=== PATIENT | male | born 1955 | race Caucasian/White ===

== ENCOUNTER 2020-10-31 13:26 | Inpatient (IN) | payer MEDICARE, MEDICAID ==
[~2020-10-31] VITALS: Ht 162.6 cm; Wt 49.8 kg
[2020-10-31 14:37] LABS: BASO % 0 % (0-3); EOS # 0.4 x10^3/uL (0.0-0.7); EOS % 4 % (0-3); HEMOGLOBIN 12.7 g/dL (13.0-17.5); LYMPH # 0.8 x10^3/uL (1.0-4.8); LYMPH % 8 % (24-48); MEAN CORPUSCULAR HEMOGLOBIN 32 pg (25-35); MEAN CORPUSCULAR HGB CONC 33 g/dL (31-37); MEAN CORPUSCULAR VOLUME 94 fL (79-100); MONO # 0.7 x10^3/uL (0.0-1.1); MONO % 8 % (0-9); NEUT # 7.5 x10^3uL (1.8-7.7); NEUT % 80 % (31-73); PLATELET COUNT 242 x10^3/uL (140-400); RED BLOOD COUNT 4.03 x10^6/uL (4.30-5.70); RED CELL DISTRIBUTION WIDTH 14.1 % (11.5-14.5); WHITE BLOOD COUNT 9.4 x10^3/uL (4.0-11.0)
[2020-10-31 14:38] LABS: CALCIUM 8.6 mg/dL (8.5-10.1); CREATININE 0.6 mg/dL (0.7-1.3); GFR 135.6; POTASSIUM 3.9 mmol/L (3.5-5.1)
[2020-10-31 14:44] LABS: ALBUMIN 2.9 g/dL (3.4-5.0); ALBUMIN/GLOBULIN RATIO 0.8 (1.0-1.7); MAGNESIUM 1.8 mg/dL (1.8-2.4); TOTAL BILIRUBIN 0.2 mg/dL (0.2-1.0); TOTAL PROTEIN 6.7 g/dL (6.4-8.2)
[2020-10-31 14:58] LABS: BILIRUBIN,URINE SMALL (NEG); CLARITY,URINE CLEAR; COLOR,URINE YELLOW; GLUCOSE,URINE NEG (NEG)
[2020-10-31 14:59] LABS: NITRITE,URINE NEG (NEG)
[2020-10-31 15:00] LABS: BACTERIA,URINE 0 /HPF (0-FEW); RBC,URINE OCC /HPF (0-2); SQUAMOUS EPITHELIAL CELL,UR OCC /LPF; WBC,URINE OCC /HPF (0-4)
--- NOTE | 2020-10-31 16:01 | PHYS DOC ---
Past History Past Surgical History: Other (ROYA SKY APRN) General Adult EDM: Chief Complaint: MEDICAL CLEARANCE HPI: HPI: Patient is a 65-year-old male who presents for medical clearance for adult [facility]. Patient denies any pain or any complaints at this time. (ROYA SKY APRN) Review of Systems: Review of Systems: Constitutional: Denies fever or chills Eyes: Denies change in visual acuity HENT: Denies nasal congestion or sore throat Respiratory: Denies cough or shortness of breath Cardiovascular: Denies chest pain or edema GI: Denies abdominal pain, nausea, vomiting, bloody stools or diarrhea : Denies dysuria Musculoskeletal: Denies back pain or joint pain Integument: Denies rash Neurologic: Denies headache, focal weakness or sensory changes Endocrine: Denies polyuria or polydipsia Lymphatic: Denies swollen glands Psychiatric: Denies depression or anxiety (ROYA SKY APRN) Allergies: Allergies: Allergies Coded Allergies Type Severity Reaction Last Updated Verified diazepam Allergy Unknown 10/31/20 Yes quetiapine Allergy Unknown 10/31/20 Yes (ROYA SKY APRN) Physical Exam: PE: Constitutional: Well developed, well nourished, no acute distress, non-toxic appearance. [] HENT: Normocephalic, atraumatic, bilateral external ears normal, oropharynx moist, no oral exudates, nose normal. [] Eyes: PERRLA, EOMI, conjunctiva normal, no discharge. [] Neck: Normal range of motion, no tenderness, supple, no stridor. [] Cardiovascular:Heart rate regular rhythm, no murmur [] Lungs & Thorax: Bilateral breath sounds clear to auscultation [] Abdomen: Bowel sounds normal, soft, no tenderness, no masses, no pulsatile masses. [] Skin: Warm, dry, no erythema, no rash. [] Back: No tenderness, no CVA tenderness. [] Extremities: No tenderness, no cyanosis, no clubbing, ROM intact, no edema. [] Neurologic: Alert and oriented X 3, normal motor function, normal sensory function, no focal deficits noted. [] Psychologic: Affect normal, judgement normal, mood normal. [] (ROYA SKY APRN) Current Patient Data: Labs: Laboratory Tests Test 10/31/20 14:09 10/31/20 14:10 White Blood Count 9.4 x10^3/uL (4.0-11.0) Red Blood Count 4.03 x10^6/uL (4.30-5.70) L Hemoglobin 12.7 g/dL (13.0-17.5) L Hematocrit 38.0 % (39.0-53.0) L Mean Corpuscular Volume 94 fL (79-100) Mean Corpuscular Hemoglobin 32 pg (25-35) Mean Corpuscular Hemoglobin Concent 33 g/dL (31-37) Red Cell Distribution Width 14.1 % (11.5-14.5) Platelet Count 242 x10^3/uL (140-400) Neutrophils (%) (Auto) 80 % (31-73) H Lymphocytes (%) (Auto) 8 % (24-48) L Monocytes (%) (Auto) 8 % (0-9) Eosinophils (%) (Auto) 4 % (0-3) H Basophils (%) (Auto) 0 % (0-3) Neutrophils # (Auto) 7.5 x10^3uL (1.8-7.7) Lymphocytes # (Auto) 0.8 x10^3/uL (1.0-4.8) L Monocytes # (Auto) 0.7 x10^3/uL (0.0-1.1) Eosinophils # (Auto) 0.4 x10^3/uL (0.0-0.7) Basophils # (Auto) 0.0 x10^3/uL (0.0-0.2) Sodium Level 140 mmol/L (136-145) Potassium Level 3.9 mmol/L (3.5-5.1) Chloride Level 102 mmol/L (98-107) Carbon Dioxide Level 30 mmol/L (21-32) Anion Gap 8 (6-14) Blood Urea Nitrogen 12 mg/dL (8-26) Creatinine 0.6 mg/dL (0.7-1.3) L Estimated GFR (Cockcroft-Gault) 135.6 BUN/Creatinine Ratio 20 (6-20) Glucose Level 98 mg/dL (70-99) Calcium Level 8.6 mg/dL (8.5-10.1) Magnesium Level 1.8 mg/dL (1.8-2.4) Total Bilirubin 0.2 mg/dL (0.2-1.0) Aspartate Amino Transferase (AST) 53 U/L (15-37) H Alanine Aminotransferase (ALT) 36 U/L (16-63) Alkaline Phosphatase 117 U/L (46-116) H Total Protein 6.7 g/dL (6.4-8.2) Albumin 2.9 g/dL (3.4-5.0) L Albumin/Globulin Ratio 0.8 (1.0-1.7) L Urine Collection Type Void Urine Color Yellow Urine Clarity Clear Urine pH 6.5 Urine Specific [place] 1.015 Urine Protein Neg (NEG-TRACE) Urine Glucose (UA) Neg mg/dL (NEG) Urine Ketones (Stick) 15 mg/dL (NEG) Urine Blood Neg (NEG) Urine Nitrite Neg (NEG) Urine Bilirubin Small (NEG) Urine Urobilinogen Dipstick 2.0 mg/dL (0.2 mg/dL) Urine Leukocyte Esterase Neg (NEG) Urine RBC Occ /HPF (0-2) Urine WBC Occ /HPF (0-4) Urine Squamous Epithelial Cells Occ /LPF Urine Bacteria 0 /HPF (0-FEW) Urine Mucus Slight /LPF Vital Signs: Vital Signs Date Time Temp Pulse Resp B/P (MAP) Pulse Ox O2 Delivery O2 Flow Rate FiO2 10/31/20 15:50 70 18 99/68 (78) 96 10/31/20 13:47 97.6 Room Air (ROYA SKY APRN) EKG: EKG: [] (ROYA SKY APRN) Radiology/Procedures: Radiology/Procedures: [] (ROYA SKY APRN) Heart Score: C/O Chest Pain: No Risk Factors: Risk Factors: DM, Current or recent (<one month) smoker, HTN, HLP, family history of CAD, obesity. Risk Scores: Score 0 - 3: 2.5% MACE over next 6 weeks - Discharge Home Score 4 - 6: 20.3% MACE over next 6 weeks - Admit for Clinical Observation Score 7 - 10: 72.7% MACE over next 6 weeks - Early Invasive Strategies (ROYA SKY APRN) Course & Med Decision Making: Course & Med Decision Making Pertinent Labs and Imaging studies reviewed. (See chart for details) [] 65-year-old male presents with medical clearance for adult [facility] unit. Patient's denying any complaints or any pain at this time. All labs are unremarkable. Patient's EKG shows sinus rhythm. Patient is medically cleared and able to be admitted to [facility]. (ROYA SKY APRN) Dragon Disclaimer: Dragon Disclaimer: This electronic medical record was generated, in whole or in part, using a voice recognition dictation system. (ROYA SKY APRN) Attending Co-Sign The patient was seen and interviewed as well as examined at the bedside. The chart was reviewed. The case was discussed. Agree with the plan of care. (JOSI IVEY DO) Departure Departure: Impression: Primary Impression: Medical clearance for psychiatric admission Disposition: HOME / SELF CARE / HOMELESS Condition: STABLE Referrals: SHERIF ALEJO DO (PCP) ROYA SKY APRN Oct 31, 2020 16:01 JOSI IVEY DO Nov 04, 2020 11:19
[2020-10-31] MEDS ORDERED: DIVA250T4 PO (16:10)
[2020-10-31] MEDS ORDERED: VENL37.5 PO (16:10)
[2020-10-31] MEDS ORDERED: GABA100C81 PO (16:10)
[2020-10-31] MEDS ORDERED: SERT25TA PO (16:10)
[2020-10-31] MEDS ORDERED: PHEN100C4 PO (16:10)
[2020-10-31] MEDS ORDERED: DEXA4TAB63 PO (16:10)
[2020-10-31] MEDS ORDERED: MIRT7.5T8 PO (16:10)
[2020-10-31] MEDS ORDERED: MORP-15 PO (16:10)
[2020-10-31] MEDS ORDERED: DONE5TAB7 PO (16:10)
[2020-10-31] MEDS ORDERED: ASPI-630 PO (16:10)
[2020-10-31] MEDS ORDERED: MAGNESIUM HYDROXIDE 2,400 MG/30 ML ORAL.SUSP. PO PRN (16:15)
[2020-10-31] MEDS ORDERED: MAG HYDROX/AL HYDROX/SIMETH 30 ML ORAL.SUSP PO PRN (16:15)
[2020-10-31] MEDS ORDERED: METHYL SALICYLATE/MENTHOL TOPICAL OINTMENT 57GM TUBE. TP PRN (16:15)
[2020-10-31 16:25] VITALS: BP 107/70
--- NOTE | 2020-10-31 16:54 | EKG ---
[address] [address] Test Date: 2020-10-31 Test Time: 14:00:59 Pat Name: KEN BECERRIL Department: Room: Gender: M [employer]: RACHAEL : 1955 Requested By: ROYA SKY Order Number: [id number] Reading MD: Measurements Intervals [place] Rate: 75 P: 47 NJ: 138 QRS: 59 QRSD: 88 T: 54 QT: 388 QTc: 436 Interpretive Statements SINUS RHYTHM VENTRICULAR PREMATURE COMPLEX(ES) LOW LIMB LEAD VOLTAGE ABNORMAL ECG RI6.02 No previous ECG available for comparison
[2020-10-31] MEDS: NICOTINE 14MG PATCH. TD SCH (17:30)
[2020-10-31] MEDS: DIVALPROEX SODIUM 250 MG TABLET.DR. PO SCH ×2 (17:53→20:11)
[2020-10-31] MEDS: GABAPENTIN 100 MG CAPSULE. PO SCH (20:09)
[2020-10-31] MEDS: MORPHINE ER 30 MG TABLET.ER PO SCH (20:10)
[2020-10-31] MEDS: MORPHINE ER 15 MG TABLET.ER PO SCH (20:10)
[2020-10-31] MEDS: MIRTAZAPINE 7.5 MG TABLET. PO SCH (20:11)
[2020-10-31] MEDS: PHENYTOIN SODIUM EXTENDED 100 MG CAPSULE PO SCH (20:11)
[2020-10-31] MEDS: DONEPEZIL HCL 5 MG TABLET. PO SCH (20:12)
[2020-10-31] MEDS: DEXAMETHASONE 4 MG TABLET PO SCH (21:00)
[2020-11-01 00:24] LABS: THYROXINE 4.1 ug/dL (4.5-12.0)
[2020-11-01 05:41] VITALS: BP 104/69
[2020-11-01] MEDS ORDERED: SERTRALINE 25 MG TABLET. PO SCH (09:00)
[2020-11-01] MEDS: DEXAMETHASONE 4 MG TABLET PO SCH ×2 (09:00→20:55)
[2020-11-01] MEDS: ASPIRIN CHEWABLE 81 MG TABLET. PO SCH (09:53)
[2020-11-01] MEDS: GABAPENTIN 100 MG CAPSULE. PO SCH ×3 (09:53→20:54)
[2020-11-01] MEDS: NICOTINE 14MG PATCH. TD SCH (09:54)
[2020-11-01] MEDS: PHENYTOIN SODIUM EXTENDED 100 MG CAPSULE PO SCH ×2 (09:55→20:54)
[2020-11-01] MEDS: DIVALPROEX SODIUM 250 MG TABLET.DR. PO SCH ×4 (09:55→20:56)
[2020-11-01] MEDS: VENLAFAXINE XR 37.5 MG CAP.ER.24H. PO SCH (09:55)
[2020-11-01] MEDS: MORPHINE ER 30 MG TABLET.ER PO SCH ×2 (09:56→20:55)
[2020-11-01] MEDS: MORPHINE ER 15 MG TABLET.ER PO SCH ×2 (09:57→20:55)
[2020-11-01 15:31] VITALS: BP 90/64
[2020-11-01 19:14] LABS: THYROID STIM HORMONE (TSH) 2.516 uIU/mL (0.358-3.740)
[2020-11-01] MEDS: DONEPEZIL HCL 5 MG TABLET. PO SCH (20:55)
[2020-11-01] MEDS: MIRTAZAPINE 7.5 MG TABLET. PO SCH (20:56)
[2020-11-01] MEDS: hydrOXYzine PAMOATE 25 MG CAPSULE PO SCH (20:56)
--- NOTE | 2020-11-01 22:19 | PDOC ---
Exam Note: Adams Note: Please also refer to the separate dictated note~for this date of service dictated separately.~Patient seen individually. Discussed the patient with Nursing staff reviewed the chart.~Reviewed interim history and current functioning. Reviewed vital signs,~Labs/ Radiology~and current medications noted below. Continue current treatment with the changes noted in the dictated addendum note Assessment: Vital Signs/I&O: Vital Signs Date Time Temp Pulse Resp B/P (MAP) Pulse Ox O2 Delivery O2 Flow Rate FiO2 11/01/20 20:55 95 11/01/20 15:31 97.5 67 16 90/64 (73) 11/01/20 14:19 Room Air I & O 10/31/20 10/31/20 11/01/20 15:00 23:00 07:00 Intake Total 720 ml Balance 720 ml Current Medications: Meds: Current Medications Medications (Trade) Dose Ordered Sig/Guillermo Route PRN Reason Start Time Stop Time Status Last Admin Dose Admin Aspirin (Aspirin Chewable) 81 mg DAILY PO 11/01/20 09:00 11/01/20 09:53 Sertraline HCl (Zoloft) 25 mg DAILY PO 11/01/20 09:00 11/01/20 17:15 DC 11/01/20 09:55 Venlafaxine HCl (Effexor Xr) 75 mg DAILY PO 11/01/20 09:00 11/01/20 09:55 Hydroxyzine Pamoate (Vistaril) 25 mg TID PO 11/01/20 21:00 11/01/20 20:56 I have reviewed the current psychotropics carefully including drug interactions. Risk benefit ratio favors no change other than as noted in my dictated progress note. Diagnosis: Problems: (1) Chronic schizoaffective disorder (2) Schizoaffective disorder VIANNEY HAWLEY MD Nov 01, 2020 22:19
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
[2020-11-02 00:07] LABS: HEMOGLOBIN A1C 5.4 % (4.8-5.6)
[2020-11-02 05:17] VITALS: BP 90/57
[2020-11-02 06:51] LABS: VAL ACID 23 mcg/mL (50-100)
--- NOTE | 2020-11-02 08:16 | PDOC ---
Exam Note: Adams Note: Late entry for 10/31/2020. Please also refer to the separate dictated note~for this date of service dictated separately.~Patient seen individually. Discussed the patient with Nursing staff reviewed the chart.~Reviewed interim history and current functioning. Reviewed vital signs,~Labs/ Radiology~and current medic ations noted below. Continue current treatment with the changes noted in the dictated addendum note Assessment: Vital Signs/I&O: Vital Signs Date Time Temp Pulse Resp B/P (MAP) Pulse Ox O2 Delivery O2 Flow Rate FiO2 11/02/20 05:17 97.7 85 16 90/57 (68) 96 Room Air I & O 11/01/20 11/01/20 11/02/20 15:00 23:00 07:00 Intake Total 660 ml 720 ml Balance 660 ml 720 ml Labs: Laboratory Tests Test 11/02/20 05:57 Phenytoin (Dilantin) Level 12.0 mcg/mL (10.0-20.0) Phenytoin Last Dose Date 11/01/20 Phenytoin Last Dose Time 2100 Valproic Acid Level 23 mcg/mL (50-100) L Valproic Acid Last Dose Date 11/01/20 Valproic Acid Last Dose Time 2100 Current Medications: Meds: Current Medications Medications (Trade) Dose Ordered Sig/Guillermo Route PRN Reason Start Time Stop Time Status Last Admin Dose Admin Aspirin (Aspirin Chewable) 81 mg DAILY PO 11/01/20 09:00 11/01/20 09:53 Sertraline HCl (Zoloft) 25 mg DAILY PO 11/01/20 09:00 11/01/20 17:15 DC 11/01/20 09:55 Venlafaxine HCl (Effexor Xr) 75 mg DAILY PO 11/01/20 09:00 11/01/20 09:55 Hydroxyzine Pamoate (Vistaril) 25 mg TID PO 11/01/20 21:00 11/01/20 20:56 I have reviewed the current psychotropics carefully including drug interactions. Risk benefit ratio favors no change other than as noted in my dictated progress note. Diagnosis: Problems: (1) Schizoaffective disorder (2) Schizoaffective disorder, bipolar type (3) Bipolar disorder, current episode mixed, severe, with psychotic features (4) Anxiety disorder, unspecified (5) Impulse control disorder, unspecified VIANNEY HAWLEY MD 21, 2021 08:16
[2020-11-02] MEDS: ASPIRIN CHEWABLE 81 MG TABLET. PO SCH (08:26)
[2020-11-02] MEDS: DIVALPROEX SODIUM 250 MG TABLET.DR. PO SCH ×2 (08:26→14:10)
[2020-11-02] MEDS: hydrOXYzine PAMOATE 25 MG CAPSULE PO SCH ×3 (08:26→21:05)
[2020-11-02] MEDS: PHENYTOIN SODIUM EXTENDED 100 MG CAPSULE PO SCH ×2 (08:27→21:04)
[2020-11-02] MEDS: GABAPENTIN 100 MG CAPSULE. PO SCH ×3 (08:27→21:04)
[2020-11-02] MEDS: VENLAFAXINE XR 37.5 MG CAP.ER.24H. PO SCH (08:27)
[2020-11-02] MEDS: MORPHINE ER 15 MG TABLET.ER PO SCH ×2 (08:28→21:05)
[2020-11-02] MEDS: DEXAMETHASONE 4 MG TABLET PO SCH ×2 (08:28→21:05)
[2020-11-02] MEDS: MORPHINE ER 30 MG TABLET.ER PO SCH ×2 (08:28→21:06)
[2020-11-02] MEDS: NICOTINE 14MG PATCH. TD SCH (08:29)
--- NOTE | 2020-11-02 08:47 | PDOC ---
Exam Note: Adams Note: This note is a late entry for 11/01/2020 covers elements not covered in my initial note. Subjective: The patient was seen individually in the evening of 11/01/2020 with Justina GANT, discussed and reviewed the chart. He slept 6-1/4 hours previous night. Patient is alert and oriented to himself, place and date of . He does have short-term memory deficits. He is fixated on wanting a cigarette. I had a lengthy discussion with him and very reluctantly he is willing to try some Nicorette gum which we will offer him. He does have history of alcohol abuse in the past probably cognitive deficits secondary to this. He refused breakfast. We will check valproic acid level and Dilantin level given his history of seizures. Review of Systems: Ambulation impaired in wheelchair. No CV, , pulmonary, eye, ENT system symptoms on review. Mental Status Exam: The patient is oriented to himself and situation. Speech has some latency, low in rate and rhythm, low in volume. Abstraction fair. Computation impaired. Language function intact. Mood and affect somewhat depr essed, paranoid. Laboratory Data: Reviewed. Impression: Schizoaffective disorder bipolar type mixed with psychotic features. Anxiety disorder unspecified. Impulse control disorder unspecified. Mild cognitive impairment. Plan: Check valproic acid level. Check Dilantin level. Increase Zoloft from 25 mg a day to 50 mg a day. We will consider stopping the Effexor to avoid u sing SSRIs and SNRIs in combination. Make further adjustments as clinically indicated. Assessment: Vital Signs/I&O: Vital Signs Date Time Temp Pulse Resp B/P (MAP) Pulse Ox O2 Delivery O2 Flow Rate FiO2 11/02/20 08:28 18 Room Air 11/02/20 05:17 97.7 85 90/57 (68) 96 I & O 11/01/20 11/01/20 11/02/20 15:00 23:00 07:00 Intake Total 660 ml 720 ml Balance 660 ml 720 ml Labs: Laboratory Tests Test 11/02/20 05:57 Phenytoin (Dilantin) Level 12.0 mcg/mL (10.0-20.0) Phenytoin Last Dose Date 11/01/20 Phenytoin Last Dose Time 2100 Valproic Acid Level 23 mcg/mL (50-100) L Valproic Acid Last Dose Date 11/01/20 Valproic Acid Last Dose Time 2100 Current Medications: Meds: Laboratory Tests Test 11/02/20 05:57 Phenytoin (Dilantin) Level 12.0 mcg/mL Phenytoin Last Dose Date 11/01/20 Phenytoin Last Dose Time 2100 Valproic Acid (Depakene) Level 23 mcg/mL Valproic Acid Last Dose Date 11/01/20 Valproic Acid Last Dose Time 2100 Current Medications Medications (Trade) Dose Ordered Sig/Guillermo Route PRN Reason Start Time Stop Time Status Last Admin Dose Admin Acetaminophen (Tylenol) 650 mg PRN Q6HRS PRN PO MILD PAIN / TEMP > 100.3'F 10/31/20 16:15 Multi-Ingredient Ointment (Analgesic [place]) 1 ambrocio PRN QID PRN TP MUSCLE PAIN 10/31/20 16:15 Al Hydroxide/Mg Hydroxide (Mylanta Plus Xs) 15 ml PRN AFTMEALHC PRN PO DYSPEPSIA 10/31/20 16:15 Magnesium Hydroxide (Milk Of Magnesia) 2,400 mg PRN QHS PRN PO CONSTIPATION 10/31/20 16:15 Aspirin (Aspirin Chewable) 81 mg DAILY PO 11/01/20 09:00 11/02/20 08:26 Dexamethasone (Decadron) 4 mg BID PO 10/31/20 21:00 11/02/20 08:28 Divalproex Sodium (Depakote) 250 mg QID PO 10/31/20 17:00 11/02/20 08:26 Donepezil HCl (Aricept) 5 mg QHS PO 10/31/20 21:00 11/01/20 20:55 Gabapentin (Neurontin) 200 mg TID PO 10/31/20 21:00 11/02/20 08:27 Mirtazapine (Remeron) 7.5 mg QHS PO 10/31/20 21:00 11/01/20 20:56 Morphine Sulfate (Ms Contin) 15 mg BID PO 10/31/20 21:00 11/02/20 08:28 Phenytoin Sodium (Dilantin) 200 mg BID PO 10/31/20 21:00 11/02/20 08:27 Sertraline HCl (Zoloft) 25 mg DAILY PO 11/01/20 09:00 11/01/20 17:15 DC 11/01/20 09:55 Venlafaxine HCl (Effexor Xr) 75 mg DAILY PO 11/01/20 09:00 11/02/20 08:27 Morphine Sulfate (Ms Contin) 30 mg BID PO 10/31/20 21:00 11/02/20 08:28 Nicotine (Nicoderm Cq 14mg Patch) 1 patch DAILY TD 10/31/20 17:30 11/02/20 08:29 Olanzapine (ZyPREXA ZYDIS) 2.5 mg PRN Q2HR PRN PO PSYCHOSIS 10/31/20 18:30 Sertraline HCl (Zoloft) 50 mg DAILY PO 11/02/20 09:00 11/02/20 08:27 Hydroxyzine Pamoate (Vistaril) 25 mg TID PO 11/01/20 21:00 11/02/20 08:26 Current Medications Medications (Trade) Dose Ordered Sig/Guillermo Route PRN Reason Start Time Stop Time Status Last Admin Dose Admin Aspirin (Aspirin Chewable) 81 mg DAILY PO 11/01/20 09:00 11/02/20 08:26 Sertraline HCl (Zoloft) 25 mg DAILY PO 11/01/20 09:00 11/01/20 17:15 DC 11/01/20 09:55 Venlafaxine HCl (Effexor Xr) 75 mg DAILY PO 11/01/20 09:00 11/02/20 08:27 Sertraline HCl (Zoloft) 50 mg DAILY PO 11/02/20 09:00 11/02/20 08:27 Hydroxyzine Pamoate (Vistaril) 25 mg TID PO 11/01/20 21:00 11/02/20 08:26 I have reviewed the current psychotropics carefully including drug interactions. Risk benefit ratio favors no change other than as noted in my dictated progress note. Diagnosis: Problems: (1) Mild cognitive impairment (2) Schizoaffective disorder, bipolar type (3) Bipolar disorder, current episode mixed, severe, with psychotic features (4) Anxiety disorder, unspecified (5) Impulse control disorder, unspecified VIANNEY HAWLEY MD Nov 02, 2020 08:47
[2020-11-02] MEDS ORDERED: SERTRALINE 25 MG TABLET. PO SCH (09:00)
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
[2020-11-02 15:40] VITALS: BP 97/66
[2020-11-02] MEDS: DIVALPROEX SODIUM 125 MG TABLET.DR. PO SCH ×2 (17:23→21:07)
[2020-11-02] MEDS: ACETAMINOPHEN 325 MG TABLET PO PRN (17:38)
[2020-11-02] MEDS: MIRTAZAPINE 7.5 MG TABLET. PO SCH (21:04)
[2020-11-02] MEDS: DONEPEZIL HCL 5 MG TABLET. PO SCH (21:04)
--- NOTE | 2020-11-02 22:20 | PDOC ---
Exam Note: Adams Note: Please also refer to the separate dictated note~for this date of service dictated separately.~Patient seen individually. Discussed the patient with Nursing staff reviewed the chart.~Reviewed interim history and current functioning. Reviewed vital signs,~Labs/ Radiology~and current medications noted below. Continue current treatment with the changes noted in the dictated addendum note Assessment: Vital Signs/I&O: Vital Signs Date Time Temp Pulse Resp B/P (MAP) Pulse Ox O2 Delivery O2 Flow Rate FiO2 11/02/20 15:40 98.0 65 18 97/66 (76) 98 11/02/20 12:20 Room Air I & O 11/01/20 11/01/20 11/02/20 15:00 23:00 07:00 Intake Total 660 ml 720 ml Balance 660 ml 720 ml Labs: Laboratory Tests Test 11/02/20 05:57 Phenytoin (Dilantin) Level 12.0 mcg/mL (10.0-20.0) Phenytoin Last Dose Date 11/01/20 Phenytoin Last Dose Time 2100 Valproic Acid Level 23 mcg/mL (50-100) L Valproic Acid Last Dose Date 11/01/20 Valproic Acid Last Dose Time 2100 Current Medications: Meds: Laboratory Tests Test 11/02/20 05:57 Phenytoin (Dilantin) Level 12.0 mcg/mL Phenytoin Last Dose Date 11/01/20 Phenytoin Last Dose Time 2100 Valproic Acid (Depakene) Level 23 mcg/mL Valproic Acid Last Dose Date 11/01/20 Valproic Acid Last Dose Time 2100 Current Medications Medications (Trade) Dose Ordered Sig/Guillermo Route PRN Reason Start Time Stop Time Status Last Admin Dose Admin Acetaminophen (Tylenol) 650 mg PRN Q6HRS PRN PO MILD PAIN / TEMP > 100.3'F 10/31/20 16:15 11/02/20 17:38 Multi-Ingredient Ointment (Analgesic [place]) 1 ambrocio PRN QID PRN TP MUSCLE PAIN 10/31/20 16:15 Al Hydroxide/Mg Hydroxide (Mylanta Plus Xs) 15 ml PRN AFTMEALHC PRN PO DYSPEPSIA 10/31/20 16:15 Magnesium Hydroxide (Milk Of Magnesia) 2,400 mg PRN QHS PRN PO CONSTIPATION 10/31/20 16:15 Aspirin (Aspirin Chewable) 81 mg DAILY PO 11/01/20 09:00 11/02/20 08:26 Dexamethasone (Decadron) 4 mg BID PO 10/31/20 21:00 11/02/20 21:05 Divalproex Sodium (Depakote) 250 mg QID PO 10/31/20 17:00 11/02/20 15:56 DC 11/02/20 14:10 Donepezil HCl (Aricept) 5 mg QHS PO 10/31/20 21:00 11/02/20 21:04 Gabapentin (Neurontin) 200 mg TID PO 10/31/20 21:00 11/02/20 21:04 Mirtazapine (Remeron) 7.5 mg QHS PO 10/31/20 21:00 11/02/20 21:04 Morphine Sulfate (Ms Contin) 15 mg BID PO 10/31/20 21:00 11/02/20 21:05 Phenytoin Sodium (Dilantin) 200 mg BID PO 10/31/20 21:00 11/02/20 21:04 Sertraline HCl (Zoloft) 25 mg DAILY PO 11/01/20 09:00 11/01/20 17:15 DC 11/01/20 09:55 Venlafaxine HCl (Effexor Xr) 75 mg DAILY PO 11/01/20 09:00 11/02/20 08:27 Morphine Sulfate (Ms Contin) 30 mg BID PO 10/31/20 21:00 11/02/20 21:06 Nicotine (Nicoderm Cq 14mg Patch) 1 patch DAILY TD 10/31/20 17:30 11/02/20 08:29 Olanzapine (ZyPREXA ZYDIS) 2.5 mg PRN Q2HR PRN PO PSYCHOSIS 10/31/20 18:30 Sertraline HCl (Zoloft) 50 mg DAILY PO 11/02/20 09:00 11/02/20 15:56 DC 11/02/20 08:27 Hydroxyzine Pamoate (Vistaril) 25 mg TID PO 11/01/20 21:00 11/02/20 21:05 Divalproex Sodium (Depakote) 375 mg QID PO 11/02/20 17:00 11/02/20 21:07 Current Medications Medications (Trade) Dose Ordered Sig/Guillermo Route PRN Reason Start Time Stop Time Status Last Admin Dose Admin Sertraline HCl (Zoloft) 50 mg DAILY PO 11/02/20 09:00 11/02/20 15:56 DC 11/02/20 08:27 Divalproex Sodium (Depakote) 375 mg QID PO 11/02/20 17:00 11/02/20 21:07 I have reviewed the current psychotropics carefully including drug interactions. Risk benefit ratio favors no change other than as noted in my dictated progress note. Diagnosis: Problems: (1) Schizoaffective disorder, bipolar type (2) Impulse control disorder, unspecified (3) Anxiety disorder, unspecified (4) Bipolar disorder, current episode mixed, severe, with psychotic features (5) Mild cognitive impairment VIANNEY HAWLEY MD Nov 02, 2020 22:20
[2020-11-03 05:47] VITALS: BP 105/59
[2020-11-03] MEDS: ASPIRIN CHEWABLE 81 MG TABLET. PO SCH (08:17)
[2020-11-03] MEDS: NICOTINE 14MG PATCH. TD SCH (08:17)
[2020-11-03] MEDS: DIVALPROEX SODIUM 125 MG TABLET.DR. PO SCH ×4 (08:18→20:42)
[2020-11-03] MEDS: DEXAMETHASONE 4 MG TABLET PO SCH ×2 (08:18→20:42)
[2020-11-03] MEDS: GABAPENTIN 100 MG CAPSULE. PO SCH ×3 (08:18→20:42)
[2020-11-03] MEDS: PHENYTOIN SODIUM EXTENDED 100 MG CAPSULE PO SCH ×2 (08:19→20:42)
[2020-11-03] MEDS: hydrOXYzine PAMOATE 25 MG CAPSULE PO SCH ×3 (08:20→20:42)
[2020-11-03] MEDS: VENLAFAXINE XR 37.5 MG CAP.ER.24H. PO SCH (08:20)
[2020-11-03] MEDS: MORPHINE ER 15 MG TABLET.ER PO SCH ×3 (08:20→20:43)
[2020-11-03] MEDS: MORPHINE ER 30 MG TABLET.ER PO SCH ×2 (09:23→20:43)
[2020-11-03] MEDS: ACETAMINOPHEN 325 MG TABLET PO PRN ×2 (09:59→17:18)
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
[2020-11-03 15:47] VITALS: BP 112/70
[2020-11-03] MEDS: MIRTAZAPINE 7.5 MG TABLET. PO SCH (20:42)
[2020-11-03] MEDS: DONEPEZIL HCL 5 MG TABLET. PO SCH (20:42)
--- NOTE | 2020-11-03 21:59 | PDOC ---
Exam Note: Adams Note: Please also refer to the separate dictated note~for this date of service dictated separately.~Patient seen individually. Discussed the patient with Nursing staff reviewed the chart.~Reviewed interim history and current functioning. Reviewed vital signs,~Labs/ Radiology~and current medications noted below. Continue current treatment with the changes noted in the dictated addendum note Assessment: Vital Signs/I&O: Vital Signs Date Time Temp Pulse Resp B/P (MAP) Pulse Ox O2 Delivery O2 Flow Rate FiO2 11/03/20 15:47 96.7 74 18 112/70 (84) 94 11/03/20 08:20 Room Air I & O 11/02/20 11/02/20 11/03/20 15:00 23:00 07:00 Intake Total 680 ml 710 ml Balance 680 ml 710 ml Current Medications: Meds: Current Medications Medications (Trade) Dose Ordered Sig/Guillermo Route PRN Reason Start Time Stop Time Status Last Admin Dose Admin Acetaminophen (Tylenol) 650 mg PRN Q6HRS PRN PO MILD PAIN / TEMP > 100.3'F 10/31/20 16:15 11/03/20 17:18 Multi-Ingredient Ointment (Analgesic [place]) 1 ambrocio PRN QID PRN TP MUSCLE PAIN 10/31/20 16:15 Al Hydroxide/Mg Hydroxide (Mylanta Plus Xs) 15 ml PRN AFTMEALHC PRN PO DYSPEPSIA 10/31/20 16:15 Magnesium Hydroxide (Milk Of Magnesia) 2,400 mg PRN QHS PRN PO CONSTIPATION 10/31/20 16:15 Aspirin (Aspirin Chewable) 81 mg DAILY PO 11/01/20 09:00 11/03/20 08:17 Dexamethasone (Decadron) 4 mg BID PO 10/31/20 21:00 11/03/20 20:42 Divalproex Sodium (Depakote) 250 mg QID PO 10/31/20 17:00 11/02/20 15:56 DC 11/02/20 14:10 Donepezil HCl (Aricept) 5 mg QHS PO 10/31/20 21:00 11/03/20 20:42 Gabapentin (Neurontin) 200 mg TID PO 10/31/20 21:00 11/03/20 20:42 Mirtazapine (Remeron) 7.5 mg QHS PO 10/31/20 21:00 11/03/20 20:42 Morphine Sulfate (Ms Contin) 15 mg BID PO 10/31/20 21:00 11/03/20 20:43 Phenytoin Sodium (Dilantin) 200 mg BID PO 10/31/20 21:00 11/03/20 20:42 Sertraline HCl (Zoloft) 25 mg DAILY PO 11/01/20 09:00 11/01/20 17:15 DC 11/01/20 09:55 Venlafaxine HCl (Effexor Xr) 75 mg DAILY PO 11/01/20 09:00 11/03/20 08:20 Morphine Sulfate (Ms Contin) 30 mg BID PO 10/31/20 21:00 11/03/20 20:43 Nicotine (Nicoderm Cq 14mg Patch) 1 patch DAILY TD 10/31/20 17:30 11/03/20 08:17 Olanzapine (ZyPREXA ZYDIS) 2.5 mg PRN Q2HR PRN PO PSYCHOSIS 10/31/20 18:30 Sertraline HCl (Zoloft) 50 mg DAILY PO 11/02/20 09:00 11/02/20 15:56 DC 11/02/20 08:27 Hydroxyzine Pamoate (Vistaril) 25 mg TID PO 11/01/20 21:00 11/03/20 20:42 Divalproex Sodium (Depakote) 375 mg QID PO 11/02/20 17:00 11/03/20 20:42 I have reviewed the current psychotropics carefully including drug interactions. Risk benefit ratio favors no change other than as noted in my dictated progress note. Diagnosis: Problems: (1) Schizoaffective disorder, bipolar type (2) Impulse control disorder, unspecified (3) Anxiety disorder, unspecified (4) Bipolar disorder, current episode mixed, severe, with psychotic features (5) Mild cognitive impairment VIANNEY HAWLEY MD Nov 03, 2020 21:59
[2020-11-04 06:42] VITALS: BP 94/62
--- NOTE | 2020-11-04 08:37 | PDOC ---
Exam Note: Adams Note: This note is a late entry for 11/02/2020 covers elements not covered in my initial note. Subjective: The patient was seen individually in the evening of 11/02/2020 with Justina GANT, discussed and reviewed the chart. He slept 3 hours previous night. Overall the patient remains obsessed with wanting cigarettes. I had a lengthy discussion with him in his room and offered nicotine gum and the Nicorette patch and he is insisting that if he has one packet of cigarettes then he will accept the Nicorette gum after that. Valproic acid level subtherapeutic at 23. Dilant in is 12 therapeutic. We reviewed his history from the past. Medically he has been on hospice care due to his malignancy but currently not on hospice care. Review of Systems: Ambulation impaired in wheelchair. No CV, , pulmonary, eye, ENT system symptoms on review. Mental Status Exam: The patient is oriented to himself and situation. Speech coherent, low in volume. Abstraction fair. Computation impaired. Language function intact. Attention span short. He is quite obsessive and anxious about the smoking as noted. Mood remains somewhat labile. No active suicidal or homicidal ideation. Laboratory Data: Reviewed. Impression: Schizoaffective disorder bipolar type mixed with psychotic features. Anxiety disorder unspecified. Impulse control disorder unspecified. Mild cognitive impairment. Plan: Increase Depakote from 250 mg 4 times a day to 375 mg 4 times a day. C heck CBC, CMP, valproic acid level in 3 days. He is on a combination of Effexor and Zoloft and we will stop the Zoloft to avoid any serotonergic syndrome symptoms. Maintain Aricept, Remeron, gabapentin, Dilantin at current dosage. Adjust further as clinically indicated. Assessment: Vital Signs/I&O: Vital Signs Date Time Temp Pulse Resp B/P (MAP) Pulse Ox O2 Delivery O2 Flow Rate FiO2 11/04/20 06:42 97.4 50 18 94/62 (73) 99 Room Air I & O 11/03/20 11/03/20 11/04/20 15:00 23:00 07:00 Intake Total 840 ml 560 ml Balance 840 ml 560 ml Current Medications: Meds: Current Medications Medications (Trade) Dose Ordered Sig/Guillermo Route PRN Reason Start Time Stop Time Status Last Admin Dose Admin Acetaminophen (Tylenol) 650 mg PRN Q6HRS PRN PO MILD PAIN / TEMP > 100.3'F 10/31/20 16:15 11/03/20 17:18 Multi-Ingredient Ointment (Analgesic [place]) 1 ambrocio PRN QID PRN TP MUSCLE PAIN 10/31/20 16:15 Al Hydroxide/Mg Hydroxide (Mylanta Plus Xs) 15 ml PRN AFTMEALHC PRN PO DYSPEPSIA 10/31/20 16:15 Magnesium Hydroxide (Milk Of Magnesia) 2,400 mg PRN QHS PRN PO CONSTIPATION 10/31/20 16:15 Aspirin (Aspirin Chewable) 81 mg DAILY PO 11/01/20 09:00 11/03/20 08:17 Dexamethasone (Decadron) 4 mg BID PO 10/31/20 21:00 11/03/20 20:42 Divalproex Sodium (Depakote) 250 mg QID PO 10/31/20 17:00 11/02/20 15:56 DC 11/02/20 14:10 Donepezil HCl (Aricept) 5 mg QHS PO 10/31/20 21:00 11/03/20 20:42 Gabapentin (Neurontin) 200 mg TID PO 10/31/20 21:00 11/03/20 20:42 Mirtazapine (Remeron) 7.5 mg QHS PO 10/31/20 21:00 11/03/20 20:42 Morphine Sulfate (Ms Contin) 15 mg BID PO 10/31/20 21:00 11/03/20 20:43 Phenytoin Sodium (Dilantin) 200 mg BID PO 10/31/20 21:00 11/03/20 20:42 Sertraline HCl (Zoloft) 25 mg DAILY PO 11/01/20 09:00 11/01/20 17:15 DC 11/01/20 09:55 Venlafaxine HCl (Effexor Xr) 75 mg DAILY PO 11/01/20 09:00 11/03/20 08:20 Morphine Sulfate (Ms Contin) 30 mg BID PO 10/31/20 21:00 11/03/20 20:43 Nicotine (Nicoderm Cq 14mg Patch) 1 patch DAILY TD 10/31/20 17:30 11/03/20 22:25 DC 11/03/20 08:17 Olanzapine (ZyPREXA ZYDIS) 2.5 mg PRN Q2HR PRN PO PSYCHOSIS 10/31/20 18:30 Sertraline HCl (Zoloft) 50 mg DAILY PO 11/02/20 09:00 11/02/20 15:56 DC 11/02/20 08:27 Hydroxyzine Pamoate (Vistaril) 25 mg TID PO 11/01/20 21:00 11/03/20 20:42 Divalproex Sodium (Depakote) 375 mg QID PO 11/02/20 17:00 11/03/20 20:42 Nicotine (Nicoderm Cq 21mg Patch) 1 patch DAILY TD 11/04/20 09:00 I have reviewed the current psychotropics carefully including drug interactions. Risk benefit ratio favors no change other than as noted in my dictated progress note. Diagnosis: Problems: (1) Schizoaffective disorder, bipolar type (2) Impulse control disorder, unspecified (3) Anxiety disorder, unspecified (4) Bipolar disorder, current episode mixed, severe, with psychotic features (5) Mild cognitive impairment VIANNEY HAWLEY MD Nov 04, 2020 08:37
[2020-11-04] MEDS: GABAPENTIN 100 MG CAPSULE. PO SCH ×3 (08:42→21:51)
[2020-11-04] MEDS: PHENYTOIN SODIUM EXTENDED 100 MG CAPSULE PO SCH ×2 (08:42→21:54)
[2020-11-04] MEDS: hydrOXYzine PAMOATE 25 MG CAPSULE PO SCH ×3 (08:42→21:53)
[2020-11-04] MEDS: DEXAMETHASONE 4 MG TABLET PO SCH ×2 (08:42→21:51)
[2020-11-04] MEDS: DIVALPROEX SODIUM 125 MG TABLET.DR. PO SCH ×4 (08:42→21:00)
[2020-11-04] MEDS: ASPIRIN CHEWABLE 81 MG TABLET. PO SCH (08:42)
[2020-11-04] MEDS: VENLAFAXINE XR 37.5 MG CAP.ER.24H. PO SCH (08:42)
[2020-11-04] MEDS: MORPHINE ER 30 MG TABLET.ER PO SCH ×2 (08:43→21:54)
[2020-11-04] MEDS: NICOTINE 21MG PATCH. TD SCH (08:44)
--- NOTE | 2020-11-04 09:07 | PDOC ---
Exam Note: Adams Note: This note is a late entry for 11/03/2020 covers elements not covered in my initial note. Subjective: The patient was seen individually in the morning of 11/03/2020 for a treatment team meeting with Diana Camacho, Krista Glover (forensic social worker), Mariela, activity therapy and Danita GANT, discussed and reviewed the chart. He slept 4-3/4 hours previous night. The patient has been withdrawn, obsessing about wanting cigarettes. No aggressive behaviors noted. He likes to go outside but very poor social interaction. Review of Systems: Ambulation impaired in wheelchair. No CV, , pulmonary, eye, ENT system symptoms on review. Mental Status Exam: The patient is oriented to himself and situation. Speech coherent, rapid at times, low in volume. Abstraction fair. Computation impaired. Language function intact. Mood and affect somewhat anxious, labile. Laboratory Data: Reviewed. Impression: Schizoaffective disorder bipolar type mixed with psychotic features. Anxiety disorder unspecified. Impulse control disorder unspecified. Mild cognitive impairment. Plan: No change from initial note. We will check valproic acid level on 11/06. Depakote is being increased to 375 mg 4 times a day. Maintain Dilantin at current dosage. Assessment: Vital Signs/I&O: Vital Signs Date Time Temp Pulse Resp B/P (MAP) Pulse Ox O2 Delivery O2 Flow Rate FiO2 11/04/20 08:43 16 99 Room Air 11/04/20 06:42 97.4 50 94/62 (73) I & O 11/03/20 11/03/20 11/04/20 15:00 23:00 07:00 Intake Total 840 ml 560 ml Balance 840 ml 560 ml Current Medications: Meds: Current Medications Medications (Trade) Dose Ordered Sig/Guillermo Route PRN Reason Start Time Stop Time Status Last Admin Dose Admin Acetaminophen (Tylenol) 650 mg PRN Q6HRS PRN PO MILD PAIN / TEMP > 100.3'F 10/31/20 16:15 11/03/20 17:18 Multi-Ingredient Ointment (Analgesic [place]) 1 ambrocio PRN QID PRN TP MUSCLE PAIN 10/31/20 16:15 Al Hydroxide/Mg Hydroxide (Mylanta Plus Xs) 15 ml PRN AFTMEALHC PRN PO DYSPEPSIA 10/31/20 16:15 Magnesium Hydroxide (Milk Of Magnesia) 2,400 mg PRN QHS PRN PO CONSTIPATION 10/31/20 16:15 Aspirin (Aspirin Chewable) 81 mg DAILY PO 11/01/20 09:00 11/04/20 08:42 Dexamethasone (Decadron) 4 mg BID PO 10/31/20 21:00 11/04/20 08:42 Divalproex Sodium (Depakote) 250 mg QID PO 10/31/20 17:00 11/02/20 15:56 DC 11/02/20 14:10 Donepezil HCl (Aricept) 5 mg QHS PO 10/31/20 21:00 11/03/20 20:42 Gabapentin (Neurontin) 200 mg TID PO 10/31/20 21:00 11/04/20 08:42 Mirtazapine (Remeron) 7.5 mg QHS PO 10/31/20 21:00 11/03/20 20:42 Morphine Sulfate (Ms Contin) 15 mg BID PO 10/31/20 21:00 11/03/20 20:43 Phenytoin Sodium (Dilantin) 200 mg BID PO 10/31/20 21:00 11/04/20 08:42 Sertraline HCl (Zoloft) 25 mg DAILY PO 11/01/20 09:00 11/01/20 17:15 DC 11/01/20 09:55 Venlafaxine HCl (Effexor Xr) 75 mg DAILY PO 11/01/20 09:00 11/04/20 08:42 Morphine Sulfate (Ms Contin) 30 mg BID PO 10/31/20 21:00 11/04/20 08:43 Nicotine (Nicoderm Cq 14mg Patch) 1 patch DAILY TD 10/31/20 17:30 11/03/20 22:25 DC 11/03/20 08:17 Olanzapine (ZyPREXA ZYDIS) 2.5 mg PRN Q2HR PRN PO PSYCHOSIS 10/31/20 18:30 Sertraline HCl (Zoloft) 50 mg DAILY PO 11/02/20 09:00 11/02/20 15:56 DC 11/02/20 08:27 Hydroxyzine Pamoate (Vistaril) 25 mg TID PO 11/01/20 21:00 11/04/20 08:42 Divalproex Sodium (Depakote) 375 mg QID PO 11/02/20 17:00 11/04/20 08:42 Nicotine (Nicoderm Cq 21mg Patch) 1 patch DAILY TD 11/04/20 09:00 11/04/20 08:44 Current Medications Medications (Trade) Dose Ordered Sig/Guillermo Route PRN Reason Start Time Stop Time Status Last Admin Dose Admin Nicotine (Nicoderm Cq 21mg Patch) 1 patch DAILY TD 11/04/20 09:00 11/04/20 08:44 I have reviewed the current psychotropics carefully including drug interactions. Risk benefit ratio favors no change other than as noted in my dictated progress note. Diagnosis: Problems: (1) Schizoaffective disorder (2) Chronic schizoaffective disorder (3) Schizoaffective disorder, bipolar type (4) Impulse control disorder, unspecified (5) Anxiety disorder, unspecified (6) Bipolar disorder, current episode mixed, severe, with psychotic features (7) Mild cognitive impairment VIANNEY HAWLEY MD Nov 04, 2020 09:07
[2020-11-04 15:56] VITALS: BP 102/67
[2020-11-04] MEDS: MIRTAZAPINE 15 MG TABLET PO SCH (21:00)
[2020-11-04] MEDS: DONEPEZIL HCL 5 MG TABLET. PO SCH (21:51)
[2020-11-04] MEDS: MORPHINE ER 15 MG TABLET.ER PO SCH (21:52)
[2020-11-04] MEDS: traZODone 50 MG TABLET. PO PRN (21:53)
--- NOTE | 2020-11-04 22:05 | PDOC ---
Exam Note: Adams Note: Please also refer to the separate dictated note~for this date of service dictated separately.~Patient seen individually. Discussed the patient with Nursing staff reviewed the chart.~Reviewed interim history and current functioning. Reviewed vital signs,~Labs/ Radiology~and current medications noted below. Continue current treatment with the changes noted in the dictated addendum note Assessment: Vital Signs/I&O: Vital Signs Date Time Temp Pulse Resp B/P (MAP) Pulse Ox O2 Delivery O2 Flow Rate FiO2 11/04/20 21:54 16 100 Room Air 11/04/20 15:56 97.2 70 102/67 (79) I & O 11/03/20 11/03/20 11/04/20 14:59 22:59 06:59 Intake Total 840 ml 560 ml Balance 840 ml 560 ml Current Medications: Meds: Current Medications Medications (Trade) Dose Ordered Sig/Guillermo Route PRN Reason Start Time Stop Time Status Last Admin Dose Admin Acetaminophen (Tylenol) 650 mg PRN Q6HRS PRN PO MILD PAIN / TEMP > 100.3'F 10/31/20 16:15 11/03/20 17:18 Multi-Ingredient Ointment (Analgesic [place]) 1 ambrocio PRN QID PRN TP MUSCLE PAIN 10/31/20 16:15 Al Hydroxide/Mg Hydroxide (Mylanta Plus Xs) 15 ml PRN AFTMEALHC PRN PO DYSPEPSIA 10/31/20 16:15 Magnesium Hydroxide (Milk Of Magnesia) 2,400 mg PRN QHS PRN PO CONSTIPATION 10/31/20 16:15 Aspirin (Aspirin Chewable) 81 mg DAILY PO 11/01/20 09:00 11/04/20 08:42 Dexamethasone (Decadron) 4 mg BID PO 10/31/20 21:00 11/04/20 21:51 Divalproex Sodium (Depakote) 250 mg QID PO 10/31/20 17:00 11/02/20 15:56 DC 11/02/20 14:10 Donepezil HCl (Aricept) 5 mg QHS PO 10/31/20 21:00 11/04/20 21:51 Gabapentin (Neurontin) 200 mg TID PO 10/31/20 21:00 11/04/20 21:51 Mirtazapine (Remeron) 7.5 mg QHS PO 10/31/20 21:00 11/04/20 18:40 DC 11/03/20 20:42 Morphine Sulfate (Ms Contin) 15 mg BID PO 10/31/20 21:00 11/04/20 21:52 Phenytoin Sodium (Dilantin) 200 mg BID PO 10/31/20 21:00 11/04/20 21:54 Sertraline HCl (Zoloft) 25 mg DAILY PO 11/01/20 09:00 11/01/20 17:15 DC 11/01/20 09:55 Venlafaxine HCl (Effexor Xr) 75 mg DAILY PO 11/01/20 09:00 11/04/20 08:42 Morphine Sulfate (Ms Contin) 30 mg BID PO 10/31/20 21:00 11/04/20 21:54 Nicotine (Nicoderm Cq 14mg Patch) 1 patch DAILY TD 10/31/20 17:30 11/03/20 22:25 DC 11/03/20 08:17 Olanzapine (ZyPREXA ZYDIS) 2.5 mg PRN Q2HR PRN PO PSYCHOSIS 10/31/20 18:30 Sertraline HCl (Zoloft) 50 mg DAILY PO 11/02/20 09:00 11/02/20 15:56 DC 11/02/20 08:27 Hydroxyzine Pamoate (Vistaril) 25 mg TID PO 11/01/20 21:00 11/04/20 21:53 Divalproex Sodium (Depakote) 375 mg QID PO 11/02/20 17:00 11/04/20 21:00 Nicotine (Nicoderm Cq 21mg Patch) 1 patch DAILY TD 11/04/20 09:00 11/04/20 08:44 Mirtazapine (Remeron) 15 mg QHS PO 11/04/20 21:00 11/04/20 21:00 Trazodone HCl (Desyrel) 50 mg PRN QHS PRN PO INSOMNIA, MAY REPEAT X1 11/04/20 18:45 11/04/20 21:53 Current Medications Medications (Trade) Dose Ordered Sig/Guillermo Route PRN Reason Start Time Stop Time Status Last Admin Dose Admin Nicotine (Nicoderm Cq 21mg Patch) 1 patch DAILY TD 11/04/20 09:00 7/23/21 08:44 Mirtazapine (Remeron) 15 mg QHS PO 11/04/20 21:00 11/04/20 21:00 Trazodone HCl (Desyrel) 50 mg PRN QHS PRN PO INSOMNIA, MAY REPEAT X1 11/04/20 18:45 11/04/20 21:53 I have reviewed the current psychotropics carefully including drug interactions. Risk benefit ratio favors no change other than as noted in my dictated progress note. Diagnosis: Problems: (1) Schizoaffective disorder, bipolar type (2) Impulse control disorder, unspecified (3) Anxiety disorder, unspecified (4) Bipolar disorder, current episode mixed, severe, with psychotic features (5) Mild cognitive impairment VIANNEY HAWLEY MD Nov 04, 2020 22:05
[2020-11-05 05:01] VITALS: BP 103/63
[2020-11-05] MEDS: DIVALPROEX SODIUM 125 MG TABLET.DR. PO SCH ×4 (08:15→20:01)
[2020-11-05] MEDS: hydrOXYzine PAMOATE 25 MG CAPSULE PO SCH ×3 (08:15→20:03)
[2020-11-05] MEDS: ASPIRIN CHEWABLE 81 MG TABLET. PO SCH (08:16)
[2020-11-05] MEDS: GABAPENTIN 100 MG CAPSULE. PO SCH ×3 (08:16→20:04)
[2020-11-05] MEDS: VENLAFAXINE XR 37.5 MG CAP.ER.24H. PO SCH (08:16)
[2020-11-05] MEDS: MORPHINE ER 15 MG TABLET.ER PO SCH ×2 (08:17→20:02)
[2020-11-05] MEDS: MORPHINE ER 30 MG TABLET.ER PO SCH ×2 (08:17→20:03)
[2020-11-05] MEDS: PHENYTOIN SODIUM EXTENDED 100 MG CAPSULE PO SCH ×2 (08:18→20:03)
[2020-11-05] MEDS: DEXAMETHASONE 4 MG TABLET PO SCH ×2 (08:18→20:03)
[2020-11-05] MEDS: NICOTINE 21MG PATCH. TD SCH (08:19)
[2020-11-05 15:46] VITALS: BP 93/60
[2020-11-05] MEDS: DONEPEZIL HCL 5 MG TABLET. PO SCH (20:01)
[2020-11-05] MEDS: traZODone 50 MG TABLET. PO PRN (20:03)
[2020-11-05] MEDS: MIRTAZAPINE 15 MG TABLET PO SCH (20:04)
--- NOTE | 2020-11-05 21:57 | PDOC ---
Exam Note: Adams Note: Please also refer to the separate dictated note~for this date of service dictated separately.~Patient seen individually. Discussed the patient with Nursing staff reviewed the chart.~Reviewed interim history and current functioning. Reviewed vital signs,~Labs/ Radiology~and current medications noted below. Continue current treatment with the changes noted in the dictated addendum note Assessment: Vital Signs/I&O: Vital Signs Date Time Temp Pulse Resp B/P (MAP) Pulse Ox O2 Delivery O2 Flow Rate FiO2 11/05/20 15:46 98.0 72 20 93/60 (71) 99 11/05/20 12:30 Room Air I & O 11/04/20 11/04/20 11/05/20 15:00 23:00 07:00 Intake Total 720 ml 600 ml Balance 720 ml 600 ml Current Medications: Meds: Current Medications Medications (Trade) Dose Ordered Sig/Guillermo Route PRN Reason Start Time Stop Time Status Last Admin Dose Admin Acetaminophen (Tylenol) 650 mg PRN Q6HRS PRN PO MILD PAIN / TEMP > 100.3'F 10/31/20 16:15 11/03/20 17:18 Multi-Ingredient Ointment (Analgesic [place]) 1 ambrocio PRN QID PRN TP MUSCLE PAIN 10/31/20 16:15 Al Hydroxide/Mg Hydroxide (Mylanta Plus Xs) 15 ml PRN AFTMEALHC PRN PO DYSPEPSIA 10/31/20 16:15 Magnesium Hydroxide (Milk Of Magnesia) 2,400 mg PRN QHS PRN PO CONSTIPATION 10/31/20 16:15 Aspirin (Aspirin Chewable) 81 mg DAILY PO 11/01/20 09:00 11/05/20 08:16 Dexamethasone (Decadron) 4 mg BID PO 10/31/20 21:00 11/05/20 20:03 Divalproex Sodium (Depakote) 250 mg QID PO 10/31/20 17:00 11/02/20 15:56 DC 11/02/20 14:10 Donepezil HCl (Aricept) 5 mg QHS PO 10/31/20 21:00 11/05/20 20:01 Gabapentin (Neurontin) 200 mg TID PO 10/31/20 21:00 11/05/20 20:04 Mirtazapine (Remeron) 7.5 mg QHS PO 10/31/20 21:00 11/04/20 18:40 DC 11/03/20 20:42 Morphine Sulfate (Ms Contin) 15 mg BID PO 10/31/20 21:00 11/05/20 20:02 Phenytoin Sodium (Dilantin) 200 mg BID PO 10/31/20 21:00 11/05/20 20:03 Sertraline HCl (Zoloft) 25 mg DAILY PO 11/01/20 09:00 11/01/20 17:15 DC 11/01/20 09:55 Venlafaxine HCl (Effexor Xr) 75 mg DAILY PO 11/01/20 09:00 11/05/20 08:16 Morphine Sulfate (Ms Contin) 30 mg BID PO 10/31/20 21:00 11/05/20 20:03 Nicotine (Nicoderm Cq 14mg Patch) 1 patch DAILY TD 10/31/20 17:30 11/03/20 22:25 DC 11/03/20 08:17 Olanzapine (ZyPREXA ZYDIS) 2.5 mg PRN Q2HR PRN PO PSYCHOSIS 10/31/20 18:30 Sertraline HCl (Zoloft) 50 mg DAILY PO 11/02/20 09:00 11/02/20 15:56 DC 11/02/20 08:27 Hydroxyzine Pamoate (Vistaril) 25 mg TID PO 11/01/20 21:00 11/05/20 20:03 Divalproex Sodium (Depakote) 375 mg QID PO 11/02/20 17:00 11/05/20 20:01 Nicotine (Nicoderm Cq 21mg Patch) 1 patch DAILY TD 11/04/20 09:00 11/05/20 08:19 Mirtazapine (Remeron) 15 mg QHS PO 11/04/20 21:00 11/05/20 20:04 Trazodone HCl (Desyrel) 50 mg PRN QHS PRN PO INSOMNIA, MAY REPEAT X1 11/04/20 18:45 11/05/20 20:03 I have reviewed the current psychotropics carefully including drug interactions. Risk benefit ratio favors no change other than as noted in my dictated progress note. Diagnosis: Problems: (1) Schizoaffective disorder, bipolar type (2) Impulse control disorder, unspecified (3) Anxiety disorder, unspecified (4) Bipolar disorder, current episode mixed, severe, with psychotic features (5) Mild cognitive impairment VIANNEY HAWLEY MD Nov 05, 2020 21:57
[2020-11-06 06:16] VITALS: BP 92/55
--- NOTE | 2020-11-06 07:38 | PDOC ---
Exam Note: Adams Note: This note is a late entry for 11/04/2020 covers elements not covered in my initial note. Subjective: The patient was reviewed on telehealth rounds on 11/04/2020 due to the COVID-19 pandemic. There have been 3 patients on the unit that have turned up positive today, 11/04 and they are being transitioned to the [facility] floor per Dr. Rocha. There have also been 2 staff members that have turned up positive for COVID-19 and all the patients are going to be tested weekly for the COVID-19 along with every staff member going forward. I had not had the opportunity to be tested myself and will await completing this before considering [id number] rounds on the unit. Discussed with Miles GANT and reviewed the chart. He slept 2-1/4 hours previous night. The patient has been irritable, repeatedly wanting coffee or tea middle of the night. We reviewed his medical history. 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 Review of Systems: Ambulation impaired in wheelchair. No CV, , pulmonary, eye, ENT system symptoms on review. Mental Status Exam: The patient is oriented to himself and situation. Speech coherent, rapid at times, low in volume. Abstraction fair. Computation impaired. Language function intact. Mood and affect somewhat anxious, labile. Laboratory Data: Reviewed. Impression: Schizoaffective disorder bipolar type mixed with psychotic features. Anxiety disorder unspecified. Impulse control disorder unspecified. Mild cognitive impairment. Plan: No change from initial note. Increase Remeron to 15 mg h.s. for his insomnia. Start trazodone 50 mg h.s. p.r.n. insomnia, may repeat x1. Continue Depakote, Aricept, Effexor along with Vistaril scheduled and Zyprexa p.r.n. He remains on gabapentin and phenytoin. Dilantin level is 12 therapeutic. Assessment: Vital Signs/I&O: Vital Signs Date Time Temp Pulse Resp B/P (MAP) Pulse Ox O2 Delivery O2 Flow Rate FiO2 11/06/20 06:16 97.4 64 18 92/55 (67) 96 11/05/20 12:30 Room Air I & O 11/05/20 11/05/20 11/06/20 15:00 23:00 07:00 Intake Total 1200 ml 720 ml Balance 1200 ml 720 ml Current Medications: Meds: Current Medications Medications (Trade) Dose Ordered Sig/Guillermo Route PRN Reason Start Time Stop Time Status Last Admin Dose Admin Acetaminophen (Tylenol) 650 mg PRN Q6HRS PRN PO MILD PAIN / TEMP > 100.3'F 10/31/20 16:15 11/03/20 17:18 Multi-Ingredient Ointment (Analgesic [place]) 1 ambrocio PRN QID PRN TP MUSCLE PAIN 10/31/20 16:15 Al Hydroxide/Mg Hydroxide (Mylanta Plus Xs) 15 ml PRN AFTMEALHC PRN PO DYSPEPSIA 10/31/20 16:15 Magnesium Hydroxide (Milk Of Magnesia) 2,400 mg PRN QHS PRN PO CONSTIPATION 10/31/20 16:15 Aspirin (Aspirin Chewable) 81 mg DAILY PO 11/01/20 09:00 11/05/20 08:16 Dexamethasone (Decadron) 4 mg BID PO 10/31/20 21:00 11/05/20 20:03 Divalproex Sodium (Depakote) 250 mg QID PO 10/31/20 17:00 11/02/20 15:56 DC 11/02/20 14:10 Donepezil HCl (Aricept) 5 mg QHS PO 10/31/20 21:00 11/05/20 20:01 Gabapentin (Neurontin) 200 mg TID PO 10/31/20 21:00 11/05/20 20:04 Mirtazapine (Remeron) 7.5 mg QHS PO 10/31/20 21:00 11/04/20 18:40 DC 11/03/20 20:42 Morphine Sulfate (Ms Contin) 15 mg BID PO 10/31/20 21:00 11/05/20 20:02 Phenytoin Sodium (Dilantin) 200 mg BID PO 10/31/20 21:00 11/05/20 20:03 Sertraline HCl (Zoloft) 25 mg DAILY PO 11/01/20 09:00 11/01/20 17:15 DC 11/01/20 09:55 Venlafaxine HCl (Effexor Xr) 75 mg DAILY PO 11/01/20 09:00 11/05/20 08:16 Morphine Sulfate (Ms Contin) 30 mg BID PO 10/31/20 21:00 11/05/20 20:03 Nicotine (Nicoderm Cq 14mg Patch) 1 patch DAILY TD 10/31/20 17:30 11/03/20 22:25 DC 11/03/20 08:17 Olanzapine (ZyPREXA ZYDIS) 2.5 mg PRN Q2HR PRN PO PSYCHOSIS 10/31/20 18:30 Sertraline HCl (Zoloft) 50 mg DAILY PO 11/02/20 09:00 11/02/20 15:56 DC 11/02/20 08:27 Hydroxyzine Pamoate (Vistaril) 25 mg TID PO 11/01/20 21:00 11/05/20 20:03 Divalproex Sodium (Depakote) 375 mg QID PO 11/02/20 17:00 11/05/20 20:01 Nicotine (Nicoderm Cq 21mg Patch) 1 patch DAILY TD 11/04/20 09:00 11/05/20 08:19 Mirtazapine (Remeron) 15 mg QHS PO 11/04/20 21:00 11/05/20 20:04 Trazodone HCl (Desyrel) 50 mg PRN QHS PRN PO INSOMNIA, MAY REPEAT X1 11/04/20 18:45 11/05/20 20:03 I have reviewed the current psychotropics carefully including drug interactions. Risk benefit ratio favors no change other than as noted in my dictated progress note. Diagnosis: Problems: (1) Schizoaffective disorder, bipolar type (2) Impulse control disorder, unspecified (3) Anxiety disorder, unspecified (4) Bipolar disorder, current episode mixed, severe, with psychotic features (5) Mild cognitive impairment VIANNEY HAWLEY MD Nov 06, 2020 07:38
[2020-11-06 08:02] LABS: BASO % 1 % (0-3); EOS # 0.4 x10^3/uL (0.0-0.7); EOS % 7 % (0-3); HEMATOCRIT 35.8 % (39.0-53.0); HEMOGLOBIN 11.9 g/dL (13.0-17.5); LYMPH % 18 % (24-48); MEAN CORPUSCULAR HEMOGLOBIN 31 pg (25-35); MEAN CORPUSCULAR HGB CONC 33 g/dL (31-37); MEAN CORPUSCULAR VOLUME 94 fL (79-100); MONO # 0.6 x10^3/uL (0.0-1.1); MONO % 9 % (0-9); NEUT # 3.9 x10^3uL (1.8-7.7); NEUT % 66 % (31-73); PLATELET COUNT 256 x10^3/uL (140-400); RED BLOOD COUNT 3.81 x10^6/uL (4.30-5.70); RED CELL DISTRIBUTION WIDTH 14.3 % (11.5-14.5)
[2020-11-06 08:19] LABS: ALBUMIN 2.4 g/dL (3.4-5.0); ALBUMIN/GLOBULIN RATIO 0.8 (1.0-1.7); ALK PHOS 92 U/L (46-116); ALT (SGPT) 21 U/L (16-63); ANION GAP 3 (6-14); AST (SGOT) 17 U/L (15-37); BLOOD UREA NITROGEN 20 mg/dL (8-26); BUN/CREATININE RATIO 29 (6-20); CALCIUM 8.6 mg/dL (8.5-10.1); CARBON DIOXIDE 34 mmol/L (21-32); CHLORIDE 107 mmol/L (98-107); CREATININE 0.7 mg/dL (0.7-1.3); GFR 113.5; GLUCOSE 80 mg/dL (70-99); POTASSIUM 3.9 mmol/L (3.5-5.1); SODIUM 144 mmol/L (136-145); TOTAL BILIRUBIN 0.1 mg/dL (0.2-1.0); TOTAL PROTEIN 5.6 g/dL (6.4-8.2)
[2020-11-06 08:21] LABS: VAL ACID 28 mcg/mL (50-100)
[2020-11-06] MEDS: DIVALPROEX SODIUM 125 MG TABLET.DR. PO SCH ×4 (08:25→19:49)
[2020-11-06] MEDS: NICOTINE 21MG PATCH. TD SCH (08:25)
[2020-11-06] MEDS: PHENYTOIN SODIUM EXTENDED 100 MG CAPSULE PO SCH ×2 (08:25→19:48)
[2020-11-06] MEDS: ASPIRIN CHEWABLE 81 MG TABLET. PO SCH (08:25)
[2020-11-06] MEDS: GABAPENTIN 100 MG CAPSULE. PO SCH ×3 (08:26→19:49)
[2020-11-06] MEDS: VENLAFAXINE XR 37.5 MG CAP.ER.24H. PO SCH (08:26)
[2020-11-06] MEDS: hydrOXYzine PAMOATE 25 MG CAPSULE PO SCH ×3 (08:26→19:49)
--- NOTE | 2020-11-06 08:28 | PDOC ---
Exam Note: Adams Note: This note is a late entry for 11/05/2020 covers elements not covered in my initial note. Subjective: The patient was reviewed on telehealth rounds on 11/05/2020 due to the COVID-19 pandemic. Discussed with Miles GANT and reviewed the chart. He slept 5-3/4 hours previous night. The patient has had short-term memory deficits. All day he has been wanting to call his step father on the phone which he did and apparently they had somewhat strained conversation. The patient is unable to explain this to me as I questioned him and I will defer to social service staff to address this with him. Valproic acid level is to be checked on 11/06. He has been repeatedly asking for television to be taken out of his closet and seems to have short-term memory deficits. Review of Systems: Ambulation impaired in wheelchair. No CV, , pulmonary, eye, ENT system symptoms on review. Mental Status Exam: The patient is oriented to himself and situation. Speech coherent, rapid at times, low in volume. Abstraction fair. Computation impaired. Language function intact. Mood and affect anxious. Laboratory Data: Reviewed. Impression: Schizoaffective disorder bipolar type mixed with psychotic features. Anxiety disorder unspecified. Impulse control disorder unspecified. Mild cognitive impairment. Plan: No change from initial note. Assessment: Vital Signs/I&O: Vital Signs Date Time Temp Pulse Resp B/P (MAP) Pulse Ox O2 Delivery O2 Flow Rate FiO2 11/06/20 06:16 97.4 64 18 92/55 (67) 96 11/05/20 12:30 Room Air I & O 11/05/20 11/05/20 11/06/20 14:59 22:59 06:59 Intake Total 1200 ml 720 ml Balance 1200 ml 720 ml Labs: Laboratory Tests Test 11/06/20 07:30 Sodium Level 144 mmol/L (136-145) Potassium Level 3.9 mmol/L (3.5-5.1) Chloride Level 107 mmol/L (98-107) Carbon Dioxide Level 34 mmol/L (21-32) H Anion Gap 3 (6-14) L Blood Urea Nitrogen 20 mg/dL (8-26) Creatinine 0.7 mg/dL (0.7-1.3) Estimated GFR (Cockcroft-Gault) 113.5 BUN/Creatinine Ratio 29 (6-20) H Glucose Level 80 mg/dL (70-99) Calcium Level 8.6 mg/dL (8.5-10.1) Total Bilirubin 0.1 mg/dL (0.2-1.0) L Aspartate Amino Transferase (AST) 17 U/L (15-37) Alanine Aminotransferase (ALT) 21 U/L (16-63) Alkaline Phosphatase 92 U/L (46-116) Total Protein 5.6 g/dL (6.4-8.2) L Albumin 2.4 g/dL (3.4-5.0) L Albumin/Globulin Ratio 0.8 (1.0-1.7) L Valproic Acid Level 28 mcg/mL (50-100) L Valproic Acid Last Dose Date 11/05/20 Valproic Acid Last Dose Time 2100 Current Medications: Meds: Laboratory Tests Test 11/06/20 07:30 Sodium Level 144 mmol/L Potassium Level 3.9 mmol/L Chloride Level 107 mmol/L Carbon Dioxide Level 34 mmol/L Anion Gap 3 Blood Urea Nitrogen 20 mg/dL Creatinine 0.7 mg/dL Estimated GFR (Cockcroft-Gault) 113.5 BUN/Creatinine Ratio 29 Glucose Level 80 mg/dL Calcium Level 8.6 mg/dL Total Bilirubin 0.1 mg/dL Aspartate Amino Transf (AST/SGOT) 17 U/L Alanine Aminotransferase (ALT/SGPT) 21 U/L Alkaline Phosphatase 92 U/L Total Protein 5.6 g/dL Albumin 2.4 g/dL Albumin/Globulin Ratio 0.8 Valproic Acid (Depakene) Level 28 mcg/mL Valproic Acid Last Dose Date 11/05/20 Valproic Acid Last Dose Time 2100 Current Medications Medications (Trade) Dose Ordered Sig/Guillermo Route PRN Reason Start Time Stop Time Status Last Admin Dose Admin Acetaminophen (Tylenol) 650 mg PRN Q6HRS PRN PO MILD PAIN / TEMP > 100.3'F 10/31/20 16:15 11/03/20 17:18 Multi-Ingredient Ointment (Analgesic [place]) 1 ambrocio PRN QID PRN TP MUSCLE PAIN 10/31/20 16:15 Al Hydroxide/Mg Hydroxide (Mylanta Plus Xs) 15 ml PRN AFTMEALHC PRN PO DYSPEPSIA 10/31/20 16:15 Magnesium Hydroxide (Milk Of Magnesia) 2,400 mg PRN QHS PRN PO CONSTIPATION 10/31/20 16:15 Aspirin (Aspirin Chewable) 81 mg DAILY PO 11/01/20 09:00 11/05/20 08:16 Dexamethasone (Decadron) 4 mg BID PO 10/31/20 21:00 11/05/20 20:03 Divalproex Sodium (Depakote) 250 mg QID PO 10/31/20 17:00 11/02/20 15:56 DC 11/02/20 14:10 Donepezil HCl (Aricept) 5 mg QHS PO 10/31/20 21:00 11/05/20 20:01 Gabapentin (Neurontin) 200 mg TID PO 10/31/20 21:00 11/05/20 20:04 Mirtazapine (Remeron) 7.5 mg QHS PO 10/31/20 21:00 11/04/20 18:40 DC 11/03/20 20:42 Morphine Sulfate (Ms Contin) 15 mg BID PO 10/31/20 21:00 11/05/20 20:02 Phenytoin Sodium (Dilantin) 200 mg BID PO 10/31/20 21:00 11/05/20 20:03 Sertraline HCl (Zoloft) 25 mg DAILY PO 11/01/20 09:00 11/01/20 17:15 DC 11/01/20 09:55 Venlafaxine HCl (Effexor Xr) 75 mg DAILY PO 11/01/20 09:00 11/05/20 08:16 Morphine Sulfate (Ms Contin) 30 mg BID PO 10/31/20 21:00 11/05/20 20:03 Nicotine (Nicoderm Cq 14mg Patch) 1 patch DAILY TD 10/31/20 17:30 11/03/20 22:25 DC 11/03/20 08:17 Olanzapine (ZyPREXA ZYDIS) 2.5 mg PRN Q2HR PRN PO PSYCHOSIS 10/31/20 18:30 Sertraline HCl (Zoloft) 50 mg DAILY PO 11/02/20 09:00 11/02/20 15:56 DC 11/02/20 08:27 Hydroxyzine Pamoate (Vistaril) 25 mg TID PO 11/01/20 21:00 11/05/20 20:03 Divalproex Sodium (Depakote) 375 mg QID PO 11/02/20 17:00 11/05/20 20:01 Nicotine (Nicoderm Cq 21mg Patch) 1 patch DAILY TD 11/04/20 09:00 11/05/20 08:19 Mirtazapine (Remeron) 15 mg QHS PO 11/04/20 21:00 11/05/20 20:04 Trazodone HCl (Desyrel) 50 mg PRN QHS PRN PO INSOMNIA, MAY REPEAT X1 11/04/20 18:45 11/05/20 20:03 I have reviewed the current psychotropics carefully including drug interactions. Risk benefit ratio favors no change other than as noted in my dictated progress note. Diagnosis: Problems: (1) Schizoaffective disorder, bipolar type (2) Impulse control disorder, unspecified (3) Anxiety disorder, unspecified (4) Bipolar disorder, current episode mixed, severe, with psychotic features (5) Mild cognitive impairment VIANNEY HAWLEY MD Nov 06, 2020 08:27
[2020-11-06] MEDS: MORPHINE ER 30 MG TABLET.ER PO SCH ×2 (08:31→19:48)
[2020-11-06] MEDS: DEXAMETHASONE 4 MG TABLET PO SCH ×2 (08:31→19:49)
[2020-11-06] MEDS: MORPHINE ER 15 MG TABLET.ER PO SCH ×2 (08:31→19:47)
[2020-11-06 16:13] VITALS: BP 100/65
[2020-11-06] MEDS: ACETAMINOPHEN 325 MG TABLET PO PRN (17:33)
[2020-11-06] MEDS: DONEPEZIL HCL 5 MG TABLET. PO SCH (19:49)
[2020-11-06] MEDS: MIRTAZAPINE 15 MG TABLET PO SCH (19:49)
--- NOTE | 2020-11-06 21:54 | PDOC ---
Exam Note: Adams Note: Please also refer to the separate dictated note~for this date of service dictated separately.~Patient seen individually. Discussed the patient with Nursing staff reviewed the chart.~Reviewed interim history and current functioning. Reviewed vital signs,~Labs/ Radiology~and current medications noted below. Continue current treatment with the changes noted in the dictated addendum note Assessment: Vital Signs/I&O: Vital Signs Date Time Temp Pulse Resp B/P (MAP) Pulse Ox O2 Delivery O2 Flow Rate FiO2 11/06/20 19:48 97 11/06/20 16:13 97.4 85 18 100/65 (77) 11/06/20 12:15 Room Air I & O 11/05/20 11/05/20 11/06/20 15:00 23:00 07:00 Intake Total 1200 ml 720 ml Balance 1200 ml 720 ml Labs: Laboratory Tests Test 11/06/20 07:30 White Blood Count 6.0 x10^3/uL (4.0-11.0) Red Blood Count 3.81 x10^6/uL (4.30-5.70) L Hemoglobin 11.9 g/dL (13.0-17.5) L Hematocrit 35.8 % (39.0-53.0) L Mean Corpuscular Volume 94 fL (79-100) Mean Corpuscular Hemoglobin 31 pg (25-35) Mean Corpuscular Hemoglobin Concent 33 g/dL (31-37) Red Cell Distribution Width 14.3 % (11.5-14.5) Platelet Count 256 x10^3/uL (140-400) Neutrophils (%) (Auto) 66 % (31-73) Lymphocytes (%) (Auto) 18 % (24-48) L Monocytes (%) (Auto) 9 % (0-9) Eosinophils (%) (Auto) 7 % (0-3) H Basophils (%) (Auto) 1 % (0-3) Neutrophils # (Auto) 3.9 x10^3uL (1.8-7.7) Lymphocytes # (Auto) 1.0 x10^3/uL (1.0-4.8) Monocytes # (Auto) 0.6 x10^3/uL (0.0-1.1) Eosinophils # (Auto) 0.4 x10^3/uL (0.0-0.7) Basophils # (Auto) 0.0 x10^3/uL (0.0-0.2) Sodium Level 144 mmol/L (136-145) Potassium Level 3.9 mmol/L (3.5-5.1) Chloride Level 107 mmol/L (98-107) Carbon Dioxide Level 34 mmol/L (21-32) H Anion Gap 3 (6-14) L Blood Urea Nitrogen 20 mg/dL (8-26) Creatinine 0.7 mg/dL (0.7-1.3) Estimated GFR (Cockcroft-Gault) 113.5 BUN/Creatinine Ratio 29 (6-20) H Glucose Level 80 mg/dL (70-99) Calcium Level 8.6 mg/dL (8.5-10.1) Total Bilirubin 0.1 mg/dL (0.2-1.0) L Aspartate Amino Transferase (AST) 17 U/L (15-37) Alanine Aminotransferase (ALT) 21 U/L (16-63) Alkaline Phosphatase 92 U/L (46-116) Total Protein 5.6 g/dL (6.4-8.2) L Albumin 2.4 g/dL (3.4-5.0) L Albumin/Globulin Ratio 0.8 (1.0-1.7) L Valproic Acid Level 28 mcg/mL (50-100) L Valproic Acid Last Dose Date 11/05/20 Valproic Acid Last Dose Time 2100 Current Medications: Meds: Laboratory Tests Test 11/06/20 07:30 White Blood Count 6.0 x10^3/uL Red Blood Count 3.81 x10^6/uL Hemoglobin 11.9 g/dL Hematocrit 35.8 % Mean Corpuscular Volume 94 fL Mean Corpuscular Hemoglobin 31 pg Mean Corpuscular Hemoglobin Concent 33 g/dL Red Cell Distribution Width 14.3 % Platelet Count 256 x10^3/uL Neutrophils (%) (Auto) 66 % Lymphocytes (%) (Auto) 18 % Monocytes (%) (Auto) 9 % Eosinophils (%) (Auto) 7 % Basophils (%) (Auto) 1 % Neutrophils # (Auto) 3.9 x10^3uL Lymphocytes # (Auto) 1.0 x10^3/uL Monocytes # (Auto) 0.6 x10^3/uL Eosinophils # (Auto) 0.4 x10^3/uL Basophils # (Auto) 0.0 x10^3/uL Sodium Level 144 mmol/L Potassium Level 3.9 mmol/L Chloride Level 107 mmol/L Carbon Dioxide Level 34 mmol/L Anion Gap 3 Blood Urea Nitrogen 20 mg/dL Creatinine 0.7 mg/dL Estimated GFR (Cockcroft-Gault) 113.5 BUN/Creatinine Ratio 29 Glucose Level 80 mg/dL Calcium Level 8.6 mg/dL Total Bilirubin 0.1 mg/dL Aspartate Amino Transf (AST/SGOT) 17 U/L Alanine Aminotransferase (ALT/SGPT) 21 U/L Alkaline Phosphatase 92 U/L Total Protein 5.6 g/dL Albumin 2.4 g/dL Albumin/Globulin Ratio 0.8 Valproic Acid (Depakene) Level 28 mcg/mL Valproic Acid Last Dose Date 11/05/20 Valproic Acid Last Dose Time 2100 Current Medications Medications (Trade) Dose Ordered Sig/Guillermo Route PRN Reason Start Time Stop Time Status Last Admin Dose Admin Acetaminophen (Tylenol) 650 mg PRN Q6HRS PRN PO MILD PAIN / TEMP > 100.3'F 10/31/20 16:15 11/06/20 17:33 Multi-Ingredient Ointment (Analgesic [place]) 1 ambrocio PRN QID PRN TP MUSCLE PAIN 10/31/20 16:15 Al Hydroxide/Mg Hydroxide (Mylanta Plus Xs) 15 ml PRN AFTMEALHC PRN PO DYSPEPSIA 10/31/20 16:15 Magnesium Hydroxide (Milk Of Magnesia) 2,400 mg PRN QHS PRN PO CONSTIPATION 10/31/20 16:15 Aspirin (Aspirin Chewable) 81 mg DAILY PO 11/01/20 09:00 11/06/20 08:25 Dexamethasone (Decadron) 4 mg BID PO 10/31/20 21:00 11/06/20 19:49 Divalproex Sodium (Depakote) 250 mg QID PO 10/31/20 17:00 11/02/20 15:56 DC 11/02/20 14:10 Donepezil HCl (Aricept) 5 mg QHS PO 10/31/20 21:00 11/06/20 19:49 Gabapentin (Neurontin) 200 mg TID PO 10/31/20 21:00 11/06/20 19:49 Mirtazapine (Remeron) 7.5 mg QHS PO 10/31/20 21:00 11/04/20 18:40 DC 11/03/20 20:42 Morphine Sulfate (Ms Contin) 15 mg BID PO 10/31/20 21:00 11/06/20 19:47 Phenytoin Sodium (Dilantin) 200 mg BID PO 10/31/20 21:00 11/06/20 19:48 Sertraline HCl (Zoloft) 25 mg DAILY PO 11/01/20 09:00 11/01/20 17:15 DC 11/01/20 09:55 Venlafaxine HCl (Effexor Xr) 75 mg DAILY PO 11/01/20 09:00 11/06/20 08:26 Morphine Sulfate (Ms Contin) 30 mg BID PO 10/31/20 21:00 11/06/20 19:48 Nicotine (Nicoderm Cq 14mg Patch) 1 patch DAILY TD 10/31/20 17:30 11/03/20 22:25 DC 11/03/20 08:17 Olanzapine (ZyPREXA ZYDIS) 2.5 mg PRN Q2HR PRN PO PSYCHOSIS 10/31/20 18:30 Sertraline HCl (Zoloft) 50 mg DAILY PO 11/02/20 09:00 11/02/20 15:56 DC 11/02/20 08:27 Hydroxyzine Pamoate (Vistaril) 25 mg TID PO 11/01/20 21:00 11/06/20 19:49 Divalproex Sodium (Depakote) 375 mg QID PO 11/02/20 17:00 11/06/20 17:27 DC 11/06/20 17:09 Nicotine (Nicoderm Cq 21mg Patch) 1 patch DAILY TD 11/04/20 09:00 11/06/20 08:25 Mirtazapine (Remeron) 15 mg QHS PO 11/04/20 21:00 11/06/20 19:49 Trazodone HCl (Desyrel) 50 mg PRN QHS PRN PO INSOMNIA, MAY REPEAT X1 11/04/20 18:45 11/05/20 20:03 Divalproex Sodium (Depakote) 500 mg QID PO 11/06/20 21:00 11/06/20 19:49 Current Medications Medications (Trade) Dose Ordered Sig/Guillermo Route PRN Reason Start Time Stop Time Status Last Admin Dose Admin Divalproex Sodium (Depakote) 500 mg QID PO 11/06/20 21:00 11/06/20 19:49 I have reviewed the current psychotropics carefully including drug interactions. Risk benefit ratio favors no change other than as noted in my dictated progress note. Diagnosis: Problems: (1) Schizoaffective disorder, bipolar type (2) Impulse control disorder, unspecified (3) Anxiety disorder, unspecified (4) Bipolar disorder, current episode mixed, severe, with psychotic features (5) Mild cognitive impairment VIANNEY HAWLEY MD Nov 06, 2020 21:54
[2020-11-07 05:44] VITALS: BP 98/66
--- NOTE | 2020-11-07 06:28 | PDOC ---
Exam Note: Adams Note: This note is a late entry for 11/06/2020 covers elements not covered in my initial note. Subjective: The patient was seen individually in the evening of 11/06/2020 with Kylah GANT, discussed and reviewed the chart. He slept 6-1/4 hours previous night. The patient is pleasant, came out for meals according to nursing staff. He asked to smoke but only once today rather than repetitively, obsessively like he was doing in the past. I met with him in his room. He states he is upset that his step father told him on the phone that he does not want anything to do with him. He is quite distressed about this even though this conversation happened about 2 days back. We will defer to his social service staff to address this with him. Valproic acid level today is 28 subtherapeutic. We will increase Depakote to 500 mg 4 times a day. Check CBC, CMP, valproic acid level, ammonia level in 4 days. Review of Systems: Ambulation impaired in wheelchair. No CV, , pulmonary, eye, ENT system symptoms on review. Mental Status Exam: The patient is awake, alert and oriented to himself and situation. Speech moderate latency, coherent. Eye contact is poor. He was quite sad appearing, talking about his step father not wanting to have any communication with him. Intellect average. Insight somewhat limited. Attention span short. No suicidal or homicidal ideation. Laboratory Data: Reviewed. Impression: Schizoaffective disorder bipolar type mixed with psychotic features. Anxiety disorder unspecified. Impulse control disorder unspecified. Mild cognitive impairment. Plan: Continue current psychotropics. Increase the Depakote as above. Follow labs level. Adjust as clinically indicated. Assessment: Vital Signs/I&O: Vital Signs Date Time Temp Pulse Resp B/P (MAP) Pulse Ox O2 Delivery O2 Flow Rate FiO2 11/07/20 05:44 97.5 68 16 98/66 (77) 96 11/06/20 12:15 Room Air I & O 11/06/20 11/06/20 11/07/20 14:59 22:59 06:59 Intake Total 960 ml 600 ml Balance 960 ml 600 ml Labs: Laboratory Tests Test 11/06/20 07:30 White Blood Count 6.0 x10^3/uL (4.0-11.0) Red Blood Count 3.81 x10^6/uL (4.30-5.70) L Hemoglobin 11.9 g/dL (13.0-17.5) L Hematocrit 35.8 % (39.0-53.0) L Mean Corpuscular Volume 94 fL (79-100) Mean Corpuscular Hemoglobin 31 pg (25-35) Mean Corpuscular Hemoglobin Concent 33 g/dL (31-37) Red Cell Distribution Width 14.3 % (11.5-14.5) Platelet Count 256 x10^3/uL (140-400) Neutrophils (%) (Auto) 66 % (31-73) Lymphocytes (%) (Auto) 18 % (24-48) L Monocytes (%) (Auto) 9 % (0-9) Eosinophils (%) (Auto) 7 % (0-3) H Basophils (%) (Auto) 1 % (0-3) Neutrophils # (Auto) 3.9 x10^3uL (1.8-7.7) Lymphocytes # (Auto) 1.0 x10^3/uL (1.0-4.8) Monocytes # (Auto) 0.6 x10^3/uL (0.0-1.1) Eosinophils # (Auto) 0.4 x10^3/uL (0.0-0.7) Basophils # (Auto) 0.0 x10^3/uL (0.0-0.2) Sodium Level 144 mmol/L (136-145) Potassium Level 3.9 mmol/L (3.5-5.1) Chloride Level 107 mmol/L (98-107) Carbon Dioxide Level 34 mmol/L (21-32) H Anion Gap 3 (6-14) L Blood Urea Nitrogen 20 mg/dL (8-26) Creatinine 0.7 mg/dL (0.7-1.3) Estimated GFR (Cockcroft-Gault) 113.5 BUN/Creatinine Ratio 29 (6-20) H Glucose Level 80 mg/dL (70-99) Calcium Level 8.6 mg/dL (8.5-10.1) Total Bilirubin 0.1 mg/dL (0.2-1.0) L Aspartate Amino Transferase (AST) 17 U/L (15-37) Alanine Aminotransferase (ALT) 21 U/L (16-63) Alkaline Phosphatase 92 U/L (46-116) Total Protein 5.6 g/dL (6.4-8.2) L Albumin 2.4 g/dL (3.4-5.0) L Albumin/Globulin Ratio 0.8 (1.0-1.7) L Valproic Acid Level 28 mcg/mL (50-100) L Valproic Acid Last Dose Date 11/05/20 Valproic Acid Last Dose Time 2100 Current Medications: Meds: Laboratory Tests Test 11/06/20 07:30 White Blood Count 6.0 x10^3/uL Red Blood Count 3.81 x10^6/uL Hemoglobin 11.9 g/dL Hematocrit 35.8 % Mean Corpuscular Volume 94 fL Mean Corpuscular Hemoglobin 31 pg Mean Corpuscular Hemoglobin Concent 33 g/dL Red Cell Distribution Width 14.3 % Platelet Count 256 x10^3/uL Neutrophils (%) (Auto) 66 % Lymphocytes (%) (Auto) 18 % Monocytes (%) (Auto) 9 % Eosinophils (%) (Auto) 7 % Basophils (%) (Auto) 1 % Neutrophils # (Auto) 3.9 x10^3uL Lymphocytes # (Auto) 1.0 x10^3/uL Monocytes # (Auto) 0.6 x10^3/uL Eosinophils # (Auto) 0.4 x10^3/uL Basophils # (Auto) 0.0 x10^3/uL Sodium Level 144 mmol/L Potassium Level 3.9 mmol/L Chloride Level 107 mmol/L Carbon Dioxide Level 34 mmol/L Anion Gap 3 Blood Urea Nitrogen 20 mg/dL Creatinine 0.7 mg/dL Estimated GFR (Cockcroft-Gault) 113.5 BUN/Creatinine Ratio 29 Glucose Level 80 mg/dL Calcium Level 8.6 mg/dL Total Bilirubin 0.1 mg/dL Aspartate Amino Transf (AST/SGOT) 17 U/L Alanine Aminotransferase (ALT/SGPT) 21 U/L Alkaline Phosphatase 92 U/L Total Protein 5.6 g/dL Albumin 2.4 g/dL Albumin/Globulin Ratio 0.8 Valproic Acid (Depakene) Level 28 mcg/mL Valproic Acid Last Dose Date 11/05/20 Valproic Acid Last Dose Time 2100 Current Medications Medications (Trade) Dose Ordered Sig/Guillermo Route PRN Reason Start Time Stop Time Status Last Admin Dose Admin Acetaminophen (Tylenol) 650 mg PRN Q6HRS PRN PO MILD PAIN / TEMP > 100.3'F 10/31/20 16:15 11/06/20 17:33 Multi-Ingredient Ointment (Analgesic [place]) 1 ambrocio PRN QID PRN TP MUSCLE PAIN 10/31/20 16:15 Al Hydroxide/Mg Hydroxide (Mylanta Plus Xs) 15 ml PRN AFTMEALHC PRN PO DYSPEPSIA 10/31/20 16:15 Magnesium Hydroxide (Milk Of Magnesia) 2,400 mg PRN QHS PRN PO CONSTIPATION 10/31/20 16:15 Aspirin (Aspirin Chewable) 81 mg DAILY PO 11/01/20 09:00 11/06/20 08:25 Dexamethasone (Decadron) 4 mg BID PO 10/31/20 21:00 11/06/20 19:49 Divalproex Sodium (Depakote) 250 mg QID PO 10/31/20 17:00 11/02/20 15:56 DC 11/02/20 14:10 Donepezil HCl (Aricept) 5 mg QHS PO 10/31/20 21:00 11/06/20 19:49 Gabapentin (Neurontin) 200 mg TID PO 10/31/20 21:00 11/06/20 19:49 Mirtazapine (Remeron) 7.5 mg QHS PO 10/31/20 21:00 11/04/20 18:40 DC 11/03/20 20:42 Morphine Sulfate (Ms Contin) 15 mg BID PO 10/31/20 21:00 11/06/20 19:47 Phenytoin Sodium (Dilantin) 200 mg BID PO 10/31/20 21:00 11/06/20 19:48 Sertraline HCl (Zoloft) 25 mg DAILY PO 11/01/20 09:00 11/01/20 17:15 DC 11/01/20 09:55 Venlafaxine HCl (Effexor Xr) 75 mg DAILY PO 11/01/20 09:00 11/06/20 08:26 Morphine Sulfate (Ms Contin) 30 mg BID PO 10/31/20 21:00 11/06/20 19:48 Nicotine (Nicoderm Cq 14mg Patch) 1 patch DAILY TD 10/31/20 17:30 11/03/20 22:25 DC 11/03/20 08:17 Olanzapine (ZyPREXA ZYDIS) 2.5 mg PRN Q2HR PRN PO PSYCHOSIS 10/31/20 18:30 Sertraline HCl (Zoloft) 50 mg DAILY PO 11/02/20 09:00 11/02/20 15:56 DC 11/02/20 08:27 Hydroxyzine Pamoate (Vistaril) 25 mg TID PO 11/01/20 21:00 11/06/20 19:49 Divalproex Sodium (Depakote) 375 mg QID PO 11/02/20 17:00 11/06/20 17:27 DC 11/06/20 17:09 Nicotine (Nicoderm Cq 21mg Patch) 1 patch DAILY TD 11/04/20 09:00 11/06/20 08:25 Mirtazapine (Remeron) 15 mg QHS PO 11/04/20 21:00 11/06/20 19:49 Trazodone HCl (Desyrel) 50 mg PRN QHS PRN PO INSOMNIA, MAY REPEAT X1 11/04/20 18:45 11/05/20 20:03 Divalproex Sodium (Depakote) 500 mg QID PO 11/06/20 21:00 11/06/20 19:49 Current Medications Medications (Trade) Dose Ordered Sig/Guillermo Route PRN Reason Start Time Stop Time Status Last Admin Dose Admin Divalproex Sodium (Depakote) 500 mg QID PO 11/06/20 21:00 11/06/20 19:49 I have reviewed the current psychotropics carefully including drug interactions. Risk benefit ratio favors no change other than as noted in my dictated progress note. Diagnosis: Problems: (1) Schizoaffective disorder, bipolar type (2) Impulse control disorder, unspecified (3) Anxiety disorder, unspecified (4) Bipolar disorder, current episode mixed, severe, with psychotic features (5) Mild cognitive impairment VIANNEY HAWLEY MD Nov 07, 2020 06:28
[2020-11-07] MEDS: PHENYTOIN SODIUM EXTENDED 100 MG CAPSULE PO SCH ×2 (08:48→20:23)
[2020-11-07] MEDS: GABAPENTIN 100 MG CAPSULE. PO SCH ×3 (08:49→20:23)
[2020-11-07] MEDS: DIVALPROEX SODIUM 125 MG TABLET.DR. PO SCH ×4 (08:49→20:23)
[2020-11-07] MEDS: ASPIRIN CHEWABLE 81 MG TABLET. PO SCH (08:49)
[2020-11-07] MEDS: VENLAFAXINE XR 37.5 MG CAP.ER.24H. PO SCH (08:49)
[2020-11-07] MEDS: hydrOXYzine PAMOATE 25 MG CAPSULE PO SCH ×3 (08:49→20:24)
[2020-11-07] MEDS: NICOTINE 21MG PATCH. TD SCH (08:50)
[2020-11-07] MEDS: DEXAMETHASONE 4 MG TABLET PO SCH ×2 (08:55→20:24)
[2020-11-07] MEDS: MORPHINE ER 30 MG TABLET.ER PO SCH ×2 (08:55→20:24)
[2020-11-07] MEDS: MORPHINE ER 15 MG TABLET.ER PO SCH ×2 (08:55→20:24)
[2020-11-07 15:42] VITALS: BP 101/65
[2020-11-07] MEDS: DONEPEZIL HCL 5 MG TABLET. PO SCH (20:23)
[2020-11-07] MEDS: MIRTAZAPINE 15 MG TABLET PO SCH (20:24)
--- NOTE | 2020-11-07 22:13 | PDOC ---
Exam Note: Adams Note: Please also refer to the separate dictated note~for this date of service dictated separately.~Patient seen individually. Discussed the patient with Nursing staff reviewed the chart.~Reviewed interim history and current functioning. Reviewed vital signs,~Labs/ Radiology~and current medications noted below. Continue current treatment with the changes noted in the dictated addendum note Assessment: Vital Signs/I&O: Vital Signs Date Time Temp Pulse Resp B/P (MAP) Pulse Ox O2 Delivery O2 Flow Rate FiO2 11/07/20 20:24 98 11/07/20 15:42 97.6 70 20 101/65 (77) 11/07/20 13:18 Room Air I & O 11/06/20 11/06/20 11/07/20 15:00 23:00 07:00 Intake Total 960 ml 600 ml Balance 960 ml 600 ml Current Medications: Meds: Current Medications Medications (Trade) Dose Ordered Sig/Guillermo Route PRN Reason Start Time Stop Time Status Last Admin Dose Admin Acetaminophen (Tylenol) 650 mg PRN Q6HRS PRN PO MILD PAIN / TEMP > 100.3'F 10/31/20 16:15 11/06/20 17:33 Multi-Ingredient Ointment (Analgesic [place]) 1 ambrocio PRN QID PRN TP MUSCLE PAIN 10/31/20 16:15 Al Hydroxide/Mg Hydroxide (Mylanta Plus Xs) 15 ml PRN AFTMEALHC PRN PO DYSPEPSIA 10/31/20 16:15 Magnesium Hydroxide (Milk Of Magnesia) 2,400 mg PRN QHS PRN PO CONSTIPATION 10/31/20 16:15 Aspirin (Aspirin Chewable) 81 mg DAILY PO 11/01/20 09:00 11/07/20 08:49 Dexamethasone (Decadron) 4 mg BID PO 10/31/20 21:00 11/07/20 20:24 Divalproex Sodium (Depakote) 250 mg QID PO 10/31/20 17:00 11/02/20 15:56 DC 11/02/20 14:10 Donepezil HCl (Aricept) 5 mg QHS PO 10/31/20 21:00 11/07/20 20:23 Gabapentin (Neurontin) 200 mg TID PO 10/31/20 21:00 11/07/20 20:23 Mirtazapine (Remeron) 7.5 mg QHS PO 10/31/20 21:00 11/04/20 18:40 DC 11/03/20 20:42 Morphine Sulfate (Ms Contin) 15 mg BID PO 10/31/20 21:00 11/07/20 20:24 Phenytoin Sodium (Dilantin) 200 mg BID PO 10/31/20 21:00 11/07/20 20:23 Sertraline HCl (Zoloft) 25 mg DAILY PO 11/01/20 09:00 11/01/20 17:15 DC 11/01/20 09:55 Venlafaxine HCl (Effexor Xr) 75 mg DAILY PO 11/01/20 09:00 11/07/20 08:49 Morphine Sulfate (Ms Contin) 30 mg BID PO 10/31/20 21:00 11/07/20 20:24 Nicotine (Nicoderm Cq 14mg Patch) 1 patch DAILY TD 10/31/20 17:30 11/03/20 22:25 DC 11/03/20 08:17 Olanzapine (ZyPREXA ZYDIS) 2.5 mg PRN Q2HR PRN PO PSYCHOSIS 10/31/20 18:30 Sertraline HCl (Zoloft) 50 mg DAILY PO 11/02/20 09:00 11/02/20 15:56 DC 11/02/20 08:27 Hydroxyzine Pamoate (Vistaril) 25 mg TID PO 11/01/20 21:00 11/07/20 20:24 Divalproex Sodium (Depakote) 375 mg QID PO 11/02/20 17:00 11/06/20 17:27 DC 11/06/20 17:09 Nicotine (Nicoderm Cq 21mg Patch) 1 patch DAILY TD 11/04/20 09:00 11/07/20 08:50 Mirtazapine (Remeron) 15 mg QHS PO 11/04/20 21:00 11/07/20 20:24 Trazodone HCl (Desyrel) 50 mg PRN QHS PRN PO INSOMNIA, MAY REPEAT X1 11/04/20 18:45 11/05/20 20:03 Divalproex Sodium (Depakote) 500 mg QID PO 11/06/20 21:00 11/07/20 20:23 Nicotine Polacrilex (Nicorette Gum) 2 mg PRN Q1HR PRN BC SMOKING CESSATION 11/07/20 17:00 I have reviewed the current psychotropics carefully including drug interactions. Risk benefit ratio favors no change other than as noted in my dictated progress note. Diagnosis: Problems: (1) Schizoaffective disorder, bipolar type (2) Impulse control disorder, unspecified (3) Anxiety disorder, unspecified (4) Bipolar disorder, current episode mixed, severe, with psychotic features (5) Mild cognitive impairment VIANNEY HAWLEY MD Nov 07, 2020 22:13
[2020-11-08 05:50] VITALS: BP 107/72
[2020-11-08] MEDS: MORPHINE ER 30 MG TABLET.ER PO SCH ×2 (08:24→20:22)
[2020-11-08] MEDS: PHENYTOIN SODIUM EXTENDED 100 MG CAPSULE PO SCH ×2 (08:24→20:21)
[2020-11-08] MEDS: GABAPENTIN 100 MG CAPSULE. PO SCH ×3 (08:26→20:21)
[2020-11-08] MEDS: hydrOXYzine PAMOATE 25 MG CAPSULE PO SCH ×3 (08:26→20:21)
[2020-11-08] MEDS: DEXAMETHASONE 4 MG TABLET PO SCH ×2 (08:26→20:20)
[2020-11-08] MEDS: MORPHINE ER 15 MG TABLET.ER PO SCH ×2 (08:26→20:22)
[2020-11-08] MEDS: DIVALPROEX SODIUM 125 MG TABLET.DR. PO SCH ×4 (08:26→20:22)
[2020-11-08] MEDS: NICOTINE 21MG PATCH. TD SCH (08:27)
[2020-11-08] MEDS: ASPIRIN CHEWABLE 81 MG TABLET. PO SCH (08:27)
[2020-11-08] MEDS: VENLAFAXINE XR 37.5 MG CAP.ER.24H. PO SCH (08:27)
[2020-11-08] MEDS: NICOTINE POLACRILEX GUM 2 MG GUM. BC PRN ×2 (15:28→17:47)
[2020-11-08 15:29] VITALS: BP 100/65
[2020-11-08] MEDS: MIRTAZAPINE 15 MG TABLET PO SCH (20:21)
[2020-11-08] MEDS: DONEPEZIL HCL 5 MG TABLET. PO SCH (20:21)
[2020-11-08] MEDS: traZODone 50 MG TABLET. PO PRN (20:22)
--- NOTE | 2020-11-08 22:10 | PDOC ---
Exam Note: Adams Note: Please also refer to the separate dictated note~for this date of service dictated separately.~Patient seen individually. Discussed the patient with Nursing staff reviewed the chart.~Reviewed interim history and current functioning. Reviewed vital signs,~Labs/ Radiology~and current medications noted below. Continue current treatment with the changes noted in the dictated addendum note Assessment: Vital Signs/I&O: Vital Signs Date Time Temp Pulse Resp B/P (MAP) Pulse Ox O2 Delivery O2 Flow Rate FiO2 11/08/20 15:29 97.4 71 18 100/65 (77) 97 11/08/20 13:32 Room Air I & O 11/07/20 11/07/20 11/08/20 15:00 23:00 07:00 Intake Total 600 ml 480 ml Balance 600 ml 480 ml Current Medications: Meds: Current Medications Medications (Trade) Dose Ordered Sig/Guillermo Route PRN Reason Start Time Stop Time Status Last Admin Dose Admin Acetaminophen (Tylenol) 650 mg PRN Q6HRS PRN PO MILD PAIN / TEMP > 100.3'F 10/31/20 16:15 11/06/20 17:33 Multi-Ingredient Ointment (Analgesic [place]) 1 ambrocio PRN QID PRN TP MUSCLE PAIN 10/31/20 16:15 Al Hydroxide/Mg Hydroxide (Mylanta Plus Xs) 15 ml PRN AFTMEALHC PRN PO DYSPEPSIA 10/31/20 16:15 Magnesium Hydroxide (Milk Of Magnesia) 2,400 mg PRN QHS PRN PO CONSTIPATION 10/31/20 16:15 Aspirin (Aspirin Chewable) 81 mg DAILY PO 11/01/20 09:00 11/08/20 08:27 Dexamethasone (Decadron) 4 mg BID PO 10/31/20 21:00 11/08/20 20:20 Divalproex Sodium (Depakote) 250 mg QID PO 10/31/20 17:00 11/02/20 15:56 DC 11/02/20 14:10 Donepezil HCl (Aricept) 5 mg QHS PO 10/31/20 21:00 11/08/20 20:21 Gabapentin (Neurontin) 200 mg TID PO 10/31/20 21:00 11/08/20 20:21 Mirtazapine (Remeron) 7.5 mg QHS PO 10/31/20 21:00 11/04/20 18:40 DC 11/03/20 20:42 Morphine Sulfate (Ms Contin) 15 mg BID PO 10/31/20 21:00 11/08/20 20:22 Phenytoin Sodium (Dilantin) 200 mg BID PO 10/31/20 21:00 11/08/20 20:21 Sertraline HCl (Zoloft) 25 mg DAILY PO 11/01/20 09:00 11/01/20 17:15 DC 11/01/20 09:55 Venlafaxine HCl (Effexor Xr) 75 mg DAILY PO 11/01/20 09:00 11/08/20 08:27 Morphine Sulfate (Ms Contin) 30 mg BID PO 10/31/20 21:00 11/08/20 20:22 Nicotine (Nicoderm Cq 14mg Patch) 1 patch DAILY TD 10/31/20 17:30 11/03/20 22:25 DC 11/03/20 08:17 Olanzapine (ZyPREXA ZYDIS) 2.5 mg PRN Q2HR PRN PO PSYCHOSIS 10/31/20 18:30 Sertraline HCl (Zoloft) 50 mg DAILY PO 11/02/20 09:00 11/02/20 15:56 DC 11/02/20 08:27 Hydroxyzine Pamoate (Vistaril) 25 mg TID PO 11/01/20 21:00 11/08/20 20:21 Divalproex Sodium (Depakote) 375 mg QID PO 11/02/20 17:00 11/06/20 17:27 DC 11/06/20 17:09 Nicotine (Nicoderm Cq 21mg Patch) 1 patch DAILY TD 11/04/20 09:00 11/08/20 08:27 Mirtazapine (Remeron) 15 mg QHS PO 11/04/20 21:00 11/08/20 20:21 Trazodone HCl (Desyrel) 50 mg PRN QHS PRN PO INSOMNIA, MAY REPEAT X1 11/04/20 18:45 11/08/20 20:22 Divalproex Sodium (Depakote) 500 mg QID PO 11/06/20 21:00 11/08/20 20:22 Nicotine Polacrilex (Nicorette Gum) 2 mg PRN Q1HR PRN BC SMOKING CESSATION 11/07/20 17:00 11/08/20 17:47 I have reviewed the current psychotropics carefully including drug interactions. Risk benefit ratio favors no change other than as noted in my dictated progress note. Diagnosis: Problems: (1) Schizoaffective disorder, bipolar type (2) Impulse control disorder, unspecified (3) Anxiety disorder, unspecified (4) Bipolar disorder, current episode mixed, severe, with psychotic features (5) Mild cognitive impairment VIANNEY HAWLEY MD Nov 08, 2020 22:10
[2020-11-09 05:43] VITALS: BP 90/55
[2020-11-09 06:22] LABS: BASO % 1 % (0-3); EOS # 0.3 x10^3/uL (0.0-0.7); EOS % 5 % (0-3); HEMATOCRIT 38.7 % (39.0-53.0); HEMOGLOBIN 12.7 g/dL (13.0-17.5); LYMPH # 1.4 x10^3/uL (1.0-4.8); LYMPH % 22 % (24-48); MEAN CORPUSCULAR HEMOGLOBIN 31 pg (25-35); MEAN CORPUSCULAR HGB CONC 33 g/dL (31-37); MEAN CORPUSCULAR VOLUME 94 fL (79-100); MONO # 0.4 x10^3/uL (0.0-1.1); MONO % 7 % (0-9); NEUT # 4.1 x10^3uL (1.8-7.7); NEUT % 65 % (31-73); PLATELET COUNT 315 x10^3/uL (140-400); RED BLOOD COUNT 4.11 x10^6/uL (4.30-5.70); RED CELL DISTRIBUTION WIDTH 14.3 % (11.5-14.5); WHITE BLOOD COUNT 6.3 x10^3/uL (4.0-11.0)
[2020-11-09 06:40] LABS: ALBUMIN 2.8 g/dL (3.4-5.0); ALBUMIN/GLOBULIN RATIO 0.8 (1.0-1.7); ALK PHOS 98 U/L (46-116); ALT (SGPT) 26 U/L (16-63); ANION GAP 3 (6-14); AST (SGOT) 22 U/L (15-37); BLOOD UREA NITROGEN 19 mg/dL (8-26); BUN/CREATININE RATIO 24 (6-20); CALCIUM 8.6 mg/dL (8.5-10.1); CARBON DIOXIDE 35 mmol/L (21-32); CHLORIDE 106 mmol/L (98-107); CREATININE 0.8 mg/dL (0.7-1.3); GFR 97.3; GLUCOSE 68 mg/dL (70-99); POTASSIUM 4.2 mmol/L (3.5-5.1); SODIUM 144 mmol/L (136-145); TOTAL BILIRUBIN 0.1 mg/dL (0.2-1.0); TOTAL PROTEIN 6.2 g/dL (6.4-8.2)
[2020-11-09 06:45] LABS: VAL ACID 46 mcg/mL (50-100)
[2020-11-09] MEDS: DIVALPROEX SODIUM 125 MG TABLET.DR. PO SCH ×3 (08:10→17:07)
[2020-11-09] MEDS: GABAPENTIN 100 MG CAPSULE. PO SCH ×3 (08:11→20:15)
[2020-11-09] MEDS: MORPHINE ER 30 MG TABLET.ER PO SCH ×2 (08:11→20:14)
[2020-11-09] MEDS: VENLAFAXINE XR 37.5 MG CAP.ER.24H. PO SCH (08:12)
[2020-11-09] MEDS: hydrOXYzine PAMOATE 25 MG CAPSULE PO SCH ×3 (08:12→20:14)
[2020-11-09] MEDS: DEXAMETHASONE 4 MG TABLET PO SCH ×2 (08:12→20:13)
[2020-11-09] MEDS: MORPHINE ER 15 MG TABLET.ER PO SCH ×2 (08:12→20:13)
[2020-11-09] MEDS: ASPIRIN CHEWABLE 81 MG TABLET. PO SCH (08:13)
[2020-11-09] MEDS: PHENYTOIN SODIUM EXTENDED 100 MG CAPSULE PO SCH ×2 (08:13→20:13)
[2020-11-09] MEDS: NICOTINE 21MG PATCH. TD SCH (08:13)
--- NOTE | 2020-11-09 08:56 | PDOC ---
Exam Note: Adams Note: This note is a late entry for 11/07/2020 covers elements not covered in my initial note. Subjective: The patient was seen individually in the evening of 11/07/2020 with Miles GANT, discussed and reviewed the chart. He slept 3-1/4 hours previous night. Overall the patient remains somewhat withdrawn to his room, which is where I met with him. He has not been agitated or aggressive, has some obsessiveness about wanting cigarettes and I talked to him at some length in his room about it. He does complain about skin itching and nursing staff will make available some extra lotion for him. Review of Systems: Ambulation impaired in wheelchair. No CV, , pulmonary, eye, ENT system symptoms on review. Mental Status Exam: The patient is awake, alert and oriented to himself and situation. Speech moderate latency, coherent. Intellect average. Insight somewhat limited. Attention span short. No suicidal or homicidal ideation. Laboratory Data: Reviewed. Impression: Schizoaffective disorder bipolar type mixed with psychotic features. Anxiety disorder unspecified. Impulse control disorder unspecified. Mild cognitive impairment. Plan: Continue current psychotropics. Dilantin level is therapeutic. Depakote is being adjusted and we will repeat labs level, ammonia level on 11/09. Assessment: Vital Signs/I&O: Vital Signs Date Time Temp Pulse Resp B/P (MAP) Pulse Ox O2 Delivery O2 Flow Rate FiO2 11/09/20 08:12 16 97 Room Air 11/09/20 05:43 97.9 59 90/55 (67) I & O 11/08/20 11/08/20 11/09/20 15:00 23:00 07:00 Intake Total 1280 ml 720 ml Balance 1280 ml 720 ml Labs: Laboratory Tests Test 11/09/20 05:52 White Blood Count 6.3 x10^3/uL (4.0-11.0) Red Blood Count 4.11 x10^6/uL (4.30-5.70) L Hemoglobin 12.7 g/dL (13.0-17.5) L Hematocrit 38.7 % (39.0-53.0) L Mean Corpuscular Volume 94 fL (79-100) Mean Corpuscular Hemoglobin 31 pg (25-35) Mean Corpuscular Hemoglobin Concent 33 g/dL (31-37) Red Cell Distribution Width 14.3 % (11.5-14.5) Platelet Count 315 x10^3/uL (140-400) Neutrophils (%) (Auto) 65 % (31-73) Lymphocytes (%) (Auto) 22 % (24-48) L Monocytes (%) (Auto) 7 % (0-9) Eosinophils (%) (Auto) 5 % (0-3) H Basophils (%) (Auto) 1 % (0-3) Neutrophils # (Auto) 4.1 x10^3uL (1.8-7.7) Lymphocytes # (Auto) 1.4 x10^3/uL (1.0-4.8) Monocytes # (Auto) 0.4 x10^3/uL (0.0-1.1) Eosinophils # (Auto) 0.3 x10^3/uL (0.0-0.7) Basophils # (Auto) 0.0 x10^3/uL (0.0-0.2) Sodium Level 144 mmol/L (136-145) Potassium Level 4.2 mmol/L (3.5-5.1) Chloride Level 106 mmol/L (98-107) Carbon Dioxide Level 35 mmol/L (21-32) H Anion Gap 3 (6-14) L Blood Urea Nitrogen 19 mg/dL (8-26) Creatinine 0.8 mg/dL (0.7-1.3) Estimated GFR (Cockcroft-Gault) 97.3 BUN/Creatinine Ratio 24 (6-20) H Glucose Level 68 mg/dL (70-99) L Calcium Level 8.6 mg/dL (8.5-10.1) Total Bilirubin 0.1 mg/dL (0.2-1.0) L Aspartate Amino Transferase (AST) 22 U/L (15-37) Alanine Aminotransferase (ALT) 26 U/L (16-63) Alkaline Phosphatase 98 U/L (46-116) Ammonia 31 mcmol/L (11-34) Total Protein 6.2 g/dL (6.4-8.2) L Albumin 2.8 g/dL (3.4-5.0) L Albumin/Globulin Ratio 0.8 (1.0-1.7) L Valproic Acid Level 46 mcg/mL (50-100) L Valproic Acid Last Dose Date 11/08/20 Valproic Acid Last Dose Time 2100 Current Medications: Meds: Laboratory Tests Test 11/09/20 05:52 White Blood Count 6.3 x10^3/uL Red Blood Count 4.11 x10^6/uL Hemoglobin 12.7 g/dL Hematocrit 38.7 % Mean Corpuscular Volume 94 fL Mean Corpuscular Hemoglobin 31 pg Mean Corpuscular Hemoglobin Concent 33 g/dL Red Cell Distribution Width 14.3 % Platelet Count 315 x10^3/uL Neutrophils (%) (Auto) 65 % Lymphocytes (%) (Auto) 22 % Monocytes (%) (Auto) 7 % Eosinophils (%) (Auto) 5 % Basophils (%) (Auto) 1 % Neutrophils # (Auto) 4.1 x10^3uL Lymphocytes # (Auto) 1.4 x10^3/uL Monocytes # (Auto) 0.4 x10^3/uL Eosinophils # (Auto) 0.3 x10^3/uL Basophils # (Auto) 0.0 x10^3/uL Sodium Level 144 mmol/L Potassium Level 4.2 mmol/L Chloride Level 106 mmol/L Carbon Dioxide Level 35 mmol/L Anion Gap 3 Blood Urea Nitrogen 19 mg/dL Creatinine 0.8 mg/dL Estimated GFR (Cockcroft-Gault) 97.3 BUN/Creatinine Ratio 24 Glucose Level 68 mg/dL Calcium Level 8.6 mg/dL Total Bilirubin 0.1 mg/dL Aspartate Amino Transf (AST/SGOT) 22 U/L Alanine Aminotransferase (ALT/SGPT) 26 U/L Alkaline Phosphatase 98 U/L Ammonia 31 mcmol/L Total Protein 6.2 g/dL Albumin 2.8 g/dL Albumin/Globulin Ratio 0.8 Valproic Acid (Depakene) Level 46 mcg/mL Valproic Acid Last Dose Date 11/08/20 Valproic Acid Last Dose Time 2100 Current Medications Medications (Trade) Dose Ordered Sig/Guillermo Route PRN Reason Start Time Stop Time Status Last Admin Dose Admin Acetaminophen (Tylenol) 650 mg PRN Q6HRS PRN PO MILD PAIN / TEMP > 100.3'F 10/31/20 16:15 11/06/20 17:33 Multi-Ingredient Ointment (Analgesic [place]) 1 ambrocio PRN QID PRN TP MUSCLE PAIN 10/31/20 16:15 Al Hydroxide/Mg Hydroxide (Mylanta Plus Xs) 15 ml PRN AFTMEALHC PRN PO DYSPEPSIA 10/31/20 16:15 Magnesium Hydroxide (Milk Of Magnesia) 2,400 mg PRN QHS PRN PO CONSTIPATION 10/31/20 16:15 Aspirin (Aspirin Chewable) 81 mg DAILY PO 11/01/20 09:00 11/09/20 08:13 Dexamethasone (Decadron) 4 mg BID PO 10/31/20 21:00 11/09/20 08:12 Divalproex Sodium (Depakote) 250 mg QID PO 10/31/20 17:00 11/02/20 15:56 DC 11/02/20 14:10 Donepezil HCl (Aricept) 5 mg QHS PO 10/31/20 21:00 11/08/20 20:21 Gabapentin (Neurontin) 200 mg TID PO 10/31/20 21:00 11/09/20 08:11 Mirtazapine (Remeron) 7.5 mg QHS PO 10/31/20 21:00 11/04/20 18:40 DC 11/03/20 20:42 Morphine Sulfate (Ms Contin) 15 mg BID PO 10/31/20 21:00 11/09/20 08:12 Phenytoin Sodium (Dilantin) 200 mg BID PO 10/31/20 21:00 11/09/20 08:13 Sertraline HCl (Zoloft) 25 mg DAILY PO 11/01/20 09:00 11/01/20 17:15 DC 11/01/20 09:55 Venlafaxine HCl (Effexor Xr) 75 mg DAILY PO 11/01/20 09:00 11/09/20 08:12 Morphine Sulfate (Ms Contin) 30 mg BID PO 10/31/20 21:00 11/09/20 08:11 Nicotine (Nicoderm Cq 14mg Patch) 1 patch DAILY TD 10/31/20 17:30 11/03/20 22:25 DC 11/03/20 08:17 Olanzapine (ZyPREXA ZYDIS) 2.5 mg PRN Q2HR PRN PO PSYCHOSIS 10/31/20 18:30 Sertraline HCl (Zoloft) 50 mg DAILY PO 11/02/20 09:00 11/02/20 15:56 DC 11/02/20 08:27 Hydroxyzine Pamoate (Vistaril) 25 mg TID PO 11/01/20 21:00 11/09/20 08:12 Divalproex Sodium (Depakote) 375 mg QID PO 11/02/20 17:00 11/06/20 17:27 DC 11/06/20 17:09 Nicotine (Nicoderm Cq 21mg Patch) 1 patch DAILY TD 11/04/20 09:00 11/09/20 08:13 Mirtazapine (Remeron) 15 mg QHS PO 11/04/20 21:00 11/08/20 20:21 Trazodone HCl (Desyrel) 50 mg PRN QHS PRN PO INSOMNIA, MAY REPEAT X1 11/04/20 18:45 11/08/20 20:22 Divalproex Sodium (Depakote) 500 mg QID PO 11/06/20 21:00 11/09/20 08:10 Nicotine Polacrilex (Nicorette Gum) 2 mg PRN Q1HR PRN BC SMOKING CESSATION 11/07/20 17:00 11/08/20 17:47 I have reviewed the current psychotropics carefully including drug interactions. Risk benefit ratio favors no change other than as noted in my dictated progress note. Diagnosis: Problems: (1) Schizoaffective disorder, bipolar type (2) Impulse control disorder, unspecified (3) Anxiety disorder, unspecified (4) Bipolar disorder, current episode mixed, severe, with psychotic features (5) Mild cognitive impairment VIANNEY HAWLEY MD Nov 09, 2020 08:56
--- NOTE | 2020-11-09 09:23 | PDOC ---
Exam Note: Adams Note: This note is a late entry for 11/08/2020 covers elements not covered in my initial note. Subjective: The patient was seen individually in the evening of 11/08/2020 with Miles GANT, discussed and reviewed the chart. He slept 1/2 hours previous night. The patient was somewhat withdrawn to his room. Again I met with him in his room. Attention seeking per nursing report. Review of Systems: Ambulation impaired in wheelchair. No CV, , pulmonary, eye, ENT system symptoms on review. He does complain about skin itching. Mental Status Exam: The patient is awake, alert and oriented to himself and situation. Speech coherent. Abstraction fair. Computation impaired. Attention span short. No suicidal or homicidal ideation. Laboratory Data: Reviewed. Impression: Schizoaffective disorder bipolar type mixed with psychotic features. Anxiety disorder unspecified. Impulse control disorder unspecified. Mild cognitive impairment. Plan: Continue current psychotropics. Assessment: Vital Signs/I&O: Vital Signs Date Time Temp Pulse Resp B/P (MAP) Pulse Ox O2 Delivery O2 Flow Rate FiO2 11/09/20 08:12 16 97 Room Air 11/09/20 05:43 97.9 59 90/55 (67) I & O 11/08/20 11/08/20 11/09/20 15:00 23:00 07:00 Intake Total 1280 ml 720 ml Balance 1280 ml 720 ml Labs: Laboratory Tests Test 11/09/20 05:52 White Blood Count 6.3 x10^3/uL (4.0-11.0) Red Blood Count 4.11 x10^6/uL (4.30-5.70) L Hemoglobin 12.7 g/dL (13.0-17.5) L Hematocrit 38.7 % (39.0-53.0) L Mean Corpuscular Volume 94 fL (79-100) Mean Corpuscular Hemoglobin 31 pg (25-35) Mean Corpuscular Hemoglobin Concent 33 g/dL (31-37) Red Cell Distribution Width 14.3 % (11.5-14.5) Platelet Count 315 x10^3/uL (140-400) Neutrophils (%) (Auto) 65 % (31-73) Lymphocytes (%) (Auto) 22 % (24-48) L Monocytes (%) (Auto) 7 % (0-9) Eosinophils (%) (Auto) 5 % (0-3) H Basophils (%) (Auto) 1 % (0-3) Neutrophils # (Auto) 4.1 x10^3uL (1.8-7.7) Lymphocytes # (Auto) 1.4 x10^3/uL (1.0-4.8) Monocytes # (Auto) 0.4 x10^3/uL (0.0-1.1) Eosinophils # (Auto) 0.3 x10^3/uL (0.0-0.7) Basophils # (Auto) 0.0 x10^3/uL (0.0-0.2) Sodium Level 144 mmol/L (136-145) Potassium Level 4.2 mmol/L (3.5-5.1) Chloride Level 106 mmol/L (98-107) Carbon Dioxide Level 35 mmol/L (21-32) H Anion Gap 3 (6-14) L Blood Urea Nitrogen 19 mg/dL (8-26) Creatinine 0.8 mg/dL (0.7-1.3) Estimated GFR (Cockcroft-Gault) 97.3 BUN/Creatinine Ratio 24 (6-20) H Glucose Level 68 mg/dL (70-99) L Calcium Level 8.6 mg/dL (8.5-10.1) Total Bilirubin 0.1 mg/dL (0.2-1.0) L Aspartate Amino Transferase (AST) 22 U/L (15-37) Alanine Aminotransferase (ALT) 26 U/L (16-63) Alkaline Phosphatase 98 U/L (46-116) Ammonia 31 mcmol/L (11-34) Total Protein 6.2 g/dL (6.4-8.2) L Albumin 2.8 g/dL (3.4-5.0) L Albumin/Globulin Ratio 0.8 (1.0-1.7) L Valproic Acid Level 46 mcg/mL (50-100) L Valproic Acid Last Dose Date 11/08/20 Valproic Acid Last Dose Time 2100 Current Medications: Meds: Laboratory Tests Test 11/09/20 05:52 White Blood Count 6.3 x10^3/uL Red Blood Count 4.11 x10^6/uL Hemoglobin 12.7 g/dL Hematocrit 38.7 % Mean Corpuscular Volume 94 fL Mean Corpuscular Hemoglobin 31 pg Mean Corpuscular Hemoglobin Concent 33 g/dL Red Cell Distribution Width 14.3 % Platelet Count 315 x10^3/uL Neutrophils (%) (Auto) 65 % Lymphocytes (%) (Auto) 22 % Monocytes (%) (Auto) 7 % Eosinophils (%) (Auto) 5 % Basophils (%) (Auto) 1 % Neutrophils # (Auto) 4.1 x10^3uL Lymphocytes # (Auto) 1.4 x10^3/uL Monocytes # (Auto) 0.4 x10^3/uL Eosinophils # (Auto) 0.3 x10^3/uL Basophils # (Auto) 0.0 x10^3/uL Sodium Level 144 mmol/L Potassium Level 4.2 mmol/L Chloride Level 106 mmol/L Carbon Dioxide Level 35 mmol/L Anion Gap 3 Blood Urea Nitrogen 19 mg/dL Creatinine 0.8 mg/dL Estimated GFR (Cockcroft-Gault) 97.3 BUN/Creatinine Ratio 24 Glucose Level 68 mg/dL Calcium Level 8.6 mg/dL Total Bilirubin 0.1 mg/dL Aspartate Amino Transf (AST/SGOT) 22 U/L Alanine Aminotransferase (ALT/SGPT) 26 U/L Alkaline Phosphatase 98 U/L Ammonia 31 mcmol/L Total Protein 6.2 g/dL Albumin 2.8 g/dL Albumin/Globulin Ratio 0.8 Valproic Acid (Depakene) Level 46 mcg/mL Valproic Acid Last Dose Date 11/08/20 Valproic Acid Last Dose Time 2100 Current Medications Medications (Trade) Dose Ordered Sig/Guillermo Route PRN Reason Start Time Stop Time Status Last Admin Dose Admin Acetaminophen (Tylenol) 650 mg PRN Q6HRS PRN PO MILD PAIN / TEMP > 100.3'F 10/31/20 16:15 11/06/20 17:33 Multi-Ingredient Ointment (Analgesic [place]) 1 ambrocio PRN QID PRN TP MUSCLE PAIN 10/31/20 16:15 Al Hydroxide/Mg Hydroxide (Mylanta Plus Xs) 15 ml PRN AFTMEALHC PRN PO DYSPEPSIA 10/31/20 16:15 Magnesium Hydroxide (Milk Of Magnesia) 2,400 mg PRN QHS PRN PO CONSTIPATION 10/31/20 16:15 Aspirin (Aspirin Chewable) 81 mg DAILY PO 11/01/20 09:00 11/09/20 08:13 Dexamethasone (Decadron) 4 mg BID PO 10/31/20 21:00 11/09/20 08:12 Divalproex Sodium (Depakote) 250 mg QID PO 10/31/20 17:00 11/02/20 15:56 DC 11/02/20 14:10 Donepezil HCl (Aricept) 5 mg QHS PO 10/31/20 21:00 11/08/20 20:21 Gabapentin (Neurontin) 200 mg TID PO 10/31/20 21:00 11/09/20 08:11 Mirtazapine (Remeron) 7.5 mg QHS PO 10/31/20 21:00 11/04/20 18:40 DC 11/03/20 20:42 Morphine Sulfate (Ms Contin) 15 mg BID PO 10/31/20 21:00 11/09/20 08:12 Phenytoin Sodium (Dilantin) 200 mg BID PO 10/31/20 21:00 11/09/20 08:13 Sertraline HCl (Zoloft) 25 mg DAILY PO 11/01/20 09:00 11/01/20 17:15 DC 11/01/20 09:55 Venlafaxine HCl (Effexor Xr) 75 mg DAILY PO 11/01/20 09:00 11/09/20 08:12 Morphine Sulfate (Ms Contin) 30 mg BID PO 10/31/20 21:00 11/09/20 08:11 Nicotine (Nicoderm Cq 14mg Patch) 1 patch DAILY TD 10/31/20 17:30 11/03/20 22:25 DC 11/03/20 08:17 Olanzapine (ZyPREXA ZYDIS) 2.5 mg PRN Q2HR PRN PO PSYCHOSIS 10/31/20 18:30 Sertraline HCl (Zoloft) 50 mg DAILY PO 11/02/20 09:00 11/02/20 15:56 DC 11/02/20 08:27 Hydroxyzine Pamoate (Vistaril) 25 mg TID PO 11/01/20 21:00 11/09/20 08:12 Divalproex Sodium (Depakote) 375 mg QID PO 11/02/20 17:00 11/06/20 17:27 DC 11/06/20 17:09 Nicotine (Nicoderm Cq 21mg Patch) 1 patch DAILY TD 11/04/20 09:00 11/09/20 08:13 Mirtazapine (Remeron) 15 mg QHS PO 11/04/20 21:00 11/08/20 20:21 Trazodone HCl (Desyrel) 50 mg PRN QHS PRN PO INSOMNIA, MAY REPEAT X1 11/04/20 18:45 11/08/20 20:22 Divalproex Sodium (Depakote) 500 mg QID PO 11/06/20 21:00 11/09/20 08:10 Nicotine Polacrilex (Nicorette Gum) 2 mg PRN Q1HR PRN BC SMOKING CESSATION 11/07/20 17:00 11/08/20 17:47 I have reviewed the current psychotropics carefully including drug interactions. Risk benefit ratio favors no change other than as noted in my dictated progress note. Diagnosis: Problems: (1) Schizoaffective disorder, bipolar type (2) Impulse control disorder, unspecified (3) Anxiety disorder, unspecified (4) Bipolar disorder, current episode mixed, severe, with psychotic features (5) Mild cognitive impairment VIANNEY HAWLEY MD Nov 09, 2020 09:23
[2020-11-09] MEDS: ACETAMINOPHEN 325 MG TABLET PO PRN ×2 (13:34→20:20)
[2020-11-09 15:39] VITALS: BP 101/63
[2020-11-09] MEDS: DONEPEZIL HCL 5 MG TABLET. PO SCH (20:14)
[2020-11-09] MEDS: MIRTAZAPINE 15 MG TABLET PO SCH (20:15)
[2020-11-09] MEDS: DIVALPROEX SODIUM 250 MG TABLET.DR. PO SCH (20:15)
[2020-11-09] MEDS: NICOTINE POLACRILEX GUM 2 MG GUM. BC PRN (20:20)
[2020-11-10 06:05] VITALS: BP 96/63
--- NOTE | 2020-11-10 06:40 | PDOC ---
Exam Note: Adams Note: Late entry for 11/09/2020. Please also refer to the separate dictated note~for this date of service dictated separately.~Patient seen individually. Discussed the patient with Nursing staff reviewed the chart.~Reviewed interim history and current functioning. Reviewed vital signs,~Labs/ Radiology~and current medic ations noted below. Continue current treatment with the changes noted in the dictated addendum note Assessment: Vital Signs/I&O: Vital Signs Date Time Temp Pulse Resp B/P (MAP) Pulse Ox O2 Delivery O2 Flow Rate FiO2 11/10/20 06:05 97.1 67 18 96/63 (74) 97 Room Air I & O 11/09/20 11/09/20 11/10/20 15:00 23:00 07:00 Intake Total 960 ml 600 ml Balance 960 ml 600 ml Current Medications: Meds: Current Medications Medications (Trade) Dose Ordered Sig/Guillermo Route PRN Reason Start Time Stop Time Status Last Admin Dose Admin Divalproex Sodium (Depakote) 750 mg BID PO 11/09/20 21:00 11/09/20 20:15 I have reviewed the current psychotropics carefully including drug interactions. Risk benefit ratio favors no change other than as noted in my dictated progress note. Diagnosis: Problems: (1) Schizoaffective disorder, bipolar type (2) Impulse control disorder, unspecified (3) Anxiety disorder, unspecified (4) Bipolar disorder, current episode mixed, severe, with psychotic features (5) Mild cognitive impairment VIANNEY HAWLEY MD Nov 10, 2020 06:40
[2020-11-10] MEDS: hydrOXYzine PAMOATE 25 MG CAPSULE PO SCH ×3 (08:11→20:50)
[2020-11-10] MEDS: GABAPENTIN 100 MG CAPSULE. PO SCH ×3 (08:11→20:50)
[2020-11-10] MEDS: PHENYTOIN SODIUM EXTENDED 100 MG CAPSULE PO SCH ×2 (08:11→20:50)
[2020-11-10] MEDS: VENLAFAXINE XR 37.5 MG CAP.ER.24H. PO SCH (08:11)
[2020-11-10] MEDS: ASPIRIN CHEWABLE 81 MG TABLET. PO SCH (08:11)
[2020-11-10] MEDS: DEXAMETHASONE 4 MG TABLET PO SCH ×2 (08:11→20:51)
[2020-11-10] MEDS: MORPHINE ER 30 MG TABLET.ER PO SCH ×2 (08:12→20:51)
[2020-11-10] MEDS: DIVALPROEX SODIUM 250 MG TABLET.DR. PO SCH ×4 (08:12→20:50)
[2020-11-10] MEDS: MORPHINE ER 15 MG TABLET.ER PO SCH ×2 (08:12→20:51)
[2020-11-10] MEDS: NICOTINE 21MG PATCH. TD SCH (08:13)
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
[2020-11-10] MEDS: ACETAMINOPHEN 325 MG TABLET PO PRN ×2 (13:48→20:58)
[2020-11-10] MEDS: NICOTINE POLACRILEX GUM 2 MG GUM. BC PRN ×2 (15:07→20:51)
[2020-11-10 15:34] VITALS: BP 99/65
[2020-11-10] MEDS: DONEPEZIL HCL 5 MG TABLET. PO SCH (20:50)
[2020-11-10] MEDS: MIRTAZAPINE 15 MG TABLET PO SCH (20:50)
--- NOTE | 2020-11-10 22:01 | PDOC ---
Exam Note: Adams Note: Please also refer to the separate dictated note~for this date of service dictated separately.~Patient seen individually. Discussed the patient with Nursing staff reviewed the chart.~Reviewed interim history and current functioning. Reviewed vital signs,~Labs/ Radiology~and current medications noted below. Continue current treatment with the changes noted in the dictated addendum note Assessment: Vital Signs/I&O: Vital Signs Date Time Temp Pulse Resp B/P (MAP) Pulse Ox O2 Delivery O2 Flow Rate FiO2 11/10/20 15:34 97.0 71 18 99/65 (76) 96 11/10/20 06:05 Room Air I & O 11/09/20 11/09/20 11/10/20 15:00 23:00 07:00 Intake Total 960 ml 600 ml Balance 960 ml 600 ml Current Medications: Meds: Current Medications Medications (Trade) Dose Ordered Sig/Guillermo Route PRN Reason Start Time Stop Time Status Last Admin Dose Admin Acetaminophen (Tylenol) 650 mg PRN Q6HRS PRN PO MILD PAIN / TEMP > 100.3'F 10/31/20 16:15 11/10/20 20:58 Multi-Ingredient Ointment (Analgesic [place]) 1 ambrocio PRN QID PRN TP MUSCLE PAIN 10/31/20 16:15 Al Hydroxide/Mg Hydroxide (Mylanta Plus Xs) 15 ml PRN AFTMEALHC PRN PO DYSPEPSIA 10/31/20 16:15 Magnesium Hydroxide (Milk Of Magnesia) 2,400 mg PRN QHS PRN PO CONSTIPATION 10/31/20 16:15 Aspirin (Aspirin Chewable) 81 mg DAILY PO 11/01/20 09:00 11/10/20 08:11 Dexamethasone (Decadron) 4 mg BID PO 10/31/20 21:00 11/10/20 20:51 Divalproex Sodium (Depakote) 250 mg QID PO 10/31/20 17:00 11/02/20 15:56 DC 11/02/20 14:10 Donepezil HCl (Aricept) 5 mg QHS PO 10/31/20 21:00 11/10/20 20:50 Gabapentin (Neurontin) 200 mg TID PO 10/31/20 21:00 11/10/20 20:50 Mirtazapine (Remeron) 7.5 mg QHS PO 10/31/20 21:00 11/04/20 18:40 DC 11/03/20 20:42 Morphine Sulfate (Ms Contin) 15 mg BID PO 10/31/20 21:00 11/10/20 20:51 Phenytoin Sodium (Dilantin) 200 mg BID PO 10/31/20 21:00 11/10/20 20:50 Sertraline HCl (Zoloft) 25 mg DAILY PO 11/01/20 09:00 11/01/20 17:15 DC 11/01/20 09:55 Venlafaxine HCl (Effexor Xr) 75 mg DAILY PO 11/01/20 09:00 11/10/20 08:11 Morphine Sulfate (Ms Contin) 30 mg BID PO 10/31/20 21:00 11/10/20 20:51 Nicotine (Nicoderm Cq 14mg Patch) 1 patch DAILY TD 10/31/20 17:30 11/03/20 22:25 DC 11/03/20 08:17 Olanzapine (ZyPREXA ZYDIS) 2.5 mg PRN Q2HR PRN PO PSYCHOSIS 10/31/20 18:30 Sertraline HCl (Zoloft) 50 mg DAILY PO 11/02/20 09:00 11/02/20 15:56 DC 11/02/20 08:27 Hydroxyzine Pamoate (Vistaril) 25 mg TID PO 11/01/20 21:00 11/10/20 20:50 Divalproex Sodium (Depakote) 375 mg QID PO 11/02/20 17:00 11/06/20 17:27 DC 11/06/20 17:09 Nicotine (Nicoderm Cq 21mg Patch) 1 patch DAILY TD 11/04/20 09:00 11/10/20 08:13 Mirtazapine (Remeron) 15 mg QHS PO 11/04/20 21:00 11/10/20 20:50 Trazodone HCl (Desyrel) 50 mg PRN QHS PRN PO INSOMNIA, MAY REPEAT X1 11/04/20 18:45 11/08/20 20:22 Divalproex Sodium (Depakote) 500 mg QID PO 11/06/20 21:00 11/09/20 18:54 DC 11/09/20 17:07 Nicotine Polacrilex (Nicorette Gum) 2 mg PRN Q1HR PRN BC SMOKING CESSATION 11/07/20 17:00 11/10/20 20:51 Divalproex Sodium (Depakote) 500 mg 1300,1700 PO 11/10/20 13:00 11/10/20 17:00 Divalproex Sodium (Depakote) 750 mg BID PO 11/09/20 21:00 11/10/20 20:50 Current Medications Medications (Trade) Dose Ordered Sig/Guillermo Route PRN Reason Start Time Stop Time Status Last Admin Dose Admin Divalproex Sodium (Depakote) 500 mg 1300,1700 PO 11/10/20 13:00 11/10/20 17:00 I have reviewed the current psychotropics carefully including drug interactions. Risk benefit ratio favors no change other than as noted in my dictated progress note. Diagnosis: Problems: (1) Schizoaffective disorder, bipolar type (2) Impulse control disorder, unspecified (3) Anxiety disorder, unspecified (4) Bipolar disorder, current episode mixed, severe, with psychotic features (5) Mild cognitive impairment VIANNEY HAWLEY MD Nov 10, 2020 22:01
[2020-11-11 06:09] VITALS: BP 100/65
--- NOTE | 2020-11-11 06:17 | PDOC ---
Exam Note: Adams Note: This note is a late entry for 11/09/2020 covers elements not covered in my initial note. Subjective: The patient was seen individually in the evening of 11/09/2020 with Miles GANT, discussed and reviewed the chart. He slept 5-1/2 hours previous night. The patient has been was somewhat withdrawn to his room. He spends much time in his room. He continues to have some mood swings, obsesses about wanting cigarettes or something else. Valproic acid level is 46. Review of Systems: Ambulation impaired in wheelchair. No CV, , pulmonary, eye system symptoms on review. He is somewhat hard of hearing. Mental Status Exam: The patient is oriented to himself and situation. He is less anxious but still withdrawn. Speech coherent. Abstraction fair. Computation impaired. Attention span short. Mood appears dysphoric. No active suicidal or homicidal ideation. Laboratory Data: Reviewed. Impression: Schizoaffective disorder bipolar type mixed with psychotic features. Anxiety disorder unspecified. Impulse control disorder unspecified. Mild cognitive impairment. Plan: Continue rest of the psychotropics unchanged. Valproic acid level is subtherapeutic at 46. We will increase Depakote from 500 mg 4 times a day to 750 mg twice a day and 500 mg twice a day. Check CBC, CMP, valproic acid level in 3 days. Adjust further as clinically indicated. Assessment: Vital Signs/I&O: Vital Signs Date Time Temp Pulse Resp B/P (MAP) Pulse Ox O2 Delivery O2 Flow Rate FiO2 11/11/20 06:09 96.9 60 18 100/65 (77) 97 Room Air I & O 11/10/20 11/10/20 11/11/20 15:00 23:00 07:00 Intake Total 1200 ml 740 ml Balance 1200 ml 740 ml Current Medications: Meds: Current Medications Medications (Trade) Dose Ordered Sig/Guillermo Route PRN Reason Start Time Stop Time Status Last Admin Dose Admin Acetaminophen (Tylenol) 650 mg PRN Q6HRS PRN PO MILD PAIN / TEMP > 100.3'F 10/31/20 16:15 11/10/20 20:58 Multi-Ingredient Ointment (Analgesic [place]) 1 ambrocio PRN QID PRN TP MUSCLE PAIN 10/31/20 16:15 Al Hydroxide/Mg Hydroxide (Mylanta Plus Xs) 15 ml PRN AFTMEALHC PRN PO DYSPEPSIA 10/31/20 16:15 Magnesium Hydroxide (Milk Of Magnesia) 2,400 mg PRN QHS PRN PO CONSTIPATION 10/31/20 16:15 Aspirin (Aspirin Chewable) 81 mg DAILY PO 11/01/20 09:00 11/10/20 08:11 Dexamethasone (Decadron) 4 mg BID PO 10/31/20 21:00 11/10/20 20:51 Divalproex Sodium (Depakote) 250 mg QID PO 10/31/20 17:00 11/02/20 15:56 DC 11/02/20 14:10 Donepezil HCl (Aricept) 5 mg QHS PO 10/31/20 21:00 11/10/20 20:50 Gabapentin (Neurontin) 200 mg TID PO 10/31/20 21:00 11/10/20 20:50 Mirtazapine (Remeron) 7.5 mg QHS PO 10/31/20 21:00 11/04/20 18:40 DC 11/03/20 20:42 Morphine Sulfate (Ms Contin) 15 mg BID PO 10/31/20 21:00 11/10/20 20:51 Phenytoin Sodium (Dilantin) 200 mg BID PO 10/31/20 21:00 11/10/20 20:50 Sertraline HCl (Zoloft) 25 mg DAILY PO 11/01/20 09:00 11/01/20 17:15 DC 11/01/20 09:55 Venlafaxine HCl (Effexor Xr) 75 mg DAILY PO 11/01/20 09:00 11/10/20 08:11 Morphine Sulfate (Ms Contin) 30 mg BID PO 10/31/20 21:00 11/10/20 20:51 Nicotine (Nicoderm Cq 14mg Patch) 1 patch DAILY TD 10/31/20 17:30 11/03/20 22:25 DC 11/03/20 08:17 Olanzapine (ZyPREXA ZYDIS) 2.5 mg PRN Q2HR PRN PO PSYCHOSIS 10/31/20 18:30 Sertraline HCl (Zoloft) 50 mg DAILY PO 11/02/20 09:00 11/02/20 15:56 DC 11/02/20 08:27 Hydroxyzine Pamoate (Vistaril) 25 mg TID PO 11/01/20 21:00 11/10/20 20:50 Divalproex Sodium (Depakote) 375 mg QID PO 11/02/20 17:00 11/06/20 17:27 DC 11/06/20 17:09 Nicotine (Nicoderm Cq 21mg Patch) 1 patch DAILY TD 11/04/20 09:00 11/10/20 08:13 Mirtazapine (Remeron) 15 mg QHS PO 11/04/20 21:00 11/10/20 20:50 Trazodone HCl (Desyrel) 50 mg PRN QHS PRN PO INSOMNIA, MAY REPEAT X1 11/04/20 18:45 11/08/20 20:22 Divalproex Sodium (Depakote) 500 mg QID PO 11/06/20 21:00 11/09/20 18:54 DC 11/09/20 17:07 Nicotine Polacrilex (Nicorette Gum) 2 mg PRN Q1HR PRN BC SMOKING CESSATION 11/07/20 17:00 11/10/20 20:51 Divalproex Sodium (Depakote) 500 mg 1300,1700 PO 11/10/20 13:00 11/10/20 17:00 Divalproex Sodium (Depakote) 750 mg BID PO 11/09/20 21:00 11/10/20 20:50 Current Medications Medications (Trade) Dose Ordered Sig/Guillermo Route PRN Reason Start Time Stop Time Status Last Admin Dose Admin Divalproex Sodium (Depakote) 500 mg 1300,1700 PO 11/10/20 13:00 11/10/20 17:00 I have reviewed the current psychotropics carefully including drug interactions. Risk benefit ratio favors no change other than as noted in my dictated progress note. Diagnosis: Problems: (1) Schizoaffective disorder, bipolar type (2) Impulse control disorder, unspecified (3) Anxiety disorder, unspecified (4) Bipolar disorder, current episode mixed, severe, with psychotic features (5) Mild cognitive impairment VIANNEY HAWLEY MD Nov 11, 2020 06:17
--- NOTE | 2020-11-11 06:44 | PDOC ---
Exam Note: Adams Note: This note is a late entry for 11/10/2020overs elements not covered in my initial note. Subjective: The patient was seen individually in the morning of 11/10/2020 for a treatment team meeting with Diana Camacho, Krista Glover (psychosocial rehabilitation counselor), Mariela, activity therapy and Carmen GANT, discussed and reviewed the chart. He slept 6 hours previous night. The patient remains fixated on wanting coffee or tea or smoking. He states he has short-term memory deficits. Appetite is 100%. Per social service staff, some of the patients interactions which might appear to be reflective of lower IQ in fact could be due to his limited education. 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 He does go to the dining room for meals, is pleasant, irritable off and on. Review of Systems: Ambulation impaired in wheelchair. No CV, , pulmonary, eye system symptoms on review. He is hard of hearing. Mental Status Exam: The patient is oriented to himself and situation. I met with him at some length in his room. He was somewhat distractible. Speech has some latency, coherent. Abstraction fair. Computation impaired. Language function intact. Mood and affect somewhat withdrawn. No suicidal or homicidal ideation. Laboratory Data: Reviewed. Impression: Schizoaffective disorder bipolar type mixed with psychotic features. Anxiety disorder unspecified. Impulse control disorder unspecified. Mild cognitive impairment. Plan: Continue rest psychotropics unchanged. We have increased the patients Depakote. We will follow labs level. We may consider stopping Aricept at some point and using an atypical antipsychotic depending on his mood lability, anxiety, and irritability. Assessment: Vital Signs/I&O: Vital Signs Date Time Temp Pulse Resp B/P (MAP) Pulse Ox O2 Delivery O2 Flow Rate FiO2 11/11/20 06:09 96.9 60 18 100/65 (77) 97 Room Air I & O 11/10/20 11/10/20 11/11/20 15:00 23:00 07:00 Intake Total 1200 ml 740 ml Balance 1200 ml 740 ml Current Medications: Meds: Current Medications Medications (Trade) Dose Ordered Sig/Guillermo Route PRN Reason Start Time Stop Time Status Last Admin Dose Admin Acetaminophen (Tylenol) 650 mg PRN Q6HRS PRN PO MILD PAIN / TEMP > 100.3'F 10/31/20 16:15 11/10/20 20:58 Multi-Ingredient Ointment (Analgesic [place]) 1 ambrocio PRN QID PRN TP MUSCLE PAIN 10/31/20 16:15 Al Hydroxide/Mg Hydroxide (Mylanta Plus Xs) 15 ml PRN AFTMEALHC PRN PO DYSPEPSIA 10/31/20 16:15 Magnesium Hydroxide (Milk Of Magnesia) 2,400 mg PRN QHS PRN PO CONSTIPATION 10/31/20 16:15 Aspirin (Aspirin Chewable) 81 mg DAILY PO 11/01/20 09:00 11/10/20 08:11 Dexamethasone (Decadron) 4 mg BID PO 10/31/20 21:00 11/10/20 20:51 Divalproex Sodium (Depakote) 250 mg QID PO 10/31/20 17:00 11/02/20 15:56 DC 11/02/20 14:10 Donepezil HCl (Aricept) 5 mg QHS PO 10/31/20 21:00 11/10/20 20:50 Gabapentin (Neurontin) 200 mg TID PO 10/31/20 21:00 11/10/20 20:50 Mirtazapine (Remeron) 7.5 mg QHS PO 10/31/20 21:00 11/04/20 18:40 DC 11/03/20 20:42 Morphine Sulfate (Ms Contin) 15 mg BID PO 10/31/20 21:00 11/10/20 20:51 Phenytoin Sodium (Dilantin) 200 mg BID PO 10/31/20 21:00 11/10/20 20:50 Sertraline HCl (Zoloft) 25 mg DAILY PO 11/01/20 09:00 11/01/20 17:15 DC 11/01/20 09:55 Venlafaxine HCl (Effexor Xr) 75 mg DAILY PO 11/01/20 09:00 11/10/20 08:11 Morphine Sulfate (Ms Contin) 30 mg BID PO 10/31/20 21:00 11/10/20 20:51 Nicotine (Nicoderm Cq 14mg Patch) 1 patch DAILY TD 10/31/20 17:30 11/03/20 22:25 DC 11/03/20 08:17 Olanzapine (ZyPREXA ZYDIS) 2.5 mg PRN Q2HR PRN PO PSYCHOSIS 10/31/20 18:30 Sertraline HCl (Zoloft) 50 mg DAILY PO 11/02/20 09:00 11/02/20 15:56 DC 11/02/20 08:27 Hydroxyzine Pamoate (Vistaril) 25 mg TID PO 11/01/20 21:00 11/10/20 20:50 Divalproex Sodium (Depakote) 375 mg QID PO 11/02/20 17:00 11/06/20 17:27 DC 11/06/20 17:09 Nicotine (Nicoderm Cq 21mg Patch) 1 patch DAILY TD 11/04/20 09:00 11/10/20 08:13 Mirtazapine (Remeron) 15 mg QHS PO 11/04/20 21:00 11/10/20 20:50 Trazodone HCl (Desyrel) 50 mg PRN QHS PRN PO INSOMNIA, MAY REPEAT X1 11/04/20 18:45 11/08/20 20:22 Divalproex Sodium (Depakote) 500 mg QID PO 11/06/20 21:00 11/09/20 18:54 DC 11/09/20 17:07 Nicotine Polacrilex (Nicorette Gum) 2 mg PRN Q1HR PRN BC SMOKING CESSATION 11/07/20 17:00 11/10/20 20:51 Divalproex Sodium (Depakote) 500 mg 1300,1700 PO 11/10/20 13:00 11/10/20 17:00 Divalproex Sodium (Depakote) 750 mg BID PO 11/09/20 21:00 11/10/20 20:50 Current Medications Medications (Trade) Dose Ordered Sig/Guillermo Route PRN Reason Start Time Stop Time Status Last Admin Dose Admin Divalproex Sodium (Depakote) 500 mg 1300,1700 PO 11/10/20 13:00 11/10/20 17:00 I have reviewed the current psychotropics carefully including drug interactions. Risk benefit ratio favors no change other than as noted in my dictated progress note. Diagnosis: Problems: (1) Schizoaffective disorder, bipolar type (2) Impulse control disorder, unspecified (3) Anxiety disorder, unspecified (4) Bipolar disorder, current episode mixed, severe, with psychotic features (5) Mild cognitive impairment VIANNEY HAWLEY MD Nov 11, 2020 06:44
[2020-11-11] MEDS: DIVALPROEX SODIUM 250 MG TABLET.DR. PO SCH ×4 (08:28→20:12)
[2020-11-11] MEDS: DEXAMETHASONE 4 MG TABLET PO SCH ×2 (08:28→20:14)
[2020-11-11] MEDS: PHENYTOIN SODIUM EXTENDED 100 MG CAPSULE PO SCH ×2 (08:29→20:13)
[2020-11-11] MEDS: MORPHINE ER 30 MG TABLET.ER PO SCH ×2 (08:30→20:15)
[2020-11-11] MEDS: MORPHINE ER 15 MG TABLET.ER PO SCH ×2 (08:31→20:15)
[2020-11-11] MEDS: hydrOXYzine PAMOATE 25 MG CAPSULE PO SCH ×3 (08:31→20:14)
[2020-11-11] MEDS: GABAPENTIN 100 MG CAPSULE. PO SCH ×3 (08:32→20:12)
[2020-11-11] MEDS: ASPIRIN CHEWABLE 81 MG TABLET. PO SCH (08:32)
[2020-11-11] MEDS: VENLAFAXINE XR 37.5 MG CAP.ER.24H. PO SCH (08:32)
[2020-11-11] MEDS: NICOTINE 21MG PATCH. TD SCH (08:33)
[2020-11-11 15:42] VITALS: BP 107/59
[2020-11-11] MEDS: DONEPEZIL HCL 5 MG TABLET. PO SCH (20:12)
[2020-11-11] MEDS: traZODone 50 MG TABLET. PO SCH (20:12)
[2020-11-11] MEDS: MIRTAZAPINE 15 MG TABLET PO SCH (20:13)
[2020-11-11] MEDS: NICOTINE POLACRILEX GUM 2 MG GUM. BC PRN (20:16)
--- NOTE | 2020-11-11 22:05 | PDOC ---
Exam Note: Adams Note: Please also refer to the separate dictated note~for this date of service dictated separately.~Patient seen individually. Discussed the patient with Nursing staff reviewed the chart.~Reviewed interim history and current functioning. Reviewed vital signs,~Labs/ Radiology~and current medications noted below. Continue current treatment with the changes noted in the dictated addendum note Assessment: Vital Signs/I&O: Vital Signs Date Time Temp Pulse Resp B/P (MAP) Pulse Ox O2 Delivery O2 Flow Rate FiO2 11/11/20 20:15 99 11/11/20 15:42 98.2 84 20 107/59 (75) 11/11/20 12:19 Room Air I & O 11/10/20 11/10/20 11/11/20 15:00 23:00 07:00 Intake Total 1200 ml 740 ml Balance 1200 ml 740 ml Current Medications: Meds: Current Medications Medications (Trade) Dose Ordered Sig/Guillermo Route PRN Reason Start Time Stop Time Status Last Admin Dose Admin Acetaminophen (Tylenol) 650 mg PRN Q6HRS PRN PO MILD PAIN / TEMP > 100.3'F 10/31/20 16:15 11/10/20 20:58 Multi-Ingredient Ointment (Analgesic [place]) 1 ambrocio PRN QID PRN TP MUSCLE PAIN 10/31/20 16:15 Al Hydroxide/Mg Hydroxide (Mylanta Plus Xs) 15 ml PRN AFTMEALHC PRN PO DYSPEPSIA 10/31/20 16:15 Magnesium Hydroxide (Milk Of Magnesia) 2,400 mg PRN QHS PRN PO CONSTIPATION 10/31/20 16:15 Aspirin (Aspirin Chewable) 81 mg DAILY PO 11/01/20 09:00 11/11/20 08:32 Dexamethasone (Decadron) 4 mg BID PO 10/31/20 21:00 11/11/20 20:14 Divalproex Sodium (Depakote) 250 mg QID PO 10/31/20 17:00 11/02/20 15:56 DC 11/02/20 14:10 Donepezil HCl (Aricept) 5 mg QHS PO 10/31/20 21:00 11/11/20 20:12 Gabapentin (Neurontin) 200 mg TID PO 10/31/20 21:00 11/11/20 20:12 Mirtazapine (Remeron) 7.5 mg QHS PO 10/31/20 21:00 11/04/20 18:40 DC 11/03/20 20:42 Morphine Sulfate (Ms Contin) 15 mg BID PO 10/31/20 21:00 11/11/20 20:15 Phenytoin Sodium (Dilantin) 200 mg BID PO 10/31/20 21:00 11/11/20 20:13 Sertraline HCl (Zoloft) 25 mg DAILY PO 11/01/20 09:00 11/01/20 17:15 DC 11/01/20 09:55 Venlafaxine HCl (Effexor Xr) 75 mg DAILY PO 11/01/20 09:00 11/11/20 08:32 Morphine Sulfate (Ms Contin) 30 mg BID PO 10/31/20 21:00 11/11/20 20:15 Nicotine (Nicoderm Cq 14mg Patch) 1 patch DAILY TD 10/31/20 17:30 11/03/20 22:25 DC 11/03/20 08:17 Olanzapine (ZyPREXA ZYDIS) 2.5 mg PRN Q2HR PRN PO PSYCHOSIS 10/31/20 18:30 Sertraline HCl (Zoloft) 50 mg DAILY PO 11/02/20 09:00 11/02/20 15:56 DC 11/02/20 08:27 Hydroxyzine Pamoate (Vistaril) 25 mg TID PO 11/01/20 21:00 11/11/20 16:27 DC 11/11/20 12:20 Divalproex Sodium (Depakote) 375 mg QID PO 11/02/20 17:00 11/06/20 17:27 DC 11/06/20 17:09 Nicotine (Nicoderm Cq 21mg Patch) 1 patch DAILY TD 11/04/20 09:00 11/11/20 08:33 Mirtazapine (Remeron) 15 mg QHS PO 11/04/20 21:00 11/11/20 20:13 Trazodone HCl (Desyrel) 50 mg PRN QHS PRN PO INSOMNIA, MAY REPEAT X1 11/04/20 18:45 11/11/20 18:01 DC 11/08/20 20:22 Divalproex Sodium (Depakote) 500 mg QID PO 11/06/20 21:00 11/09/20 18:54 DC 11/09/20 17:07 Nicotine Polacrilex (Nicorette Gum) 2 mg PRN Q1HR PRN BC SMOKING CESSATION 11/07/20 17:00 11/11/20 20:16 Divalproex Sodium (Depakote) 500 mg 1300,1700 PO 11/10/20 13:00 11/11/20 16:58 Divalproex Sodium (Depakote) 750 mg BID PO 11/09/20 21:00 11/11/20 20:12 Hydroxyzine Pamoate (Vistaril) 50 mg TID PO 11/11/20 21:00 11/11/20 20:14 Trazodone HCl (Desyrel) 50 mg HS PO 11/11/20 21:00 11/11/20 20:12 Trazodone HCl (Desyrel) 50 mg PRN QHS PRN PO INSOMNIA 11/11/20 18:00 Current Medications Medications (Trade) Dose Ordered Sig/Guillermo Route PRN Reason Start Time Stop Time Status Last Admin Dose Admin Hydroxyzine Pamoate (Vistaril) 50 mg TID PO 11/11/20 21:00 11/11/20 20:14 Trazodone HCl (Desyrel) 50 mg HS PO 11/11/20 21:00 11/11/20 20:12 I have reviewed the current psychotropics carefully including drug interactions. Risk benefit ratio favors no change other than as noted in my dictated progress note. Diagnosis: Problems: (1) Schizoaffective disorder, bipolar type (2) Impulse control disorder, unspecified (3) Anxiety disorder, unspecified (4) Bipolar disorder, current episode mixed, severe, with psychotic features (5) Mild cognitive impairment VIANNEY HAWLEY MD Nov 11, 2020 22:05
[2020-11-12 05:14] VITALS: BP 99/68
--- NOTE | 2020-11-12 06:58 | PDOC ---
Exam Note: Adams Note: This note is a late entry for 11/11/2020overs elements not covered in my initial note. Subjective: The patient was seen on telehealth rounds in the evening of 11/11/2020 due to COVID-19 exposure on the unit with Justina GANT, discussed and reviewed the chart. He slept 3 hours previous night. The patient remains somewhat obsessive repeatedly asking for cigarettes. He complains of itching in his arms and abdominal area. Dr. Em has increased his hydroxyzine from 25 mg t.i.d. to 50 mg t.i.d. Valproic acid level is 46 and the dosage has been adjusted. Repeat labs level on 11/13. Review of Systems: Ambulation impaired in wheelchair. He complains of itching in his arms and abdominal area. No CV, , pulmonary, eye system symptoms on review. He is hard of hearing. Mental Status Exam: The patient is oriented to himself and situation. Speech coherent. Abstraction fair. Computation impaired. Language function intact. Mood and affect somewhat withdrawn. No suicidal or homicidal ideation. Laboratory Data: Reviewed. Impression: Schizoaffective disorder bipolar type mixed with psychotic features. Anxiety disorder unspecified. Impulse control disorder unspecified. Mild cognitive impairment. Plan: Continue rest psychotropics unchanged. We will change his p.r.n. trazodone at night to 50 mg h.s. and 50 mg h.s. p.r.n. insomnia. Maintain Remeron 15 mg h.s. Hopefully the scheduled trazodone will help with his insomnia. Assessment: Vital Signs/I&O: Vital Signs Date Time Temp Pulse Resp B/P (MAP) Pulse Ox O2 Delivery O2 Flow Rate FiO2 11/12/20 05:14 97.9 69 16 99/68 (78) 98 11/11/20 12:19 Room Air I & O 11/11/20 11/11/20 11/12/20 15:00 23:00 07:00 Intake Total 1200 ml 840 ml Balance 1200 ml 840 ml Current Medications: Meds: Current Medications Medications (Trade) Dose Ordered Sig/Guillermo Route PRN Reason Start Time Stop Time Status Last Admin Dose Admin Acetaminophen (Tylenol) 650 mg PRN Q6HRS PRN PO MILD PAIN / TEMP > 100.3'F 10/31/20 16:15 11/10/20 20:58 Multi-Ingredient Ointment (Analgesic [place]) 1 ambrocio PRN QID PRN TP MUSCLE PAIN 10/31/20 16:15 Al Hydroxide/Mg Hydroxide (Mylanta Plus Xs) 15 ml PRN AFTMEALHC PRN PO DYSPEPSIA 10/31/20 16:15 Magnesium Hydroxide (Milk Of Magnesia) 2,400 mg PRN QHS PRN PO CONSTIPATION 10/31/20 16:15 Aspirin (Aspirin Chewable) 81 mg DAILY PO 11/01/20 09:00 11/11/20 08:32 Dexamethasone (Decadron) 4 mg BID PO 10/31/20 21:00 11/11/20 20:14 Divalproex Sodium (Depakote) 250 mg QID PO 10/31/20 17:00 11/02/20 15:56 DC 11/02/20 14:10 Donepezil HCl (Aricept) 5 mg QHS PO 10/31/20 21:00 11/11/20 20:12 Gabapentin (Neurontin) 200 mg TID PO 10/31/20 21:00 11/11/20 20:12 Mirtazapine (Remeron) 7.5 mg QHS PO 10/31/20 21:00 11/04/20 18:40 DC 11/03/20 20:42 Morphine Sulfate (Ms Contin) 15 mg BID PO 10/31/20 21:00 11/11/20 20:15 Phenytoin Sodium (Dilantin) 200 mg BID PO 10/31/20 21:00 11/11/20 20:13 Sertraline HCl (Zoloft) 25 mg DAILY PO 11/01/20 09:00 11/01/20 17:15 DC 11/01/20 09:55 Venlafaxine HCl (Effexor Xr) 75 mg DAILY PO 11/01/20 09:00 11/11/20 08:32 Morphine Sulfate (Ms Contin) 30 mg BID PO 10/31/20 21:00 11/11/20 20:15 Nicotine (Nicoderm Cq 14mg Patch) 1 patch DAILY TD 10/31/20 17:30 11/03/20 22:25 DC 11/03/20 08:17 Olanzapine (ZyPREXA ZYDIS) 2.5 mg PRN Q2HR PRN PO PSYCHOSIS 10/31/20 18:30 Sertraline HCl (Zoloft) 50 mg DAILY PO 11/02/20 09:00 11/02/20 15:56 DC 11/02/20 08:27 Hydroxyzine Pamoate (Vistaril) 25 mg TID PO 11/01/20 21:00 11/11/20 16:27 DC 11/11/20 12:20 Divalproex Sodium (Depakote) 375 mg QID PO 11/02/20 17:00 11/06/20 17:27 DC 11/06/20 17:09 Nicotine (Nicoderm Cq 21mg Patch) 1 patch DAILY TD 11/04/20 09:00 11/11/20 08:33 Mirtazapine (Remeron) 15 mg QHS PO 11/04/20 21:00 11/11/20 20:13 Trazodone HCl (Desyrel) 50 mg PRN QHS PRN PO INSOMNIA, MAY REPEAT X1 11/04/20 18:45 11/11/20 18:01 DC 11/08/20 20:22 Divalproex Sodium (Depakote) 500 mg QID PO 11/06/20 21:00 11/09/20 18:54 DC 11/09/20 17:07 Nicotine Polacrilex (Nicorette Gum) 2 mg PRN Q1HR PRN BC SMOKING CESSATION 11/07/20 17:00 11/11/20 20:16 Divalproex Sodium (Depakote) 500 mg 1300,1700 PO 11/10/20 13:00 11/11/20 16:58 Divalproex Sodium (Depakote) 750 mg BID PO 11/09/20 21:00 11/11/20 20:12 Hydroxyzine Pamoate (Vistaril) 50 mg TID PO 11/11/20 21:00 11/11/20 20:14 Trazodone HCl (Desyrel) 50 mg HS PO 11/11/20 21:00 11/11/20 20:12 Trazodone HCl (Desyrel) 50 mg PRN QHS PRN PO INSOMNIA 11/11/20 18:00 Current Medications Medications (Trade) Dose Ordered Sig/Guillermo Route PRN Reason Start Time Stop Time Status Last Admin Dose Admin Hydroxyzine Pamoate (Vistaril) 50 mg TID PO 11/11/20 21:00 11/11/20 20:14 Trazodone HCl (Desyrel) 50 mg HS PO 11/11/20 21:00 11/11/20 20:12 I have reviewed the current psychotropics carefully including drug interactions. Risk benefit ratio favors no change other than as noted in my dictated progress note. Diagnosis: Problems: (1) Schizoaffective disorder, bipolar type (2) Impulse control disorder, unspecified (3) Anxiety disorder, unspecified (4) Bipolar disorder, current episode mixed, severe, with psychotic features (5) Mild cognitive impairment VIANNEY HAWLEY MD Nov 12, 2020 06:58
[2020-11-12] MEDS: ASPIRIN CHEWABLE 81 MG TABLET. PO SCH (08:14)
[2020-11-12] MEDS: PHENYTOIN SODIUM EXTENDED 100 MG CAPSULE PO SCH ×2 (08:15→20:09)
[2020-11-12] MEDS: DEXAMETHASONE 4 MG TABLET PO SCH ×2 (08:15→20:07)
[2020-11-12] MEDS: hydrOXYzine PAMOATE 25 MG CAPSULE PO SCH ×3 (08:15→20:08)
[2020-11-12] MEDS: DIVALPROEX SODIUM 250 MG TABLET.DR. PO SCH ×4 (08:15→20:06)
[2020-11-12] MEDS: VENLAFAXINE XR 37.5 MG CAP.ER.24H. PO SCH (08:15)
[2020-11-12] MEDS: GABAPENTIN 100 MG CAPSULE. PO SCH ×3 (08:16→20:06)
[2020-11-12] MEDS: MORPHINE ER 15 MG TABLET.ER PO SCH ×2 (08:16→20:08)
[2020-11-12] MEDS: MORPHINE ER 30 MG TABLET.ER PO SCH ×2 (08:16→20:07)
[2020-11-12] MEDS: NICOTINE 21MG PATCH. TD SCH (08:17)
[2020-11-12 15:59] VITALS: BP 94/60
[2020-11-12] MEDS: MIRTAZAPINE 15 MG TABLET PO SCH (20:06)
[2020-11-12] MEDS: traZODone 50 MG TABLET. PO SCH (20:08)
[2020-11-12] MEDS: DONEPEZIL HCL 5 MG TABLET. PO SCH (20:09)
[2020-11-13 05:43] VITALS: BP 101/65
[2020-11-13 07:08] LABS: BASO % 0 % (0-3); EOS # 0.4 x10^3/uL (0.0-0.7); EOS % 3 % (0-3); HEMATOCRIT 34.2 % (39.0-53.0); HEMOGLOBIN 11.3 g/dL (13.0-17.5); LYMPH # 0.8 x10^3/uL (1.0-4.8); LYMPH % 7 % (24-48); MEAN CORPUSCULAR HEMOGLOBIN 31 pg (25-35); MEAN CORPUSCULAR HGB CONC 33 g/dL (31-37); MEAN CORPUSCULAR VOLUME 94 fL (79-100); MONO # 0.8 x10^3/uL (0.0-1.1); MONO % 6 % (0-9); NEUT # 10.2 x10^3uL (1.8-7.7); NEUT % 84 % (31-73); PLATELET COUNT 270 x10^3/uL (140-400); RED BLOOD COUNT 3.66 x10^6/uL (4.30-5.70); RED CELL DISTRIBUTION WIDTH 14.3 % (11.5-14.5); WHITE BLOOD COUNT 12.2 x10^3/uL (4.0-11.0)
[2020-11-13 07:29] LABS: ALBUMIN 2.4 g/dL (3.4-5.0); ALBUMIN/GLOBULIN RATIO 0.8 (1.0-1.7); ALK PHOS 80 U/L (46-116); ALT (SGPT) 22 U/L (16-63); ANION GAP 4 (6-14); AST (SGOT) 17 U/L (15-37); BLOOD UREA NITROGEN 20 mg/dL (8-26); BUN/CREATININE RATIO 33 (6-20); CALCIUM 8.2 mg/dL (8.5-10.1); CARBON DIOXIDE 33 mmol/L (21-32); CHLORIDE 103 mmol/L (98-107); CREATININE 0.6 mg/dL (0.7-1.3); GFR 135.6; GLUCOSE 79 mg/dL (70-99); POTASSIUM 4.2 mmol/L (3.5-5.1); SODIUM 140 mmol/L (136-145); TOTAL BILIRUBIN 0.3 mg/dL (0.2-1.0); TOTAL PROTEIN 5.5 g/dL (6.4-8.2)
[2020-11-13 07:31] LABS: VAL ACID 33 mcg/mL (50-100)
[2020-11-13] MEDS: hydrOXYzine PAMOATE 25 MG CAPSULE PO SCH ×3 (08:23→20:05)
[2020-11-13] MEDS: PHENYTOIN SODIUM EXTENDED 100 MG CAPSULE PO SCH ×2 (08:23→20:04)
[2020-11-13] MEDS: NICOTINE 21MG PATCH. TD SCH (08:23)
[2020-11-13] MEDS: DIVALPROEX SODIUM 250 MG TABLET.DR. PO SCH ×2 (08:23→12:21)
[2020-11-13] MEDS: DEXAMETHASONE 4 MG TABLET PO SCH ×2 (08:24→20:05)
[2020-11-13] MEDS: ASPIRIN CHEWABLE 81 MG TABLET. PO SCH (08:24)
[2020-11-13] MEDS: GABAPENTIN 100 MG CAPSULE. PO SCH ×3 (08:24→20:04)
[2020-11-13] MEDS: VENLAFAXINE XR 37.5 MG CAP.ER.24H. PO SCH (08:24)
[2020-11-13] MEDS: MORPHINE ER 30 MG TABLET.ER PO SCH ×2 (08:24→20:06)
[2020-11-13] MEDS: MORPHINE ER 15 MG TABLET.ER PO SCH ×2 (08:24→20:06)
[2020-11-13 15:43] VITALS: BP 101/65
[2020-11-13] MEDS: VALPROATE ACID 250 MG/5 ML ORAL SOLUTION PO SCH ×2 (17:41→20:06)
[2020-11-13] MEDS: DONEPEZIL HCL 5 MG TABLET. PO SCH (20:03)
[2020-11-13] MEDS: traZODone 50 MG TABLET. PO SCH (20:03)
[2020-11-13] MEDS: traZODone 50 MG TABLET. PO PRN (20:03)
[2020-11-13] MEDS: MIRTAZAPINE 15 MG TABLET PO SCH (20:04)
--- NOTE | 2020-11-13 21:58 | PDOC ---
Exam Note: Adams Note: Please also refer to the separate dictated note~for this date of service dictated separately.~Patient seen individually. Discussed the patient with Nursing staff reviewed the chart.~Reviewed interim history and current functioning. Reviewed vital signs,~Labs/ Radiology~and current medications noted below. Continue current treatment with the changes noted in the dictated addendum note Assessment: Vital Signs/I&O: Vital Signs Date Time Temp Pulse Resp B/P (MAP) Pulse Ox O2 Delivery O2 Flow Rate FiO2 11/13/20 20:06 94 11/13/20 15:43 98.8 87 16 101/65 (77) 11/12/20 12:24 Room Air I & O 11/12/20 11/12/20 11/13/20 15:00 23:00 07:00 Intake Total 840 ml 740 ml Balance 840 ml 740 ml Labs: Laboratory Tests Test 11/13/20 06:45 White Blood Count 12.2 x10^3/uL (4.0-11.0) H Red Blood Count 3.66 x10^6/uL (4.30-5.70) L Hemoglobin 11.3 g/dL (13.0-17.5) L Hematocrit 34.2 % (39.0-53.0) L Mean Corpuscular Volume 94 fL (79-100) Mean Corpuscular Hemoglobin 31 pg (25-35) Mean Corpuscular Hemoglobin Concent 33 g/dL (31-37) Red Cell Distribution Width 14.3 % (11.5-14.5) Platelet Count 270 x10^3/uL (140-400) Neutrophils (%) (Auto) 84 % (31-73) H Lymphocytes (%) (Auto) 7 % (24-48) L Monocytes (%) (Auto) 6 % (0-9) Eosinophils (%) (Auto) 3 % (0-3) Basophils (%) (Auto) 0 % (0-3) Neutrophils # (Auto) 10.2 x10^3uL (1.8-7.7) H Lymphocytes # (Auto) 0.8 x10^3/uL (1.0-4.8) L Monocytes # (Auto) 0.8 x10^3/uL (0.0-1.1) Eosinophils # (Auto) 0.4 x10^3/uL (0.0-0.7) Basophils # (Auto) 0.0 x10^3/uL (0.0-0.2) Sodium Level 140 mmol/L (136-145) Potassium Level 4.2 mmol/L (3.5-5.1) Chloride Level 103 mmol/L (98-107) Carbon Dioxide Level 33 mmol/L (21-32) H Anion Gap 4 (6-14) L Blood Urea Nitrogen 20 mg/dL (8-26) Creatinine 0.6 mg/dL (0.7-1.3) L Estimated GFR (Cockcroft-Gault) 135.6 BUN/Creatinine Ratio 33 (6-20) H Glucose Level 79 mg/dL (70-99) Calcium Level 8.2 mg/dL (8.5-10.1) L Total Bilirubin 0.3 mg/dL (0.2-1.0) Aspartate Amino Transferase (AST) 17 U/L (15-37) Alanine Aminotransferase (ALT) 22 U/L (16-63) Alkaline Phosphatase 80 U/L (46-116) Total Protein 5.5 g/dL (6.4-8.2) L Albumin 2.4 g/dL (3.4-5.0) L Albumin/Globulin Ratio 0.8 (1.0-1.7) L Valproic Acid Level 33 mcg/mL (50-100) L Valproic Acid Last Dose Date 11/12/2020 Valproic Acid Last Dose Time 2100 Current Medications: Meds: Laboratory Tests Test 11/13/20 06:45 White Blood Count 12.2 x10^3/uL Red Blood Count 3.66 x10^6/uL Hemoglobin 11.3 g/dL Hematocrit 34.2 % Mean Corpuscular Volume 94 fL Mean Corpuscular Hemoglobin 31 pg Mean Corpuscular Hemoglobin Concent 33 g/dL Red Cell Distribution Width 14.3 % Platelet Count 270 x10^3/uL Neutrophils (%) (Auto) 84 % Lymphocytes (%) (Auto) 7 % Monocytes (%) (Auto) 6 % Eosinophils (%) (Auto) 3 % Basophils (%) (Auto) 0 % Neutrophils # (Auto) 10.2 x10^3uL Lymphocytes # (Auto) 0.8 x10^3/uL Monocytes # (Auto) 0.8 x10^3/uL Eosinophils # (Auto) 0.4 x10^3/uL Basophils # (Auto) 0.0 x10^3/uL Sodium Level 140 mmol/L Potassium Level 4.2 mmol/L Chloride Level 103 mmol/L Carbon Dioxide Level 33 mmol/L Anion Gap 4 Blood Urea Nitrogen 20 mg/dL Creatinine 0.6 mg/dL Estimated GFR (Cockcroft-Gault) 135.6 BUN/Creatinine Ratio 33 Glucose Level 79 mg/dL Calcium Level 8.2 mg/dL Total Bilirubin 0.3 mg/dL Aspartate Amino Transf (AST/SGOT) 17 U/L Alanine Aminotransferase (ALT/SGPT) 22 U/L Alkaline Phosphatase 80 U/L Total Protein 5.5 g/dL Albumin 2.4 g/dL Albumin/Globulin Ratio 0.8 Valproic Acid (Depakene) Level 33 mcg/mL Valproic Acid Last Dose Date 11/12/2020 Valproic Acid Last Dose Time 2100 Current Medications Medications (Trade) Dose Ordered Sig/Guillermo Route PRN Reason Start Time Stop Time Status Last Admin Dose Admin Acetaminophen (Tylenol) 650 mg PRN Q6HRS PRN PO MILD PAIN / TEMP > 100.3'F 10/31/20 16:15 11/10/20 20:58 Multi-Ingredient Ointment (Analgesic [place]) 1 ambrocio PRN QID PRN TP MUSCLE PAIN 10/31/20 16:15 Al Hydroxide/Mg Hydroxide (Mylanta Plus Xs) 15 ml PRN AFTMEALHC PRN PO DYSPEPSIA 10/31/20 16:15 Magnesium Hydroxide (Milk Of Magnesia) 2,400 mg PRN QHS PRN PO CONSTIPATION 10/31/20 16:15 Aspirin (Aspirin Chewable) 81 mg DAILY PO 11/01/20 09:00 11/13/20 08:24 Dexamethasone (Decadron) 4 mg BID PO 10/31/20 21:00 11/13/20 20:05 Divalproex Sodium (Depakote) 250 mg QID PO 10/31/20 17:00 11/02/20 15:56 DC 11/02/20 14:10 Donepezil HCl (Aricept) 5 mg QHS PO 10/31/20 21:00 11/13/20 20:03 Gabapentin (Neurontin) 200 mg TID PO 10/31/20 21:00 11/13/20 20:04 Mirtazapine (Remeron) 7.5 mg QHS PO 10/31/20 21:00 11/04/20 18:40 DC 11/03/20 20:42 Morphine Sulfate (Ms Contin) 15 mg BID PO 10/31/20 21:00 11/13/20 20:06 Phenytoin Sodium (Dilantin) 200 mg BID PO 10/31/20 21:00 11/13/20 20:04 Sertraline HCl (Zoloft) 25 mg DAILY PO 11/01/20 09:00 11/01/20 17:15 DC 11/01/20 09:55 Venlafaxine HCl (Effexor Xr) 75 mg DAILY PO 11/01/20 09:00 11/13/20 08:24 Morphine Sulfate (Ms Contin) 30 mg BID PO 10/31/20 21:00 11/13/20 20:06 Nicotine (Nicoderm Cq 14mg Patch) 1 patch DAILY TD 10/31/20 17:30 11/03/20 22:25 DC 11/03/20 08:17 Olanzapine (ZyPREXA ZYDIS) 2.5 mg PRN Q2HR PRN PO PSYCHOSIS 10/31/20 18:30 Sertraline HCl (Zoloft) 50 mg DAILY PO 11/02/20 09:00 11/02/20 15:56 DC 11/02/20 08:27 Hydroxyzine Pamoate (Vistaril) 25 mg TID PO 11/01/20 21:00 11/11/20 16:27 DC 11/11/20 12:20 Divalproex Sodium (Depakote) 375 mg QID PO 11/02/20 17:00 11/06/20 17:27 DC 11/06/20 17:09 Nicotine (Nicoderm Cq 21mg Patch) 1 patch DAILY TD 11/04/20 09:00 11/13/20 08:23 Mirtazapine (Remeron) 15 mg QHS PO 11/04/20 21:00 11/13/20 20:04 Trazodone HCl (Desyrel) 50 mg PRN QHS PRN PO INSOMNIA, MAY REPEAT X1 11/04/20 18:45 11/11/20 18:01 DC 11/08/20 20:22 Divalproex Sodium (Depakote) 500 mg QID PO 11/06/20 21:00 11/09/20 18:54 DC 11/09/20 17:07 Nicotine Polacrilex (Nicorette Gum) 2 mg PRN Q1HR PRN BC SMOKING CESSATION 11/07/20 17:00 11/11/20 20:16 Divalproex Sodium (Depakote) 500 mg 1300,1700 PO 11/10/20 13:00 11/13/20 16:42 DC 11/13/20 12:21 Divalproex Sodium (Depakote) 750 mg BID PO 11/09/20 21:00 11/13/20 16:42 DC 11/13/20 08:23 Hydroxyzine Pamoate (Vistaril) 50 mg TID PO 11/11/20 21:00 11/13/20 20:05 Trazodone HCl (Desyrel) 50 mg HS PO 11/11/20 21:00 11/13/20 20:03 Trazodone HCl (Desyrel) 50 mg PRN QHS PRN PO INSOMNIA 11/11/20 18:00 11/13/20 20:03 Valproic Acid (Depakene) 750 mg BID PO 11/13/20 21:00 11/13/20 20:06 Valproic Acid (Depakene) 500 mg BID@1300,1700 PO 11/13/20 17:00 11/13/20 17:41 Current Medications Medications (Trade) Dose Ordered Sig/Guillermo Route PRN Reason Start Time Stop Time Status Last Admin Dose Admin Valproic Acid (Depakene) 750 mg BID PO 11/13/20 21:00 11/13/20 20:06 Valproic Acid (Depakene) 500 mg BID@1300,1700 PO 11/13/20 17:00 11/13/20 17:41 I have reviewed the current psychotropics carefully including drug interactions. Risk benefit ratio favors no change other than as noted in my dictated progress note. Diagnosis: Problems: (1) Schizoaffective disorder, bipolar type (2) Impulse control disorder, unspecified (3) Anxiety disorder, unspecified (4) Bipolar disorder, current episode mixed, severe, with psychotic features (5) Mild cognitive impairment VIANNEY HAWLEY MD Nov 13, 2020 21:58
[2020-11-14 06:12] VITALS: BP 93/58
[2020-11-14] MEDS: GABAPENTIN 100 MG CAPSULE. PO SCH ×3 (08:12→19:56)
[2020-11-14] MEDS: hydrOXYzine PAMOATE 25 MG CAPSULE PO SCH ×3 (08:12→19:56)
[2020-11-14] MEDS: VENLAFAXINE XR 37.5 MG CAP.ER.24H. PO SCH (08:12)
[2020-11-14] MEDS: ASPIRIN CHEWABLE 81 MG TABLET. PO SCH (08:12)
[2020-11-14] MEDS: PHENYTOIN SODIUM EXTENDED 100 MG CAPSULE PO SCH ×2 (08:13→19:57)
[2020-11-14] MEDS: NICOTINE 21MG PATCH. TD SCH (08:13)
[2020-11-14] MEDS: VALPROATE ACID 250 MG/5 ML ORAL SOLUTION PO SCH ×4 (08:13→19:58)
--- NOTE | 2020-11-14 12:05 | RAD ---
EXAM: Chest, single view. HISTORY: Shortness of air. COMPARISON: None. FINDINGS: A frontal view of the chest is obtained. There is bilateral basilar atelectasis or scarring . There is no convincing pleural effusion or pneumothorax. There is hyperinflation likely due to emph ysema. The heart is normal in size. There is a nodule overlying the left lower thorax due to a nipple shadow. IMPRESSION: Suspected bilateral basilar atelectasis or scarring superimposed on emphysema. Electronically signed by: Jyothi Donis MD (11/14/2020 12:02 PM) [id number]
[2020-11-14 12:23] LABS: BASO % 0 % (0-3); EOS % 6 % (0-3); HEMATOCRIT 38.4 % (39.0-53.0); HEMOGLOBIN 12.5 g/dL (13.0-17.5); LYMPH % 6 % (24-48); MEAN CORPUSCULAR HEMOGLOBIN 31 pg (25-35); MEAN CORPUSCULAR HGB CONC 33 g/dL (31-37); MEAN CORPUSCULAR VOLUME 95 fL (79-100); MONO # 1.5 x10^3/uL (0.0-1.1); MONO % 9 % (0-9); NEUT # 12.9 x10^3uL (1.8-7.7); NEUT % 78 % (31-73); PLATELET COUNT 295 x10^3/uL (140-400); RED BLOOD COUNT 4.07 x10^6/uL (4.30-5.70); RED CELL DISTRIBUTION WIDTH 14.5 % (11.5-14.5); WHITE BLOOD COUNT 16.5 x10^3/uL (4.0-11.0)
[2020-11-14 12:24] LABS: BILIRUBIN,URINE NEG (NEG); GLUCOSE,URINE NEG (NEG)
[2020-11-14 12:25] LABS: NITRITE,URINE NEG (NEG)
[2020-11-14] MEDS: ACETAMINOPHEN 325 MG TABLET PO PRN (12:25)
[2020-11-14] MEDS: MORPHINE ER 15 MG TABLET.ER PO SCH ×2 (12:25→19:57)
[2020-11-14] MEDS: DEXAMETHASONE 4 MG TABLET PO SCH ×2 (12:25→19:57)
[2020-11-14] MEDS: MORPHINE ER 30 MG TABLET.ER PO SCH ×2 (12:25→19:57)
[2020-11-14 12:28] LABS: SQUAMOUS EPITHELIAL CELL,UR FEW /LPF
[2020-11-14 12:33] LABS: CALCIUM 8.8 mg/dL (8.5-10.1); CREATININE 0.7 mg/dL (0.7-1.3); GFR 113.5; POTASSIUM 3.7 mmol/L (3.5-5.1)
[2020-11-14 12:38] LABS: COLOR,URINE YELLOW
[2020-11-14 12:38] LABS: ALBUMIN 2.6 g/dL (3.4-5.0); ALBUMIN/GLOBULIN RATIO 0.7 (1.0-1.7); TOTAL BILIRUBIN 0.3 mg/dL (0.2-1.0); TOTAL PROTEIN 6.2 g/dL (6.4-8.2)
[2020-11-14 12:39] LABS: CLARITY,URINE CLEAR
[2020-11-14 12:40] LABS: RBC,URINE 0 /HPF (0-2); WBC,URINE 0 /HPF (0-4)
[2020-11-14 12:41] LABS: BACTERIA,URINE 0 /HPF (0-FEW)
[2020-11-14 13:41] LABS: % EOS 4 % (0-5); % LYMPHS 9 % (24-48); % MONOS 4 % (0-10); % SEGS 83 % (35-66)
[2020-11-14 13:42] LABS: PLT ESTIMATE ADEQUATE (ADEQUATE)
[2020-11-14 15:52] VITALS: BP 93/65
[2020-11-14] MEDS: traZODone 50 MG TABLET. PO SCH (19:56)
[2020-11-14] MEDS: MIRTAZAPINE 15 MG TABLET PO SCH (19:57)
[2020-11-14] MEDS: DONEPEZIL HCL 5 MG TABLET. PO SCH (19:57)
--- NOTE | 2020-11-14 21:47 | PDOC ---
Exam Note: Adams Note: Please also refer to the separate dictated note~for this date of service dictated separately.~Patient seen individually. Discussed the patient with Nursing staff reviewed the chart.~Reviewed interim history and current functioning. Reviewed vital signs,~Labs/ Radiology~and current medications noted below. Continue current treatment with the changes noted in the dictated addendum note Assessment: Vital Signs/I&O: Vital Signs Date Time Temp Pulse Resp B/P (MAP) Pulse Ox O2 Delivery O2 Flow Rate FiO2 11/14/20 18:04 96 11/14/20 15:52 98.6 85 18 93/65 (74) 11/12/20 12:24 Room Air I & O 11/13/20 11/13/20 11/14/20 15:00 23:00 07:00 Intake Total 1000 ml 480 ml Balance 1000 ml 480 ml Labs: Laboratory Tests Test 11/14/20 11:45 11/14/20 12:00 11/14/20 12:08 11/14/20 15:35 SARS-CoV-2 (PCR) Negative (NEGATIVE) Urine Collection Type Unknown Urine Color Yellow Urine Clarity Clear Urine pH 8.5 Urine Specific [place] 1.020 Urine Protein Neg (NEG-TRACE) Urine Glucose (UA) Neg mg/dL (NEG) Urine Ketones (Stick) Neg mg/dL (NEG) Urine Blood Neg (NEG) Urine Nitrite Neg (NEG) Urine Bilirubin Neg (NEG) Urine Urobilinogen Dipstick 1.0 mg/dL (0.2 mg/dL) Urine Leukocyte Esterase Neg (NEG) Urine RBC 0 /HPF (0-2) Urine WBC 0 /HPF (0-4) Urine Squamous Epithelial Cells Few /LPF Urine Bacteria 0 /HPF (0-FEW) White Blood Count 16.5 x10^3/uL (4.0-11.0) H Red Blood Count 4.07 x10^6/uL (4.30-5.70) L Hemoglobin 12.5 g/dL (13.0-17.5) L Hematocrit 38.4 % (39.0-53.0) L Mean Corpuscular Volume 95 fL (79-100) Mean Corpuscular Hemoglobin 31 pg (25-35) Mean Corpuscular Hemoglobin Concent 33 g/dL (31-37) Red Cell Distribution Width 14.5 % (11.5-14.5) Platelet Count 295 x10^3/uL (140-400) Neutrophils (%) (Auto) 78 % (31-73) H Lymphocytes (%) (Auto) 6 % (24-48) L Monocytes (%) (Auto) 9 % (0-9) Eosinophils (%) (Auto) 6 % (0-3) H Basophils (%) (Auto) 0 % (0-3) Neutrophils # (Auto) 12.9 x10^3uL (1.8-7.7) H Lymphocytes # (Auto) 1.0 x10^3/uL (1.0-4.8) Monocytes # (Auto) 1.5 x10^3/uL (0.0-1.1) H Eosinophils # (Auto) 1.0 x10^3/uL (0.0-0.7) H Basophils # (Auto) 0.0 x10^3/uL (0.0-0.2) Segmented Neutrophils % 83 % (35-66) H Lymphocytes % 9 % (24-48) L Monocytes % 4 % (0-10) Eosinophils % 4 % (0-5) Platelet Estimate Adequate (ADEQUATE) Giant Platelets Few Sodium Level 141 mmol/L (136-145) Potassium Level 3.7 mmol/L (3.5-5.1) Chloride Level 105 mmol/L (98-107) Carbon Dioxide Level 35 mmol/L (21-32) H Anion Gap 1 (6-14) L Blood Urea Nitrogen 16 mg/dL (8-26) Creatinine 0.7 mg/dL (0.7-1.3) Estimated GFR (Cockcroft-Gault) 113.5 BUN/Creatinine Ratio 23 (6-20) H Glucose Level 90 mg/dL (70-99) Calcium Level 8.8 mg/dL (8.5-10.1) Total Bilirubin 0.3 mg/dL (0.2-1.0) Aspartate Amino Transferase (AST) 15 U/L (15-37) Alanine Aminotransferase (ALT) 20 U/L (16-63) Alkaline Phosphatase 87 U/L (46-116) Total Protein 6.2 g/dL (6.4-8.2) L Albumin 2.6 g/dL (3.4-5.0) L Albumin/Globulin Ratio 0.7 (1.0-1.7) L Lactic Acid Level 1.1 mmol/L (0.4-2.0) Current Medications: Meds: Laboratory Tests Test 11/14/20 11:45 11/14/20 12:00 11/14/20 12:08 11/14/20 15:35 Coronavirus (COVID-19)(PCR) Negative Urine Collection Type Unknown Urine Color Yellow Urine Clarity Clear Urine pH 8.5 Urine Specific [place] 1.020 Urine Protein Neg Urine Glucose (UA) Neg mg/dL Urine Ketones (Stick) Neg mg/dL Urine Blood Neg Urine Nitrite Neg Urine Bilirubin Neg Urine Urobilinogen Dipstick 1.0 mg/dL Urine Leukocyte Esterase Neg Urine RBC 0 /HPF Urine WBC 0 /HPF Urine Squamous Epithelial Cells Few /LPF Urine Bacteria 0 /HPF White Blood Count 16.5 x10^3/uL Red Blood Count 4.07 x10^6/uL Hemoglobin 12.5 g/dL Hematocrit 38.4 % Mean Corpuscular Volume 95 fL Mean Corpuscular Hemoglobin 31 pg Mean Corpuscular Hemoglobin Concent 33 g/dL Red Cell Distribution Width 14.5 % Platelet Count 295 x10^3/uL Neutrophils (%) (Auto) 78 % Lymphocytes (%) (Auto) 6 % Monocytes (%) (Auto) 9 % Eosinophils (%) (Auto) 6 % Basophils (%) (Auto) 0 % Neutrophils # (Auto) 12.9 x10^3uL Lymphocytes # (Auto) 1.0 x10^3/uL Monocytes # (Auto) 1.5 x10^3/uL Eosinophils # (Auto) 1.0 x10^3/uL Basophils # (Auto) 0.0 x10^3/uL Segmented Neutrophils % 83 % Lymphocytes % 9 % Monocytes % 4 % Eosinophils % 4 % Platelet Estimate Adequate Giant Platelets Few Sodium Level 141 mmol/L Potassium Level 3.7 mmol/L Chloride Level 105 mmol/L Carbon Dioxide Level 35 mmol/L Anion Gap 1 Blood Urea Nitrogen 16 mg/dL Creatinine 0.7 mg/dL Estimated GFR (Cockcroft-Gault) 113.5 BUN/Creatinine Ratio 23 Glucose Level 90 mg/dL Calcium Level 8.8 mg/dL Total Bilirubin 0.3 mg/dL Aspartate Amino Transf (AST/SGOT) 15 U/L Alanine Aminotransferase (ALT/SGPT) 20 U/L Alkaline Phosphatase 87 U/L Total Protein 6.2 g/dL Albumin 2.6 g/dL Albumin/Globulin Ratio 0.7 Lactic Acid Level 1.1 mmol/L Current Medications Medications (Trade) Dose Ordered Sig/Guillermo Route PRN Reason Start Time Stop Time Status Last Admin Dose Admin Acetaminophen (Tylenol) 650 mg PRN Q6HRS PRN PO MILD PAIN / TEMP > 100.3'F 10/31/20 16:15 11/14/20 12:25 Multi-Ingredient Ointment (Analgesic [place]) 1 ambrocio PRN QID PRN TP MUSCLE PAIN 10/31/20 16:15 Al Hydroxide/Mg Hydroxide (Mylanta Plus Xs) 15 ml PRN AFTMEALHC PRN PO DYSPEPSIA 10/31/20 16:15 Magnesium Hydroxide (Milk Of Magnesia) 2,400 mg PRN QHS PRN PO CONSTIPATION 10/31/20 16:15 Aspirin (Aspirin Chewable) 81 mg DAILY PO 11/01/20 09:00 11/14/20 08:12 Dexamethasone (Decadron) 4 mg BID PO 10/31/20 21:00 11/14/20 19:57 Divalproex Sodium (Depakote) 250 mg QID PO 10/31/20 17:00 11/02/20 15:56 DC 11/02/20 14:10 Donepezil HCl (Aricept) 5 mg QHS PO 10/31/20 21:00 11/14/20 19:57 Gabapentin (Neurontin) 200 mg TID PO 10/31/20 21:00 11/14/20 19:56 Mirtazapine (Remeron) 7.5 mg QHS PO 10/31/20 21:00 11/04/20 18:40 DC 11/03/20 20:42 Morphine Sulfate (Ms Contin) 15 mg BID PO 10/31/20 21:00 11/14/20 19:57 Phenytoin Sodium (Dilantin) 200 mg BID PO 10/31/20 21:00 11/14/20 19:57 Sertraline HCl (Zoloft) 25 mg DAILY PO 11/01/20 09:00 11/01/20 17:15 DC 11/01/20 09:55 Venlafaxine HCl (Effexor Xr) 75 mg DAILY PO 11/01/20 09:00 11/14/20 08:12 Morphine Sulfate (Ms Contin) 30 mg BID PO 10/31/20 21:00 11/14/20 19:57 Nicotine (Nicoderm Cq 14mg Patch) 1 patch DAILY TD 10/31/20 17:30 11/03/20 22:25 DC 11/03/20 08:17 Olanzapine (ZyPREXA ZYDIS) 2.5 mg PRN Q2HR PRN PO PSYCHOSIS 10/31/20 18:30 Sertraline HCl (Zoloft) 50 mg DAILY PO 11/02/20 09:00 11/02/20 15:56 DC 11/02/20 08:27 Hydroxyzine Pamoate (Vistaril) 25 mg TID PO 11/01/20 21:00 11/11/20 16:27 DC 11/11/20 12:20 Divalproex Sodium (Depakote) 375 mg QID PO 11/02/20 17:00 11/06/20 17:27 DC 11/06/20 17:09 Nicotine (Nicoderm Cq 21mg Patch) 1 patch DAILY TD 11/04/20 09:00 11/14/20 08:13 Mirtazapine (Remeron) 15 mg QHS PO 11/04/20 21:00 11/14/20 19:57 Trazodone HCl (Desyrel) 50 mg PRN QHS PRN PO INSOMNIA, MAY REPEAT X1 11/04/20 18:45 11/11/20 18:01 DC 11/08/20 20:22 Divalproex Sodium (Depakote) 500 mg QID PO 11/06/20 21:00 11/09/20 18:54 DC 11/09/20 17:07 Nicotine Polacrilex (Nicorette Gum) 2 mg PRN Q1HR PRN BC SMOKING CESSATION 11/07/20 17:00 11/11/20 20:16 Divalproex Sodium (Depakote) 500 mg 1300,1700 PO 11/10/20 13:00 11/13/20 16:42 DC 11/13/20 12:21 Divalproex Sodium (Depakote) 750 mg BID PO 11/09/20 21:00 11/13/20 16:42 DC 11/13/20 08:23 Hydroxyzine Pamoate (Vistaril) 50 mg TID PO 11/11/20 21:00 11/14/20 19:56 Trazodone HCl (Desyrel) 50 mg HS PO 11/11/20 21:00 11/14/20 19:56 Trazodone HCl (Desyrel) 50 mg PRN QHS PRN PO INSOMNIA 11/11/20 18:00 11/13/20 20:03 Valproic Acid (Depakene) 750 mg BID PO 11/13/20 21:00 11/14/20 19:58 Valproic Acid (Depakene) 500 mg BID@1300,1700 PO 11/13/20 17:00 11/14/20 18:27 I have reviewed the current psychotropics carefully including drug interactions. Risk benefit ratio favors no change other than as noted in my dictated progress note. Diagnosis: Problems: (1) Schizoaffective disorder, bipolar type (2) Impulse control disorder, unspecified (3) Anxiety disorder, unspecified (4) Bipolar disorder, current episode mixed, severe, with psychotic features (5) Mild cognitive impairment VIANNEY HAWLEY MD Nov 14, 2020 21:47
[2020-11-15 05:43] VITALS: BP 112/77
--- NOTE | 2020-11-15 07:21 | PDOC ---
Exam Note: Adams Note: This note is a late entry for 11/13/2020overs elements not covered in my initial note. Subjective: The patient was seen on telehealth rounds in the evening of 11/13/2020 due to COVID-19 exposure on the unit with Kristy GANT, discussed and reviewed the chart. He slept 4-3/4 hours previous night. WBC has increased from 6.3 to 12.2. We will defer to Dr. Em. He frequently wants cigarettes or coffee. Valproic acid level is 23. It is partly due to non-compliance with his Depakote and we will change it to liquid and will repeat a level in 2 days. Review of Systems: Ambulation impaired in wheelchair. No CV, , pulmonary, eye system symptoms on review. He is hard of hearing. Mental Status Exam: The patient is oriented to himself and situation. Speech coherent. Abstraction fair. Computation impaired. Language function intact. Mood and affect somewhat withdrawn. No suicidal or homicidal ideation. Laboratory Data: Reviewed. Impression: Schizoaffective disorder bipolar type mixed with psychotic features. Anxiety disorder unspecified. Impulse control disorder unspecified. Mild cognitive impairment. Plan: Continue rest psychotropics unchanged. Assessment: Vital Signs/I&O: Vital Signs Date Time Temp Pulse Resp B/P (MAP) Pulse Ox O2 Delivery O2 Flow Rate FiO2 11/15/20 05:43 96.9 63 20 112/77 (89) 98 Room Air I & O 11/14/20 11/14/20 11/15/20 14:59 22:59 06:59 Intake Total 600 ml 480 ml Balance 600 ml 480 ml Labs: Laboratory Tests Test 11/14/20 11:45 11/14/20 12:00 11/14/20 12:08 11/14/20 15:35 SARS-CoV-2 (PCR) Negative (NEGATIVE) Urine Collection Type Unknown Urine Color Yellow Urine Clarity Clear Urine pH 8.5 Urine Specific [place] 1.020 Urine Protein Neg (NEG-TRACE) Urine Glucose (UA) Neg mg/dL (NEG) Urine Ketones (Stick) Neg mg/dL (NEG) Urine Blood Neg (NEG) Urine Nitrite Neg (NEG) Urine Bilirubin Neg (NEG) Urine Urobilinogen Dipstick 1.0 mg/dL (0.2 mg/dL) Urine Leukocyte Esterase Neg (NEG) Urine RBC 0 /HPF (0-2) Urine WBC 0 /HPF (0-4) Urine Squamous Epithelial Cells Few /LPF Urine Bacteria 0 /HPF (0-FEW) White Blood Count 16.5 x10^3/uL (4.0-11.0) H Red Blood Count 4.07 x10^6/uL (4.30-5.70) L Hemoglobin 12.5 g/dL (13.0-17.5) L Hematocrit 38.4 % (39.0-53.0) L Mean Corpuscular Volume 95 fL (79-100) Mean Corpuscular Hemoglobin 31 pg (25-35) Mean Corpuscular Hemoglobin Concent 33 g/dL (31-37) Red Cell Distribution Width 14.5 % (11.5-14.5) Platelet Count 295 x10^3/uL (140-400) Neutrophils (%) (Auto) 78 % (31-73) H Lymphocytes (%) (Auto) 6 % (24-48) L Monocytes (%) (Auto) 9 % (0-9) Eosinophils (%) (Auto) 6 % (0-3) H Basophils (%) (Auto) 0 % (0-3) Neutrophils # (Auto) 12.9 x10^3uL (1.8-7.7) H Lymphocytes # (Auto) 1.0 x10^3/uL (1.0-4.8) Monocytes # (Auto) 1.5 x10^3/uL (0.0-1.1) H Eosinophils # (Auto) 1.0 x10^3/uL (0.0-0.7) H Basophils # (Auto) 0.0 x10^3/uL (0.0-0.2) Segmented Neutrophils % 83 % (35-66) H Lymphocytes % 9 % (24-48) L Monocytes % 4 % (0-10) Eosinophils % 4 % (0-5) Platelet Estimate Adequate (ADEQUATE) Giant Platelets Few Sodium Level 141 mmol/L (136-145) Potassium Level 3.7 mmol/L (3.5-5.1) Chloride Level 105 mmol/L (98-107) Carbon Dioxide Level 35 mmol/L (21-32) H Anion Gap 1 (6-14) L Blood Urea Nitrogen 16 mg/dL (8-26) Creatinine 0.7 mg/dL (0.7-1.3) Estimated GFR (Cockcroft-Gault) 113.5 BUN/Creatinine Ratio 23 (6-20) H Glucose Level 90 mg/dL (70-99) Calcium Level 8.8 mg/dL (8.5-10.1) Total Bilirubin 0.3 mg/dL (0.2-1.0) Aspartate Amino Transferase (AST) 15 U/L (15-37) Alanine Aminotransferase (ALT) 20 U/L (16-63) Alkaline Phosphatase 87 U/L (46-116) Total Protein 6.2 g/dL (6.4-8.2) L Albumin 2.6 g/dL (3.4-5.0) L Albumin/Globulin Ratio 0.7 (1.0-1.7) L Lactic Acid Level 1.1 mmol/L (0.4-2.0) Current Medications: Meds: Laboratory Tests Test 11/14/20 11:45 11/14/20 12:00 11/14/20 12:08 11/14/20 15:35 Coronavirus (COVID-19)(PCR) Negative Urine Collection Type Unknown Urine Color Yellow Urine Clarity Clear Urine pH 8.5 Urine Specific [place] 1.020 Urine Protein Neg Urine Glucose (UA) Neg mg/dL Urine Ketones (Stick) Neg mg/dL Urine Blood Neg Urine Nitrite Neg Urine Bilirubin Neg Urine Urobilinogen Dipstick 1.0 mg/dL Urine Leukocyte Esterase Neg Urine RBC 0 /HPF Urine WBC 0 /HPF Urine Squamous Epithelial Cells Few /LPF Urine Bacteria 0 /HPF White Blood Count 16.5 x10^3/uL Red Blood Count 4.07 x10^6/uL Hemoglobin 12.5 g/dL Hematocrit 38.4 % Mean Corpuscular Volume 95 fL Mean Corpuscular Hemoglobin 31 pg Mean Corpuscular Hemoglobin Concent 33 g/dL Red Cell Distribution Width 14.5 % Platelet Count 295 x10^3/uL Neutrophils (%) (Auto) 78 % Lymphocytes (%) (Auto) 6 % Monocytes (%) (Auto) 9 % Eosinophils (%) (Auto) 6 % Basophils (%) (Auto) 0 % Neutrophils # (Auto) 12.9 x10^3uL Lymphocytes # (Auto) 1.0 x10^3/uL Monocytes # (Auto) 1.5 x10^3/uL Eosinophils # (Auto) 1.0 x10^3/uL Basophils # (Auto) 0.0 x10^3/uL Segmented Neutrophils % 83 % Lymphocytes % 9 % Monocytes % 4 % Eosinophils % 4 % Platelet Estimate Adequate Giant Platelets Few Sodium Level 141 mmol/L Potassium Level 3.7 mmol/L Chloride Level 105 mmol/L Carbon Dioxide Level 35 mmol/L Anion Gap 1 Blood Urea Nitrogen 16 mg/dL Creatinine 0.7 mg/dL Estimated GFR (Cockcroft-Gault) 113.5 BUN/Creatinine Ratio 23 Glucose Level 90 mg/dL Calcium Level 8.8 mg/dL Total Bilirubin 0.3 mg/dL Aspartate Amino Transf (AST/SGOT) 15 U/L Alanine Aminotransferase (ALT/SGPT) 20 U/L Alkaline Phosphatase 87 U/L Total Protein 6.2 g/dL Albumin 2.6 g/dL Albumin/Globulin Ratio 0.7 Lactic Acid Level 1.1 mmol/L Current Medications Medications (Trade) Dose Ordered Sig/Guillermo Route PRN Reason Start Time Stop Time Status Last Admin Dose Admin Acetaminophen (Tylenol) 650 mg PRN Q6HRS PRN PO MILD PAIN / TEMP > 100.3'F 10/31/20 16:15 11/14/20 12:25 Multi-Ingredient Ointment (Analgesic [place]) 1 ambrocio PRN QID PRN TP MUSCLE PAIN 10/31/20 16:15 Al Hydroxide/Mg Hydroxide (Mylanta Plus Xs) 15 ml PRN AFTMEALHC PRN PO DYSPEPSIA 10/31/20 16:15 Magnesium Hydroxide (Milk Of Magnesia) 2,400 mg PRN QHS PRN PO CONSTIPATION 10/31/20 16:15 Aspirin (Aspirin Chewable) 81 mg DAILY PO 11/01/20 09:00 11/14/20 08:12 Dexamethasone (Decadron) 4 mg BID PO 10/31/20 21:00 11/14/20 19:57 Divalproex Sodium (Depakote) 250 mg QID PO 10/31/20 17:00 11/02/20 15:56 DC 11/02/20 14:10 Donepezil HCl (Aricept) 5 mg QHS PO 10/31/20 21:00 11/14/20 19:57 Gabapentin (Neurontin) 200 mg TID PO 10/31/20 21:00 11/14/20 19:56 Mirtazapine (Remeron) 7.5 mg QHS PO 10/31/20 21:00 11/04/20 18:40 DC 11/03/20 20:42 Morphine Sulfate (Ms Contin) 15 mg BID PO 10/31/20 21:00 11/14/20 19:57 Phenytoin Sodium (Dilantin) 200 mg BID PO 10/31/20 21:00 11/14/20 19:57 Sertraline HCl (Zoloft) 25 mg DAILY PO 11/01/20 09:00 11/01/20 17:15 DC 11/01/20 09:55 Venlafaxine HCl (Effexor Xr) 75 mg DAILY PO 11/01/20 09:00 11/14/20 08:12 Morphine Sulfate (Ms Contin) 30 mg BID PO 10/31/20 21:00 11/14/20 19:57 Nicotine (Nicoderm Cq 14mg Patch) 1 patch DAILY TD 10/31/20 17:30 11/03/20 22:25 DC 11/03/20 08:17 Olanzapine (ZyPREXA ZYDIS) 2.5 mg PRN Q2HR PRN PO PSYCHOSIS 10/31/20 18:30 Sertraline HCl (Zoloft) 50 mg DAILY PO 11/02/20 09:00 11/02/20 15:56 DC 11/02/20 08:27 Hydroxyzine Pamoate (Vistaril) 25 mg TID PO 11/01/20 21:00 11/11/20 16:27 DC 11/11/20 12:20 Divalproex Sodium (Depakote) 375 mg QID PO 11/02/20 17:00 11/06/20 17:27 DC 11/06/20 17:09 Nicotine (Nicoderm Cq 21mg Patch) 1 patch DAILY TD 11/04/20 09:00 11/14/20 08:13 Mirtazapine (Remeron) 15 mg QHS PO 11/04/20 21:00 11/14/20 19:57 Trazodone HCl (Desyrel) 50 mg PRN QHS PRN PO INSOMNIA, MAY REPEAT X1 11/04/20 18:45 11/11/20 18:01 DC 11/08/20 20:22 Divalproex Sodium (Depakote) 500 mg QID PO 11/06/20 21:00 11/09/20 18:54 DC 11/09/20 17:07 Nicotine Polacrilex (Nicorette Gum) 2 mg PRN Q1HR PRN BC SMOKING CESSATION 11/07/20 17:00 11/11/20 20:16 Divalproex Sodium (Depakote) 500 mg 1300,1700 PO 11/10/20 13:00 11/13/20 16:42 DC 11/13/20 12:21 Divalproex Sodium (Depakote) 750 mg BID PO 11/09/20 21:00 11/13/20 16:42 DC 11/13/20 08:23 Hydroxyzine Pamoate (Vistaril) 50 mg TID PO 11/11/20 21:00 11/14/20 19:56 Trazodone HCl (Desyrel) 50 mg HS PO 11/11/20 21:00 11/14/20 19:56 Trazodone HCl (Desyrel) 50 mg PRN QHS PRN PO INSOMNIA 11/11/20 18:00 11/13/20 20:03 Valproic Acid (Depakene) 750 mg BID PO 11/13/20 21:00 11/14/20 19:58 Valproic Acid (Depakene) 500 mg BID@1300,1700 PO 11/13/20 17:00 11/14/20 18:27 I have reviewed the current psychotropics carefully including drug interactions. Risk benefit ratio favors no change other than as noted in my dictated progress note. Diagnosis: Problems: (1) Schizoaffective disorder, bipolar type (2) Impulse control disorder, unspecified (3) Anxiety disorder, unspecified (4) Bipolar disorder, current episode mixed, severe, with psychotic features (5) Mild cognitive impairment VIANNEY HAWLEY MD Nov 15, 2020 07:21
--- NOTE | 2020-11-15 07:37 | PDOC ---
Exam Note: Adams Note: This note is a late entry for 11/14/2020overs elements not covered in my initial note. Subjective: The patient was seen on telehealth rounds in the evening of 11/14/2020 due to COVID-19 exposure on the unit with Kristy GANT, discussed and reviewed the chart. He slept 6-1/2 hours previous night. WBC is 16.5. We will defer to Dr. Em. His eyes look swollen and a COVID screen is requested per Dr. Em along with blood cultures. UA is negative. He did receive Tylenol and was better after this. He seems to have some atelectasis but again will defer medical management to Dr. Em. I met with him after supper. Review of Systems: Ambulation impaired in wheelchair. He does feel little tired. No CV, , pulmonary, eye system symptoms on review. He is hard of hearing. Mental Status Exam: The patient is oriented to himself and situation. Speech coherent. Abstraction fair. Computation impaired. Language function intact. Mood and affect somewhat withdrawn. No suicidal or homicidal ideation. Laboratory Data: Reviewed. Impression: Schizoaffective disorder bipolar type mixed with psychotic features. Anxiety disorder unspecified. Impulse control disorder unspecified. Mild cognitive impairment. Plan: Continue rest psychotropics unchanged. Assessment: Vital Signs/I&O: Vital Signs Date Time Temp Pulse Resp B/P (MAP) Pulse Ox O2 Delivery O2 Flow Rate FiO2 11/15/20 05:43 96.9 63 20 112/77 (89) 98 Room Air I & O 11/14/20 11/14/20 11/15/20 14:59 22:59 06:59 Intake Total 600 ml 480 ml Balance 600 ml 480 ml Labs: Laboratory Tests Test 11/14/20 11:45 11/14/20 12:00 11/14/20 12:08 11/14/20 15:35 SARS-CoV-2 (PCR) Negative (NEGATIVE) Urine Collection Type Unknown Urine Color Yellow Urine Clarity Clear Urine pH 8.5 Urine Specific [place] 1.020 Urine Protein Neg (NEG-TRACE) Urine Glucose (UA) Neg mg/dL (NEG) Urine Ketones (Stick) Neg mg/dL (NEG) Urine Blood Neg (NEG) Urine Nitrite Neg (NEG) Urine Bilirubin Neg (NEG) Urine Urobilinogen Dipstick 1.0 mg/dL (0.2 mg/dL) Urine Leukocyte Esterase Neg (NEG) Urine RBC 0 /HPF (0-2) Urine WBC 0 /HPF (0-4) Urine Squamous Epithelial Cells Few /LPF Urine Bacteria 0 /HPF (0-FEW) White Blood Count 16.5 x10^3/uL (4.0-11.0) H Red Blood Count 4.07 x10^6/uL (4.30-5.70) L Hemoglobin 12.5 g/dL (13.0-17.5) L Hematocrit 38.4 % (39.0-53.0) L Mean Corpuscular Volume 95 fL (79-100) Mean Corpuscular Hemoglobin 31 pg (25-35) Mean Corpuscular Hemoglobin Concent 33 g/dL (31-37) Red Cell Distribution Width 14.5 % (11.5-14.5) Platelet Count 295 x10^3/uL (140-400) Neutrophils (%) (Auto) 78 % (31-73) H Lymphocytes (%) (Auto) 6 % (24-48) L Monocytes (%) (Auto) 9 % (0-9) Eosinophils (%) (Auto) 6 % (0-3) H Basophils (%) (Auto) 0 % (0-3) Neutrophils # (Auto) 12.9 x10^3uL (1.8-7.7) H Lymphocytes # (Auto) 1.0 x10^3/uL (1.0-4.8) Monocytes # (Auto) 1.5 x10^3/uL (0.0-1.1) H Eosinophils # (Auto) 1.0 x10^3/uL (0.0-0.7) H Basophils # (Auto) 0.0 x10^3/uL (0.0-0.2) Segmented Neutrophils % 83 % (35-66) H Lymphocytes % 9 % (24-48) L Monocytes % 4 % (0-10) Eosinophils % 4 % (0-5) Platelet Estimate Adequate (ADEQUATE) Giant Platelets Few Sodium Level 141 mmol/L (136-145) Potassium Level 3.7 mmol/L (3.5-5.1) Chloride Level 105 mmol/L (98-107) Carbon Dioxide Level 35 mmol/L (21-32) H Anion Gap 1 (6-14) L Blood Urea Nitrogen 16 mg/dL (8-26) Creatinine 0.7 mg/dL (0.7-1.3) Estimated GFR (Cockcroft-Gault) 113.5 BUN/Creatinine Ratio 23 (6-20) H Glucose Level 90 mg/dL (70-99) Calcium Level 8.8 mg/dL (8.5-10.1) Total Bilirubin 0.3 mg/dL (0.2-1.0) Aspartate Amino Transferase (AST) 15 U/L (15-37) Alanine Aminotransferase (ALT) 20 U/L (16-63) Alkaline Phosphatase 87 U/L (46-116) Total Protein 6.2 g/dL (6.4-8.2) L Albumin 2.6 g/dL (3.4-5.0) L Albumin/Globulin Ratio 0.7 (1.0-1.7) L Lactic Acid Level 1.1 mmol/L (0.4-2.0) Current Medications: Meds: Laboratory Tests Test 11/14/20 11:45 11/14/20 12:00 11/14/20 12:08 11/14/20 15:35 Coronavirus (COVID-19)(PCR) Negative Urine Collection Type Unknown Urine Color Yellow Urine Clarity Clear Urine pH 8.5 Urine Specific [place] 1.020 Urine Protein Neg Urine Glucose (UA) Neg mg/dL Urine Ketones (Stick) Neg mg/dL Urine Blood Neg Urine Nitrite Neg Urine Bilirubin Neg Urine Urobilinogen Dipstick 1.0 mg/dL Urine Leukocyte Esterase Neg Urine RBC 0 /HPF Urine WBC 0 /HPF Urine Squamous Epithelial Cells Few /LPF Urine Bacteria 0 /HPF White Blood Count 16.5 x10^3/uL Red Blood Count 4.07 x10^6/uL Hemoglobin 12.5 g/dL Hematocrit 38.4 % Mean Corpuscular Volume 95 fL Mean Corpuscular Hemoglobin 31 pg Mean Corpuscular Hemoglobin Concent 33 g/dL Red Cell Distribution Width 14.5 % Platelet Count 295 x10^3/uL Neutrophils (%) (Auto) 78 % Lymphocytes (%) (Auto) 6 % Monocytes (%) (Auto) 9 % Eosinophils (%) (Auto) 6 % Basophils (%) (Auto) 0 % Neutrophils # (Auto) 12.9 x10^3uL Lymphocytes # (Auto) 1.0 x10^3/uL Monocytes # (Auto) 1.5 x10^3/uL Eosinophils # (Auto) 1.0 x10^3/uL Basophils # (Auto) 0.0 x10^3/uL Segmented Neutrophils % 83 % Lymphocytes % 9 % Monocytes % 4 % Eosinophils % 4 % Platelet Estimate Adequate Giant Platelets Few Sodium Level 141 mmol/L Potassium Level 3.7 mmol/L Chloride Level 105 mmol/L Carbon Dioxide Level 35 mmol/L Anion Gap 1 Blood Urea Nitrogen 16 mg/dL Creatinine 0.7 mg/dL Estimated GFR (Cockcroft-Gault) 113.5 BUN/Creatinine Ratio 23 Glucose Level 90 mg/dL Calcium Level 8.8 mg/dL Total Bilirubin 0.3 mg/dL Aspartate Amino Transf (AST/SGOT) 15 U/L Alanine Aminotransferase (ALT/SGPT) 20 U/L Alkaline Phosphatase 87 U/L Total Protein 6.2 g/dL Albumin 2.6 g/dL Albumin/Globulin Ratio 0.7 Lactic Acid Level 1.1 mmol/L Current Medications Medications (Trade) Dose Ordered Sig/Guillermo Route PRN Reason Start Time Stop Time Status Last Admin Dose Admin Acetaminophen (Tylenol) 650 mg PRN Q6HRS PRN PO MILD PAIN / TEMP > 100.3'F 10/31/20 16:15 11/14/20 12:25 Multi-Ingredient Ointment (Analgesic [place]) 1 ambrocio PRN QID PRN TP MUSCLE PAIN 10/31/20 16:15 Al Hydroxide/Mg Hydroxide (Mylanta Plus Xs) 15 ml PRN AFTMEALHC PRN PO DYSPEPSIA 10/31/20 16:15 Magnesium Hydroxide (Milk Of Magnesia) 2,400 mg PRN QHS PRN PO CONSTIPATION 10/31/20 16:15 Aspirin (Aspirin Chewable) 81 mg DAILY PO 11/01/20 09:00 11/14/20 08:12 Dexamethasone (Decadron) 4 mg BID PO 10/31/20 21:00 11/14/20 19:57 Divalproex Sodium (Depakote) 250 mg QID PO 10/31/20 17:00 11/02/20 15:56 DC 11/02/20 14:10 Donepezil HCl (Aricept) 5 mg QHS PO 10/31/20 21:00 11/14/20 19:57 Gabapentin (Neurontin) 200 mg TID PO 10/31/20 21:00 11/14/20 19:56 Mirtazapine (Remeron) 7.5 mg QHS PO 10/31/20 21:00 11/04/20 18:40 DC 11/03/20 20:42 Morphine Sulfate (Ms Contin) 15 mg BID PO 10/31/20 21:00 11/14/20 19:57 Phenytoin Sodium (Dilantin) 200 mg BID PO 10/31/20 21:00 11/14/20 19:57 Sertraline HCl (Zoloft) 25 mg DAILY PO 11/01/20 09:00 11/01/20 17:15 DC 11/01/20 09:55 Venlafaxine HCl (Effexor Xr) 75 mg DAILY PO 11/01/20 09:00 11/14/20 08:12 Morphine Sulfate (Ms Contin) 30 mg BID PO 10/31/20 21:00 11/14/20 19:57 Nicotine (Nicoderm Cq 14mg Patch) 1 patch DAILY TD 10/31/20 17:30 11/03/20 22:25 DC 11/03/20 08:17 Olanzapine (ZyPREXA ZYDIS) 2.5 mg PRN Q2HR PRN PO PSYCHOSIS 10/31/20 18:30 Sertraline HCl (Zoloft) 50 mg DAILY PO 11/02/20 09:00 11/02/20 15:56 DC 11/02/20 08:27 Hydroxyzine Pamoate (Vistaril) 25 mg TID PO 11/01/20 21:00 11/11/20 16:27 DC 11/11/20 12:20 Divalproex Sodium (Depakote) 375 mg QID PO 11/02/20 17:00 11/06/20 17:27 DC 11/06/20 17:09 Nicotine (Nicoderm Cq 21mg Patch) 1 patch DAILY TD 11/04/20 09:00 11/14/20 08:13 Mirtazapine (Remeron) 15 mg QHS PO 11/04/20 21:00 11/14/20 19:57 Trazodone HCl (Desyrel) 50 mg PRN QHS PRN PO INSOMNIA, MAY REPEAT X1 11/04/20 18:45 11/11/20 18:01 DC 11/08/20 20:22 Divalproex Sodium (Depakote) 500 mg QID PO 11/06/20 21:00 11/09/20 18:54 DC 11/09/20 17:07 Nicotine Polacrilex (Nicorette Gum) 2 mg PRN Q1HR PRN BC SMOKING CESSATION 11/07/20 17:00 11/11/20 20:16 Divalproex Sodium (Depakote) 500 mg 1300,1700 PO 11/10/20 13:00 11/13/20 16:42 DC 11/13/20 12:21 Divalproex Sodium (Depakote) 750 mg BID PO 11/09/20 21:00 11/13/20 16:42 DC 11/13/20 08:23 Hydroxyzine Pamoate (Vistaril) 50 mg TID PO 11/11/20 21:00 11/14/20 19:56 Trazodone HCl (Desyrel) 50 mg HS PO 11/11/20 21:00 11/14/20 19:56 Trazodone HCl (Desyrel) 50 mg PRN QHS PRN PO INSOMNIA 11/11/20 18:00 11/13/20 20:03 Valproic Acid (Depakene) 750 mg BID PO 11/13/20 21:00 11/14/20 19:58 Valproic Acid (Depakene) 500 mg BID@1300,1700 PO 11/13/20 17:00 11/14/20 18:27 I have reviewed the current psychotropics carefully including drug interactions. Risk benefit ratio favors no change other than as noted in my dictated progress note. Diagnosis: Problems: (1) Schizoaffective disorder, bipolar type (2) Impulse control disorder, unspecified (3) Anxiety disorder, unspecified (4) Bipolar disorder, current episode mixed, severe, with psychotic features (5) Mild cognitive impairment VIANNEY HAWLEY MD Nov 15, 2020 07:37
[2020-11-15] MEDS: ASPIRIN CHEWABLE 81 MG TABLET. PO SCH (08:04)
[2020-11-15] MEDS: GABAPENTIN 100 MG CAPSULE. PO SCH ×3 (08:04→19:49)
[2020-11-15] MEDS: hydrOXYzine PAMOATE 25 MG CAPSULE PO SCH ×3 (08:05→19:49)
[2020-11-15] MEDS: MORPHINE ER 30 MG TABLET.ER PO SCH ×2 (08:05→19:50)
[2020-11-15] MEDS: MORPHINE ER 15 MG TABLET.ER PO SCH ×2 (08:05→19:50)
[2020-11-15] MEDS: PHENYTOIN SODIUM EXTENDED 100 MG CAPSULE PO SCH ×2 (08:05→19:49)
[2020-11-15] MEDS: NICOTINE 21MG PATCH. TD SCH (08:06)
[2020-11-15] MEDS: VENLAFAXINE XR 37.5 MG CAP.ER.24H. PO SCH (08:06)
[2020-11-15] MEDS: DEXAMETHASONE 4 MG TABLET PO SCH ×2 (08:06→19:49)
[2020-11-15] MEDS: VALPROATE ACID 250 MG/5 ML ORAL SOLUTION PO SCH ×4 (08:06→19:48)
[2020-11-15 15:55] VITALS: BP 112/72
[2020-11-15] MEDS: DONEPEZIL HCL 5 MG TABLET. PO SCH (19:49)
[2020-11-15] MEDS: MIRTAZAPINE 15 MG TABLET PO SCH (19:49)
[2020-11-15] MEDS: traZODone 50 MG TABLET. PO SCH (19:49)
--- NOTE | 2020-11-15 21:50 | PDOC ---
Exam Note: Adams Note: Please also refer to the separate dictated note~for this date of service dictated separately.~Patient seen individually. Discussed the patient with Nursing staff reviewed the chart.~Reviewed interim history and current functioning. Reviewed vital signs,~Labs/ Radiology~and current medications noted below. Continue current treatment with the changes noted in the dictated addendum note Assessment: Vital Signs/I&O: Vital Signs Date Time Temp Pulse Resp B/P (MAP) Pulse Ox O2 Delivery O2 Flow Rate FiO2 11/15/20 19:50 97 11/15/20 15:55 97.9 73 16 112/72 (85) 11/15/20 05:43 Room Air I & O 11/14/20 11/14/20 11/15/20 14:59 22:59 06:59 Intake Total 600 ml 480 ml Balance 600 ml 480 ml Current Medications: Meds: Current Medications Medications (Trade) Dose Ordered Sig/Guillermo Route PRN Reason Start Time Stop Time Status Last Admin Dose Admin Acetaminophen (Tylenol) 650 mg PRN Q6HRS PRN PO MILD PAIN / TEMP > 100.3'F 10/31/20 16:15 11/14/20 12:25 Multi-Ingredient Ointment (Analgesic [place]) 1 ambrocio PRN QID PRN TP MUSCLE PAIN 10/31/20 16:15 Al Hydroxide/Mg Hydroxide (Mylanta Plus Xs) 15 ml PRN AFTMEALHC PRN PO DYSPEPSIA 10/31/20 16:15 Magnesium Hydroxide (Milk Of Magnesia) 2,400 mg PRN QHS PRN PO CONSTIPATION 10/31/20 16:15 Aspirin (Aspirin Chewable) 81 mg DAILY PO 11/01/20 09:00 11/15/20 08:04 Dexamethasone (Decadron) 4 mg BID PO 10/31/20 21:00 11/15/20 19:49 Divalproex Sodium (Depakote) 250 mg QID PO 10/31/20 17:00 11/02/20 15:56 DC 11/02/20 14:10 Donepezil HCl (Aricept) 5 mg QHS PO 10/31/20 21:00 11/15/20 19:49 Gabapentin (Neurontin) 200 mg TID PO 10/31/20 21:00 11/15/20 19:49 Mirtazapine (Remeron) 7.5 mg QHS PO 10/31/20 21:00 11/04/20 18:40 DC 11/03/20 20:42 Morphine Sulfate (Ms Contin) 15 mg BID PO 10/31/20 21:00 11/15/20 19:50 Phenytoin Sodium (Dilantin) 200 mg BID PO 10/31/20 21:00 11/15/20 19:49 Sertraline HCl (Zoloft) 25 mg DAILY PO 11/01/20 09:00 11/01/20 17:15 DC 11/01/20 09:55 Venlafaxine HCl (Effexor Xr) 75 mg DAILY PO 11/01/20 09:00 11/15/20 08:06 Morphine Sulfate (Ms Contin) 30 mg BID PO 10/31/20 21:00 11/15/20 19:50 Nicotine (Nicoderm Cq 14mg Patch) 1 patch DAILY TD 10/31/20 17:30 11/03/20 22:25 DC 11/03/20 08:17 Olanzapine (ZyPREXA ZYDIS) 2.5 mg PRN Q2HR PRN PO PSYCHOSIS 10/31/20 18:30 Sertraline HCl (Zoloft) 50 mg DAILY PO 11/02/20 09:00 11/02/20 15:56 DC 11/02/20 08:27 Hydroxyzine Pamoate (Vistaril) 25 mg TID PO 11/01/20 21:00 11/11/20 16:27 DC 11/11/20 12:20 Divalproex Sodium (Depakote) 375 mg QID PO 11/02/20 17:00 11/06/20 17:27 DC 11/06/20 17:09 Nicotine (Nicoderm Cq 21mg Patch) 1 patch DAILY TD 11/04/20 09:00 11/15/20 08:06 Mirtazapine (Remeron) 15 mg QHS PO 11/04/20 21:00 11/15/20 19:49 Trazodone HCl (Desyrel) 50 mg PRN QHS PRN PO INSOMNIA, MAY REPEAT X1 11/04/20 18:45 11/11/20 18:01 DC 11/08/20 20:22 Divalproex Sodium (Depakote) 500 mg QID PO 11/06/20 21:00 11/09/20 18:54 DC 11/09/20 17:07 Nicotine Polacrilex (Nicorette Gum) 2 mg PRN Q1HR PRN BC SMOKING CESSATION 11/07/20 17:00 11/11/20 20:16 Divalproex Sodium (Depakote) 500 mg 1300,1700 PO 11/10/20 13:00 11/13/20 16:42 DC 11/13/20 12:21 Divalproex Sodium (Depakote) 750 mg BID PO 11/09/20 21:00 11/13/20 16:42 DC 11/13/20 08:23 Hydroxyzine Pamoate (Vistaril) 50 mg TID PO 11/11/20 21:00 11/15/20 19:49 Trazodone HCl (Desyrel) 50 mg HS PO 11/11/20 21:00 11/15/20 19:49 Trazodone HCl (Desyrel) 50 mg PRN QHS PRN PO INSOMNIA 11/11/20 18:00 11/13/20 20:03 Valproic Acid (Depakene) 750 mg BID PO 11/13/20 21:00 11/15/20 19:48 Valproic Acid (Depakene) 500 mg BID@1300,1700 PO 11/13/20 17:00 11/15/20 16:13 I have reviewed the current psychotropics carefully including drug interactions. Risk benefit ratio favors no change other than as noted in my dictated progress note. Diagnosis: Problems: (1) Schizoaffective disorder, bipolar type (2) Impulse control disorder, unspecified (3) Anxiety disorder, unspecified (4) Bipolar disorder, current episode mixed, severe, with psychotic features (5) Mild cognitive impairment VIANNEY HAWLEY MD Nov 15, 2020 21:50
[2020-11-16 05:32] VITALS: BP 92/58
[2020-11-16 06:20] LABS: BASO % 1 % (0-3); EOS # 0.7 x10^3/uL (0.0-0.7); EOS % 11 % (0-3); HEMOGLOBIN 11.5 g/dL (13.0-17.5); LYMPH # 0.9 x10^3/uL (1.0-4.8); LYMPH % 15 % (24-48); MEAN CORPUSCULAR HEMOGLOBIN 31 pg (25-35); MEAN CORPUSCULAR HGB CONC 33 g/dL (31-37); MEAN CORPUSCULAR VOLUME 94 fL (79-100); MONO # 0.5 x10^3/uL (0.0-1.1); MONO % 8 % (0-9); NEUT # 4.1 x10^3uL (1.8-7.7); NEUT % 66 % (31-73); PLATELET COUNT 281 x10^3/uL (140-400); RED BLOOD COUNT 3.71 x10^6/uL (4.30-5.70); RED CELL DISTRIBUTION WIDTH 14.5 % (11.5-14.5); WHITE BLOOD COUNT 6.2 x10^3/uL (4.0-11.0)
[2020-11-16 06:34] LABS: ALBUMIN 2.6 g/dL (3.4-5.0); ALBUMIN/GLOBULIN RATIO 0.7 (1.0-1.7); CALCIUM 8.6 mg/dL (8.5-10.1); CREATININE 0.6 mg/dL (0.7-1.3); GFR 135.6; POTASSIUM 4.3 mmol/L (3.5-5.1); TOTAL BILIRUBIN 0.1 mg/dL (0.2-1.0); TOTAL PROTEIN 6.2 g/dL (6.4-8.2)
--- NOTE | 2020-11-16 06:38 | PDOC ---
Exam Note: Adams Note: This note is a late entry for 11/15/2020overs elements not covered in my initial note. Subjective: The patient was seen face to face in the evening of 11/15/2020 with Xiomara GANT, discussed and reviewed the chart. He slept 4-1/2 hours previous night. The patient has been intermittently anxious, restless. Review of Systems: Ambulation impaired in wheelchair. He does complain of some skin itching. No CV, , pulmonary, eye system symptoms on review. Mental Status Exam: The patient is oriented to himself and situation. Speech coherent, somewhat pressured. Abstraction fair. Computation impaired. Language function intact. Mood and affect lability improved. Laboratory Data: Reviewed. Repeat valproic acid level. Impression: Schizoaffective disorder bipolar type mixed with psychotic features. Anxiety disorder unspecified. Impulse control disorder unspecified. Mild cognitive impairment. Plan: Continue rest psychotropics unchanged. Check valproic acid level. Adjust to reach therapeutic level. Assessment: Vital Signs/I&O: Vital Signs Date Time Temp Pulse Resp B/P (MAP) Pulse Ox O2 Delivery O2 Flow Rate FiO2 11/16/20 05:32 97.4 61 18 92/58 (69) 98 Room Air I & O 11/15/20 11/15/20 11/16/20 15:00 23:00 07:00 Intake Total 960 ml 720 ml Balance 960 ml 720 ml Current Medications: Meds: Current Medications Medications (Trade) Dose Ordered Sig/Guillermo Route PRN Reason Start Time Stop Time Status Last Admin Dose Admin Acetaminophen (Tylenol) 650 mg PRN Q6HRS PRN PO MILD PAIN / TEMP > 100.3'F 10/31/20 16:15 11/14/20 12:25 Multi-Ingredient Ointment (Analgesic [place]) 1 ambrocio PRN QID PRN TP MUSCLE PAIN 10/31/20 16:15 Al Hydroxide/Mg Hydroxide (Mylanta Plus Xs) 15 ml PRN AFTMEALHC PRN PO DYSPEPSIA 10/31/20 16:15 Magnesium Hydroxide (Milk Of Magnesia) 2,400 mg PRN QHS PRN PO CONSTIPATION 10/31/20 16:15 Aspirin (Aspirin Chewable) 81 mg DAILY PO 11/01/20 09:00 11/15/20 08:04 Dexamethasone (Decadron) 4 mg BID PO 10/31/20 21:00 11/15/20 19:49 Divalproex Sodium (Depakote) 250 mg QID PO 10/31/20 17:00 11/02/20 15:56 DC 11/02/20 14:10 Donepezil HCl (Aricept) 5 mg QHS PO 10/31/20 21:00 11/15/20 19:49 Gabapentin (Neurontin) 200 mg TID PO 10/31/20 21:00 11/15/20 19:49 Mirtazapine (Remeron) 7.5 mg QHS PO 10/31/20 21:00 11/04/20 18:40 DC 11/03/20 20:42 Morphine Sulfate (Ms Contin) 15 mg BID PO 10/31/20 21:00 11/15/20 19:50 Phenytoin Sodium (Dilantin) 200 mg BID PO 10/31/20 21:00 11/15/20 19:49 Sertraline HCl (Zoloft) 25 mg DAILY PO 11/01/20 09:00 11/01/20 17:15 DC 11/01/20 09:55 Venlafaxine HCl (Effexor Xr) 75 mg DAILY PO 11/01/20 09:00 11/15/20 08:06 Morphine Sulfate (Ms Contin) 30 mg BID PO 10/31/20 21:00 11/15/20 19:50 Nicotine (Nicoderm Cq 14mg Patch) 1 patch DAILY TD 10/31/20 17:30 11/03/20 22:25 DC 11/03/20 08:17 Olanzapine (ZyPREXA ZYDIS) 2.5 mg PRN Q2HR PRN PO PSYCHOSIS 10/31/20 18:30 Sertraline HCl (Zoloft) 50 mg DAILY PO 11/02/20 09:00 11/02/20 15:56 DC 11/02/20 08:27 Hydroxyzine Pamoate (Vistaril) 25 mg TID PO 11/01/20 21:00 11/11/20 16:27 DC 11/11/20 12:20 Divalproex Sodium (Depakote) 375 mg QID PO 11/02/20 17:00 11/06/20 17:27 DC 11/06/20 17:09 Nicotine (Nicoderm Cq 21mg Patch) 1 patch DAILY TD 11/04/20 09:00 11/15/20 08:06 Mirtazapine (Remeron) 15 mg QHS PO 11/04/20 21:00 11/15/20 19:49 Trazodone HCl (Desyrel) 50 mg PRN QHS PRN PO INSOMNIA, MAY REPEAT X1 11/04/20 18:45 11/11/20 18:01 DC 11/08/20 20:22 Divalproex Sodium (Depakote) 500 mg QID PO 11/06/20 21:00 11/09/20 18:54 DC 11/09/20 17:07 Nicotine Polacrilex (Nicorette Gum) 2 mg PRN Q1HR PRN BC SMOKING CESSATION 11/07/20 17:00 11/11/20 20:16 Divalproex Sodium (Depakote) 500 mg 1300,1700 PO 11/10/20 13:00 11/13/20 16:42 DC 11/13/20 12:21 Divalproex Sodium (Depakote) 750 mg BID PO 11/09/20 21:00 11/13/20 16:42 DC 11/13/20 08:23 Hydroxyzine Pamoate (Vistaril) 50 mg TID PO 11/11/20 21:00 11/15/20 19:49 Trazodone HCl (Desyrel) 50 mg HS PO 11/11/20 21:00 11/15/20 19:49 Trazodone HCl (Desyrel) 50 mg PRN QHS PRN PO INSOMNIA 11/11/20 18:00 11/13/20 20:03 Valproic Acid (Depakene) 750 mg BID PO 11/13/20 21:00 11/15/20 19:48 Valproic Acid (Depakene) 500 mg BID@1300,1700 PO 11/13/20 17:00 11/15/20 16:13 I have reviewed the current psychotropics carefully including drug interactions. Risk benefit ratio favors no change other than as noted in my dictated progress note. Diagnosis: Problems: (1) Schizoaffective disorder, bipolar type (2) Impulse control disorder, unspecified (3) Anxiety disorder, unspecified (4) Bipolar disorder, current episode mixed, severe, with psychotic features (5) Mild cognitive impairment CHANDAN,MAN M MD Nov 16, 2020 06:38
[2020-11-16 06:52] LABS: VAL ACID 23 mcg/mL (50-100)
[2020-11-16] MEDS: VALPROATE ACID 250 MG/5 ML ORAL SOLUTION PO SCH ×4 (08:11→20:00)
[2020-11-16] MEDS: NICOTINE 21MG PATCH. TD SCH (08:11)
[2020-11-16] MEDS: hydrOXYzine PAMOATE 25 MG CAPSULE PO SCH ×3 (08:12→20:00)
[2020-11-16] MEDS: DEXAMETHASONE 4 MG TABLET PO SCH ×2 (08:12→19:59)
[2020-11-16] MEDS: ASPIRIN CHEWABLE 81 MG TABLET. PO SCH (08:12)
[2020-11-16] MEDS: VENLAFAXINE XR 37.5 MG CAP.ER.24H. PO SCH (08:12)
[2020-11-16] MEDS: MORPHINE ER 15 MG TABLET.ER PO SCH ×2 (08:12→19:58)
[2020-11-16] MEDS: MORPHINE ER 30 MG TABLET.ER PO SCH ×2 (08:13→19:58)
[2020-11-16] MEDS: PHENYTOIN SODIUM EXTENDED 100 MG CAPSULE PO SCH ×2 (08:13→19:59)
[2020-11-16] MEDS: GABAPENTIN 100 MG CAPSULE. PO SCH ×3 (08:13→20:00)
[2020-11-16] MEDS: NICOTINE POLACRILEX GUM 2 MG GUM. BC PRN (13:11)
[2020-11-16 15:55] VITALS: BP 99/64
[2020-11-16] MEDS: DONEPEZIL HCL 5 MG TABLET. PO SCH (19:59)
[2020-11-16] MEDS: traZODone 50 MG TABLET. PO SCH (20:00)
[2020-11-16] MEDS: MIRTAZAPINE 15 MG TABLET PO SCH (20:00)
--- NOTE | 2020-11-16 21:51 | PDOC ---
Exam Note: Adams Note: Please also refer to the separate dictated note~for this date of service dictated separately.~Patient seen individually. Discussed the patient with Nursing staff reviewed the chart.~Reviewed interim history and current functioning. Reviewed vital signs,~Labs/ Radiology~and current medications noted below. Continue current treatment with the changes noted in the dictated addendum note Assessment: Vital Signs/I&O: Vital Signs Date Time Temp Pulse Resp B/P (MAP) Pulse Ox O2 Delivery O2 Flow Rate FiO2 11/16/20 15:55 97.5 72 20 99/64 (76) 98 11/16/20 05:32 Room Air I & O 11/15/20 11/15/20 11/16/20 15:00 23:00 07:00 Intake Total 960 ml 720 ml Balance 960 ml 720 ml Labs: Laboratory Tests Test 11/16/20 05:59 White Blood Count 6.2 x10^3/uL (4.0-11.0) Red Blood Count 3.71 x10^6/uL (4.30-5.70) L Hemoglobin 11.5 g/dL (13.0-17.5) L Hematocrit 35.0 % (39.0-53.0) L Mean Corpuscular Volume 94 fL (79-100) Mean Corpuscular Hemoglobin 31 pg (25-35) Mean Corpuscular Hemoglobin Concent 33 g/dL (31-37) Red Cell Distribution Width 14.5 % (11.5-14.5) Platelet Count 281 x10^3/uL (140-400) Neutrophils (%) (Auto) 66 % (31-73) Lymphocytes (%) (Auto) 15 % (24-48) L Monocytes (%) (Auto) 8 % (0-9) Eosinophils (%) (Auto) 11 % (0-3) H Basophils (%) (Auto) 1 % (0-3) Neutrophils # (Auto) 4.1 x10^3uL (1.8-7.7) Lymphocytes # (Auto) 0.9 x10^3/uL (1.0-4.8) L Monocytes # (Auto) 0.5 x10^3/uL (0.0-1.1) Eosinophils # (Auto) 0.7 x10^3/uL (0.0-0.7) Basophils # (Auto) 0.0 x10^3/uL (0.0-0.2) Sodium Level 146 mmol/L (136-145) H Potassium Level 4.3 mmol/L (3.5-5.1) Chloride Level 106 mmol/L (98-107) Carbon Dioxide Level 38 mmol/L (21-32) H Anion Gap 2 (6-14) L Blood Urea Nitrogen 22 mg/dL (8-26) Creatinine 0.6 mg/dL (0.7-1.3) L Estimated GFR (Cockcroft-Gault) 135.6 BUN/Creatinine Ratio 37 (6-20) H Glucose Level 82 mg/dL (70-99) Calcium Level 8.6 mg/dL (8.5-10.1) Total Bilirubin 0.1 mg/dL (0.2-1.0) L Aspartate Amino Transferase (AST) 17 U/L (15-37) Alanine Aminotransferase (ALT) 21 U/L (16-63) Alkaline Phosphatase 84 U/L (46-116) Total Protein 6.2 g/dL (6.4-8.2) L Albumin 2.6 g/dL (3.4-5.0) L Albumin/Globulin Ratio 0.7 (1.0-1.7) L Valproic Acid Level 23 mcg/mL (50-100) L Valproic Acid Last Dose Date 11/15/20 Valproic Acid Last Dose Time 2100 Current Medications: Meds: Laboratory Tests Test 11/16/20 05:59 White Blood Count 6.2 x10^3/uL Red Blood Count 3.71 x10^6/uL Hemoglobin 11.5 g/dL Hematocrit 35.0 % Mean Corpuscular Volume 94 fL Mean Corpuscular Hemoglobin 31 pg Mean Corpuscular Hemoglobin Concent 33 g/dL Red Cell Distribution Width 14.5 % Platelet Count 281 x10^3/uL Neutrophils (%) (Auto) 66 % Lymphocytes (%) (Auto) 15 % Monocytes (%) (Auto) 8 % Eosinophils (%) (Auto) 11 % Basophils (%) (Auto) 1 % Neutrophils # (Auto) 4.1 x10^3uL Lymphocytes # (Auto) 0.9 x10^3/uL Monocytes # (Auto) 0.5 x10^3/uL Eosinophils # (Auto) 0.7 x10^3/uL Basophils # (Auto) 0.0 x10^3/uL Sodium Level 146 mmol/L Potassium Level 4.3 mmol/L Chloride Level 106 mmol/L Carbon Dioxide Level 38 mmol/L Anion Gap 2 Blood Urea Nitrogen 22 mg/dL Creatinine 0.6 mg/dL Estimated GFR (Cockcroft-Gault) 135.6 BUN/Creatinine Ratio 37 Glucose Level 82 mg/dL Calcium Level 8.6 mg/dL Total Bilirubin 0.1 mg/dL Aspartate Amino Transf (AST/SGOT) 17 U/L Alanine Aminotransferase (ALT/SGPT) 21 U/L Alkaline Phosphatase 84 U/L Total Protein 6.2 g/dL Albumin 2.6 g/dL Albumin/Globulin Ratio 0.7 Valproic Acid (Depakene) Level 23 mcg/mL Valproic Acid Last Dose Date 11/15/20 Valproic Acid Last Dose Time 2100 Current Medications Medications (Trade) Dose Ordered Sig/Guillermo Route PRN Reason Start Time Stop Time Status Last Admin Dose Admin Acetaminophen (Tylenol) 650 mg PRN Q6HRS PRN PO MILD PAIN / TEMP > 100.3'F 10/31/20 16:15 11/14/20 12:25 Multi-Ingredient Ointment (Analgesic [place]) 1 ambrocio PRN QID PRN TP MUSCLE PAIN 10/31/20 16:15 Al Hydroxide/Mg Hydroxide (Mylanta Plus Xs) 15 ml PRN AFTMEALHC PRN PO DYSPEPSIA 10/31/20 16:15 Magnesium Hydroxide (Milk Of Magnesia) 2,400 mg PRN QHS PRN PO CONSTIPATION 10/31/20 16:15 Aspirin (Aspirin Chewable) 81 mg DAILY PO 11/01/20 09:00 11/16/20 08:12 Dexamethasone (Decadron) 4 mg BID PO 10/31/20 21:00 11/16/20 19:59 Divalproex Sodium (Depakote) 250 mg QID PO 10/31/20 17:00 11/02/20 15:56 DC 11/02/20 14:10 Donepezil HCl (Aricept) 5 mg QHS PO 10/31/20 21:00 11/16/20 19:59 Gabapentin (Neurontin) 200 mg TID PO 10/31/20 21:00 11/16/20 20:00 Mirtazapine (Remeron) 7.5 mg QHS PO 10/31/20 21:00 11/04/20 18:40 DC 11/03/20 20:42 Morphine Sulfate (Ms Contin) 15 mg BID PO 10/31/20 21:00 11/16/20 19:58 Phenytoin Sodium (Dilantin) 200 mg BID PO 10/31/20 21:00 11/16/20 19:59 Sertraline HCl (Zoloft) 25 mg DAILY PO 11/01/20 09:00 11/01/20 17:15 DC 11/01/20 09:55 Venlafaxine HCl (Effexor Xr) 75 mg DAILY PO 11/01/20 09:00 11/16/20 08:12 Morphine Sulfate (Ms Contin) 30 mg BID PO 10/31/20 21:00 11/16/20 19:58 Nicotine (Nicoderm Cq 14mg Patch) 1 patch DAILY TD 10/31/20 17:30 11/03/20 22:25 DC 11/03/20 08:17 Olanzapine (ZyPREXA ZYDIS) 2.5 mg PRN Q2HR PRN PO PSYCHOSIS 10/31/20 18:30 Sertraline HCl (Zoloft) 50 mg DAILY PO 11/02/20 09:00 11/02/20 15:56 DC 11/02/20 08:27 Hydroxyzine Pamoate (Vistaril) 25 mg TID PO 11/01/20 21:00 11/11/20 16:27 DC 11/11/20 12:20 Divalproex Sodium (Depakote) 375 mg QID PO 11/02/20 17:00 11/06/20 17:27 DC 11/06/20 17:09 Nicotine (Nicoderm Cq 21mg Patch) 1 patch DAILY TD 11/04/20 09:00 11/16/20 08:11 Mirtazapine (Remeron) 15 mg QHS PO 11/04/20 21:00 11/16/20 20:00 Trazodone HCl (Desyrel) 50 mg PRN QHS PRN PO INSOMNIA, MAY REPEAT X1 11/04/20 18:45 11/11/20 18:01 DC 11/08/20 20:22 Divalproex Sodium (Depakote) 500 mg QID PO 11/06/20 21:00 11/09/20 18:54 DC 11/09/20 17:07 Nicotine Polacrilex (Nicorette Gum) 2 mg PRN Q1HR PRN BC SMOKING CESSATION 11/07/20 17:00 11/16/20 13:11 Divalproex Sodium (Depakote) 500 mg 1300,1700 PO 11/10/20 13:00 11/13/20 16:42 DC 11/13/20 12:21 Divalproex Sodium (Depakote) 750 mg BID PO 11/09/20 21:00 11/13/20 16:42 DC 11/13/20 08:23 Hydroxyzine Pamoate (Vistaril) 50 mg TID PO 11/11/20 21:00 11/16/20 20:00 Trazodone HCl (Desyrel) 50 mg HS PO 11/11/20 21:00 11/16/20 20:00 Trazodone HCl (Desyrel) 50 mg PRN QHS PRN PO INSOMNIA 11/11/20 18:00 11/13/20 20:03 Valproic Acid (Depakene) 750 mg BID PO 11/13/20 21:00 11/16/20 20:00 Valproic Acid (Depakene) 500 mg BID@1300,1700 PO 11/13/20 17:00 11/16/20 17:36 I have reviewed the current psychotropics carefully including drug interactions. Risk benefit ratio favors no change other than as noted in my dictated progress note. Diagnosis: Problems: (1) Schizoaffective disorder, bipolar type (2) Impulse control disorder, unspecified (3) Anxiety disorder, unspecified (4) Bipolar disorder, current episode mixed, severe, with psychotic features (5) Mild cognitive impairment VIANNEY HAWLEY MD Nov 16, 2020 21:51
[2020-11-17 06:44] VITALS: BP 92/56
[2020-11-17] MEDS: VENLAFAXINE XR 37.5 MG CAP.ER.24H. PO SCH (08:17)
[2020-11-17] MEDS: PHENYTOIN SODIUM EXTENDED 100 MG CAPSULE PO SCH ×2 (08:17→20:35)
[2020-11-17] MEDS: ASPIRIN CHEWABLE 81 MG TABLET. PO SCH (08:18)
[2020-11-17] MEDS: GABAPENTIN 100 MG CAPSULE. PO SCH ×3 (08:18→20:34)
[2020-11-17] MEDS: MORPHINE ER 15 MG TABLET.ER PO SCH ×2 (08:18→20:35)
[2020-11-17] MEDS: hydrOXYzine PAMOATE 25 MG CAPSULE PO SCH ×3 (08:18→20:34)
[2020-11-17] MEDS: MORPHINE ER 30 MG TABLET.ER PO SCH ×2 (08:18→20:34)
[2020-11-17] MEDS: DEXAMETHASONE 4 MG TABLET PO SCH ×2 (08:18→20:34)
[2020-11-17] MEDS: VALPROATE ACID 250 MG/5 ML ORAL SOLUTION PO SCH ×4 (08:19→20:34)
[2020-11-17] MEDS: NICOTINE 21MG PATCH. TD SCH (08:19)
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
[2020-11-17 15:30] VITALS: BP 100/66
[2020-11-17] MEDS: MIRTAZAPINE 15 MG TABLET PO SCH (20:34)
[2020-11-17] MEDS: traZODone 50 MG TABLET. PO SCH (20:35)
--- NOTE | 2020-11-17 22:09 | PDOC ---
Exam Note: Adams Note: Please also refer to the separate dictated note~for this date of service dictated separately.~Patient seen individually. Discussed the patient with Nursing staff reviewed the chart.~Reviewed interim history and current functioning. Reviewed vital signs,~Labs/ Radiology~and current medications noted below. Continue current treatment with the changes noted in the dictated addendum note Assessment: Vital Signs/I&O: Vital Signs Date Time Temp Pulse Resp B/P (MAP) Pulse Ox O2 Delivery O2 Flow Rate FiO2 11/17/20 15:30 97.3 77 18 100/66 (77) 98 11/17/20 06:44 Room Air I & O 11/16/20 11/16/20 11/17/20 15:00 23:00 07:00 Intake Total 1380 ml 840 ml Balance 1380 ml 840 ml Current Medications: Meds: Current Medications Medications (Trade) Dose Ordered Sig/Guillermo Route PRN Reason Start Time Stop Time Status Last Admin Dose Admin Acetaminophen (Tylenol) 650 mg PRN Q6HRS PRN PO MILD PAIN / TEMP > 100.3'F 10/31/20 16:15 11/14/20 12:25 Multi-Ingredient Ointment (Analgesic [place]) 1 ambrocio PRN QID PRN TP MUSCLE PAIN 10/31/20 16:15 Al Hydroxide/Mg Hydroxide (Mylanta Plus Xs) 15 ml PRN AFTMEALHC PRN PO DYSPEPSIA 10/31/20 16:15 Magnesium Hydroxide (Milk Of Magnesia) 2,400 mg PRN QHS PRN PO CONSTIPATION 10/31/20 16:15 Aspirin (Aspirin Chewable) 81 mg DAILY PO 11/01/20 09:00 11/17/20 08:18 Dexamethasone (Decadron) 4 mg BID PO 10/31/20 21:00 11/17/20 20:34 Divalproex Sodium (Depakote) 250 mg QID PO 10/31/20 17:00 11/02/20 15:56 DC 11/02/20 14:10 Donepezil HCl (Aricept) 5 mg QHS PO 10/31/20 21:00 11/17/20 12:40 DC 11/16/20 19:59 Gabapentin (Neurontin) 200 mg TID PO 10/31/20 21:00 11/17/20 20:34 Mirtazapine (Remeron) 7.5 mg QHS PO 10/31/20 21:00 11/04/20 18:40 DC 11/03/20 20:42 Morphine Sulfate (Ms Contin) 15 mg BID PO 10/31/20 21:00 11/17/20 20:35 Phenytoin Sodium (Dilantin) 200 mg BID PO 10/31/20 21:00 11/17/20 20:35 Sertraline HCl (Zoloft) 25 mg DAILY PO 11/01/20 09:00 11/01/20 17:15 DC 11/01/20 09:55 Venlafaxine HCl (Effexor Xr) 75 mg DAILY PO 11/01/20 09:00 11/17/20 08:17 Morphine Sulfate (Ms Contin) 30 mg BID PO 10/31/20 21:00 11/17/20 20:34 Nicotine (Nicoderm Cq 14mg Patch) 1 patch DAILY TD 10/31/20 17:30 11/03/20 22:25 DC 11/03/20 08:17 Olanzapine (ZyPREXA ZYDIS) 2.5 mg PRN Q2HR PRN PO PSYCHOSIS 10/31/20 18:30 Sertraline HCl (Zoloft) 50 mg DAILY PO 11/02/20 09:00 11/02/20 15:56 DC 11/02/20 08:27 Hydroxyzine Pamoate (Vistaril) 25 mg TID PO 11/01/20 21:00 11/11/20 16:27 DC 11/11/20 12:20 Divalproex Sodium (Depakote) 375 mg QID PO 11/02/20 17:00 11/06/20 17:27 DC 11/06/20 17:09 Nicotine (Nicoderm Cq 21mg Patch) 1 patch DAILY TD 11/04/20 09:00 11/17/20 08:19 Mirtazapine (Remeron) 15 mg QHS PO 11/04/20 21:00 11/17/20 20:34 Trazodone HCl (Desyrel) 50 mg PRN QHS PRN PO INSOMNIA, MAY REPEAT X1 11/04/20 18:45 11/11/20 18:01 DC 11/08/20 20:22 Divalproex Sodium (Depakote) 500 mg QID PO 11/06/20 21:00 11/09/20 18:54 DC 11/09/20 17:07 Nicotine Polacrilex (Nicorette Gum) 2 mg PRN Q1HR PRN BC SMOKING CESSATION 11/07/20 17:00 11/16/20 13:11 Divalproex Sodium (Depakote) 500 mg 1300,1700 PO 11/10/20 13:00 11/13/20 16:42 DC 11/13/20 12:21 Divalproex Sodium (Depakote) 750 mg BID PO 11/09/20 21:00 11/13/20 16:42 DC 11/13/20 08:23 Hydroxyzine Pamoate (Vistaril) 50 mg TID PO 11/11/20 21:00 11/17/20 20:34 Trazodone HCl (Desyrel) 50 mg HS PO 11/11/20 21:00 11/17/20 20:35 Trazodone HCl (Desyrel) 50 mg PRN QHS PRN PO INSOMNIA 11/11/20 18:00 11/13/20 20:03 Valproic Acid (Depakene) 750 mg BID PO 11/13/20 21:00 11/17/20 12:40 DC 11/17/20 08:19 Valproic Acid (Depakene) 500 mg BID@1300,1700 PO 11/13/20 17:00 11/17/20 12:40 DC 11/16/20 17:36 Valproic Acid (Depakene) 750 mg BID@1300,1700 PO 11/17/20 13:00 11/17/20 17:15 Valproic Acid (Depakene) 1,000 mg BID PO 11/17/20 21:00 11/17/20 20:34 Current Medications Medications (Trade) Dose Ordered Sig/Guillermo Route PRN Reason Start Time Stop Time Status Last Admin Dose Admin Valproic Acid (Depakene) 750 mg BID@1300,1700 PO 11/17/20 13:00 11/17/20 17:15 Valproic Acid (Depakene) 1,000 mg BID PO 11/17/20 21:00 11/17/20 20:34 I have reviewed the current psychotropics carefully including drug interactions. Risk benefit ratio favors no change other than as noted in my dictated progress note. Diagnosis: Problems: (1) Schizoaffective disorder, bipolar type (2) Impulse control disorder, unspecified (3) Anxiety disorder, unspecified (4) Bipolar disorder, current episode mixed, severe, with psychotic features (5) Mild cognitive impairment VIANNEY HAWLEY MD Nov 17, 2020 22:09
[2020-11-18 06:15] VITALS: BP 101/68
--- NOTE | 2020-11-18 06:36 | PDOC ---
Exam Note: Adams Note: This note is a late entry for 11/16/2020overs elements not covered in my initial note. Subjective: The patient was seen face to face in the evening of 11/16/2020 with Carmen GANT, discussed and reviewed the chart. He slept 6-1/2 hours previous night. The patient remains quite fixated and obsessive about tea and coffee. He did take a shower. He seems to be hoarding things and processed this with him in his room. Review of Systems: Ambulation impaired in wheelchair but he runs this up and down in the hallway really fast. He complains of some skin itching but better with the lotion. No CV, , pulmonary, eye system symptoms on review. Mental Status Exam: The patient is oriented to himself and situation. Speech coherent, somewhat pressured. Abstraction fair. Computation impaired. Language function intact. Mood and affect improved. Laboratory Data: Reviewed. Impression: Schizoaffective disorder bipolar type mixed with psychotic features. Anxiety disorder unspecified. Impulse control disorder unspecified. Mild cognitive impairment. Plan: Continue rest psychotropics unchanged. Assessment: Vital Signs/I&O: Vital Signs Date Time Temp Pulse Resp B/P (MAP) Pulse Ox O2 Delivery O2 Flow Rate FiO2 11/18/20 06:15 97.4 60 16 101/68 (79) 98 Room Air I & O 11/17/20 11/17/20 11/18/20 15:00 23:00 07:00 Intake Total 1440 ml 720 ml Balance 1440 ml 720 ml Current Medications: Meds: Current Medications Medications (Trade) Dose Ordered Sig/Guillermo Route PRN Reason Start Time Stop Time Status Last Admin Dose Admin Acetaminophen (Tylenol) 650 mg PRN Q6HRS PRN PO MILD PAIN / TEMP > 100.3'F 10/31/20 16:15 11/14/20 12:25 Multi-Ingredient Ointment (Analgesic [place]) 1 ambrocio PRN QID PRN TP MUSCLE PAIN 10/31/20 16:15 Al Hydroxide/Mg Hydroxide (Mylanta Plus Xs) 15 ml PRN AFTMEALHC PRN PO DYSPEPSIA 10/31/20 16:15 Magnesium Hydroxide (Milk Of Magnesia) 2,400 mg PRN QHS PRN PO CONSTIPATION 10/31/20 16:15 Aspirin (Aspirin Chewable) 81 mg DAILY PO 11/01/20 09:00 11/17/20 08:18 Dexamethasone (Decadron) 4 mg BID PO 10/31/20 21:00 11/17/20 20:34 Divalproex Sodium (Depakote) 250 mg QID PO 10/31/20 17:00 11/02/20 15:56 DC 11/02/20 14:10 Donepezil HCl (Aricept) 5 mg QHS PO 10/31/20 21:00 11/17/20 12:40 DC 11/16/20 19:59 Gabapentin (Neurontin) 200 mg TID PO 10/31/20 21:00 11/17/20 20:34 Mirtazapine (Remeron) 7.5 mg QHS PO 10/31/20 21:00 11/04/20 18:40 DC 11/03/20 20:42 Morphine Sulfate (Ms Contin) 15 mg BID PO 10/31/20 21:00 11/17/20 20:35 Phenytoin Sodium (Dilantin) 200 mg BID PO 10/31/20 21:00 11/17/20 20:35 Sertraline HCl (Zoloft) 25 mg DAILY PO 11/01/20 09:00 11/01/20 17:15 DC 11/01/20 09:55 Venlafaxine HCl (Effexor Xr) 75 mg DAILY PO 11/01/20 09:00 11/17/20 08:17 Morphine Sulfate (Ms Contin) 30 mg BID PO 10/31/20 21:00 11/17/20 20:34 Nicotine (Nicoderm Cq 14mg Patch) 1 patch DAILY TD 10/31/20 17:30 11/03/20 22:25 DC 11/03/20 08:17 Olanzapine (ZyPREXA ZYDIS) 2.5 mg PRN Q2HR PRN PO PSYCHOSIS 10/31/20 18:30 Sertraline HCl (Zoloft) 50 mg DAILY PO 11/02/20 09:00 11/02/20 15:56 DC 11/02/20 08:27 Hydroxyzine Pamoate (Vistaril) 25 mg TID PO 11/01/20 21:00 11/11/20 16:27 DC 11/11/20 12:20 Divalproex Sodium (Depakote) 375 mg QID PO 11/02/20 17:00 11/06/20 17:27 DC 11/06/20 17:09 Nicotine (Nicoderm Cq 21mg Patch) 1 patch DAILY TD 11/04/20 09:00 11/17/20 08:19 Mirtazapine (Remeron) 15 mg QHS PO 11/04/20 21:00 11/17/20 20:34 Trazodone HCl (Desyrel) 50 mg PRN QHS PRN PO INSOMNIA, MAY REPEAT X1 11/04/20 18:45 11/11/20 18:01 DC 11/08/20 20:22 Divalproex Sodium (Depakote) 500 mg QID PO 11/06/20 21:00 11/09/20 18:54 DC 11/09/20 17:07 Nicotine Polacrilex (Nicorette Gum) 2 mg PRN Q1HR PRN BC SMOKING CESSATION 11/07/20 17:00 11/16/20 13:11 Divalproex Sodium (Depakote) 500 mg 1300,1700 PO 11/10/20 13:00 11/13/20 16:42 DC 11/13/20 12:21 Divalproex Sodium (Depakote) 750 mg BID PO 11/09/20 21:00 11/13/20 16:42 DC 11/13/20 08:23 Hydroxyzine Pamoate (Vistaril) 50 mg TID PO 11/11/20 21:00 11/17/20 20:34 Trazodone HCl (Desyrel) 50 mg HS PO 11/11/20 21:00 11/17/20 20:35 Trazodone HCl (Desyrel) 50 mg PRN QHS PRN PO INSOMNIA 11/11/20 18:00 11/13/20 20:03 Valproic Acid (Depakene) 750 mg BID PO 11/13/20 21:00 11/17/20 12:40 DC 11/17/20 08:19 Valproic Acid (Depakene) 500 mg BID@1300,1700 PO 11/13/20 17:00 11/17/20 12:40 DC 11/16/20 17:36 Valproic Acid (Depakene) 750 mg BID@1300,1700 PO 11/17/20 13:00 11/17/20 17:15 Valproic Acid (Depakene) 1,000 mg BID PO 11/17/20 21:00 11/17/20 20:34 Current Medications Medications (Trade) Dose Ordered Sig/Guillermo Route PRN Reason Start Time Stop Time Status Last Admin Dose Admin Valproic Acid (Depakene) 750 mg BID@1300,1700 PO 11/17/20 13:00 11/17/20 17:15 Valproic Acid (Depakene) 1,000 mg BID PO 11/17/20 21:00 11/17/20 20:34 I have reviewed the current psychotropics carefully including drug interactions. Risk benefit ratio favors no change other than as noted in my dictated progress note. Diagnosis: Problems: (1) Schizoaffective disorder, bipolar type (2) Impulse control disorder, unspecified (3) Anxiety disorder, unspecified (4) Bipolar disorder, current episode mixed, severe, with psychotic features (5) Mild cognitive impairment VIANNEY HAWLEY MD Nov 18, 2020 06:36
--- NOTE | 2020-11-18 06:57 | PDOC ---
Exam Note: Adams Note: This note is a late entry for 11/17/2020overs elements not covered in my initial note. Subjective: The patient was reviewed at treatment team meeting individually in the morning on 11/17/2020 with Diana Camacho, Krista Glover (social worker delinquency prevention), Mariela, activity therapy and Carmen GANT, discussed and reviewed the chart. He slept 5-1/4 hours previous night. Appetite is good. He is somewhat of a hoarder and was even hoarding his nicotine gum, silverware from the dining room. Valproic acid level is subtherapeutic at 23 on Depakene liquid 750 mg 4 times a day. We will increase to 1000 mg twice a day and 750 mg twice a day. Check CBC, CMP, valproic acid level in 3 days. He continues to have some mood lability but no actual aggression noted. Review of Systems: Ambulation impaired in wheelchair. He has some skin itching. No CV, , pulmonary, eye system symptoms on review. Mental Status Exam: The patient is oriented to himself and situation. Speech coherent, rapid at times. Abstraction fair. Computation impaired. Language function intact. Attention span is short. Mood and affect lability improved. Laboratory Data: Reviewed. Liver enzymes are unremarkable. Impression: Schizoaffective disorder bipolar type mixed with psychotic features. Anxiety disorder unspecified. Impulse control disorder unspecified. Mild cognitive impairment. Plan: Continue rest psychotropics unchanged. Increase the Depakote as noted to reach therapeutic level. Assessment: Vital Signs/I&O: Vital Signs Date Time Temp Pulse Resp B/P (MAP) Pulse Ox O2 Delivery O2 Flow Rate FiO2 11/18/20 06:15 97.4 60 16 101/68 (79) 98 Room Air I & O 11/17/20 11/17/20 11/18/20 15:00 23:00 07:00 Intake Total 1440 ml 720 ml Balance 1440 ml 720 ml Current Medications: Meds: Current Medications Medications (Trade) Dose Ordered Sig/Guillermo Route PRN Reason Start Time Stop Time Status Last Admin Dose Admin Acetaminophen (Tylenol) 650 mg PRN Q6HRS PRN PO MILD PAIN / TEMP > 100.3'F 10/31/20 16:15 11/14/20 12:25 Multi-Ingredient Ointment (Analgesic [place]) 1 ambrocio PRN QID PRN TP MUSCLE PAIN 10/31/20 16:15 Al Hydroxide/Mg Hydroxide (Mylanta Plus Xs) 15 ml PRN AFTMEALHC PRN PO DYSPEPSIA 10/31/20 16:15 Magnesium Hydroxide (Milk Of Magnesia) 2,400 mg PRN QHS PRN PO CONSTIPATION 10/31/20 16:15 Aspirin (Aspirin Chewable) 81 mg DAILY PO 11/01/20 09:00 11/17/20 08:18 Dexamethasone (Decadron) 4 mg BID PO 10/31/20 21:00 11/17/20 20:34 Divalproex Sodium (Depakote) 250 mg QID PO 10/31/20 17:00 11/02/20 15:56 DC 11/02/20 14:10 Donepezil HCl (Aricept) 5 mg QHS PO 10/31/20 21:00 11/17/20 12:40 DC 11/16/20 19:59 Gabapentin (Neurontin) 200 mg TID PO 10/31/20 21:00 11/17/20 20:34 Mirtazapine (Remeron) 7.5 mg QHS PO 10/31/20 21:00 11/04/20 18:40 DC 11/03/20 20:42 Morphine Sulfate (Ms Contin) 15 mg BID PO 10/31/20 21:00 11/17/20 20:35 Phenytoin Sodium (Dilantin) 200 mg BID PO 10/31/20 21:00 11/17/20 20:35 Sertraline HCl (Zoloft) 25 mg DAILY PO 11/01/20 09:00 11/01/20 17:15 DC 11/01/20 09:55 Venlafaxine HCl (Effexor Xr) 75 mg DAILY PO 11/01/20 09:00 11/17/20 08:17 Morphine Sulfate (Ms Contin) 30 mg BID PO 10/31/20 21:00 11/17/20 20:34 Nicotine (Nicoderm Cq 14mg Patch) 1 patch DAILY TD 10/31/20 17:30 11/03/20 22:25 DC 11/03/20 08:17 Olanzapine (ZyPREXA ZYDIS) 2.5 mg PRN Q2HR PRN PO PSYCHOSIS 10/31/20 18:30 Sertraline HCl (Zoloft) 50 mg DAILY PO 11/02/20 09:00 11/02/20 15:56 DC 11/02/20 08:27 Hydroxyzine Pamoate (Vistaril) 25 mg TID PO 11/01/20 21:00 11/11/20 16:27 DC 11/11/20 12:20 Divalproex Sodium (Depakote) 375 mg QID PO 11/02/20 17:00 11/06/20 17:27 DC 11/06/20 17:09 Nicotine (Nicoderm Cq 21mg Patch) 1 patch DAILY TD 11/04/20 09:00 11/17/20 08:19 Mirtazapine (Remeron) 15 mg QHS PO 11/04/20 21:00 11/17/20 20:34 Trazodone HCl (Desyrel) 50 mg PRN QHS PRN PO INSOMNIA, MAY REPEAT X1 11/04/20 18:45 11/11/20 18:01 DC 11/08/20 20:22 Divalproex Sodium (Depakote) 500 mg QID PO 11/06/20 21:00 11/09/20 18:54 DC 11/09/20 17:07 Nicotine Polacrilex (Nicorette Gum) 2 mg PRN Q1HR PRN BC SMOKING CESSATION 11/07/20 17:00 11/16/20 13:11 Divalproex Sodium (Depakote) 500 mg 1300,1700 PO 11/10/20 13:00 11/13/20 16:42 DC 11/13/20 12:21 Divalproex Sodium (Depakote) 750 mg BID PO 11/09/20 21:00 11/13/20 16:42 DC 11/13/20 08:23 Hydroxyzine Pamoate (Vistaril) 50 mg TID PO 11/11/20 21:00 11/17/20 20:34 Trazodone HCl (Desyrel) 50 mg HS PO 11/11/20 21:00 11/17/20 20:35 Trazodone HCl (Desyrel) 50 mg PRN QHS PRN PO INSOMNIA 11/11/20 18:00 11/13/20 20:03 Valproic Acid (Depakene) 750 mg BID PO 11/13/20 21:00 11/17/20 12:40 DC 11/17/20 08:19 Valproic Acid (Depakene) 500 mg BID@1300,1700 PO 11/13/20 17:00 11/17/20 12:40 DC 11/16/20 17:36 Valproic Acid (Depakene) 750 mg BID@1300,1700 PO 11/17/20 13:00 11/17/20 17:15 Valproic Acid (Depakene) 1,000 mg BID PO 11/17/20 21:00 11/17/20 20:34 Current Medications Medications (Trade) Dose Ordered Sig/Guillermo Route PRN Reason Start Time Stop Time Status Last Admin Dose Admin Valproic Acid (Depakene) 750 mg BID@1300,1700 PO 11/17/20 13:00 11/17/20 17:15 Valproic Acid (Depakene) 1,000 mg BID PO 11/17/20 21:00 11/17/20 20:34 I have reviewed the current psychotropics carefully including drug interactions. Risk benefit ratio favors no change other than as noted in my dictated progress note. Diagnosis: Problems: (1) Schizoaffective disorder, bipolar type (2) Impulse control disorder, unspecified (3) Anxiety disorder, unspecified (4) Bipolar disorder, current episode mixed, severe, with psychotic features (5) Mild cognitive impairment VIANNEY HAWLEY MD Nov 18, 2020 06:57
[2020-11-18] MEDS: NICOTINE 21MG PATCH. TD SCH (08:21)
[2020-11-18] MEDS: VALPROATE ACID 250 MG/5 ML ORAL SOLUTION PO SCH ×4 (08:22→20:23)
[2020-11-18] MEDS: DEXAMETHASONE 4 MG TABLET PO SCH ×2 (08:24→20:21)
[2020-11-18] MEDS: MORPHINE ER 15 MG TABLET.ER PO SCH ×2 (08:24→20:22)
[2020-11-18] MEDS: VENLAFAXINE XR 37.5 MG CAP.ER.24H. PO SCH (08:25)
[2020-11-18] MEDS: hydrOXYzine PAMOATE 25 MG CAPSULE PO SCH ×3 (08:25→20:20)
[2020-11-18] MEDS: PHENYTOIN SODIUM EXTENDED 100 MG CAPSULE PO SCH ×2 (08:25→20:19)
[2020-11-18] MEDS: ASPIRIN CHEWABLE 81 MG TABLET. PO SCH (08:25)
[2020-11-18] MEDS: MORPHINE ER 30 MG TABLET.ER PO SCH ×2 (08:26→20:22)
[2020-11-18] MEDS: GABAPENTIN 100 MG CAPSULE. PO SCH ×3 (08:53→20:21)
[2020-11-18] MEDS: ACETAMINOPHEN 325 MG TABLET PO PRN (08:54)
[2020-11-18 15:40] VITALS: BP 106/65
[2020-11-18] MEDS: traZODone 50 MG TABLET. PO SCH (20:20)
[2020-11-18] MEDS: MIRTAZAPINE 15 MG TABLET PO SCH (20:20)
--- NOTE | 2020-11-18 21:31 | PDOC ---
Exam Note: Adams Note: Please also refer to the separate dictated note~for this date of service dictated separately.~Patient seen individually. Discussed the patient with Nursing staff reviewed the chart.~Reviewed interim history and current functioning. Reviewed vital signs,~Labs/ Radiology~and current medications noted below. Continue current treatment with the changes noted in the dictated addendum note Assessment: Vital Signs/I&O: Vital Signs Date Time Temp Pulse Resp B/P (MAP) Pulse Ox O2 Delivery O2 Flow Rate FiO2 11/18/20 15:40 98.0 75 18 106/65 (79) 96 Room Air I & O 11/17/20 11/17/20 11/18/20 14:59 22:59 06:59 Intake Total 1440 ml 720 ml Balance 1440 ml 720 ml Current Medications: Meds: Current Medications Medications (Trade) Dose Ordered Sig/Guillermo Route PRN Reason Start Time Stop Time Status Last Admin Dose Admin Acetaminophen (Tylenol) 650 mg PRN Q6HRS PRN PO MILD PAIN / TEMP > 100.3'F 10/31/20 16:15 11/18/20 08:54 Multi-Ingredient Ointment (Analgesic [place]) 1 ambrocio PRN QID PRN TP MUSCLE PAIN 10/31/20 16:15 Al Hydroxide/Mg Hydroxide (Mylanta Plus Xs) 15 ml PRN AFTMEALHC PRN PO DYSPEPSIA 10/31/20 16:15 Magnesium Hydroxide (Milk Of Magnesia) 2,400 mg PRN QHS PRN PO CONSTIPATION 10/31/20 16:15 Aspirin (Aspirin Chewable) 81 mg DAILY PO 11/01/20 09:00 11/18/20 08:25 Dexamethasone (Decadron) 4 mg BID PO 10/31/20 21:00 11/18/20 20:21 Divalproex Sodium (Depakote) 250 mg QID PO 10/31/20 17:00 11/02/20 15:56 DC 11/02/20 14:10 Donepezil HCl (Aricept) 5 mg QHS PO 10/31/20 21:00 11/17/20 12:40 DC 11/16/20 19:59 Gabapentin (Neurontin) 200 mg TID PO 10/31/20 21:00 11/18/20 20:21 Mirtazapine (Remeron) 7.5 mg QHS PO 10/31/20 21:00 11/04/20 18:40 DC 11/03/20 20:42 Morphine Sulfate (Ms Contin) 15 mg BID PO 10/31/20 21:00 11/18/20 20:22 Phenytoin Sodium (Dilantin) 200 mg BID PO 10/31/20 21:00 11/18/20 20:19 Sertraline HCl (Zoloft) 25 mg DAILY PO 11/01/20 09:00 11/01/20 17:15 DC 11/01/20 09:55 Venlafaxine HCl (Effexor Xr) 75 mg DAILY PO 11/01/20 09:00 11/18/20 08:25 Morphine Sulfate (Ms Contin) 30 mg BID PO 10/31/20 21:00 11/18/20 20:22 Nicotine (Nicoderm Cq 14mg Patch) 1 patch DAILY TD 10/31/20 17:30 11/03/20 22:25 DC 11/03/20 08:17 Olanzapine (ZyPREXA ZYDIS) 2.5 mg PRN Q2HR PRN PO PSYCHOSIS 10/31/20 18:30 Sertraline HCl (Zoloft) 50 mg DAILY PO 11/02/20 09:00 11/02/20 15:56 DC 11/02/20 08:27 Hydroxyzine Pamoate (Vistaril) 25 mg TID PO 11/01/20 21:00 11/11/20 16:27 DC 11/11/20 12:20 Divalproex Sodium (Depakote) 375 mg QID PO 11/02/20 17:00 11/06/20 17:27 DC 11/06/20 17:09 Nicotine (Nicoderm Cq 21mg Patch) 1 patch DAILY TD 11/04/20 09:00 11/18/20 08:21 Mirtazapine (Remeron) 15 mg QHS PO 11/04/20 21:00 11/18/20 20:20 Trazodone HCl (Desyrel) 50 mg PRN QHS PRN PO INSOMNIA, MAY REPEAT X1 11/04/20 18:45 11/11/20 18:01 DC 11/08/20 20:22 Divalproex Sodium (Depakote) 500 mg QID PO 11/06/20 21:00 11/09/20 18:54 DC 11/09/20 17:07 Nicotine Polacrilex (Nicorette Gum) 2 mg PRN Q1HR PRN BC SMOKING CESSATION 11/07/20 17:00 11/16/20 13:11 Divalproex Sodium (Depakote) 500 mg 1300,1700 PO 11/10/20 13:00 11/13/20 16:42 DC 11/13/20 12:21 Divalproex Sodium (Depakote) 750 mg BID PO 11/09/20 21:00 11/13/20 16:42 DC 11/13/20 08:23 Hydroxyzine Pamoate (Vistaril) 50 mg TID PO 11/11/20 21:00 11/18/20 20:20 Trazodone HCl (Desyrel) 50 mg HS PO 11/11/20 21:00 11/18/20 20:20 Trazodone HCl (Desyrel) 50 mg PRN QHS PRN PO INSOMNIA 11/11/20 18:00 11/13/20 20:03 Valproic Acid (Depakene) 750 mg BID PO 11/13/20 21:00 11/17/20 12:40 DC 11/17/20 08:19 Valproic Acid (Depakene) 500 mg BID@1300,1700 PO 11/13/20 17:00 11/17/20 12:40 DC 11/16/20 17:36 Valproic Acid (Depakene) 750 mg BID@1300,1700 PO 11/17/20 13:00 11/18/20 17:25 Valproic Acid (Depakene) 1,000 mg BID PO 11/17/20 21:00 11/18/20 20:23 I have reviewed the current psychotropics carefully including drug interactions. Risk benefit ratio favors no change other than as noted in my dictated progress note. Diagnosis: Problems: (1) Schizoaffective disorder, bipolar type (2) Impulse control disorder, unspecified (3) Anxiety disorder, unspecified (4) Bipolar disorder, current episode mixed, severe, with psychotic features (5) Mild cognitive impairment VIANNEY HAWLEY MD Nov 18, 2020 21:31
[2020-11-19 05:49] VITALS: BP 105/68
[2020-11-19] MEDS: VENLAFAXINE XR 37.5 MG CAP.ER.24H. PO SCH (08:02)
[2020-11-19] MEDS: VALPROATE ACID 250 MG/5 ML ORAL SOLUTION PO SCH ×4 (08:02→20:15)
[2020-11-19] MEDS: hydrOXYzine PAMOATE 25 MG CAPSULE PO SCH ×3 (08:02→20:16)
[2020-11-19] MEDS: DEXAMETHASONE 4 MG TABLET PO SCH ×2 (08:02→20:16)
[2020-11-19] MEDS: GABAPENTIN 100 MG CAPSULE. PO SCH ×3 (08:02→20:17)
[2020-11-19] MEDS: ASPIRIN CHEWABLE 81 MG TABLET. PO SCH (08:03)
[2020-11-19] MEDS: MORPHINE ER 30 MG TABLET.ER PO SCH ×2 (08:03→20:17)
[2020-11-19] MEDS: MORPHINE ER 15 MG TABLET.ER PO SCH ×2 (08:03→20:18)
[2020-11-19] MEDS: PHENYTOIN SODIUM EXTENDED 100 MG CAPSULE PO SCH ×2 (08:03→20:15)
[2020-11-19] MEDS: NICOTINE 21MG PATCH. TD SCH (08:04)
[2020-11-19] MEDS: ACETAMINOPHEN 325 MG TABLET PO PRN (13:52)
[2020-11-19 15:36] VITALS: BP 101/60
[2020-11-19] MEDS: MIRTAZAPINE 15 MG TABLET PO SCH (20:15)
[2020-11-19] MEDS: traZODone 50 MG TABLET. PO SCH (20:16)
[2020-11-19] MEDS: traZODone 50 MG TABLET. PO PRN (20:16)
--- NOTE | 2020-11-19 22:32 | PDOC ---
Exam Note: Adams Note: Please also refer to the separate dictated note~for this date of service dictated separately.~Patient seen individually. Discussed the patient with Nursing staff reviewed the chart.~Reviewed interim history and current functioning. Reviewed vital signs,~Labs/ Radiology~and current medications noted below. Continue current treatment with the changes noted in the dictated addendum note Assessment: Vital Signs/I&O: Vital Signs Date Time Temp Pulse Resp B/P (MAP) Pulse Ox O2 Delivery O2 Flow Rate FiO2 11/19/20 15:36 98.1 62 16 101/60 (74) 97 Room Air I & O 11/18/20 11/18/20 11/19/20 14:59 22:59 06:59 Intake Total 1080 ml 720 ml Balance 1080 ml 720 ml Current Medications: Meds: Current Medications Medications (Trade) Dose Ordered Sig/Guillermo Route PRN Reason Start Time Stop Time Status Last Admin Dose Admin Acetaminophen (Tylenol) 650 mg PRN Q6HRS PRN PO MILD PAIN / TEMP > 100.3'F 10/31/20 16:15 11/19/20 13:52 Multi-Ingredient Ointment (Analgesic [place]) 1 ambrocio PRN QID PRN TP MUSCLE PAIN 10/31/20 16:15 Al Hydroxide/Mg Hydroxide (Mylanta Plus Xs) 15 ml PRN AFTMEALHC PRN PO DYSPEPSIA 10/31/20 16:15 Magnesium Hydroxide (Milk Of Magnesia) 2,400 mg PRN QHS PRN PO CONSTIPATION 10/31/20 16:15 Aspirin (Aspirin Chewable) 81 mg DAILY PO 11/01/20 09:00 11/19/20 08:03 Dexamethasone (Decadron) 4 mg BID PO 10/31/20 21:00 11/19/20 20:16 Divalproex Sodium (Depakote) 250 mg QID PO 10/31/20 17:00 11/02/20 15:56 DC 11/02/20 14:10 Donepezil HCl (Aricept) 5 mg QHS PO 10/31/20 21:00 11/17/20 12:40 DC 11/16/20 19:59 Gabapentin (Neurontin) 200 mg TID PO 10/31/20 21:00 11/19/20 20:17 Mirtazapine (Remeron) 7.5 mg QHS PO 10/31/20 21:00 11/04/20 18:40 DC 11/03/20 20:42 Morphine Sulfate (Ms Contin) 15 mg BID PO 10/31/20 21:00 11/19/20 20:18 Phenytoin Sodium (Dilantin) 200 mg BID PO 10/31/20 21:00 11/19/20 20:15 Sertraline HCl (Zoloft) 25 mg DAILY PO 11/01/20 09:00 11/01/20 17:15 DC 11/01/20 09:55 Venlafaxine HCl (Effexor Xr) 75 mg DAILY PO 11/01/20 09:00 11/19/20 08:02 Morphine Sulfate (Ms Contin) 30 mg BID PO 10/31/20 21:00 11/19/20 20:17 Nicotine (Nicoderm Cq 14mg Patch) 1 patch DAILY TD 10/31/20 17:30 11/03/20 22:25 DC 11/03/20 08:17 Olanzapine (ZyPREXA ZYDIS) 2.5 mg PRN Q2HR PRN PO PSYCHOSIS 10/31/20 18:30 Sertraline HCl (Zoloft) 50 mg DAILY PO 11/02/20 09:00 11/02/20 15:56 DC 11/02/20 08:27 Hydroxyzine Pamoate (Vistaril) 25 mg TID PO 11/01/20 21:00 11/11/20 16:27 DC 11/11/20 12:20 Divalproex Sodium (Depakote) 375 mg QID PO 11/02/20 17:00 11/06/20 17:27 DC 11/06/20 17:09 Nicotine (Nicoderm Cq 21mg Patch) 1 patch DAILY TD 11/04/20 09:00 11/19/20 08:04 Mirtazapine (Remeron) 15 mg QHS PO 11/04/20 21:00 11/19/20 20:15 Trazodone HCl (Desyrel) 50 mg PRN QHS PRN PO INSOMNIA, MAY REPEAT X1 11/04/20 18:45 11/11/20 18:01 DC 11/08/20 20:22 Divalproex Sodium (Depakote) 500 mg QID PO 11/06/20 21:00 11/09/20 18:54 DC 11/09/20 17:07 Nicotine Polacrilex (Nicorette Gum) 2 mg PRN Q1HR PRN BC SMOKING CESSATION 11/07/20 17:00 11/16/20 13:11 Divalproex Sodium (Depakote) 500 mg 1300,1700 PO 11/10/20 13:00 11/13/20 16:42 DC 11/13/20 12:21 Divalproex Sodium (Depakote) 750 mg BID PO 11/09/20 21:00 11/13/20 16:42 DC 11/13/20 08:23 Hydroxyzine Pamoate (Vistaril) 50 mg TID PO 11/11/20 21:00 11/19/20 20:16 Trazodone HCl (Desyrel) 50 mg HS PO 11/11/20 21:00 11/19/20 20:16 Trazodone HCl (Desyrel) 50 mg PRN QHS PRN PO INSOMNIA 11/11/20 18:00 11/19/20 20:16 Valproic Acid (Depakene) 750 mg BID PO 11/13/20 21:00 11/17/20 12:40 DC 11/17/20 08:19 Valproic Acid (Depakene) 500 mg BID@1300,1700 PO 11/13/20 17:00 11/17/20 12:40 DC 11/16/20 17:36 Valproic Acid (Depakene) 750 mg BID@1300,1700 PO 11/17/20 13:00 11/19/20 17:09 Valproic Acid (Depakene) 1,000 mg BID PO 11/17/20 21:00 11/19/20 20:15 I have reviewed the current psychotropics carefully including drug interactions. Risk benefit ratio favors no change other than as noted in my dictated progress note. Diagnosis: Problems: (1) Schizoaffective disorder, bipolar type (2) Impulse control disorder, unspecified (3) Anxiety disorder, unspecified (4) Bipolar disorder, current episode mixed, severe, with psychotic features (5) Mild cognitive impairment VIANNEY HAWLEY MD Nov 19, 2020 22:32
[2020-11-20 06:21] VITALS: BP 99/66
[2020-11-20 07:12] LABS: BASO % 1 % (0-3); EOS # 0.3 x10^3/uL (0.0-0.7); EOS % 6 % (0-3); HEMATOCRIT 37.2 % (39.0-53.0); HEMOGLOBIN 12.2 g/dL (13.0-17.5); LYMPH # 1.3 x10^3/uL (1.0-4.8); LYMPH % 26 % (24-48); MEAN CORPUSCULAR HEMOGLOBIN 31 pg (25-35); MEAN CORPUSCULAR HGB CONC 33 g/dL (31-37); MEAN CORPUSCULAR VOLUME 94 fL (79-100); MONO # 0.6 x10^3/uL (0.0-1.1); MONO % 11 % (0-9); NEUT # 2.9 x10^3uL (1.8-7.7); NEUT % 57 % (31-73); PLATELET COUNT 279 x10^3/uL (140-400); RED BLOOD COUNT 3.94 x10^6/uL (4.30-5.70); RED CELL DISTRIBUTION WIDTH 14.5 % (11.5-14.5); WHITE BLOOD COUNT 5.2 x10^3/uL (4.0-11.0)
[2020-11-20] MEDS: PHENYTOIN SODIUM EXTENDED 100 MG CAPSULE PO SCH ×2 (08:12→20:19)
[2020-11-20] MEDS: ASPIRIN CHEWABLE 81 MG TABLET. PO SCH (08:12)
[2020-11-20] MEDS: VENLAFAXINE XR 37.5 MG CAP.ER.24H. PO SCH (08:12)
[2020-11-20] MEDS: MORPHINE ER 30 MG TABLET.ER PO SCH ×2 (08:13→20:21)
[2020-11-20] MEDS: DEXAMETHASONE 4 MG TABLET PO SCH ×2 (08:13→20:22)
[2020-11-20] MEDS: VALPROATE ACID 250 MG/5 ML ORAL SOLUTION PO SCH ×4 (08:14→20:19)
[2020-11-20] MEDS: MORPHINE ER 15 MG TABLET.ER PO SCH ×2 (08:14→20:21)
[2020-11-20] MEDS: GABAPENTIN 100 MG CAPSULE. PO SCH ×3 (08:14→20:20)
[2020-11-20] MEDS: hydrOXYzine PAMOATE 25 MG CAPSULE PO SCH ×3 (08:14→20:20)
[2020-11-20] MEDS: NICOTINE 21MG PATCH. TD SCH (08:15)
[2020-11-20 10:17] LABS: ALBUMIN 2.9 g/dL (3.4-5.0); ALBUMIN/GLOBULIN RATIO 0.8 (1.0-1.7); ALK PHOS 85 U/L (46-116); ALT (SGPT) 34 U/L (16-63); ANION GAP 1 (6-14); AST (SGOT) 23 U/L (15-37); BLOOD UREA NITROGEN 33 mg/dL (8-26); BUN/CREATININE RATIO 37 (6-20); CALCIUM 8.9 mg/dL (8.5-10.1); CARBON DIOXIDE 36 mmol/L (21-32); CHLORIDE 103 mmol/L (98-107); CREATININE 0.9 mg/dL (0.7-1.3); GLUCOSE 56 mg/dL (70-99); POTASSIUM 4.4 mmol/L (3.5-5.1); SODIUM 140 mmol/L (136-145); TOTAL BILIRUBIN 0.1 mg/dL (0.2-1.0)
[2020-11-20 10:18] LABS: TOTAL PROTEIN 6.6 g/dL (6.4-8.2); VAL ACID 30 mcg/mL (50-100)
[2020-11-20 16:17] VITALS: BP 126/86
[2020-11-20] MEDS: traZODone 50 MG TABLET. PO SCH (20:20)
[2020-11-20] MEDS: traZODone 50 MG TABLET. PO PRN (20:20)
[2020-11-20] MEDS: MIRTAZAPINE 15 MG TABLET PO SCH (20:22)
--- NOTE | 2020-11-20 21:40 | PDOC ---
Exam Note: Adams Note: Please also refer to the separate dictated note~for this date of service dictated separately.~Patient seen individually. Discussed the patient with Nursing staff reviewed the chart.~Reviewed interim history and current functioning. Reviewed vital signs,~Labs/ Radiology~and current medications noted below. Continue current treatment with the changes noted in the dictated addendum note Assessment: Vital Signs/I&O: Vital Signs Date Time Temp Pulse Resp B/P (MAP) Pulse Ox O2 Delivery O2 Flow Rate FiO2 11/20/20 16:17 97.8 71 18 126/86 (99) 96 11/19/20 15:36 Room Air I & O 11/19/20 11/19/20 11/20/20 15:00 23:00 07:00 Intake Total 1180 ml 1360 ml Balance 1180 ml 1360 ml Labs: Laboratory Tests Test 11/20/20 06:55 White Blood Count 5.2 x10^3/uL (4.0-11.0) Red Blood Count 3.94 x10^6/uL (4.30-5.70) L Hemoglobin 12.2 g/dL (13.0-17.5) L Hematocrit 37.2 % (39.0-53.0) L Mean Corpuscular Volume 94 fL (79-100) Mean Corpuscular Hemoglobin 31 pg (25-35) Mean Corpuscular Hemoglobin Concent 33 g/dL (31-37) Red Cell Distribution Width 14.5 % (11.5-14.5) Platelet Count 279 x10^3/uL (140-400) Neutrophils (%) (Auto) 57 % (31-73) Lymphocytes (%) (Auto) 26 % (24-48) Monocytes (%) (Auto) 11 % (0-9) H Eosinophils (%) (Auto) 6 % (0-3) H Basophils (%) (Auto) 1 % (0-3) Neutrophils # (Auto) 2.9 x10^3uL (1.8-7.7) Lymphocytes # (Auto) 1.3 x10^3/uL (1.0-4.8) Monocytes # (Auto) 0.6 x10^3/uL (0.0-1.1) Eosinophils # (Auto) 0.3 x10^3/uL (0.0-0.7) Basophils # (Auto) 0.0 x10^3/uL (0.0-0.2) Sodium Level 140 mmol/L (136-145) Potassium Level 4.4 mmol/L (3.5-5.1) Chloride Level 103 mmol/L (98-107) Carbon Dioxide Level 36 mmol/L (21-32) H Anion Gap 1 (6-14) L Blood Urea Nitrogen 33 mg/dL (8-26) H Creatinine 0.9 mg/dL (0.7-1.3) Estimated GFR (Cockcroft-Gault) 85.0 BUN/Creatinine Ratio 37 (6-20) H Glucose Level 56 mg/dL (70-99) L Calcium Level 8.9 mg/dL (8.5-10.1) Total Bilirubin 0.1 mg/dL (0.2-1.0) L Aspartate Amino Transferase (AST) 23 U/L (15-37) Alanine Aminotransferase (ALT) 34 U/L (16-63) Alkaline Phosphatase 85 U/L (46-116) Total Protein 6.6 g/dL (6.4-8.2) Albumin 2.9 g/dL (3.4-5.0) L Albumin/Globulin Ratio 0.8 (1.0-1.7) L Valproic Acid Level 30 mcg/mL (50-100) L Valproic Acid Last Dose Date 11/19/20 Valproic Acid Last Dose Time 2100 Current Medications: Meds: Laboratory Tests Test 11/20/20 06:55 White Blood Count 5.2 x10^3/uL Red Blood Count 3.94 x10^6/uL Hemoglobin 12.2 g/dL Hematocrit 37.2 % Mean Corpuscular Volume 94 fL Mean Corpuscular Hemoglobin 31 pg Mean Corpuscular Hemoglobin Concent 33 g/dL Red Cell Distribution Width 14.5 % Platelet Count 279 x10^3/uL Neutrophils (%) (Auto) 57 % Lymphocytes (%) (Auto) 26 % Monocytes (%) (Auto) 11 % Eosinophils (%) (Auto) 6 % Basophils (%) (Auto) 1 % Neutrophils # (Auto) 2.9 x10^3uL Lymphocytes # (Auto) 1.3 x10^3/uL Monocytes # (Auto) 0.6 x10^3/uL Eosinophils # (Auto) 0.3 x10^3/uL Basophils # (Auto) 0.0 x10^3/uL Sodium Level 140 mmol/L Potassium Level 4.4 mmol/L Chloride Level 103 mmol/L Carbon Dioxide Level 36 mmol/L Anion Gap 1 Blood Urea Nitrogen 33 mg/dL Creatinine 0.9 mg/dL Estimated GFR (Cockcroft-Gault) 85.0 BUN/Creatinine Ratio 37 Glucose Level 56 mg/dL Calcium Level 8.9 mg/dL Total Bilirubin 0.1 mg/dL Aspartate Amino Transf (AST/SGOT) 23 U/L Alanine Aminotransferase (ALT/SGPT) 34 U/L Alkaline Phosphatase 85 U/L Total Protein 6.6 g/dL Albumin 2.9 g/dL Albumin/Globulin Ratio 0.8 Valproic Acid (Depakene) Level 30 mcg/mL Valproic Acid Last Dose Date 11/19/20 Valproic Acid Last Dose Time 2100 Current Medications Medications (Trade) Dose Ordered Sig/Guillermo Route PRN Reason Start Time Stop Time Status Last Admin Dose Admin Acetaminophen (Tylenol) 650 mg PRN Q6HRS PRN PO MILD PAIN / TEMP > 100.3'F 10/31/20 16:15 11/19/20 13:52 Multi-Ingredient Ointment (Analgesic [place]) 1 ambrocio PRN QID PRN TP MUSCLE PAIN 10/31/20 16:15 Al Hydroxide/Mg Hydroxide (Mylanta Plus Xs) 15 ml PRN AFTMEALHC PRN PO DYSPEPSIA 10/31/20 16:15 Magnesium Hydroxide (Milk Of Magnesia) 2,400 mg PRN QHS PRN PO CONSTIPATION 10/31/20 16:15 Aspirin (Aspirin Chewable) 81 mg DAILY PO 11/01/20 09:00 11/20/20 08:12 Dexamethasone (Decadron) 4 mg BID PO 10/31/20 21:00 11/20/20 20:22 Divalproex Sodium (Depakote) 250 mg QID PO 10/31/20 17:00 11/02/20 15:56 DC 11/02/20 14:10 Donepezil HCl (Aricept) 5 mg QHS PO 10/31/20 21:00 11/17/20 12:40 DC 11/16/20 19:59 Gabapentin (Neurontin) 200 mg TID PO 10/31/20 21:00 11/20/20 20:20 Mirtazapine (Remeron) 7.5 mg QHS PO 10/31/20 21:00 11/04/20 18:40 DC 11/03/20 20:42 Morphine Sulfate (Ms Contin) 15 mg BID PO 10/31/20 21:00 11/20/20 20:21 Phenytoin Sodium (Dilantin) 200 mg BID PO 10/31/20 21:00 11/20/20 20:19 Sertraline HCl (Zoloft) 25 mg DAILY PO 11/01/20 09:00 11/01/20 17:15 DC 11/01/20 09:55 Venlafaxine HCl (Effexor Xr) 75 mg DAILY PO 11/01/20 09:00 11/20/20 08:12 Morphine Sulfate (Ms Contin) 30 mg BID PO 10/31/20 21:00 11/20/20 20:21 Nicotine (Nicoderm Cq 14mg Patch) 1 patch DAILY TD 10/31/20 17:30 11/03/20 22:25 DC 11/03/20 08:17 Olanzapine (ZyPREXA ZYDIS) 2.5 mg PRN Q2HR PRN PO PSYCHOSIS 10/31/20 18:30 Sertraline HCl (Zoloft) 50 mg DAILY PO 11/02/20 09:00 11/02/20 15:56 DC 11/02/20 08:27 Hydroxyzine Pamoate (Vistaril) 25 mg TID PO 11/01/20 21:00 11/11/20 16:27 DC 11/11/20 12:20 Divalproex Sodium (Depakote) 375 mg QID PO 11/02/20 17:00 11/06/20 17:27 DC 11/06/20 17:09 Nicotine (Nicoderm Cq 21mg Patch) 1 patch DAILY TD 11/04/20 09:00 11/20/20 08:15 Mirtazapine (Remeron) 15 mg QHS PO 11/04/20 21:00 11/20/20 20:22 Trazodone HCl (Desyrel) 50 mg PRN QHS PRN PO INSOMNIA, MAY REPEAT X1 11/04/20 18:45 11/11/20 18:01 DC 11/08/20 20:22 Divalproex Sodium (Depakote) 500 mg QID PO 11/06/20 21:00 11/09/20 18:54 DC 11/09/20 17:07 Nicotine Polacrilex (Nicorette Gum) 2 mg PRN Q1HR PRN BC SMOKING CESSATION 11/07/20 17:00 11/16/20 13:11 Divalproex Sodium (Depakote) 500 mg 1300,1700 PO 11/10/20 13:00 11/13/20 16:42 DC 11/13/20 12:21 Divalproex Sodium (Depakote) 750 mg BID PO 11/09/20 21:00 11/13/20 16:42 DC 11/13/20 08:23 Hydroxyzine Pamoate (Vistaril) 50 mg TID PO 11/11/20 21:00 11/20/20 20:20 Trazodone HCl (Desyrel) 50 mg HS PO 11/11/20 21:00 11/20/20 20:20 Trazodone HCl (Desyrel) 50 mg PRN QHS PRN PO INSOMNIA 11/11/20 18:00 11/20/20 20:20 Valproic Acid (Depakene) 750 mg BID PO 11/13/20 21:00 11/17/20 12:40 DC 11/17/20 08:19 Valproic Acid (Depakene) 500 mg BID@1300,1700 PO 11/13/20 17:00 11/17/20 12:40 DC 11/16/20 17:36 Valproic Acid (Depakene) 750 mg BID@1300,1700 PO 11/17/20 13:00 11/20/20 17:20 Valproic Acid (Depakene) 1,000 mg BID PO 11/17/20 21:00 11/20/20 20:19 I have reviewed the current psychotropics carefully including drug interactions. Risk benefit ratio favors no change other than as noted in my dictated progress note. Diagnosis: Problems: (1) Schizoaffective disorder, bipolar type (2) Impulse control disorder, unspecified (3) Anxiety disorder, unspecified (4) Bipolar disorder, current episode mixed, severe, with psychotic features (5) Mild cognitive impairment VIANNEY HAWLEY MD Nov 20, 2020 21:40
[2020-11-21 05:59] VITALS: BP 111/66
--- NOTE | 2020-11-21 06:43 | PDOC ---
Exam Note: Adams Note: This note is a late entry for 11/18/2020overs elements not covered in my initial note. Subjective: The patient was seen face to face in the evening of 11/18/2020 with Danita GANT, discussed and reviewed the chart. He slept 4 hours previous night. We will check his labs and valproic acid level on 11/20. The patient has been obsessively asking about smoking. Review of Systems: Ambulation impaired in wheelchair. No CV, , pulmonary, eye system symptoms on review. Mental Status Exam: The patient is oriented to himself and situation. I met with him in his room. He is not agitated or aggressive. Speech coherent, rapid at times. Abstraction fair. Computation impaired. Language function intact. Attention span is short. Mood and affect somewhat anxious. Laboratory Data: Reviewed. Impression: Schizoaffective disorder bipolar type mixed with psychotic features. Anxiety disorder unspecified. Impulse control disorder unspecified. Mild cognitive impairment. Plan: Continue rest psychotropics unchanged. Assessment: Vital Signs/I&O: Vital Signs Date Time Temp Pulse Resp B/P (MAP) Pulse Ox O2 Delivery O2 Flow Rate FiO2 11/21/20 05:59 97.2 57 18 111/66 (81) 97 11/19/20 15:36 Room Air I & O 11/20/20 11/20/20 11/21/20 15:00 23:00 07:00 Intake Total 750 ml 600 ml Balance 750 ml 600 ml Labs: Laboratory Tests Test 11/20/20 06:55 White Blood Count 5.2 x10^3/uL (4.0-11.0) Red Blood Count 3.94 x10^6/uL (4.30-5.70) L Hemoglobin 12.2 g/dL (13.0-17.5) L Hematocrit 37.2 % (39.0-53.0) L Mean Corpuscular Volume 94 fL (79-100) Mean Corpuscular Hemoglobin 31 pg (25-35) Mean Corpuscular Hemoglobin Concent 33 g/dL (31-37) Red Cell Distribution Width 14.5 % (11.5-14.5) Platelet Count 279 x10^3/uL (140-400) Neutrophils (%) (Auto) 57 % (31-73) Lymphocytes (%) (Auto) 26 % (24-48) Monocytes (%) (Auto) 11 % (0-9) H Eosinophils (%) (Auto) 6 % (0-3) H Basophils (%) (Auto) 1 % (0-3) Neutrophils # (Auto) 2.9 x10^3uL (1.8-7.7) Lymphocytes # (Auto) 1.3 x10^3/uL (1.0-4.8) Monocytes # (Auto) 0.6 x10^3/uL (0.0-1.1) Eosinophils # (Auto) 0.3 x10^3/uL (0.0-0.7) Basophils # (Auto) 0.0 x10^3/uL (0.0-0.2) Sodium Level 140 mmol/L (136-145) Potassium Level 4.4 mmol/L (3.5-5.1) Chloride Level 103 mmol/L (98-107) Carbon Dioxide Level 36 mmol/L (21-32) H Anion Gap 1 (6-14) L Blood Urea Nitrogen 33 mg/dL (8-26) H Creatinine 0.9 mg/dL (0.7-1.3) Estimated GFR (Cockcroft-Gault) 85.0 BUN/Creatinine Ratio 37 (6-20) H Glucose Level 56 mg/dL (70-99) L Calcium Level 8.9 mg/dL (8.5-10.1) Total Bilirubin 0.1 mg/dL (0.2-1.0) L Aspartate Amino Transferase (AST) 23 U/L (15-37) Alanine Aminotransferase (ALT) 34 U/L (16-63) Alkaline Phosphatase 85 U/L (46-116) Total Protein 6.6 g/dL (6.4-8.2) Albumin 2.9 g/dL (3.4-5.0) L Albumin/Globulin Ratio 0.8 (1.0-1.7) L Valproic Acid Level 30 mcg/mL (50-100) L Valproic Acid Last Dose Date 11/19/20 Valproic Acid Last Dose Time 2100 Current Medications: Meds: Laboratory Tests Test 11/20/20 06:55 White Blood Count 5.2 x10^3/uL Red Blood Count 3.94 x10^6/uL Hemoglobin 12.2 g/dL Hematocrit 37.2 % Mean Corpuscular Volume 94 fL Mean Corpuscular Hemoglobin 31 pg Mean Corpuscular Hemoglobin Concent 33 g/dL Red Cell Distribution Width 14.5 % Platelet Count 279 x10^3/uL Neutrophils (%) (Auto) 57 % Lymphocytes (%) (Auto) 26 % Monocytes (%) (Auto) 11 % Eosinophils (%) (Auto) 6 % Basophils (%) (Auto) 1 % Neutrophils # (Auto) 2.9 x10^3uL Lymphocytes # (Auto) 1.3 x10^3/uL Monocytes # (Auto) 0.6 x10^3/uL Eosinophils # (Auto) 0.3 x10^3/uL Basophils # (Auto) 0.0 x10^3/uL Sodium Level 140 mmol/L Potassium Level 4.4 mmol/L Chloride Level 103 mmol/L Carbon Dioxide Level 36 mmol/L Anion Gap 1 Blood Urea Nitrogen 33 mg/dL Creatinine 0.9 mg/dL Estimated GFR (Cockcroft-Gault) 85.0 BUN/Creatinine Ratio 37 Glucose Level 56 mg/dL Calcium Level 8.9 mg/dL Total Bilirubin 0.1 mg/dL Aspartate Amino Transf (AST/SGOT) 23 U/L Alanine Aminotransferase (ALT/SGPT) 34 U/L Alkaline Phosphatase 85 U/L Total Protein 6.6 g/dL Albumin 2.9 g/dL Albumin/Globulin Ratio 0.8 Valproic Acid (Depakene) Level 30 mcg/mL Valproic Acid Last Dose Date 11/19/20 Valproic Acid Last Dose Time 2100 Current Medications Medications (Trade) Dose Ordered Sig/Guillermo Route PRN Reason Start Time Stop Time Status Last Admin Dose Admin Acetaminophen (Tylenol) 650 mg PRN Q6HRS PRN PO MILD PAIN / TEMP > 100.3'F 10/31/20 16:15 11/19/20 13:52 Multi-Ingredient Ointment (Analgesic [place]) 1 ambrocio PRN QID PRN TP MUSCLE PAIN 10/31/20 16:15 Al Hydroxide/Mg Hydroxide (Mylanta Plus Xs) 15 ml PRN AFTMEALHC PRN PO DYSPEPSIA 10/31/20 16:15 Magnesium Hydroxide (Milk Of Magnesia) 2,400 mg PRN QHS PRN PO CONSTIPATION 10/31/20 16:15 Aspirin (Aspirin Chewable) 81 mg DAILY PO 11/01/20 09:00 11/20/20 08:12 Dexamethasone (Decadron) 4 mg BID PO 10/31/20 21:00 11/20/20 20:22 Divalproex Sodium (Depakote) 250 mg QID PO 10/31/20 17:00 11/02/20 15:56 DC 11/02/20 14:10 Donepezil HCl (Aricept) 5 mg QHS PO 10/31/20 21:00 11/17/20 12:40 DC 11/16/20 19:59 Gabapentin (Neurontin) 200 mg TID PO 10/31/20 21:00 11/20/20 20:20 Mirtazapine (Remeron) 7.5 mg QHS PO 10/31/20 21:00 11/04/20 18:40 DC 11/03/20 20:42 Morphine Sulfate (Ms Contin) 15 mg BID PO 10/31/20 21:00 11/20/20 20:21 Phenytoin Sodium (Dilantin) 200 mg BID PO 10/31/20 21:00 11/20/20 20:19 Sertraline HCl (Zoloft) 25 mg DAILY PO 11/01/20 09:00 11/01/20 17:15 DC 11/01/20 09:55 Venlafaxine HCl (Effexor Xr) 75 mg DAILY PO 11/01/20 09:00 11/20/20 08:12 Morphine Sulfate (Ms Contin) 30 mg BID PO 10/31/20 21:00 11/20/20 20:21 Nicotine (Nicoderm Cq 14mg Patch) 1 patch DAILY TD 10/31/20 17:30 11/03/20 22:25 DC 11/03/20 08:17 Olanzapine (ZyPREXA ZYDIS) 2.5 mg PRN Q2HR PRN PO PSYCHOSIS 10/31/20 18:30 Sertraline HCl (Zoloft) 50 mg DAILY PO 11/02/20 09:00 11/02/20 15:56 DC 11/02/20 08:27 Hydroxyzine Pamoate (Vistaril) 25 mg TID PO 11/01/20 21:00 11/11/20 16:27 DC 11/11/20 12:20 Divalproex Sodium (Depakote) 375 mg QID PO 11/02/20 17:00 11/06/20 17:27 DC 11/06/20 17:09 Nicotine (Nicoderm Cq 21mg Patch) 1 patch DAILY TD 11/04/20 09:00 11/20/20 08:15 Mirtazapine (Remeron) 15 mg QHS PO 11/04/20 21:00 11/20/20 20:22 Trazodone HCl (Desyrel) 50 mg PRN QHS PRN PO INSOMNIA, MAY REPEAT X1 11/04/20 18:45 11/11/20 18:01 DC 11/08/20 20:22 Divalproex Sodium (Depakote) 500 mg QID PO 11/06/20 21:00 11/09/20 18:54 DC 11/09/20 17:07 Nicotine Polacrilex (Nicorette Gum) 2 mg PRN Q1HR PRN BC SMOKING CESSATION 11/07/20 17:00 11/16/20 13:11 Divalproex Sodium (Depakote) 500 mg 1300,1700 PO 11/10/20 13:00 11/13/20 16:42 DC 11/13/20 12:21 Divalproex Sodium (Depakote) 750 mg BID PO 11/09/20 21:00 11/13/20 16:42 DC 11/13/20 08:23 Hydroxyzine Pamoate (Vistaril) 50 mg TID PO 11/11/20 21:00 11/20/20 20:20 Trazodone HCl (Desyrel) 50 mg HS PO 11/11/20 21:00 11/20/20 20:20 Trazodone HCl (Desyrel) 50 mg PRN QHS PRN PO INSOMNIA 11/11/20 18:00 11/20/20 20:20 Valproic Acid (Depakene) 750 mg BID PO 11/13/20 21:00 11/17/20 12:40 DC 11/17/20 08:19 Valproic Acid (Depakene) 500 mg BID@1300,1700 PO 11/13/20 17:00 11/17/20 12:40 DC 11/16/20 17:36 Valproic Acid (Depakene) 750 mg BID@1300,1700 PO 11/17/20 13:00 11/20/20 17:20 Valproic Acid (Depakene) 1,000 mg BID PO 11/17/20 21:00 11/20/20 20:19 Laboratory Tests Test 11/20/20 06:55 White Blood Count 5.2 x10^3/uL Red Blood Count 3.94 x10^6/uL Hemoglobin 12.2 g/dL Hematocrit 37.2 % Mean Corpuscular Volume 94 fL Mean Corpuscular Hemoglobin 31 pg Mean Corpuscular Hemoglobin Concent 33 g/dL Red Cell Distribution Width 14.5 % Platelet Count 279 x10^3/uL Neutrophils (%) (Auto) 57 % Lymphocytes (%) (Auto) 26 % Monocytes (%) (Auto) 11 % Eosinophils (%) (Auto) 6 % Basophils (%) (Auto) 1 % Neutrophils # (Auto) 2.9 x10^3uL Lymphocytes # (Auto) 1.3 x10^3/uL Monocytes # (Auto) 0.6 x10^3/uL Eosinophils # (Auto) 0.3 x10^3/uL Basophils # (Auto) 0.0 x10^3/uL Sodium Level 140 mmol/L Potassium Level 4.4 mmol/L Chloride Level 103 mmol/L Carbon Dioxide Level 36 mmol/L Anion Gap 1 Blood Urea Nitrogen 33 mg/dL Creatinine 0.9 mg/dL Estimated GFR (Cockcroft-Gault) 85.0 BUN/Creatinine Ratio 37 Glucose Level 56 mg/dL Calcium Level 8.9 mg/dL Total Bilirubin 0.1 mg/dL Aspartate Amino Transf (AST/SGOT) 23 U/L Alanine Aminotransferase (ALT/SGPT) 34 U/L Alkaline Phosphatase 85 U/L Total Protein 6.6 g/dL Albumin 2.9 g/dL Albumin/Globulin Ratio 0.8 Valproic Acid (Depakene) Level 30 mcg/mL Valproic Acid Last Dose Date 11/19/20 Valproic Acid Last Dose Time 2100 Current Medications Medications (Trade) Dose Ordered Sig/Guillermo Route PRN Reason Start Time Stop Time Status Last Admin Dose Admin Acetaminophen (Tylenol) 650 mg PRN Q6HRS PRN PO MILD PAIN / TEMP > 100.3'F 10/31/20 16:15 11/19/20 13:52 Multi-Ingredient Ointment (Analgesic [place]) 1 ambrocio PRN QID PRN TP MUSCLE PAIN 10/31/20 16:15 Al Hydroxide/Mg Hydroxide (Mylanta Plus Xs) 15 ml PRN AFTMEALHC PRN PO DYSPEPSIA 10/31/20 16:15 Magnesium Hydroxide (Milk Of Magnesia) 2,400 mg PRN QHS PRN PO CONSTIPATION 10/31/20 16:15 Aspirin (Aspirin Chewable) 81 mg DAILY PO 11/01/20 09:00 11/20/20 08:12 Dexamethasone (Decadron) 4 mg BID PO 10/31/20 21:00 11/20/20 20:22 Divalproex Sodium (Depakote) 250 mg QID PO 10/31/20 17:00 11/02/20 15:56 DC 11/02/20 14:10 Donepezil HCl (Aricept) 5 mg QHS PO 10/31/20 21:00 11/17/20 12:40 DC 11/16/20 19:59 Gabapentin (Neurontin) 200 mg TID PO 10/31/20 21:00 11/20/20 20:20 Mirtazapine (Remeron) 7.5 mg QHS PO 10/31/20 21:00 11/04/20 18:40 DC 11/03/20 20:42 Morphine Sulfate (Ms Contin) 15 mg BID PO 10/31/20 21:00 11/20/20 20:21 Phenytoin Sodium (Dilantin) 200 mg BID PO 10/31/20 21:00 11/20/20 20:19 Sertraline HCl (Zoloft) 25 mg DAILY PO 11/01/20 09:00 11/01/20 17:15 DC 11/01/20 09:55 Venlafaxine HCl (Effexor Xr) 75 mg DAILY PO 11/01/20 09:00 11/20/20 08:12 Morphine Sulfate (Ms Contin) 30 mg BID PO 10/31/20 21:00 11/20/20 20:21 Nicotine (Nicoderm Cq 14mg Patch) 1 patch DAILY TD 10/31/20 17:30 11/03/20 22:25 DC 11/03/20 08:17 Olanzapine (ZyPREXA ZYDIS) 2.5 mg PRN Q2HR PRN PO PSYCHOSIS 10/31/20 18:30 Sertraline HCl (Zoloft) 50 mg DAILY PO 11/02/20 09:00 11/02/20 15:56 DC 11/02/20 08:27 Hydroxyzine Pamoate (Vistaril) 25 mg TID PO 11/01/20 21:00 11/11/20 16:27 DC 11/11/20 12:20 Divalproex Sodium (Depakote) 375 mg QID PO 11/02/20 17:00 11/06/20 17:27 DC 11/06/20 17:09 Nicotine (Nicoderm Cq 21mg Patch) 1 patch DAILY TD 11/04/20 09:00 11/20/20 08:15 Mirtazapine (Remeron) 15 mg QHS PO 11/04/20 21:00 11/20/20 20:22 Trazodone HCl (Desyrel) 50 mg PRN QHS PRN PO INSOMNIA, MAY REPEAT X1 11/04/20 18:45 11/11/20 18:01 DC 11/08/20 20:22 Divalproex Sodium (Depakote) 500 mg QID PO 11/06/20 21:00 11/09/20 18:54 DC 11/09/20 17:07 Nicotine Polacrilex (Nicorette Gum) 2 mg PRN Q1HR PRN BC SMOKING CESSATION 11/07/20 17:00 11/16/20 13:11 Divalproex Sodium (Depakote) 500 mg 1300,1700 PO 11/10/20 13:00 11/13/20 16:42 DC 11/13/20 12:21 Divalproex Sodium (Depakote) 750 mg BID PO 11/09/20 21:00 11/13/20 16:42 DC 11/13/20 08:23 Hydroxyzine Pamoate (Vistaril) 50 mg TID PO 11/11/20 21:00 11/20/20 20:20 Trazodone HCl (Desyrel) 50 mg HS PO 11/11/20 21:00 11/20/20 20:20 Trazodone HCl (Desyrel) 50 mg PRN QHS PRN PO INSOMNIA 11/11/20 18:00 11/20/20 20:20 Valproic Acid (Depakene) 750 mg BID PO 11/13/20 21:00 11/17/20 12:40 DC 11/17/20 08:19 Valproic Acid (Depakene) 500 mg BID@1300,1700 PO 11/13/20 17:00 11/17/20 12:40 DC 11/16/20 17:36 Valproic Acid (Depakene) 750 mg BID@1300,1700 PO 11/17/20 13:00 11/20/20 17:20 Valproic Acid (Depakene) 1,000 mg BID PO 11/17/20 21:00 11/20/20 20:19 I have reviewed the current psychotropics carefully including drug interactions. Risk benefit ratio favors no change other than as noted in my dictated progress note. Diagnosis: Problems: (1) Schizoaffective disorder, bipolar type (2) Impulse control disorder, unspecified (3) Anxiety disorder, unspecified (4) Bipolar disorder, current episode mixed, severe, with psychotic features (5) Mild cognitive impairment VIANNEY HAWLEY MD Nov 21, 2020 06:43
--- NOTE | 2020-11-21 06:56 | PDOC ---
Exam Note: Adams Note: This note is a late entry for 11/19/2020overs elements not covered in my initial note. Subjective: The patient was seen face to face in the evening of 11/19/2020 with Carmen GANT, discussed and reviewed the chart. He slept 3 hours previous night. He has been fairly appropriate, somewhat anxious, repetitive with his questions about smoking. Review of Systems: Ambulation impaired in wheelchair. No CV, , pulmonary, eye system symptoms on review. Mental Status Exam: The patient is oriented to himself and situation. Speech coherent. Abstraction fair. Computation impaired. Language function intact. Attention span is short. Mood and affect somewhat anxious. Laboratory Data: Reviewed. Impression: Schizoaffective disorder bipolar type mixed with psychotic features. Anxiety disorder unspecified. Impulse control disorder unspecified. Mild cognitive impairment. Plan: Continue rest psychotropics unchanged. Assessment: Vital Signs/I&O: Vital Signs Date Time Temp Pulse Resp B/P (MAP) Pulse Ox O2 Delivery O2 Flow Rate FiO2 11/21/20 05:59 97.2 57 18 111/66 (81) 97 11/19/20 15:36 Room Air I & O 0 11/20/20 11/20/20 11/21/20 15:00 23:00 07:00 Intake Total 750 ml 600 ml Balance 750 ml 600 ml Current Medications: Meds: Current Medications Medications (Trade) Dose Ordered Sig/Guillermo Route PRN Reason Start Time Stop Time Status Last Admin Dose Admin Acetaminophen (Tylenol) 650 mg PRN Q6HRS PRN PO MILD PAIN / TEMP > 100.3'F 10/31/20 16:15 11/19/20 13:52 Multi-Ingredient Ointment (Analgesic [place]) 1 ambrocio PRN QID PRN TP MUSCLE PAIN 10/31/20 16:15 Al Hydroxide/Mg Hydroxide (Mylanta Plus Xs) 15 ml PRN AFTMEALHC PRN PO DYSPEPSIA 10/31/20 16:15 Magnesium Hydroxide (Milk Of Magnesia) 2,400 mg PRN QHS PRN PO CONSTIPATION 10/31/20 16:15 Aspirin (Aspirin Chewable) 81 mg DAILY PO 11/01/20 09:00 11/20/20 08:12 Dexamethasone (Decadron) 4 mg BID PO 10/31/20 21:00 11/20/20 20:22 Divalproex Sodium (Depakote) 250 mg QID PO 10/31/20 17:00 11/02/20 15:56 DC 11/02/20 14:10 Donepezil HCl (Aricept) 5 mg QHS PO 10/31/20 21:00 11/17/20 12:40 DC 11/16/20 19:59 Gabapentin (Neurontin) 200 mg TID PO 10/31/20 21:00 11/20/20 20:20 Mirtazapine (Remeron) 7.5 mg QHS PO 10/31/20 21:00 11/04/20 18:40 DC 11/03/20 20:42 Morphine Sulfate (Ms Contin) 15 mg BID PO 10/31/20 21:00 11/20/20 20:21 Phenytoin Sodium (Dilantin) 200 mg BID PO 10/31/20 21:00 11/20/20 20:19 Sertraline HCl (Zoloft) 25 mg DAILY PO 11/01/20 09:00 11/01/20 17:15 DC 11/01/20 09:55 Venlafaxine HCl (Effexor Xr) 75 mg DAILY PO 11/01/20 09:00 11/20/20 08:12 Morphine Sulfate (Ms Contin) 30 mg BID PO 10/31/20 21:00 11/20/20 20:21 Nicotine (Nicoderm Cq 14mg Patch) 1 patch DAILY TD 10/31/20 17:30 11/03/20 22:25 DC 11/03/20 08:17 Olanzapine (ZyPREXA ZYDIS) 2.5 mg PRN Q2HR PRN PO PSYCHOSIS 10/31/20 18:30 Sertraline HCl (Zoloft) 50 mg DAILY PO 11/02/20 09:00 11/02/20 15:56 DC 11/02/20 08:27 Hydroxyzine Pamoate (Vistaril) 25 mg TID PO 11/01/20 21:00 11/11/20 16:27 DC 11/11/20 12:20 Divalproex Sodium (Depakote) 375 mg QID PO 11/02/20 17:00 11/06/20 17:27 DC 11/06/20 17:09 Nicotine (Nicoderm Cq 21mg Patch) 1 patch DAILY TD 11/04/20 09:00 11/20/20 08:15 Mirtazapine (Remeron) 15 mg QHS PO 11/04/20 21:00 11/20/20 20:22 Trazodone HCl (Desyrel) 50 mg PRN QHS PRN PO INSOMNIA, MAY REPEAT X1 11/04/20 18:45 11/11/20 18:01 DC 11/08/20 20:22 Divalproex Sodium (Depakote) 500 mg QID PO 11/06/20 21:00 11/09/20 18:54 DC 11/09/20 17:07 Nicotine Polacrilex (Nicorette Gum) 2 mg PRN Q1HR PRN BC SMOKING CESSATION 11/07/20 17:00 11/16/20 13:11 Divalproex Sodium (Depakote) 500 mg 1300,1700 PO 11/10/20 13:00 11/13/20 16:42 DC 11/13/20 12:21 Divalproex Sodium (Depakote) 750 mg BID PO 11/09/20 21:00 11/13/20 16:42 DC 11/13/20 08:23 Hydroxyzine Pamoate (Vistaril) 50 mg TID PO 11/11/20 21:00 11/20/20 20:20 Trazodone HCl (Desyrel) 50 mg HS PO 11/11/20 21:00 11/20/20 20:20 Trazodone HCl (Desyrel) 50 mg PRN QHS PRN PO INSOMNIA 11/11/20 18:00 11/20/20 20:20 Valproic Acid (Depakene) 750 mg BID PO 11/13/20 21:00 11/17/20 12:40 DC 11/17/20 08:19 Valproic Acid (Depakene) 500 mg BID@1300,1700 PO 11/13/20 17:00 11/17/20 12:40 DC 11/16/20 17:36 Valproic Acid (Depakene) 750 mg BID@1300,1700 PO 11/17/20 13:00 11/20/20 17:20 Valproic Acid (Depakene) 1,000 mg BID PO 11/17/20 21:00 11/20/20 20:19 I have reviewed the current psychotropics carefully including drug interactions. Risk benefit ratio favors no change other than as noted in my dictated progress note. Diagnosis: Problems: (1) Schizoaffective disorder, bipolar type (2) Impulse control disorder, unspecified (3) Anxiety disorder, unspecified (4) Bipolar disorder, current episode mixed, severe, with psychotic features (5) Mild cognitive impairment VIANNEY HAWLEY MD Nov 21, 2020 06:56
--- NOTE | 2020-11-21 07:05 | PDOC ---
Exam Note: [facility] Note: This note is a late entry for 11/20/2020overs elements not covered in my initial note. Subjective: The patient was seen face to face in the evening of 11/20/2020 with Xiomara GANT, discussed and reviewed the chart. He slept 5 hours previous night. He appears somewhat confused, drinking water from the bathroom sink at one point, repeatedly asking for cigarettes not only from the nursing staff but other patients as well. Review of Systems: Ambulation impaired in wheelchair. No CV, , pulmonary, eye system symptoms on review. Mental Status Exam: The patient is oriented to himself and situation. Speech coherent. Abstraction fair. Computation impaired. Language function intact. Attention span is short. Mood and affect improved. Laboratory Data: Reviewed. Liver enzymes are unremarkable. Impression: Schizoaffective disorder bipolar type mixed with psychotic features. Anxiety disorder unspecified. Impulse control disorder unspecified. Mild cognitive impairment. Plan: Continue rest psychotropics unchanged. Assessment: Vital Signs/I&O: Vital Signs Date Time Temp Pulse Resp B/P (MAP) Pulse Ox O2 Delivery O2 Flow Rate FiO2 11/21/20 05:59 97.2 57 18 111/66 (81) 97 11/19/20 15:36 Room Air I & O 11/20/20 11/20/20 11/21/20 14:59 22:59 06:59 Intake Total 750 ml 600 ml Balance 750 ml 600 ml Current Medications: Meds: Current Medications Medications (Trade) Dose Ordered Sig/Guillermo Route PRN Reason Start Time Stop Time Status Last Admin Dose Admin Acetaminophen (Tylenol) 650 mg PRN Q6HRS PRN PO MILD PAIN / TEMP > 100.3'F 10/31/20 16:15 11/19/20 13:52 Multi-Ingredient Ointment (Analgesic [place]) 1 ambrocio PRN QID PRN TP MUSCLE PAIN 10/31/20 16:15 Al Hydroxide/Mg Hydroxide (Mylanta Plus Xs) 15 ml PRN AFTMEALHC PRN PO DYSPEPSIA 10/31/20 16:15 Magnesium Hydroxide (Milk Of Magnesia) 2,400 mg PRN QHS PRN PO CONSTIPATION 10/31/20 16:15 Aspirin (Aspirin Chewable) 81 mg DAILY PO 11/01/20 09:00 11/20/20 08:12 Dexamethasone (Decadron) 4 mg BID PO 10/31/20 21:00 11/20/20 20:22 Divalproex Sodium (Depakote) 250 mg QID PO 10/31/20 17:00 11/02/20 15:56 DC 11/02/20 14:10 Donepezil HCl (Aricept) 5 mg QHS PO 10/31/20 21:00 11/17/20 12:40 DC 11/16/20 19:59 Gabapentin (Neurontin) 200 mg TID PO 10/31/20 21:00 11/20/20 20:20 Mirtazapine (Remeron) 7.5 mg QHS PO 10/31/20 21:00 11/04/20 18:40 DC 11/03/20 20:42 Morphine Sulfate (Ms Contin) 15 mg BID PO 10/31/20 21:00 11/20/20 20:21 Phenytoin Sodium (Dilantin) 200 mg BID PO 10/31/20 21:00 11/20/20 20:19 Sertraline HCl (Zoloft) 25 mg DAILY PO 11/01/20 09:00 11/01/20 17:15 DC 11/01/20 09:55 Venlafaxine HCl (Effexor Xr) 75 mg DAILY PO 11/01/20 09:00 11/20/20 08:12 Morphine Sulfate (Ms Contin) 30 mg BID PO 10/31/20 21:00 11/20/20 20:21 Nicotine (Nicoderm Cq 14mg Patch) 1 patch DAILY TD 10/31/20 17:30 11/03/20 22:25 DC 11/03/20 08:17 Olanzapine (ZyPREXA ZYDIS) 2.5 mg PRN Q2HR PRN PO PSYCHOSIS 10/31/20 18:30 Sertraline HCl (Zoloft) 50 mg DAILY PO 11/02/20 09:00 11/02/20 15:56 DC 11/02/20 08:27 Hydroxyzine Pamoate (Vistaril) 25 mg TID PO 11/01/20 21:00 11/11/20 16:27 DC 11/11/20 12:20 Divalproex Sodium (Depakote) 375 mg QID PO 11/02/20 17:00 11/06/20 17:27 DC 11/06/20 17:09 Nicotine (Nicoderm Cq 21mg Patch) 1 patch DAILY TD 11/04/20 09:00 11/20/20 08:15 Mirtazapine (Remeron) 15 mg QHS PO 11/04/20 21:00 11/20/20 20:22 Trazodone HCl (Desyrel) 50 mg PRN QHS PRN PO INSOMNIA, MAY REPEAT X1 11/04/20 18:45 11/11/20 18:01 DC 11/08/20 20:22 Divalproex Sodium (Depakote) 500 mg QID PO 11/06/20 21:00 11/09/20 18:54 DC 11/09/20 17:07 Nicotine Polacrilex (Nicorette Gum) 2 mg PRN Q1HR PRN BC SMOKING CESSATION 11/07/20 17:00 11/16/20 13:11 Divalproex Sodium (Depakote) 500 mg 1300,1700 PO 11/10/20 13:00 11/13/20 16:42 DC 11/13/20 12:21 Divalproex Sodium (Depakote) 750 mg BID PO 11/09/20 21:00 11/13/20 16:42 DC 11/13/20 08:23 Hydroxyzine Pamoate (Vistaril) 50 mg TID PO 11/11/20 21:00 11/20/20 20:20 Trazodone HCl (Desyrel) 50 mg HS PO 11/11/20 21:00 11/20/20 20:20 Trazodone HCl (Desyrel) 50 mg PRN QHS PRN PO INSOMNIA 11/11/20 18:00 11/20/20 20:20 Valproic Acid (Depakene) 750 mg BID PO 11/13/20 21:00 11/17/20 12:40 DC 11/17/20 08:19 Valproic Acid (Depakene) 500 mg BID@1300,1700 PO 11/13/20 17:00 11/17/20 12:40 DC 11/16/20 17:36 Valproic Acid (Depakene) 750 mg BID@1300,1700 PO 11/17/20 13:00 11/20/20 17:20 Valproic Acid (Depakene) 1,000 mg BID PO 11/17/20 21:00 11/20/20 20:19 I have reviewed the current psychotropics carefully including drug interactions. Risk benefit ratio favors no change other than as noted in my dictated progress note. Diagnosis: Problems: (1) Schizoaffective disorder, bipolar type (2) Impulse control disorder, unspecified (3) Anxiety disorder, unspecified (4) Bipolar disorder, current episode mixed, severe, with psychotic features (5) Mild cognitive impairment VIANNEY HAWLEY MD Nov 21, 2020 07:05
[2020-11-21] MEDS: NICOTINE 21MG PATCH. TD SCH (08:12)
[2020-11-21] MEDS: PHENYTOIN SODIUM EXTENDED 100 MG CAPSULE PO SCH ×2 (08:12→20:04)
[2020-11-21] MEDS: GABAPENTIN 100 MG CAPSULE. PO SCH ×3 (08:12→20:03)
[2020-11-21] MEDS: hydrOXYzine PAMOATE 25 MG CAPSULE PO SCH ×3 (08:13→20:04)
[2020-11-21] MEDS: MORPHINE ER 30 MG TABLET.ER PO SCH ×2 (08:13→20:04)
[2020-11-21] MEDS: DEXAMETHASONE 4 MG TABLET PO SCH ×2 (08:13→20:03)
[2020-11-21] MEDS: VALPROATE ACID 250 MG/5 ML ORAL SOLUTION PO SCH ×4 (08:14→20:03)
[2020-11-21] MEDS: VENLAFAXINE XR 37.5 MG CAP.ER.24H. PO SCH (08:14)
[2020-11-21] MEDS: MORPHINE ER 15 MG TABLET.ER PO SCH ×2 (08:14→20:04)
[2020-11-21] MEDS: ASPIRIN CHEWABLE 81 MG TABLET. PO SCH (08:15)
[2020-11-21 16:08] VITALS: BP 126/77
[2020-11-21] MEDS: traZODone 50 MG TABLET. PO SCH (20:04)
[2020-11-21] MEDS: traZODone 50 MG TABLET. PO PRN (20:05)
[2020-11-21] MEDS: MIRTAZAPINE 15 MG TABLET PO SCH (20:05)
--- NOTE | 2020-11-21 21:55 | PDOC ---
Exam Note: Adams Note: Please also refer to the separate dictated note~for this date of service dictated separately.~Patient seen individually. Discussed the patient with Nursing staff reviewed the chart.~Reviewed interim history and current functioning. Reviewed vital signs,~Labs/ Radiology~and current medications noted below. Continue current treatment with the changes noted in the dictated addendum note Assessment: Vital Signs/I&O: Vital Signs Date Time Temp Pulse Resp B/P (MAP) Pulse Ox O2 Delivery O2 Flow Rate FiO2 11/21/20 16:08 97.6 68 20 126/77 (93) 97 11/19/20 15:36 Room Air I & O 11/20/20 11/20/20 11/21/20 15:00 23:00 07:00 Intake Total 750 ml 600 ml Balance 750 ml 600 ml Current Medications: Meds: Current Medications Medications (Trade) Dose Ordered Sig/Guillermo Route PRN Reason Start Time Stop Time Status Last Admin Dose Admin Acetaminophen (Tylenol) 650 mg PRN Q6HRS PRN PO MILD PAIN / TEMP > 100.3'F 10/31/20 16:15 11/19/20 13:52 Multi-Ingredient Ointment (Analgesic [place]) 1 ambrocio PRN QID PRN TP MUSCLE PAIN 10/31/20 16:15 Al Hydroxide/Mg Hydroxide (Mylanta Plus Xs) 15 ml PRN AFTMEALHC PRN PO DYSPEPSIA 10/31/20 16:15 Magnesium Hydroxide (Milk Of Magnesia) 2,400 mg PRN QHS PRN PO CONSTIPATION 10/31/20 16:15 Aspirin (Aspirin Chewable) 81 mg DAILY PO 11/01/20 09:00 11/21/20 08:15 Dexamethasone (Decadron) 4 mg BID PO 10/31/20 21:00 11/21/20 20:03 Divalproex Sodium (Depakote) 250 mg QID PO 10/31/20 17:00 11/02/20 15:56 DC 11/02/20 14:10 Donepezil HCl (Aricept) 5 mg QHS PO 10/31/20 21:00 11/17/20 12:40 DC 11/16/20 19:59 Gabapentin (Neurontin) 200 mg TID PO 10/31/20 21:00 11/21/20 20:03 Mirtazapine (Remeron) 7.5 mg QHS PO 10/31/20 21:00 11/04/20 18:40 DC 11/03/20 20:42 Morphine Sulfate (Ms Contin) 15 mg BID PO 10/31/20 21:00 11/21/20 20:04 Phenytoin Sodium (Dilantin) 200 mg BID PO 10/31/20 21:00 11/21/20 20:04 Sertraline HCl (Zoloft) 25 mg DAILY PO 11/01/20 09:00 11/01/20 17:15 DC 11/01/20 09:55 Venlafaxine HCl (Effexor Xr) 75 mg DAILY PO 11/01/20 09:00 11/21/20 08:14 Morphine Sulfate (Ms Contin) 30 mg BID PO 10/31/20 21:00 11/21/20 20:04 Nicotine (Nicoderm Cq 14mg Patch) 1 patch DAILY TD 10/31/20 17:30 11/03/20 22:25 DC 11/03/20 08:17 Olanzapine (ZyPREXA ZYDIS) 2.5 mg PRN Q2HR PRN PO PSYCHOSIS 10/31/20 18:30 Sertraline HCl (Zoloft) 50 mg DAILY PO 11/02/20 09:00 11/02/20 15:56 DC 11/02/20 08:27 Hydroxyzine Pamoate (Vistaril) 25 mg TID PO 11/01/20 21:00 11/11/20 16:27 DC 11/11/20 12:20 Divalproex Sodium (Depakote) 375 mg QID PO 11/02/20 17:00 11/06/20 17:27 DC 11/06/20 17:09 Nicotine (Nicoderm Cq 21mg Patch) 1 patch DAILY TD 11/04/20 09:00 11/21/20 08:12 Mirtazapine (Remeron) 15 mg QHS PO 11/04/20 21:00 11/21/20 20:05 Trazodone HCl (Desyrel) 50 mg PRN QHS PRN PO INSOMNIA, MAY REPEAT X1 11/04/20 18:45 11/11/20 18:01 DC 11/08/20 20:22 Divalproex Sodium (Depakote) 500 mg QID PO 11/06/20 21:00 11/09/20 18:54 DC 11/09/20 17:07 Nicotine Polacrilex (Nicorette Gum) 2 mg PRN Q1HR PRN BC SMOKING CESSATION 11/07/20 17:00 11/16/20 13:11 Divalproex Sodium (Depakote) 500 mg 1300,1700 PO 11/10/20 13:00 11/13/20 16:42 DC 11/13/20 12:21 Divalproex Sodium (Depakote) 750 mg BID PO 11/09/20 21:00 11/13/20 16:42 DC 11/13/20 08:23 Hydroxyzine Pamoate (Vistaril) 50 mg TID PO 11/11/20 21:00 11/21/20 20:04 Trazodone HCl (Desyrel) 50 mg HS PO 11/11/20 21:00 11/21/20 20:04 Trazodone HCl (Desyrel) 50 mg PRN QHS PRN PO INSOMNIA 11/11/20 18:00 11/21/20 20:05 Valproic Acid (Depakene) 750 mg BID PO 11/13/20 21:00 11/17/20 12:40 DC 11/17/20 08:19 Valproic Acid (Depakene) 500 mg BID@1300,1700 PO 11/13/20 17:00 11/17/20 12:40 DC 11/16/20 17:36 Valproic Acid (Depakene) 750 mg BID@1300,1700 PO 11/17/20 13:00 11/21/20 17:06 Valproic Acid (Depakene) 1,000 mg BID PO 11/17/20 21:00 11/21/20 20:03 I have reviewed the current psychotropics carefully including drug interactions. Risk benefit ratio favors no change other than as noted in my dictated progress note. Diagnosis: Problems: (1) Schizoaffective disorder, bipolar type (2) Impulse control disorder, unspecified (3) Anxiety disorder, unspecified (4) Bipolar disorder, current episode mixed, severe, with psychotic features (5) Mild cognitive impairment VIANNEY HAWLEY MD Nov 21, 2020 21:55
[2020-11-22 06:04] VITALS: BP 117/84
[2020-11-22] MEDS: ASPIRIN CHEWABLE 81 MG TABLET. PO SCH (09:26)
[2020-11-22] MEDS: DEXAMETHASONE 4 MG TABLET PO SCH ×2 (09:26→21:05)
[2020-11-22] MEDS: hydrOXYzine PAMOATE 25 MG CAPSULE PO SCH ×3 (09:27→21:05)
[2020-11-22] MEDS: VENLAFAXINE XR 37.5 MG CAP.ER.24H. PO SCH (09:27)
[2020-11-22] MEDS: VALPROATE ACID 250 MG/5 ML ORAL SOLUTION PO SCH ×4 (09:27→21:04)
[2020-11-22] MEDS: PHENYTOIN SODIUM EXTENDED 100 MG CAPSULE PO SCH ×2 (09:27→21:04)
[2020-11-22] MEDS: GABAPENTIN 100 MG CAPSULE. PO SCH ×3 (09:28→21:05)
[2020-11-22] MEDS: MORPHINE ER 15 MG TABLET.ER PO SCH ×2 (09:28→21:05)
[2020-11-22] MEDS: NICOTINE 21MG PATCH. TD SCH (09:28)
[2020-11-22] MEDS: MORPHINE ER 30 MG TABLET.ER PO SCH ×2 (09:29→21:05)
[2020-11-22 15:41] VITALS: BP 101/64
[2020-11-22] MEDS: traZODone 50 MG TABLET. PO SCH (21:04)
[2020-11-22] MEDS: MIRTAZAPINE 15 MG TABLET PO SCH (21:05)
--- NOTE | 2020-11-22 21:48 | PDOC ---
Exam Note: Adams Note: Please also refer to the separate dictated note~for this date of service dictated separately.~Patient seen individually. Discussed the patient with Nursing staff reviewed the chart.~Reviewed interim history and current functioning. Reviewed vital signs,~Labs/ Radiology~and current medications noted below. Continue current treatment with the changes noted in the dictated addendum note Assessment: Vital Signs/I&O: Vital Signs Date Time Temp Pulse Resp B/P (MAP) Pulse Ox O2 Delivery O2 Flow Rate FiO2 11/22/20 15:41 97.4 73 18 101/64 (76) 97 11/19/20 15:36 Room Air I & O 11/21/20 11/21/20 11/22/20 15:00 23:00 07:00 Intake Total 1200 ml 480 ml Balance 1200 ml 480 ml Labs: Laboratory Tests Test 11/22/20 05:31 SARS-CoV-2 (PCR) Negative (NEGATIVE) Current Medications: Meds: Laboratory Tests Test 11/22/20 05:31 Coronavirus (COVID-19)(PCR) Negative Current Medications Medications (Trade) Dose Ordered Sig/Guillermo Route PRN Reason Start Time Stop Time Status Last Admin Dose Admin Acetaminophen (Tylenol) 650 mg PRN Q6HRS PRN PO MILD PAIN / TEMP > 100.3'F 10/31/20 16:15 11/19/20 13:52 Multi-Ingredient Ointment (Analgesic [place]) 1 ambrocio PRN QID PRN TP MUSCLE PAIN 10/31/20 16:15 Al Hydroxide/Mg Hydroxide (Mylanta Plus Xs) 15 ml PRN AFTMEALHC PRN PO DYSPEPSIA 10/31/20 16:15 Magnesium Hydroxide (Milk Of Magnesia) 2,400 mg PRN QHS PRN PO CONSTIPATION 10/31/20 16:15 Aspirin (Aspirin Chewable) 81 mg DAILY PO 11/01/20 09:00 11/22/20 09:26 Dexamethasone (Decadron) 4 mg BID PO 10/31/20 21:00 11/22/20 21:05 Divalproex Sodium (Depakote) 250 mg QID PO 10/31/20 17:00 11/02/20 15:56 DC 11/02/20 14:10 Donepezil HCl (Aricept) 5 mg QHS PO 10/31/20 21:00 11/17/20 12:40 DC 11/16/20 19:59 Gabapentin (Neurontin) 200 mg TID PO 10/31/20 21:00 11/22/20 21:05 Mirtazapine (Remeron) 7.5 mg QHS PO 10/31/20 21:00 11/04/20 18:40 DC 11/03/20 20:42 Morphine Sulfate (Ms Contin) 15 mg BID PO 10/31/20 21:00 11/22/20 21:05 Phenytoin Sodium (Dilantin) 200 mg BID PO 10/31/20 21:00 11/22/20 21:04 Sertraline HCl (Zoloft) 25 mg DAILY PO 11/01/20 09:00 11/01/20 17:15 DC 11/01/20 09:55 Venlafaxine HCl (Effexor Xr) 75 mg DAILY PO 11/01/20 09:00 11/22/20 09:27 Morphine Sulfate (Ms Contin) 30 mg BID PO 10/31/20 21:00 11/22/20 21:05 Nicotine (Nicoderm Cq 14mg Patch) 1 patch DAILY TD 10/31/20 17:30 11/03/20 22:25 DC 11/03/20 08:17 Olanzapine (ZyPREXA ZYDIS) 2.5 mg PRN Q2HR PRN PO PSYCHOSIS 10/31/20 18:30 Sertraline HCl (Zoloft) 50 mg DAILY PO 11/02/20 09:00 11/02/20 15:56 DC 11/02/20 08:27 Hydroxyzine Pamoate (Vistaril) 25 mg TID PO 11/01/20 21:00 11/11/20 16:27 DC 11/11/20 12:20 Divalproex Sodium (Depakote) 375 mg QID PO 11/02/20 17:00 11/06/20 17:27 DC 11/06/20 17:09 Nicotine (Nicoderm Cq 21mg Patch) 1 patch DAILY TD 11/04/20 09:00 11/22/20 09:28 Mirtazapine (Remeron) 15 mg QHS PO 11/04/20 21:00 11/22/20 21:05 Trazodone HCl (Desyrel) 50 mg PRN QHS PRN PO INSOMNIA, MAY REPEAT X1 11/04/20 18:45 11/11/20 18:01 DC 11/08/20 20:22 Divalproex Sodium (Depakote) 500 mg QID PO 11/06/20 21:00 11/09/20 18:54 DC 11/09/20 17:07 Nicotine Polacrilex (Nicorette Gum) 2 mg PRN Q1HR PRN BC SMOKING CESSATION 11/07/20 17:00 11/16/20 13:11 Divalproex Sodium (Depakote) 500 mg 1300,1700 PO 11/10/20 13:00 11/13/20 16:42 DC 11/13/20 12:21 Divalproex Sodium (Depakote) 750 mg BID PO 11/09/20 21:00 11/13/20 16:42 DC 11/13/20 08:23 Hydroxyzine Pamoate (Vistaril) 50 mg TID PO 11/11/20 21:00 11/22/20 21:05 Trazodone HCl (Desyrel) 50 mg HS PO 11/11/20 21:00 11/22/20 21:04 Trazodone HCl (Desyrel) 50 mg PRN QHS PRN PO INSOMNIA 11/11/20 18:00 11/21/20 20:05 Valproic Acid (Depakene) 750 mg BID PO 11/13/20 21:00 11/17/20 12:40 DC 11/17/20 08:19 Valproic Acid (Depakene) 500 mg BID@1300,1700 PO 11/13/20 17:00 11/17/20 12:40 DC 11/16/20 17:36 Valproic Acid (Depakene) 750 mg BID@1300,1700 PO 11/17/20 13:00 11/22/20 17:17 Valproic Acid (Depakene) 1,000 mg BID PO 11/17/20 21:00 11/22/20 21:04 I have reviewed the current psychotropics carefully including drug interactions. Risk benefit ratio favors no change other than as noted in my dictated progress note. Diagnosis: Problems: (1) Schizoaffective disorder, bipolar type (2) Impulse control disorder, unspecified (3) Anxiety disorder, unspecified (4) Bipolar disorder, current episode mixed, severe, with psychotic features (5) Mild cognitive impairment VIANNEY HAWLEY MD Nov 22, 2020 21:48
[2020-11-23 06:11] VITALS: BP 93/65
--- NOTE | 2020-11-23 06:12 | PDOC ---
Exam Note: Adams Note: This note is a late entry for 11/21/2020overs elements not covered in my initial note. Subjective: The patient was seen face to face in the evening of 11/21/2020 with Megan GANT, discussed and reviewed the chart. He slept 7 hours previous night. I met with him in his room. Review of Systems: Ambulation impaired in wheelchair. He does complain of skin itching. No CV, , pulmonary, eye system symptoms on review. Mental Status Exam: The patient is oriented to himself and situation. He was pleasant, verbal, interactive even though sometimes difficult to understand. Speech coherent. Abstraction fair. Computation impaired. Language function intact. Attention span is short. Mood and affect improved. No suicidal or homicidal ideation. Laboratory Data: Reviewed. Impression: Schizoaffective disorder bipolar type mixed with psychotic features. Anxiety disorder unspecified. Impulse control disorder unspecified. Mild cognitive impairment. Plan: Continue rest psychotropics unchanged. Assessment: Vital Signs/I&O: Vital Signs Date Time Temp Pulse Resp B/P (MAP) Pulse Ox O2 Delivery O2 Flow Rate FiO2 11/23/20 00:54 Room Air 11/22/20 15:41 97.4 73 18 101/64 (76) 97 I & O 11/22/20 11/22/20 11/23/20 15:00 23:00 07:00 Intake Total 600 ml 480 ml Balance 600 ml 480 ml Current Medications: Meds: Current Medications Medications (Trade) Dose Ordered Sig/Guillermo Route PRN Reason Start Time Stop Time Status Last Admin Dose Admin Acetaminophen (Tylenol) 650 mg PRN Q6HRS PRN PO MILD PAIN / TEMP > 100.3'F 10/31/20 16:15 11/19/20 13:52 Multi-Ingredient Ointment (Analgesic [place]) 1 ambrocio PRN QID PRN TP MUSCLE PAIN 10/31/20 16:15 Al Hydroxide/Mg Hydroxide (Mylanta Plus Xs) 15 ml PRN AFTMEALHC PRN PO DYSPEPSIA 10/31/20 16:15 Magnesium Hydroxide (Milk Of Magnesia) 2,400 mg PRN QHS PRN PO CONSTIPATION 10/31/20 16:15 Aspirin (Aspirin Chewable) 81 mg DAILY PO 11/01/20 09:00 11/22/20 09:26 Dexamethasone (Decadron) 4 mg BID PO 10/31/20 21:00 11/22/20 21:05 Divalproex Sodium (Depakote) 250 mg QID PO 10/31/20 17:00 11/02/20 15:56 DC 11/02/20 14:10 Donepezil HCl (Aricept) 5 mg QHS PO 10/31/20 21:00 11/17/20 12:40 DC 11/16/20 19:59 Gabapentin (Neurontin) 200 mg TID PO 10/31/20 21:00 11/22/20 21:05 Mirtazapine (Remeron) 7.5 mg QHS PO 10/31/20 21:00 11/04/20 18:40 DC 11/03/20 20:42 Morphine Sulfate (Ms Contin) 15 mg BID PO 10/31/20 21:00 11/22/20 21:05 Phenytoin Sodium (Dilantin) 200 mg BID PO 10/31/20 21:00 11/22/20 21:04 Sertraline HCl (Zoloft) 25 mg DAILY PO 11/01/20 09:00 11/01/20 17:15 DC 11/01/20 09:55 Venlafaxine HCl (Effexor Xr) 75 mg DAILY PO 11/01/20 09:00 11/22/20 09:27 Morphine Sulfate (Ms Contin) 30 mg BID PO 10/31/20 21:00 11/22/20 21:05 Nicotine (Nicoderm Cq 14mg Patch) 1 patch DAILY TD 10/31/20 17:30 11/03/20 22:25 DC 11/03/20 08:17 Olanzapine (ZyPREXA ZYDIS) 2.5 mg PRN Q2HR PRN PO PSYCHOSIS 10/31/20 18:30 Sertraline HCl (Zoloft) 50 mg DAILY PO 11/02/20 09:00 11/02/20 15:56 DC 11/02/20 08:27 Hydroxyzine Pamoate (Vistaril) 25 mg TID PO 11/01/20 21:00 11/11/20 16:27 DC 11/11/20 12:20 Divalproex Sodium (Depakote) 375 mg QID PO 11/02/20 17:00 11/06/20 17:27 DC 11/06/20 17:09 Nicotine (Nicoderm Cq 21mg Patch) 1 patch DAILY TD 11/04/20 09:00 11/22/20 09:28 Mirtazapine (Remeron) 15 mg QHS PO 11/04/20 21:00 11/22/20 21:05 Trazodone HCl (Desyrel) 50 mg PRN QHS PRN PO INSOMNIA, MAY REPEAT X1 11/04/20 18:45 11/11/20 18:01 DC 11/08/20 20:22 Divalproex Sodium (Depakote) 500 mg QID PO 11/06/20 21:00 11/09/20 18:54 DC 11/09/20 17:07 Nicotine Polacrilex (Nicorette Gum) 2 mg PRN Q1HR PRN BC SMOKING CESSATION 11/07/20 17:00 11/16/20 13:11 Divalproex Sodium (Depakote) 500 mg 1300,1700 PO 11/10/20 13:00 11/13/20 16:42 DC 11/13/20 12:21 Divalproex Sodium (Depakote) 750 mg BID PO 11/09/20 21:00 11/13/20 16:42 DC 11/13/20 08:23 Hydroxyzine Pamoate (Vistaril) 50 mg TID PO 11/11/20 21:00 11/22/20 21:05 Trazodone HCl (Desyrel) 50 mg HS PO 11/11/20 21:00 11/22/20 21:04 Trazodone HCl (Desyrel) 50 mg PRN QHS PRN PO INSOMNIA 11/11/20 18:00 11/21/20 20:05 Valproic Acid (Depakene) 750 mg BID PO 11/13/20 21:00 11/17/20 12:40 DC 11/17/20 08:19 Valproic Acid (Depakene) 500 mg BID@1300,1700 PO 11/13/20 17:00 11/17/20 12:40 DC 11/16/20 17:36 Valproic Acid (Depakene) 750 mg BID@1300,1700 PO 11/17/20 13:00 11/22/20 17:17 Valproic Acid (Depakene) 1,000 mg BID PO 11/17/20 21:00 11/22/20 21:04 I have reviewed the current psychotropics carefully including drug interactions. Risk benefit ratio favors no change other than as noted in my dictated progress note. Diagnosis: Problems: (1) Schizoaffective disorder, bipolar type (2) Impulse control disorder, unspecified (3) Anxiety disorder, unspecified (4) Bipolar disorder, current episode mixed, severe, with psychotic features (5) Mild cognitive impairment VIANNEY HAWLEY MD Nov 23, 2020 06:12
--- NOTE | 2020-11-23 06:24 | PDOC ---
Exam Note: Adams Note: This note is a late entry for 11/22/2020overs elements not covered in my initial note. Subjective: The patient was seen face to face in the evening of 11/22/2020 with Megan GANT, discussed and reviewed the chart. He slept 3-3/4 hours previous night. Overall the patient remains confused when I met with him in his room. He was expressing lot of frustration with nursing aids and I addressed with him. He has not been drinking liquids from the bathroom or otherwise. Earlier in the day I had a text message from [employer]. The patient has a prior authorization due today. Valproic acid level is subtherapeutic but he is responding well enough despite the low dosage that we will not increase it, shared this with staff to communicate for the insurance review. Review of Systems: Ambulation impaired in wheelchair. No CV, , pulmonary, eye system symptoms on review. Mental Status Exam: The patient is oriented to himself and situation. Speech coherent. Abstraction fair. Computation impaired. Language function intact. Attention span is short. Mood and affect improved. Laboratory Data: Reviewed. Impression: Schizoaffective disorder bipolar type mixed with psychotic fe atures. Anxiety disorder unspecified. Impulse control disorder unspecified. Mild cognitive impairment. Plan: Continue rest psychotropics unchanged. Assessment: Vital Signs/I&O: Vital Signs Date Time Temp Pulse Resp B/P (MAP) Pulse Ox O2 Delivery O2 Flow Rate FiO2 11/23/20 06:11 97.6 62 18 93/65 (74) 94 11/23/20 00:54 Room Air I & O 11/22/20 11/22/20 11/23/20 15:00 23:00 07:00 Intake Total 600 ml 480 ml Balance 600 ml 480 ml Current Medications: Meds: Current Medications Medications (Trade) Dose Ordered Sig/Guillermo Route PRN Reason Start Time Stop Time Status Last Admin Dose Admin Acetaminophen (Tylenol) 650 mg PRN Q6HRS PRN PO MILD PAIN / TEMP > 100.3'F 10/31/20 16:15 11/19/20 13:52 Multi-Ingredient Ointment (Analgesic [place]) 1 ambrocio PRN QID PRN TP MUSCLE PAIN 10/31/20 16:15 Al Hydroxide/Mg Hydroxide (Mylanta Plus Xs) 15 ml PRN AFTMEALHC PRN PO DYSPEPSIA 10/31/20 16:15 Magnesium Hydroxide (Milk Of Magnesia) 2,400 mg PRN QHS PRN PO CONSTIPATION 10/31/20 16:15 Aspirin (Aspirin Chewable) 81 mg DAILY PO 11/01/20 09:00 11/22/20 09:26 Dexamethasone (Decadron) 4 mg BID PO 10/31/20 21:00 11/22/20 21:05 Divalproex Sodium (Depakote) 250 mg QID PO 10/31/20 17:00 11/02/20 15:56 DC 11/02/20 14:10 Donepezil HCl (Aricept) 5 mg QHS PO 10/31/20 21:00 11/17/20 12:40 DC 11/16/20 19:59 Gabapentin (Neurontin) 200 mg TID PO 10/31/20 21:00 11/22/20 21:05 Mirtazapine (Remeron) 7.5 mg QHS PO 10/31/20 21:00 11/04/20 18:40 DC 11/03/20 20:42 Morphine Sulfate (Ms Contin) 15 mg BID PO 10/31/20 21:00 11/22/20 21:05 Phenytoin Sodium (Dilantin) 200 mg BID PO 10/31/20 21:00 11/22/20 21:04 Sertraline HCl (Zoloft) 25 mg DAILY PO 11/01/20 09:00 11/01/20 17:15 DC 11/01/20 09:55 Venlafaxine HCl (Effexor Xr) 75 mg DAILY PO 11/01/20 09:00 11/22/20 09:27 Morphine Sulfate (Ms Contin) 30 mg BID PO 10/31/20 21:00 11/22/20 21:05 Nicotine (Nicoderm Cq 14mg Patch) 1 patch DAILY TD 10/31/20 17:30 11/03/20 22:25 DC 11/03/20 08:17 Olanzapine (ZyPREXA ZYDIS) 2.5 mg PRN Q2HR PRN PO PSYCHOSIS 10/31/20 18:30 Sertraline HCl (Zoloft) 50 mg DAILY PO 11/02/20 09:00 11/02/20 15:56 DC 11/02/20 08:27 Hydroxyzine Pamoate (Vistaril) 25 mg TID PO 11/01/20 21:00 11/11/20 16:27 DC 11/11/20 12:20 Divalproex Sodium (Depakote) 375 mg QID PO 11/02/20 17:00 11/06/20 17:27 DC 11/06/20 17:09 Nicotine (Nicoderm Cq 21mg Patch) 1 patch DAILY TD 11/04/20 09:00 11/22/20 09:28 Mirtazapine (Remeron) 15 mg QHS PO 11/04/20 21:00 11/22/20 21:05 Trazodone HCl (Desyrel) 50 mg PRN QHS PRN PO INSOMNIA, MAY REPEAT X1 11/04/20 18:45 11/11/20 18:01 DC 11/08/20 20:22 Divalproex Sodium (Depakote) 500 mg QID PO 11/06/20 21:00 11/09/20 18:54 DC 11/09/20 17:07 Nicotine Polacrilex (Nicorette Gum) 2 mg PRN Q1HR PRN BC SMOKING CESSATION 11/07/20 17:00 11/16/20 13:11 Divalproex Sodium (Depakote) 500 mg 1300,1700 PO 11/10/20 13:00 11/13/20 16:42 DC 11/13/20 12:21 Divalproex Sodium (Depakote) 750 mg BID PO 11/09/20 21:00 11/13/20 16:42 DC 11/13/20 08:23 Hydroxyzine Pamoate (Vistaril) 50 mg TID PO 11/11/20 21:00 11/22/20 21:05 Trazodone HCl (Desyrel) 50 mg HS PO 11/11/20 21:00 11/22/20 21:04 Trazodone HCl (Desyrel) 50 mg PRN QHS PRN PO INSOMNIA 11/11/20 18:00 11/21/20 20:05 Valproic Acid (Depakene) 750 mg BID PO 11/13/20 21:00 11/17/20 12:40 DC 11/17/20 08:19 Valproic Acid (Depakene) 500 mg BID@1300,1700 PO 11/13/20 17:00 11/17/20 12:40 DC 11/16/20 17:36 Valproic Acid (Depakene) 750 mg BID@1300,1700 PO 11/17/20 13:00 11/22/20 17:17 Valproic Acid (Depakene) 1,000 mg BID PO 11/17/20 21:00 11/22/20 21:04 I have reviewed the current psychotropics carefully including drug interactions. Risk benefit ratio favors no change other than as noted in my dictated progress note. Diagnosis: Problems: (1) Schizoaffective disorder, bipolar type (2) Impulse control disorder, unspecified (3) Anxiety disorder, unspecified (4) Bipolar disorder, current episode mixed, severe, with psychotic features (5) Mild cognitive impairment VIANNEY HAWLEY MD Nov 23, 2020 06:24
[2020-11-23] MEDS: VALPROATE ACID 250 MG/5 ML ORAL SOLUTION PO SCH ×4 (08:31→20:21)
[2020-11-23] MEDS: NICOTINE 21MG PATCH. TD SCH (08:31)
[2020-11-23] MEDS: ASPIRIN CHEWABLE 81 MG TABLET. PO SCH (08:32)
[2020-11-23] MEDS: VENLAFAXINE XR 37.5 MG CAP.ER.24H. PO SCH (08:32)
[2020-11-23] MEDS: hydrOXYzine PAMOATE 25 MG CAPSULE PO SCH ×3 (08:32→20:22)
[2020-11-23] MEDS: PHENYTOIN SODIUM EXTENDED 100 MG CAPSULE PO SCH ×2 (08:32→20:22)
[2020-11-23] MEDS: GABAPENTIN 100 MG CAPSULE. PO SCH ×3 (08:33→20:22)
[2020-11-23] MEDS: MORPHINE ER 15 MG TABLET.ER PO SCH ×2 (08:33→20:21)
[2020-11-23] MEDS: MORPHINE ER 30 MG TABLET.ER PO SCH ×2 (08:33→20:22)
[2020-11-23] MEDS: DEXAMETHASONE 4 MG TABLET PO SCH ×2 (08:35→20:23)
[2020-11-23 15:34] VITALS: BP 99/62
[2020-11-23] MEDS: MIRTAZAPINE 15 MG TABLET PO SCH (20:22)
[2020-11-23] MEDS: traZODone 50 MG TABLET. PO SCH (20:23)
--- NOTE | 2020-11-23 21:57 | PDOC ---
Exam Note: Adams Note: Please also refer to the separate dictated note~for this date of service dictated separately.~Patient seen individually. Discussed the patient with Nursing staff reviewed the chart.~Reviewed interim history and current functioning. Reviewed vital signs,~Labs/ Radiology~and current medications noted below. Continue current treatment with the changes noted in the dictated addendum note Assessment: Vital Signs/I&O: Vital Signs Date Time Temp Pulse Resp B/P (MAP) Pulse Ox O2 Delivery O2 Flow Rate FiO2 11/23/20 20:22 18 11/23/20 15:34 97.5 75 99/62 (74) 96 11/23/20 00:54 Room Air I & O 11/22/20 11/22/20 11/23/20 14:59 22:59 06:59 Intake Total 600 ml 480 ml Balance 600 ml 480 ml Current Medications: Meds: Current Medications Medications (Trade) Dose Ordered Sig/Guillermo Route PRN Reason Start Time Stop Time Status Last Admin Dose Admin Acetaminophen (Tylenol) 650 mg PRN Q6HRS PRN PO MILD PAIN / TEMP > 100.3'F 10/31/20 16:15 11/19/20 13:52 Multi-Ingredient Ointment (Analgesic [place]) 1 ambrocio PRN QID PRN TP MUSCLE PAIN 10/31/20 16:15 Al Hydroxide/Mg Hydroxide (Mylanta Plus Xs) 15 ml PRN AFTMEALHC PRN PO DYSPEPSIA 10/31/20 16:15 Magnesium Hydroxide (Milk Of Magnesia) 2,400 mg PRN QHS PRN PO CONSTIPATION 10/31/20 16:15 Aspirin (Aspirin Chewable) 81 mg DAILY PO 11/01/20 09:00 11/23/20 08:32 Dexamethasone (Decadron) 4 mg BID PO 10/31/20 21:00 11/23/20 20:23 Divalproex Sodium (Depakote) 250 mg QID PO 10/31/20 17:00 11/02/20 15:56 DC 11/02/20 14:10 Donepezil HCl (Aricept) 5 mg QHS PO 10/31/20 21:00 11/17/20 12:40 DC 11/16/20 19:59 Gabapentin (Neurontin) 200 mg TID PO 10/31/20 21:00 11/23/20 20:22 Mirtazapine (Remeron) 7.5 mg QHS PO 10/31/20 21:00 11/04/20 18:40 DC 11/03/20 20:42 Morphine Sulfate (Ms Contin) 15 mg BID PO 10/31/20 21:00 11/23/20 20:21 Phenytoin Sodium (Dilantin) 200 mg BID PO 10/31/20 21:00 11/23/20 20:22 Sertraline HCl (Zoloft) 25 mg DAILY PO 11/01/20 09:00 11/01/20 17:15 DC 11/01/20 09:55 Venlafaxine HCl (Effexor Xr) 75 mg DAILY PO 11/01/20 09:00 11/23/20 08:32 Morphine Sulfate (Ms Contin) 30 mg BID PO 10/31/20 21:00 11/23/20 20:22 Nicotine (Nicoderm Cq 14mg Patch) 1 patch DAILY TD 10/31/20 17:30 11/03/20 22:25 DC 11/03/20 08:17 Olanzapine (ZyPREXA ZYDIS) 2.5 mg PRN Q2HR PRN PO PSYCHOSIS 10/31/20 18:30 Sertraline HCl (Zoloft) 50 mg DAILY PO 11/02/20 09:00 11/02/20 15:56 DC 11/02/20 08:27 Hydroxyzine Pamoate (Vistaril) 25 mg TID PO 11/01/20 21:00 11/11/20 16:27 DC 11/11/20 12:20 Divalproex Sodium (Depakote) 375 mg QID PO 11/02/20 17:00 11/06/20 17:27 DC 11/06/20 17:09 Nicotine (Nicoderm Cq 21mg Patch) 1 patch DAILY TD 11/04/20 09:00 11/23/20 08:31 Mirtazapine (Remeron) 15 mg QHS PO 11/04/20 21:00 11/23/20 20:22 Trazodone HCl (Desyrel) 50 mg PRN QHS PRN PO INSOMNIA, MAY REPEAT X1 11/04/20 18:45 11/11/20 18:01 DC 11/08/20 20:22 Divalproex Sodium (Depakote) 500 mg QID PO 11/06/20 21:00 11/09/20 18:54 DC 11/09/20 17:07 Nicotine Polacrilex (Nicorette Gum) 2 mg PRN Q1HR PRN BC SMOKING CESSATION 11/07/20 17:00 11/16/20 13:11 Divalproex Sodium (Depakote) 500 mg 1300,1700 PO 11/10/20 13:00 11/13/20 16:42 DC 11/13/20 12:21 Divalproex Sodium (Depakote) 750 mg BID PO 11/09/20 21:00 11/13/20 16:42 DC 11/13/20 08:23 Hydroxyzine Pamoate (Vistaril) 50 mg TID PO 11/11/20 21:00 11/23/20 20:22 Trazodone HCl (Desyrel) 50 mg HS PO 11/11/20 21:00 11/23/20 20:23 Trazodone HCl (Desyrel) 50 mg PRN QHS PRN PO INSOMNIA 11/11/20 18:00 11/21/20 20:05 Valproic Acid (Depakene) 750 mg BID PO 11/13/20 21:00 11/17/20 12:40 DC 11/17/20 08:19 Valproic Acid (Depakene) 500 mg BID@1300,1700 PO 11/13/20 17:00 11/17/20 12:40 DC 11/16/20 17:36 Valproic Acid (Depakene) 750 mg BID@1300,1700 PO 11/17/20 13:00 11/23/20 17:15 Valproic Acid (Depakene) 1,000 mg BID PO 11/17/20 21:00 11/23/20 20:21 I have reviewed the current psychotropics carefully including drug interactions. Risk benefit ratio favors no change other than as noted in my dictated progress note. Diagnosis: Problems: (1) Schizoaffective disorder, bipolar type (2) Impulse control disorder, unspecified (3) Anxiety disorder, unspecified (4) Bipolar disorder, current episode mixed, severe, with psychotic features (5) Mild cognitive impairment VIANNEY HAWLEY MD Nov 23, 2020 21:57
[2020-11-24 06:27] VITALS: BP 122/75
[2020-11-24] MEDS: NICOTINE 21MG PATCH. TD SCH (08:46)
[2020-11-24] MEDS: VALPROATE ACID 250 MG/5 ML ORAL SOLUTION PO SCH ×4 (08:46→21:18)
[2020-11-24] MEDS: hydrOXYzine PAMOATE 25 MG CAPSULE PO SCH ×3 (08:47→21:20)
[2020-11-24] MEDS: MORPHINE ER 30 MG TABLET.ER PO SCH ×2 (08:47→21:19)
[2020-11-24] MEDS: PHENYTOIN SODIUM EXTENDED 100 MG CAPSULE PO SCH ×2 (08:47→21:19)
[2020-11-24] MEDS: DEXAMETHASONE 4 MG TABLET PO SCH ×2 (08:47→21:18)
[2020-11-24] MEDS: ASPIRIN CHEWABLE 81 MG TABLET. PO SCH (08:47)
[2020-11-24] MEDS: MORPHINE ER 15 MG TABLET.ER PO SCH ×2 (08:47→21:19)
[2020-11-24] MEDS: VENLAFAXINE XR 37.5 MG CAP.ER.24H. PO SCH (08:47)
[2020-11-24] MEDS: GABAPENTIN 100 MG CAPSULE. PO SCH ×3 (08:48→21:18)
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
[2020-11-24 15:46] VITALS: BP 121/82
[2020-11-24] MEDS: traZODone 50 MG TABLET. PO SCH (21:19)
[2020-11-24] MEDS: MIRTAZAPINE 15 MG TABLET PO SCH (21:20)
--- NOTE | 2020-11-24 21:55 | PDOC ---
Exam Note: Adams Note: Please also refer to the separate dictated note~for this date of service dictated separately.~Patient seen individually. Discussed the patient with Nursing staff reviewed the chart.~Reviewed interim history and current functioning. Reviewed vital signs,~Labs/ Radiology~and current medications noted below. Continue current treatment with the changes noted in the dictated addendum note Assessment: Vital Signs/I&O: Vital Signs Date Time Temp Pulse Resp B/P (MAP) Pulse Ox O2 Delivery O2 Flow Rate FiO2 11/24/20 21:19 20 Room Air 11/24/20 15:46 98.8 82 121/82 (95) 96 I & O 11/23/20 11/23/20 11/24/20 15:00 23:00 07:00 Intake Total 1080 ml 600 ml Balance 1080 ml 600 ml Current Medications: Meds: Current Medications Medications (Trade) Dose Ordered Sig/Guillermo Route PRN Reason Start Time Stop Time Status Last Admin Dose Admin Acetaminophen (Tylenol) 650 mg PRN Q6HRS PRN PO MILD PAIN / TEMP > 100.3'F 10/31/20 16:15 11/19/20 13:52 Multi-Ingredient Ointment (Analgesic [place]) 1 ambrocio PRN QID PRN TP MUSCLE PAIN 10/31/20 16:15 Al Hydroxide/Mg Hydroxide (Mylanta Plus Xs) 15 ml PRN AFTMEALHC PRN PO DYSPEPSIA 10/31/20 16:15 Magnesium Hydroxide (Milk Of Magnesia) 2,400 mg PRN QHS PRN PO CONSTIPATION 10/31/20 16:15 Aspirin (Aspirin Chewable) 81 mg DAILY PO 11/01/20 09:00 11/24/20 08:47 Dexamethasone (Decadron) 4 mg BID PO 10/31/20 21:00 11/24/20 21:18 Divalproex Sodium (Depakote) 250 mg QID PO 10/31/20 17:00 11/02/20 15:56 DC 11/02/20 14:10 Donepezil HCl (Aricept) 5 mg QHS PO 10/31/20 21:00 11/17/20 12:40 DC 11/16/20 19:59 Gabapentin (Neurontin) 200 mg TID PO 10/31/20 21:00 11/24/20 21:18 Mirtazapine (Remeron) 7.5 mg QHS PO 10/31/20 21:00 11/04/20 18:40 DC 11/03/20 20:42 Morphine Sulfate (Ms Contin) 15 mg BID PO 10/31/20 21:00 11/24/20 21:19 Phenytoin Sodium (Dilantin) 200 mg BID PO 10/31/20 21:00 11/24/20 21:19 Sertraline HCl (Zoloft) 25 mg DAILY PO 11/01/20 09:00 11/01/20 17:15 DC 11/01/20 09:55 Venlafaxine HCl (Effexor Xr) 75 mg DAILY PO 11/01/20 09:00 11/24/20 08:47 Morphine Sulfate (Ms Contin) 30 mg BID PO 10/31/20 21:00 11/24/20 21:19 Nicotine (Nicoderm Cq 14mg Patch) 1 patch DAILY TD 10/31/20 17:30 11/03/20 22:25 DC 11/03/20 08:17 Olanzapine (ZyPREXA ZYDIS) 2.5 mg PRN Q2HR PRN PO PSYCHOSIS 10/31/20 18:30 Sertraline HCl (Zoloft) 50 mg DAILY PO 11/02/20 09:00 11/02/20 15:56 DC 11/02/20 08:27 Hydroxyzine Pamoate (Vistaril) 25 mg TID PO 11/01/20 21:00 11/11/20 16:27 DC 11/11/20 12:20 Divalproex Sodium (Depakote) 375 mg QID PO 11/02/20 17:00 11/06/20 17:27 DC 11/06/20 17:09 Nicotine (Nicoderm Cq 21mg Patch) 1 patch DAILY TD 11/04/20 09:00 11/24/20 08:46 Mirtazapine (Remeron) 15 mg QHS PO 11/04/20 21:00 11/24/20 21:20 Trazodone HCl (Desyrel) 50 mg PRN QHS PRN PO INSOMNIA, MAY REPEAT X1 11/04/20 18:45 11/11/20 18:01 DC 11/08/20 20:22 Divalproex Sodium (Depakote) 500 mg QID PO 11/06/20 21:00 11/09/20 18:54 DC 11/09/20 17:07 Nicotine Polacrilex (Nicorette Gum) 2 mg PRN Q1HR PRN BC SMOKING CESSATION 11/07/20 17:00 11/16/20 13:11 Divalproex Sodium (Depakote) 500 mg 1300,1700 PO 11/10/20 13:00 11/13/20 16:42 DC 11/13/20 12:21 Divalproex Sodium (Depakote) 750 mg BID PO 11/09/20 21:00 11/13/20 16:42 DC 11/13/20 08:23 Hydroxyzine Pamoate (Vistaril) 50 mg TID PO 11/11/20 21:00 11/24/20 21:20 Trazodone HCl (Desyrel) 50 mg HS PO 11/11/20 21:00 11/24/20 21:19 Trazodone HCl (Desyrel) 50 mg PRN QHS PRN PO INSOMNIA 11/11/20 18:00 11/21/20 20:05 Valproic Acid (Depakene) 750 mg BID PO 11/13/20 21:00 11/17/20 12:40 DC 11/17/20 08:19 Valproic Acid (Depakene) 500 mg BID@1300,1700 PO 11/13/20 17:00 11/17/20 12:40 DC 11/16/20 17:36 Valproic Acid (Depakene) 750 mg BID@1300,1700 PO 11/17/20 13:00 11/24/20 17:39 Valproic Acid (Depakene) 1,000 mg BID PO 11/17/20 21:00 11/24/20 21:18 I have reviewed the current psychotropics carefully including drug interactions. Risk benefit ratio favors no change other than as noted in my dictated progress note. Diagnosis: Problems: (1) Schizoaffective disorder, bipolar type (2) Impulse control disorder, unspecified (3) Anxiety disorder, unspecified (4) Bipolar disorder, current episode mixed, severe, with psychotic features (5) Mild cognitive impairment VIANNEY HAWLEY MD Nov 24, 2020 21:55
[2020-11-25 06:09] VITALS: BP 110/73
--- NOTE | 2020-11-25 06:14 | PDOC ---
Exam Note: Adams Note: This note is a late entry for 11/23/2020overs elements not covered in my initial note. Subjective: The patient was seen face to face in the evening of 11/23/2020 with Ayad GANT, discussed and reviewed the chart. He slept 7 hours previous night. I met with the patient in his room. He has been fairly appropriate on the unit, somewhat anxious, running up and pushing himself rapidly in the wheelchair, up and down the hallway but redirects, not aggressive. Review of Systems: Ambulation impaired in wheelchair. No CV, , pulmonary, eye system symptoms on review. Mental Status Exam: The patient is oriented to himself and situation. As I met with him in his room he was quite appropriate, at times difficult to understand but little frustrated with what he was just the time response from the staff to his request for assistance for the bathroom. I addressed this with him. Speech coherent. Abstraction fair. Computation impaired. Language function intact. Attention span is short. Mood and affect improved. Laboratory Data: Reviewed. Impression: Schizoaffective disorder bipolar type mixed with psychotic features. Anxiety disorder unspecified. Impulse control disorder unspecified. Mild cognitive impairment. Plan: Continue rest psychotropics unchanged. Assessment: Vital Signs/I&O: Vital Signs Date Time Temp Pulse Resp B/P (MAP) Pulse Ox O2 Delivery O2 Flow Rate FiO2 11/25/20 06:09 97.3 57 16 110/73 (85) 98 11/25/20 01:19 Room Air I & O 11/24/20 11/24/20 11/25/20 15:00 23:00 07:00 Intake Total 1440 ml 480 ml Balance 1440 ml 480 ml Current Medications: Meds: Current Medications Medications (Trade) Dose Ordered Sig/Guillermo Route PRN Reason Start Time Stop Time Status Last Admin Dose Admin Acetaminophen (Tylenol) 650 mg PRN Q6HRS PRN PO MILD PAIN / TEMP > 100.3'F 10/31/20 16:15 11/19/20 13:52 Multi-Ingredient Ointment (Analgesic [place]) 1 ambrocio PRN QID PRN TP MUSCLE PAIN 10/31/20 16:15 Al Hydroxide/Mg Hydroxide (Mylanta Plus Xs) 15 ml PRN AFTMEALHC PRN PO DYSPEPSIA 10/31/20 16:15 Magnesium Hydroxide (Milk Of Magnesia) 2,400 mg PRN QHS PRN PO CONSTIPATION 10/31/20 16:15 Aspirin (Aspirin Chewable) 81 mg DAILY PO 11/01/20 09:00 11/24/20 08:47 Dexamethasone (Decadron) 4 mg BID PO 10/31/20 21:00 11/24/20 21:18 Divalproex Sodium (Depakote) 250 mg QID PO 10/31/20 17:00 11/02/20 15:56 DC 11/02/20 14:10 Donepezil HCl (Aricept) 5 mg QHS PO 10/31/20 21:00 11/17/20 12:40 DC 11/16/20 19:59 Gabapentin (Neurontin) 200 mg TID PO 10/31/20 21:00 11/24/20 21:18 Mirtazapine (Remeron) 7.5 mg QHS PO 10/31/20 21:00 11/04/20 18:40 DC 11/03/20 20:42 Morphine Sulfate (Ms Contin) 15 mg BID PO 10/31/20 21:00 11/24/20 21:19 Phenytoin Sodium (Dilantin) 200 mg BID PO 10/31/20 21:00 11/24/20 21:19 Sertraline HCl (Zoloft) 25 mg DAILY PO 11/01/20 09:00 11/01/20 17:15 DC 11/01/20 09:55 Venlafaxine HCl (Effexor Xr) 75 mg DAILY PO 11/01/20 09:00 11/24/20 08:47 Morphine Sulfate (Ms Contin) 30 mg BID PO 10/31/20 21:00 11/24/20 21:19 Nicotine (Nicoderm Cq 14mg Patch) 1 patch DAILY TD 10/31/20 17:30 11/03/20 22:25 DC 11/03/20 08:17 Olanzapine (ZyPREXA ZYDIS) 2.5 mg PRN Q2HR PRN PO PSYCHOSIS 10/31/20 18:30 Sertraline HCl (Zoloft) 50 mg DAILY PO 11/02/20 09:00 11/02/20 15:56 DC 11/02/20 08:27 Hydroxyzine Pamoate (Vistaril) 25 mg TID PO 11/01/20 21:00 11/11/20 16:27 DC 11/11/20 12:20 Divalproex Sodium (Depakote) 375 mg QID PO 11/02/20 17:00 11/06/20 17:27 DC 11/06/20 17:09 Nicotine (Nicoderm Cq 21mg Patch) 1 patch DAILY TD 11/04/20 09:00 11/24/20 08:46 Mirtazapine (Remeron) 15 mg QHS PO 11/04/20 21:00 11/24/20 21:20 Trazodone HCl (Desyrel) 50 mg PRN QHS PRN PO INSOMNIA, MAY REPEAT X1 11/04/20 18:45 11/11/20 18:01 DC 11/08/20 20:22 Divalproex Sodium (Depakote) 500 mg QID PO 11/06/20 21:00 11/09/20 18:54 DC 11/09/20 17:07 Nicotine Polacrilex (Nicorette Gum) 2 mg PRN Q1HR PRN BC SMOKING CESSATION 11/07/20 17:00 11/16/20 13:11 Divalproex Sodium (Depakote) 500 mg 1300,1700 PO 11/10/20 13:00 11/13/20 16:42 DC 11/13/20 12:21 Divalproex Sodium (Depakote) 750 mg BID PO 11/09/20 21:00 11/13/20 16:42 DC 11/13/20 08:23 Hydroxyzine Pamoate (Vistaril) 50 mg TID PO 11/11/20 21:00 11/24/20 21:20 Trazodone HCl (Desyrel) 50 mg HS PO 11/11/20 21:00 11/24/20 21:19 Trazodone HCl (Desyrel) 50 mg PRN QHS PRN PO INSOMNIA 11/11/20 18:00 11/21/20 20:05 Valproic Acid (Depakene) 750 mg BID PO 11/13/20 21:00 11/17/20 12:40 DC 11/17/20 08:19 Valproic Acid (Depakene) 500 mg BID@1300,1700 PO 11/13/20 17:00 11/17/20 12:40 DC 11/16/20 17:36 Valproic Acid (Depakene) 750 mg BID@1300,1700 PO 11/17/20 13:00 11/24/20 17:39 Valproic Acid (Depakene) 1,000 mg BID PO 11/17/20 21:00 11/24/20 21:18 I have reviewed the current psychotropics carefully including drug interactions. Risk benefit ratio favors no change other than as noted in my dictated progress note. Diagnosis: Problems: (1) Schizoaffective disorder, bipolar type (2) Impulse control disorder, unspecified (3) Anxiety disorder, unspecified (4) Bipolar disorder, current episode mixed, severe, with psychotic features (5) Mild cognitive impairment VIANNEY HAWLEY MD Nov 25, 2020 06:14
--- NOTE | 2020-11-25 06:24 | PDOC ---
Exam Note: Adams Note: This note is a late entry for 11/24/2020overs elements not covered in my initial note. Subjective: The patient was reviewed at treatment team meeting individually in the morning on 11/24/2020 with Diana Camacho, Krista Glover (social work case manager), Mariela, activity therapy and Sandy GANT, discussed and reviewed the chart. He slept 6-1/2 hours previous night. Appetite is 75%. He has not been agitated or aggressive. He has been hoarding things. He has attended 2 groups in the past one week. Review of Systems: Ambulation impaired in wheelchair. No CV, , pulmonary, eye system symptoms on review. The patient was in bed. Mental Status Exam: The patient is oriented to himself and situation. He is quite verbal, appropriate, less frustrated with staff today. Speech coherent. Thought processes is goal directed. Intellect average. Abstraction fair. Computation impaired. Language function intact. Attention span is short. No suicidal or homicidal ideation. Laboratory Data: Reviewed. Impression: Schizoaffective disorder bipolar type mixed with psychotic features. Anxiety disorder unspecified. Impulse control disorder unspecified. Mild cognitive impairment. Plan: Continue rest psychotropics unchanged. Assessment: Vital Signs/I&O: Vital Signs Date Time Temp Pulse Resp B/P (MAP) Pulse Ox O2 Delivery O2 Flow Rate FiO2 11/25/20 06:09 97.3 57 16 110/73 (85) 98 11/25/20 01:19 Room Air I & O 11/24/20 11/24/20 11/25/20 15:00 23:00 07:00 Intake Total 1440 ml 480 ml Balance 1440 ml 480 ml Current Medications: Meds: Current Medications Medications (Trade) Dose Ordered Sig/Guillermo Route PRN Reason Start Time Stop Time Status Last Admin Dose Admin Acetaminophen (Tylenol) 650 mg PRN Q6HRS PRN PO MILD PAIN / TEMP > 100.3'F 10/31/20 16:15 11/19/20 13:52 Multi-Ingredient Ointment (Analgesic [place]) 1 ambrocio PRN QID PRN TP MUSCLE PAIN 10/31/20 16:15 Al Hydroxide/Mg Hydroxide (Mylanta Plus Xs) 15 ml PRN AFTMEALHC PRN PO DYSPEPSIA 10/31/20 16:15 Magnesium Hydroxide (Milk Of Magnesia) 2,400 mg PRN QHS PRN PO CONSTIPATION 10/31/20 16:15 Aspirin (Aspirin Chewable) 81 mg DAILY PO 11/01/20 09:00 11/24/20 08:47 Dexamethasone (Decadron) 4 mg BID PO 10/31/20 21:00 11/24/20 21:18 Divalproex Sodium (Depakote) 250 mg QID PO 10/31/20 17:00 11/02/20 15:56 DC 11/02/20 14:10 Donepezil HCl (Aricept) 5 mg QHS PO 10/31/20 21:00 11/17/20 12:40 DC 11/16/20 19:59 Gabapentin (Neurontin) 200 mg TID PO 10/31/20 21:00 11/24/20 21:18 Mirtazapine (Remeron) 7.5 mg QHS PO 10/31/20 21:00 11/04/20 18:40 DC 11/03/20 20:42 Morphine Sulfate (Ms Contin) 15 mg BID PO 10/31/20 21:00 11/24/20 21:19 Phenytoin Sodium (Dilantin) 200 mg BID PO 10/31/20 21:00 11/24/20 21:19 Sertraline HCl (Zoloft) 25 mg DAILY PO 11/01/20 09:00 11/01/20 17:15 DC 11/01/20 09:55 Venlafaxine HCl (Effexor Xr) 75 mg DAILY PO 11/01/20 09:00 11/24/20 08:47 Morphine Sulfate (Ms Contin) 30 mg BID PO 10/31/20 21:00 11/24/20 21:19 Nicotine (Nicoderm Cq 14mg Patch) 1 patch DAILY TD 10/31/20 17:30 11/03/20 22:25 DC 11/03/20 08:17 Olanzapine (ZyPREXA ZYDIS) 2.5 mg PRN Q2HR PRN PO PSYCHOSIS 10/31/20 18:30 Sertraline HCl (Zoloft) 50 mg DAILY PO 11/02/20 09:00 11/02/20 15:56 DC 11/02/20 08:27 Hydroxyzine Pamoate (Vistaril) 25 mg TID PO 11/01/20 21:00 11/11/20 16:27 DC 11/11/20 12:20 Divalproex Sodium (Depakote) 375 mg QID PO 11/02/20 17:00 11/06/20 17:27 DC 11/06/20 17:09 Nicotine (Nicoderm Cq 21mg Patch) 1 patch DAILY TD 11/04/20 09:00 11/24/20 08:46 Mirtazapine (Remeron) 15 mg QHS PO 11/04/20 21:00 11/24/20 21:20 Trazodone HCl (Desyrel) 50 mg PRN QHS PRN PO INSOMNIA, MAY REPEAT X1 11/04/20 18:45 11/11/20 18:01 DC 11/08/20 20:22 Divalproex Sodium (Depakote) 500 mg QID PO 11/06/20 21:00 11/09/20 18:54 DC 11/09/20 17:07 Nicotine Polacrilex (Nicorette Gum) 2 mg PRN Q1HR PRN BC SMOKING CESSATION 11/07/20 17:00 11/16/20 13:11 Divalproex Sodium (Depakote) 500 mg 1300,1700 PO 11/10/20 13:00 11/13/20 16:42 DC 11/13/20 12:21 Divalproex Sodium (Depakote) 750 mg BID PO 11/09/20 21:00 11/13/20 16:42 DC 11/13/20 08:23 Hydroxyzine Pamoate (Vistaril) 50 mg TID PO 11/11/20 21:00 11/24/20 21:20 Trazodone HCl (Desyrel) 50 mg HS PO 11/11/20 21:00 11/24/20 21:19 Trazodone HCl (Desyrel) 50 mg PRN QHS PRN PO INSOMNIA 11/11/20 18:00 11/21/20 20:05 Valproic Acid (Depakene) 750 mg BID PO 11/13/20 21:00 11/17/20 12:40 DC 11/17/20 08:19 Valproic Acid (Depakene) 500 mg BID@1300,1700 PO 11/13/20 17:00 11/17/20 12:40 DC 11/16/20 17:36 Valproic Acid (Depakene) 750 mg BID@1300,1700 PO 11/17/20 13:00 11/24/20 17:39 Valproic Acid (Depakene) 1,000 mg BID PO 11/17/20 21:00 11/24/20 21:18 I have reviewed the current psychotropics carefully including drug interactions. Risk benefit ratio favors no change other than as noted in my dictated progress note. Diagnosis: Problems: (1) Schizoaffective disorder, bipolar type (2) Impulse control disorder, unspecified (3) Anxiety disorder, unspecified (4) Bipolar disorder, current episode mixed, severe, with psychotic features (5) Mild cognitive impairment VIANNEY HAWLEY MD Nov 25, 2020 06:24
[2020-11-25] MEDS: NICOTINE 21MG PATCH. TD SCH (08:40)
[2020-11-25] MEDS: DEXAMETHASONE 4 MG TABLET PO SCH ×2 (08:41→20:26)
[2020-11-25] MEDS: ASPIRIN CHEWABLE 81 MG TABLET. PO SCH (08:41)
[2020-11-25] MEDS: hydrOXYzine PAMOATE 25 MG CAPSULE PO SCH ×3 (08:41→20:26)
[2020-11-25] MEDS: VENLAFAXINE XR 37.5 MG CAP.ER.24H. PO SCH (08:41)
[2020-11-25] MEDS: GABAPENTIN 100 MG CAPSULE. PO SCH ×3 (08:41→20:26)
[2020-11-25] MEDS: PHENYTOIN SODIUM EXTENDED 100 MG CAPSULE PO SCH ×2 (08:41→20:26)
[2020-11-25] MEDS: VALPROATE ACID 250 MG/5 ML ORAL SOLUTION PO SCH ×4 (08:42→20:27)
[2020-11-25] MEDS: MORPHINE ER 30 MG TABLET.ER PO SCH ×2 (08:43→20:25)
[2020-11-25] MEDS: MORPHINE ER 15 MG TABLET.ER PO SCH ×2 (08:43→20:26)
[2020-11-25 15:59] VITALS: BP 100/65
[2020-11-25] MEDS: MIRTAZAPINE 15 MG TABLET PO SCH (20:26)
[2020-11-25] MEDS: traZODone 50 MG TABLET. PO SCH (20:26)
--- NOTE | 2020-11-25 22:06 | PDOC ---
Exam Note: Adams Note: Please also refer to the separate dictated note~for this date of service dictated separately.~Patient seen individually. Discussed the patient with Nursing staff reviewed the chart.~Reviewed interim history and current functioning. Reviewed vital signs,~Labs/ Radiology~and current medications noted below. Continue current treatment with the changes noted in the dictated addendum note Assessment: Vital Signs/I&O: Vital Signs Date Time Temp Pulse Resp B/P (MAP) Pulse Ox O2 Delivery O2 Flow Rate FiO2 11/25/20 20:26 97 11/25/20 15:59 97.8 78 17 100/65 (77) Room Air I & O 11/24/20 11/24/20 11/25/20 15:00 23:00 07:00 Intake Total 1440 ml 480 ml Balance 1440 ml 480 ml Current Medications: Meds: Current Medications Medications (Trade) Dose Ordered Sig/Guillermo Route PRN Reason Start Time Stop Time Status Last Admin Dose Admin Acetaminophen (Tylenol) 650 mg PRN Q6HRS PRN PO MILD PAIN / TEMP > 100.3'F 10/31/20 16:15 11/19/20 13:52 Multi-Ingredient Ointment (Analgesic [place]) 1 ambrocio PRN QID PRN TP MUSCLE PAIN 10/31/20 16:15 Al Hydroxide/Mg Hydroxide (Mylanta Plus Xs) 15 ml PRN AFTMEALHC PRN PO DYSPEPSIA 10/31/20 16:15 Magnesium Hydroxide (Milk Of Magnesia) 2,400 mg PRN QHS PRN PO CONSTIPATION 10/31/20 16:15 Aspirin (Aspirin Chewable) 81 mg DAILY PO 11/01/20 09:00 11/25/20 08:41 Dexamethasone (Decadron) 4 mg BID PO 10/31/20 21:00 11/25/20 20:26 Divalproex Sodium (Depakote) 250 mg QID PO 10/31/20 17:00 11/02/20 15:56 DC 11/02/20 14:10 Donepezil HCl (Aricept) 5 mg QHS PO 10/31/20 21:00 11/17/20 12:40 DC 11/16/20 19:59 Gabapentin (Neurontin) 200 mg TID PO 10/31/20 21:00 11/25/20 20:26 Mirtazapine (Remeron) 7.5 mg QHS PO 10/31/20 21:00 11/04/20 18:40 DC 11/03/20 20:42 Morphine Sulfate (Ms Contin) 15 mg BID PO 10/31/20 21:00 11/25/20 20:26 Phenytoin Sodium (Dilantin) 200 mg BID PO 10/31/20 21:00 11/25/20 20:26 Sertraline HCl (Zoloft) 25 mg DAILY PO 11/01/20 09:00 11/01/20 17:15 DC 11/01/20 09:55 Venlafaxine HCl (Effexor Xr) 75 mg DAILY PO 11/01/20 09:00 11/25/20 08:41 Morphine Sulfate (Ms Contin) 30 mg BID PO 10/31/20 21:00 11/25/20 20:25 Nicotine (Nicoderm Cq 14mg Patch) 1 patch DAILY TD 10/31/20 17:30 11/03/20 22:25 DC 11/03/20 08:17 Olanzapine (ZyPREXA ZYDIS) 2.5 mg PRN Q2HR PRN PO PSYCHOSIS 10/31/20 18:30 Sertraline HCl (Zoloft) 50 mg DAILY PO 11/02/20 09:00 11/02/20 15:56 DC 11/02/20 08:27 Hydroxyzine Pamoate (Vistaril) 25 mg TID PO 11/01/20 21:00 11/11/20 16:27 DC 11/11/20 12:20 Divalproex Sodium (Depakote) 375 mg QID PO 11/02/20 17:00 11/06/20 17:27 DC 11/06/20 17:09 Nicotine (Nicoderm Cq 21mg Patch) 1 patch DAILY TD 11/04/20 09:00 11/25/20 08:40 Mirtazapine (Remeron) 15 mg QHS PO 11/04/20 21:00 11/25/20 20:26 Trazodone HCl (Desyrel) 50 mg PRN QHS PRN PO INSOMNIA, MAY REPEAT X1 11/04/20 18:45 11/11/20 18:01 DC 11/08/20 20:22 Divalproex Sodium (Depakote) 500 mg QID PO 11/06/20 21:00 11/09/20 18:54 DC 11/09/20 17:07 Nicotine Polacrilex (Nicorette Gum) 2 mg PRN Q1HR PRN BC SMOKING CESSATION 11/07/20 17:00 11/16/20 13:11 Divalproex Sodium (Depakote) 500 mg 1300,1700 PO 11/10/20 13:00 11/13/20 16:42 DC 11/13/20 12:21 Divalproex Sodium (Depakote) 750 mg BID PO 11/09/20 21:00 11/13/20 16:42 DC 11/13/20 08:23 Hydroxyzine Pamoate (Vistaril) 50 mg TID PO 11/11/20 21:00 11/25/20 20:26 Trazodone HCl (Desyrel) 50 mg HS PO 11/11/20 21:00 11/25/20 20:26 Trazodone HCl (Desyrel) 50 mg PRN QHS PRN PO INSOMNIA 11/11/20 18:00 11/21/20 20:05 Valproic Acid (Depakene) 750 mg BID PO 11/13/20 21:00 11/17/20 12:40 DC 11/17/20 08:19 Valproic Acid (Depakene) 500 mg BID@1300,1700 PO 11/13/20 17:00 11/17/20 12:40 DC 11/16/20 17:36 Valproic Acid (Depakene) 750 mg BID@1300,1700 PO 11/17/20 13:00 11/25/20 17:21 Valproic Acid (Depakene) 1,000 mg BID PO 11/17/20 21:00 11/25/20 20:27 I have reviewed the current psychotropics carefully including drug interactions. Risk benefit ratio favors no change other than as noted in my dictated progress note. Diagnosis: Problems: (1) Schizoaffective disorder, bipolar type (2) Impulse control disorder, unspecified (3) Anxiety disorder, unspecified (4) Bipolar disorder, current episode mixed, severe, with psychotic features (5) Mild cognitive impairment VIANNEY HAWLEY MD Nov 25, 2020 22:06
[2020-11-26 06:15] VITALS: BP 97/64
[2020-11-26] MEDS: VALPROATE ACID 250 MG/5 ML ORAL SOLUTION PO SCH ×4 (08:30→20:09)
[2020-11-26] MEDS: PHENYTOIN SODIUM EXTENDED 100 MG CAPSULE PO SCH ×2 (08:31→20:07)
[2020-11-26] MEDS: ASPIRIN CHEWABLE 81 MG TABLET. PO SCH (08:31)
[2020-11-26] MEDS: DEXAMETHASONE 4 MG TABLET PO SCH ×2 (08:32→20:08)
[2020-11-26] MEDS: hydrOXYzine PAMOATE 25 MG CAPSULE PO SCH ×3 (08:32→20:08)
[2020-11-26] MEDS: GABAPENTIN 100 MG CAPSULE. PO SCH ×3 (08:32→20:08)
[2020-11-26] MEDS: VENLAFAXINE XR 37.5 MG CAP.ER.24H. PO SCH (08:32)
[2020-11-26] MEDS: MORPHINE ER 15 MG TABLET.ER PO SCH ×2 (08:33→20:08)
[2020-11-26] MEDS: MORPHINE ER 30 MG TABLET.ER PO SCH ×2 (08:33→20:08)
[2020-11-26] MEDS: NICOTINE 21MG PATCH. TD SCH (08:33)
[2020-11-26] MEDS: ACETAMINOPHEN 325 MG TABLET PO PRN (12:23)
[2020-11-26 15:15] VITALS: BP 109/75
[2020-11-26] MEDS: MIRTAZAPINE 15 MG TABLET PO SCH (20:07)
[2020-11-26] MEDS: traZODone 50 MG TABLET. PO SCH (20:08)
--- NOTE | 2020-11-26 22:17 | PDOC ---
Exam Note: Adams Note: Please also refer to the separate dictated note~for this date of service dictated separately. Discussed the patient with Nursing staff reviewed the chart.~Reviewed interim history and current functioning. Reviewed vital signs,~Labs/ Radiology~and current medications noted below. Continue current treatment with the changes noted in the dictated addendum note Assessment: Vital Signs/I&O: Vital Signs Date Time Temp Pulse Resp B/P (MAP) Pulse Ox O2 Delivery O2 Flow Rate FiO2 11/26/20 20:08 96 11/26/20 15:15 97.4 66 20 109/75 (86) Room Air I & O 11/25/20 11/25/20 11/26/20 15:00 23:00 07:00 Intake Total 840 ml 720 ml Balance 840 ml 720 ml Current Medications: Meds: Current Medications Medications (Trade) Dose Ordered Sig/Guillermo Route PRN Reason Start Time Stop Time Status Last Admin Dose Admin Acetaminophen (Tylenol) 650 mg PRN Q6HRS PRN PO MILD PAIN / TEMP > 100.3'F 10/31/20 16:15 11/26/20 12:23 Multi-Ingredient Ointment (Analgesic [place]) 1 ambrocio PRN QID PRN TP MUSCLE PAIN 10/31/20 16:15 Al Hydroxide/Mg Hydroxide (Mylanta Plus Xs) 15 ml PRN AFTMEALHC PRN PO DYSPEPSIA 10/31/20 16:15 Magnesium Hydroxide (Milk Of Magnesia) 2,400 mg PRN QHS PRN PO CONSTIPATION 10/31/20 16:15 Aspirin (Aspirin Chewable) 81 mg DAILY PO 11/01/20 09:00 11/26/20 08:31 Dexamethasone (Decadron) 4 mg BID PO 10/31/20 21:00 11/26/20 20:08 Divalproex Sodium (Depakote) 250 mg QID PO 10/31/20 17:00 11/02/20 15:56 DC 11/02/20 14:10 Donepezil HCl (Aricept) 5 mg QHS PO 10/31/20 21:00 11/17/20 12:40 DC 11/16/20 19:59 Gabapentin (Neurontin) 200 mg TID PO 10/31/20 21:00 11/26/20 20:08 Mirtazapine (Remeron) 7.5 mg QHS PO 10/31/20 21:00 11/04/20 18:40 DC 11/03/20 20:42 Morphine Sulfate (Ms Contin) 15 mg BID PO 10/31/20 21:00 11/26/20 20:08 Phenytoin Sodium (Dilantin) 200 mg BID PO 10/31/20 21:00 11/26/20 20:07 Sertraline HCl (Zoloft) 25 mg DAILY PO 11/01/20 09:00 11/01/20 17:15 DC 11/01/20 09:55 Venlafaxine HCl (Effexor Xr) 75 mg DAILY PO 11/01/20 09:00 11/26/20 08:32 Morphine Sulfate (Ms Contin) 30 mg BID PO 10/31/20 21:00 11/26/20 20:08 Nicotine (Nicoderm Cq 14mg Patch) 1 patch DAILY TD 10/31/20 17:30 11/03/20 22:25 DC 11/03/20 08:17 Olanzapine (ZyPREXA ZYDIS) 2.5 mg PRN Q2HR PRN PO PSYCHOSIS 10/31/20 18:30 Sertraline HCl (Zoloft) 50 mg DAILY PO 11/02/20 09:00 11/02/20 15:56 DC 11/02/20 08:27 Hydroxyzine Pamoate (Vistaril) 25 mg TID PO 11/01/20 21:00 11/11/20 16:27 DC 11/11/20 12:20 Divalproex Sodium (Depakote) 375 mg QID PO 11/02/20 17:00 11/06/20 17:27 DC 11/06/20 17:09 Nicotine (Nicoderm Cq 21mg Patch) 1 patch DAILY TD 11/04/20 09:00 11/26/20 18:32 DC 11/26/20 08:33 Mirtazapine (Remeron) 15 mg QHS PO 11/04/20 21:00 11/26/20 20:07 Trazodone HCl (Desyrel) 50 mg PRN QHS PRN PO INSOMNIA, MAY REPEAT X1 11/04/20 18:45 11/11/20 18:01 DC 11/08/20 20:22 Divalproex Sodium (Depakote) 500 mg QID PO 11/06/20 21:00 11/09/20 18:54 DC 11/09/20 17:07 Nicotine Polacrilex (Nicorette Gum) 2 mg PRN Q1HR PRN BC SMOKING CESSATION 11/07/20 17:00 11/16/20 13:11 Divalproex Sodium (Depakote) 500 mg 1300,1700 PO 11/10/20 13:00 11/13/20 16:42 DC 11/13/20 12:21 Divalproex Sodium (Depakote) 750 mg BID PO 11/09/20 21:00 11/13/20 16:42 DC 11/13/20 08:23 Hydroxyzine Pamoate (Vistaril) 50 mg TID PO 11/11/20 21:00 11/26/20 20:08 Trazodone HCl (Desyrel) 50 mg HS PO 11/11/20 21:00 11/26/20 20:08 Trazodone HCl (Desyrel) 50 mg PRN QHS PRN PO INSOMNIA 11/11/20 18:00 11/21/20 20:05 Valproic Acid (Depakene) 750 mg BID PO 11/13/20 21:00 11/17/20 12:40 DC 11/17/20 08:19 Valproic Acid (Depakene) 500 mg BID@1300,1700 PO 11/13/20 17:00 11/17/20 12:40 DC 11/16/20 17:36 Valproic Acid (Depakene) 750 mg BID@1300,1700 PO 11/17/20 13:00 11/26/20 16:13 Valproic Acid (Depakene) 1,000 mg BID PO 11/17/20 21:00 11/26/20 20:09 Nicotine (Nicoderm Cq 14mg Patch) 1 patch DAILY TD 11/27/20 09:00 I have reviewed the current psychotropics carefully including drug interactions. Risk benefit ratio favors no change other than as noted in my dictated progress note. Diagnosis: Problems: (1) Schizoaffective disorder, bipolar type (2) Impulse control disorder, unspecified (3) Anxiety disorder, unspecified (4) Bipolar disorder, current episode mixed, severe, with psychotic features (5) Mild cognitive impairment VIANNEY HAWLEY MD Nov 26, 2020 22:17
[2020-11-27 06:01] VITALS: BP 103/55
--- NOTE | 2020-11-27 06:22 | PDOC ---
Exam Note: Adams Note: This note is a late entry for 11/25/2020overs elements not covered in my initial note. Subjective: The patient was seen individually in the evening of 11/25/2020 with Susannah GANT, discussed and reviewed the chart. He slept 6 hours previous night. He was withdrawn, irritable at dinner time, questionably flushing medications but no suicidal or homicidal ideation. I met with him in his room. Review of Systems: He complains of being tired. Impaired ambulation, in wheelchair. No CV, , pulmonary, eye system symptoms on review. Mental Status Exam: The patient is oriented to himself and situation. Speech coherent. Abstraction fair. Computation impaired. Language function intact. Attention span is short. No suicidal or homicidal ideation. Laboratory Data: Reviewed. Impression: Schizoaffective disorder bipolar type mixed with psychotic features. Anxiety disorder unspecified. Impulse control disorder unspecified. Mild cognitive impairment. Plan: We will adjust psychotropics as clinically indicated. Assessment: Vital Signs/I&O: Vital Signs Date Time Temp Pulse Resp B/P (MAP) Pulse Ox O2 Delivery O2 Flow Rate FiO2 11/27/20 06:01 97.8 56 16 103/55 (71) 93 11/26/20 15:15 Room Air I & O 11/26/20 11/26/20 11/27/20 15:00 23:00 07:00 Intake Total 960 ml 740 ml Balance 960 ml 740 ml Current Medications: Meds: Current Medications Medications (Trade) Dose Ordered Sig/Guillermo Route PRN Reason Start Time Stop Time Status Last Admin Dose Admin Acetaminophen (Tylenol) 650 mg PRN Q6HRS PRN PO MILD PAIN / TEMP > 100.3'F 10/31/20 16:15 11/26/20 12:23 Multi-Ingredient Ointment (Analgesic [place]) 1 ambrocio PRN QID PRN TP MUSCLE PAIN 10/31/20 16:15 Al Hydroxide/Mg Hydroxide (Mylanta Plus Xs) 15 ml PRN AFTMEALHC PRN PO DYSPEPSIA 10/31/20 16:15 Magnesium Hydroxide (Milk Of Magnesia) 2,400 mg PRN QHS PRN PO CONSTIPATION 10/31/20 16:15 Aspirin (Aspirin Chewable) 81 mg DAILY PO 11/01/20 09:00 11/26/20 08:31 Dexamethasone (Decadron) 4 mg BID PO 10/31/20 21:00 11/26/20 20:08 Divalproex Sodium (Depakote) 250 mg QID PO 10/31/20 17:00 11/02/20 15:56 DC 11/02/20 14:10 Donepezil HCl (Aricept) 5 mg QHS PO 10/31/20 21:00 11/17/20 12:40 DC 11/16/20 19:59 Gabapentin (Neurontin) 200 mg TID PO 10/31/20 21:00 11/26/20 20:08 Mirtazapine (Remeron) 7.5 mg QHS PO 10/31/20 21:00 11/04/20 18:40 DC 11/03/20 20:42 Morphine Sulfate (Ms Contin) 15 mg BID PO 10/31/20 21:00 11/26/20 20:08 Phenytoin Sodium (Dilantin) 200 mg BID PO 10/31/20 21:00 11/26/20 20:07 Sertraline HCl (Zoloft) 25 mg DAILY PO 11/01/20 09:00 11/01/20 17:15 DC 11/01/20 09:55 Venlafaxine HCl (Effexor Xr) 75 mg DAILY PO 11/01/20 09:00 11/26/20 08:32 Morphine Sulfate (Ms Contin) 30 mg BID PO 10/31/20 21:00 11/26/20 20:08 Nicotine (Nicoderm Cq 14mg Patch) 1 patch DAILY TD 10/31/20 17:30 11/03/20 22:25 DC 11/03/20 08:17 Olanzapine (ZyPREXA ZYDIS) 2.5 mg PRN Q2HR PRN PO PSYCHOSIS 10/31/20 18:30 Sertraline HCl (Zoloft) 50 mg DAILY PO 11/02/20 09:00 11/02/20 15:56 DC 11/02/20 08:27 Hydroxyzine Pamoate (Vistaril) 25 mg TID PO 11/01/20 21:00 11/11/20 16:27 DC 11/11/20 12:20 Divalproex Sodium (Depakote) 375 mg QID PO 11/02/20 17:00 11/06/20 17:27 DC 11/06/20 17:09 Nicotine (Nicoderm Cq 21mg Patch) 1 patch DAILY TD 11/04/20 09:00 11/26/20 18:32 DC 11/26/20 08:33 Mirtazapine (Remeron) 15 mg QHS PO 11/04/20 21:00 11/26/20 20:07 Trazodone HCl (Desyrel) 50 mg PRN QHS PRN PO INSOMNIA, MAY REPEAT X1 11/04/20 18:45 11/11/20 18:01 DC 11/08/20 20:22 Divalproex Sodium (Depakote) 500 mg QID PO 11/06/20 21:00 11/09/20 18:54 DC 11/09/20 17:07 Nicotine Polacrilex (Nicorette Gum) 2 mg PRN Q1HR PRN BC SMOKING CESSATION 11/07/20 17:00 11/16/20 13:11 Divalproex Sodium (Depakote) 500 mg 1300,1700 PO 11/10/20 13:00 11/13/20 16:42 DC 11/13/20 12:21 Divalproex Sodium (Depakote) 750 mg BID PO 11/09/20 21:00 11/13/20 16:42 DC 11/13/20 08:23 Hydroxyzine Pamoate (Vistaril) 50 mg TID PO 11/11/20 21:00 11/26/20 20:08 Trazodone HCl (Desyrel) 50 mg HS PO 11/11/20 21:00 11/26/20 20:08 Trazodone HCl (Desyrel) 50 mg PRN QHS PRN PO INSOMNIA 11/11/20 18:00 11/21/20 20:05 Valproic Acid (Depakene) 750 mg BID PO 11/13/20 21:00 11/17/20 12:40 DC 11/17/20 08:19 Valproic Acid (Depakene) 500 mg BID@1300,1700 PO 11/13/20 17:00 11/17/20 12:40 DC 11/16/20 17:36 Valproic Acid (Depakene) 750 mg BID@1300,1700 PO 11/17/20 13:00 11/26/20 16:13 Valproic Acid (Depakene) 1,000 mg BID PO 11/17/20 21:00 11/26/20 20:09 Nicotine (Nicoderm Cq 14mg Patch) 1 patch DAILY TD 11/27/20 09:00 I have reviewed the current psychotropics carefully including drug interactions. Risk benefit ratio favors no change other than as noted in my dictated progress note. Diagnosis: Problems: (1) Schizoaffective disorder, bipolar type (2) Impulse control disorder, unspecified (3) Anxiety disorder, unspecified (4) Bipolar disorder, current episode mixed, severe, with psychotic features (5) Mild cognitive impairment VIANNEY HAWLEY MD Nov 27, 2020 06:22
[2020-11-27] MEDS: VALPROATE ACID 250 MG/5 ML ORAL SOLUTION PO SCH ×4 (08:13→20:13)
[2020-11-27] MEDS: NICOTINE 14MG PATCH. TD SCH (08:13)
[2020-11-27] MEDS: GABAPENTIN 100 MG CAPSULE. PO SCH ×3 (08:13→20:14)
[2020-11-27] MEDS: hydrOXYzine PAMOATE 25 MG CAPSULE PO SCH ×3 (08:14→20:14)
[2020-11-27] MEDS: ASPIRIN CHEWABLE 81 MG TABLET. PO SCH (08:14)
[2020-11-27] MEDS: VENLAFAXINE XR 37.5 MG CAP.ER.24H. PO SCH (08:14)
[2020-11-27] MEDS: MORPHINE ER 15 MG TABLET.ER PO SCH ×2 (08:14→20:14)
[2020-11-27] MEDS: MORPHINE ER 30 MG TABLET.ER PO SCH ×2 (08:14→20:14)
[2020-11-27] MEDS: DEXAMETHASONE 4 MG TABLET PO SCH ×2 (08:15→20:14)
[2020-11-27] MEDS: PHENYTOIN SODIUM EXTENDED 100 MG CAPSULE PO SCH ×2 (08:15→20:14)
[2020-11-27 09:42] LABS: BASO # 0.1 x10^3/uL (0.0-0.2); BASO % 1 % (0-3); EOS # 0.6 x10^3/uL (0.0-0.7); EOS % 8 % (0-3); LYMPH # 1.5 x10^3/uL (1.0-4.8); LYMPH % 20 % (24-48); MEAN CORPUSCULAR HEMOGLOBIN 31 pg (25-35); MEAN CORPUSCULAR HGB CONC 33 g/dL (31-37); MEAN CORPUSCULAR VOLUME 94 fL (79-100); MONO # 0.7 x10^3/uL (0.0-1.1); MONO % 9 % (0-9); NEUT # 4.8 x10^3uL (1.8-7.7); NEUT % 63 % (31-73); PLATELET COUNT 225 x10^3/uL (140-400); RED BLOOD COUNT 4.27 x10^6/uL (4.30-5.70); RED CELL DISTRIBUTION WIDTH 14.8 % (11.5-14.5); WHITE BLOOD COUNT 7.7 x10^3/uL (4.0-11.0)
[2020-11-27 09:56] LABS: ALBUMIN/GLOBULIN RATIO 0.8 (1.0-1.7); CALCIUM 8.8 mg/dL (8.5-10.1); CREATININE 0.8 mg/dL (0.7-1.3); GFR 97.3; POTASSIUM 3.5 mmol/L (3.5-5.1); TOTAL BILIRUBIN 0.2 mg/dL (0.2-1.0); TOTAL PROTEIN 6.6 g/dL (6.4-8.2)
[2020-11-27 15:54] VITALS: BP 103/66
[2020-11-27] MEDS: traZODone 50 MG TABLET. PO SCH (20:13)
[2020-11-27] MEDS: MIRTAZAPINE 15 MG TABLET PO SCH (20:13)
[2020-11-28] MEDS: traZODone 50 MG TABLET. PO PRN (01:43)
[2020-11-28 05:39] VITALS: BP 100/76
[2020-11-28] MEDS: VENLAFAXINE XR 37.5 MG CAP.ER.24H. PO SCH (08:24)
[2020-11-28] MEDS: hydrOXYzine PAMOATE 25 MG CAPSULE PO SCH ×3 (08:24→20:30)
[2020-11-28] MEDS: MORPHINE ER 15 MG TABLET.ER PO SCH ×2 (08:24→20:30)
[2020-11-28] MEDS: VALPROATE ACID 250 MG/5 ML ORAL SOLUTION PO SCH ×4 (08:24→20:29)
[2020-11-28] MEDS: MORPHINE ER 30 MG TABLET.ER PO SCH ×2 (08:25→20:30)
[2020-11-28] MEDS: ASPIRIN CHEWABLE 81 MG TABLET. PO SCH (08:25)
[2020-11-28] MEDS: PHENYTOIN SODIUM EXTENDED 100 MG CAPSULE PO SCH ×2 (08:25→20:29)
[2020-11-28] MEDS: GABAPENTIN 100 MG CAPSULE. PO SCH ×3 (08:25→20:29)
[2020-11-28] MEDS: DEXAMETHASONE 4 MG TABLET PO SCH ×2 (08:25→20:29)
[2020-11-28] MEDS: NICOTINE 14MG PATCH. TD SCH (08:26)
--- NOTE | 2020-11-28 09:39 | PDOC ---
Exam Note: Adams Note: Late entry for 11/27/2020. Please also refer to the separate dictated note~for this date of service dictated separately.~Patient seen individually. Discussed the patient with Nursing staff reviewed the chart.~Reviewed interim history and current functioning. Reviewed vital signs,~Labs/ Radiology~and current medic ations noted below. Continue current treatment with the changes noted in the dictated addendum note Assessment: Vital Signs/I&O: Vital Signs Date Time Temp Pulse Resp B/P (MAP) Pulse Ox O2 Delivery O2 Flow Rate FiO2 11/28/20 08:25 93 11/28/20 05:39 97.9 73 20 100/76 (84) 11/26/20 15:15 Room Air I & O 11/27/20 11/27/20 11/28/20 15:00 23:00 07:00 Intake Total 960 ml 480 ml Balance 960 ml 480 ml Current Medications: Meds: Current Medications Medications (Trade) Dose Ordered Sig/Guillermo Route PRN Reason Start Time Stop Time Status Last Admin Dose Admin Acetaminophen (Tylenol) 650 mg PRN Q6HRS PRN PO MILD PAIN / TEMP > 100.3'F 10/31/20 16:15 11/26/20 12:23 Multi-Ingredient Ointment (Analgesic [place]) 1 ambrocio PRN QID PRN TP MUSCLE PAIN 10/31/20 16:15 Al Hydroxide/Mg Hydroxide (Mylanta Plus Xs) 15 ml PRN AFTMEALHC PRN PO DYSPEPSIA 10/31/20 16:15 Magnesium Hydroxide (Milk Of Magnesia) 2,400 mg PRN QHS PRN PO CONSTIPATION 10/31/20 16:15 Aspirin (Aspirin Chewable) 81 mg DAILY PO 11/01/20 09:00 11/28/20 08:25 Dexamethasone (Decadron) 4 mg BID PO 10/31/20 21:00 11/28/20 08:25 Divalproex Sodium (Depakote) 250 mg QID PO 10/31/20 17:00 11/02/20 15:56 DC 11/02/20 14:10 Donepezil HCl (Aricept) 5 mg QHS PO 10/31/20 21:00 11/17/20 12:40 DC 11/16/20 19:59 Gabapentin (Neurontin) 200 mg TID PO 10/31/20 21:00 11/28/20 08:25 Mirtazapine (Remeron) 7.5 mg QHS PO 10/31/20 21:00 11/04/20 18:40 DC 11/03/20 20:42 Morphine Sulfate (Ms Contin) 15 mg BID PO 10/31/20 21:00 11/28/20 08:24 Phenytoin Sodium (Dilantin) 200 mg BID PO 10/31/20 21:00 11/28/20 08:25 Sertraline HCl (Zoloft) 25 mg DAILY PO 11/01/20 09:00 11/01/20 17:15 DC 11/01/20 09:55 Venlafaxine HCl (Effexor Xr) 75 mg DAILY PO 11/01/20 09:00 11/28/20 08:24 Morphine Sulfate (Ms Contin) 30 mg BID PO 10/31/20 21:00 11/28/20 08:25 Nicotine (Nicoderm Cq 14mg Patch) 1 patch DAILY TD 10/31/20 17:30 11/03/20 22:25 DC 11/03/20 08:17 Olanzapine (ZyPREXA ZYDIS) 2.5 mg PRN Q2HR PRN PO PSYCHOSIS 10/31/20 18:30 Sertraline HCl (Zoloft) 50 mg DAILY PO 11/02/20 09:00 11/02/20 15:56 DC 11/02/20 08:27 Hydroxyzine Pamoate (Vistaril) 25 mg TID PO 11/01/20 21:00 11/11/20 16:27 DC 11/11/20 12:20 Divalproex Sodium (Depakote) 375 mg QID PO 11/02/20 17:00 11/06/20 17:27 DC 11/06/20 17:09 Nicotine (Nicoderm Cq 21mg Patch) 1 patch DAILY TD 11/04/20 09:00 11/26/20 18:32 DC 11/26/20 08:33 Mirtazapine (Remeron) 15 mg QHS PO 11/04/20 21:00 11/27/20 20:13 Trazodone HCl (Desyrel) 50 mg PRN QHS PRN PO INSOMNIA, MAY REPEAT X1 11/04/20 18:45 11/11/20 18:01 DC 11/08/20 20:22 Divalproex Sodium (Depakote) 500 mg QID PO 11/06/20 21:00 11/09/20 18:54 DC 11/09/20 17:07 Nicotine Polacrilex (Nicorette Gum) 2 mg PRN Q1HR PRN BC SMOKING CESSATION 11/07/20 17:00 11/16/20 13:11 Divalproex Sodium (Depakote) 500 mg 1300,1700 PO 11/10/20 13:00 11/13/20 16:42 DC 11/13/20 12:21 Divalproex Sodium (Depakote) 750 mg BID PO 11/09/20 21:00 11/13/20 16:42 DC 11/13/20 08:23 Hydroxyzine Pamoate (Vistaril) 50 mg TID PO 11/11/20 21:00 11/28/20 08:24 Trazodone HCl (Desyrel) 50 mg HS PO 11/11/20 21:00 11/27/20 20:13 Trazodone HCl (Desyrel) 50 mg PRN QHS PRN PO INSOMNIA 11/11/20 18:00 11/28/20 01:43 Valproic Acid (Depakene) 750 mg BID PO 11/13/20 21:00 11/17/20 12:40 DC 11/17/20 08:19 Valproic Acid (Depakene) 500 mg BID@1300,1700 PO 11/13/20 17:00 11/17/20 12:40 DC 11/16/20 17:36 Valproic Acid (Depakene) 750 mg BID@1300,1700 PO 11/17/20 13:00 11/27/20 17:40 Valproic Acid (Depakene) 1,000 mg BID PO 11/17/20 21:00 11/28/20 08:24 Nicotine (Nicoderm Cq 14mg Patch) 1 patch DAILY TD 11/27/20 09:00 11/28/20 08:26 I have reviewed the current psychotropics carefully including drug interactions. Risk benefit ratio favors no change other than as noted in my dictated progress note. Diagnosis: Problems: (1) Schizoaffective disorder, bipolar type (2) Impulse control disorder, unspecified (3) Anxiety disorder, unspecified (4) Bipolar disorder, current episode mixed, severe, with psychotic features (5) Mild cognitive impairment VIANNEY HAWLEY MD Nov 28, 2020 09:39
[2020-11-28 15:42] VITALS: BP 96/63
[2020-11-28] MEDS: ACETAMINOPHEN 325 MG TABLET PO PRN (17:46)
[2020-11-28] MEDS: traZODone 50 MG TABLET. PO SCH (20:30)
[2020-11-28] MEDS: MIRTAZAPINE 15 MG TABLET PO SCH (20:30)
--- NOTE | 2020-11-28 22:02 | PDOC ---
Exam Note: Adams Note: Please also refer to the separate dictated note~for this date of service dictated separately.~Patient seen individually. Discussed the patient with Nursing staff reviewed the chart.~Reviewed interim history and current functioning. Reviewed vital signs,~Labs/ Radiology~and current medications noted below. Continue current treatment with the changes noted in the dictated addendum note Assessment: Vital Signs/I&O: Vital Signs Date Time Temp Pulse Resp B/P (MAP) Pulse Ox O2 Delivery O2 Flow Rate FiO2 11/28/20 20:30 95 11/28/20 15:42 97.9 75 16 96/63 (74) Room Air I & O 11/27/20 11/27/20 11/28/20 15:00 23:00 07:00 Intake Total 960 ml 480 ml Balance 960 ml 480 ml Current Medications: Meds: Current Medications Medications (Trade) Dose Ordered Sig/Guillermo Route PRN Reason Start Time Stop Time Status Last Admin Dose Admin Acetaminophen (Tylenol) 650 mg PRN Q6HRS PRN PO MILD PAIN / TEMP > 100.3'F 10/31/20 16:15 11/28/20 17:46 Multi-Ingredient Ointment (Analgesic [place]) 1 ambrocio PRN QID PRN TP MUSCLE PAIN 10/31/20 16:15 Al Hydroxide/Mg Hydroxide (Mylanta Plus Xs) 15 ml PRN AFTMEALHC PRN PO DYSPEPSIA 10/31/20 16:15 Magnesium Hydroxide (Milk Of Magnesia) 2,400 mg PRN QHS PRN PO CONSTIPATION 10/31/20 16:15 Aspirin (Aspirin Chewable) 81 mg DAILY PO 11/01/20 09:00 11/28/20 08:25 Dexamethasone (Decadron) 4 mg BID PO 10/31/20 21:00 11/28/20 20:29 Divalproex Sodium (Depakote) 250 mg QID PO 10/31/20 17:00 11/02/20 15:56 DC 11/02/20 14:10 Donepezil HCl (Aricept) 5 mg QHS PO 10/31/20 21:00 11/17/20 12:40 DC 11/16/20 19:59 Gabapentin (Neurontin) 200 mg TID PO 10/31/20 21:00 11/28/20 20:29 Mirtazapine (Remeron) 7.5 mg QHS PO 10/31/20 21:00 11/04/20 18:40 DC 11/03/20 20:42 Morphine Sulfate (Ms Contin) 15 mg BID PO 10/31/20 21:00 11/28/20 20:30 Phenytoin Sodium (Dilantin) 200 mg BID PO 10/31/20 21:00 11/28/20 20:29 Sertraline HCl (Zoloft) 25 mg DAILY PO 11/01/20 09:00 11/01/20 17:15 DC 11/01/20 09:55 Venlafaxine HCl (Effexor Xr) 75 mg DAILY PO 11/01/20 09:00 11/28/20 08:24 Morphine Sulfate (Ms Contin) 30 mg BID PO 10/31/20 21:00 11/28/20 20:30 Nicotine (Nicoderm Cq 14mg Patch) 1 patch DAILY TD 10/31/20 17:30 11/03/20 22:25 DC 11/03/20 08:17 Olanzapine (ZyPREXA ZYDIS) 2.5 mg PRN Q2HR PRN PO PSYCHOSIS 10/31/20 18:30 Sertraline HCl (Zoloft) 50 mg DAILY PO 11/02/20 09:00 11/02/20 15:56 DC 11/02/20 08:27 Hydroxyzine Pamoate (Vistaril) 25 mg TID PO 11/01/20 21:00 11/11/20 16:27 DC 11/11/20 12:20 Divalproex Sodium (Depakote) 375 mg QID PO 11/02/20 17:00 11/06/20 17:27 DC 11/06/20 17:09 Nicotine (Nicoderm Cq 21mg Patch) 1 patch DAILY TD 11/04/20 09:00 11/26/20 18:32 DC 11/26/20 08:33 Mirtazapine (Remeron) 15 mg QHS PO 11/04/20 21:00 11/28/20 20:30 Trazodone HCl (Desyrel) 50 mg PRN QHS PRN PO INSOMNIA, MAY REPEAT X1 11/04/20 18:45 11/11/20 18:01 DC 11/08/20 20:22 Divalproex Sodium (Depakote) 500 mg QID PO 11/06/20 21:00 11/09/20 18:54 DC 11/09/20 17:07 Nicotine Polacrilex (Nicorette Gum) 2 mg PRN Q1HR PRN BC SMOKING CESSATION 11/07/20 17:00 11/16/20 13:11 Divalproex Sodium (Depakote) 500 mg 1300,1700 PO 11/10/20 13:00 11/13/20 16:42 DC 11/13/20 12:21 Divalproex Sodium (Depakote) 750 mg BID PO 11/09/20 21:00 11/13/20 16:42 DC 11/13/20 08:23 Hydroxyzine Pamoate (Vistaril) 50 mg TID PO 11/11/20 21:00 11/28/20 20:30 Trazodone HCl (Desyrel) 50 mg HS PO 11/11/20 21:00 11/28/20 20:30 Trazodone HCl (Desyrel) 50 mg PRN QHS PRN PO INSOMNIA 11/11/20 18:00 11/28/20 01:43 Valproic Acid (Depakene) 750 mg BID PO 11/13/20 21:00 11/17/20 12:40 DC 11/17/20 08:19 Valproic Acid (Depakene) 500 mg BID@1300,1700 PO 11/13/20 17:00 11/17/20 12:40 DC 11/16/20 17:36 Valproic Acid (Depakene) 750 mg BID@1300,1700 PO 11/17/20 13:00 11/28/20 17:20 Valproic Acid (Depakene) 1,000 mg BID PO 11/17/20 21:00 11/28/20 20:29 Nicotine (Nicoderm Cq 14mg Patch) 1 patch DAILY TD 11/27/20 09:00 11/28/20 08:26 I have reviewed the current psychotropics carefully including drug interactions. Risk benefit ratio favors no change other than as noted in my dictated progress note. Diagnosis: Problems: (1) Schizoaffective disorder, bipolar type (2) Impulse control disorder, unspecified (3) Anxiety disorder, unspecified (4) Bipolar disorder, current episode mixed, severe, with psychotic features (5) Mild cognitive impairment VIANNEY HAWLEY MD Nov 28, 2020 22:02
[2020-11-29 05:34] VITALS: BP 98/65
[2020-11-29] MEDS: VALPROATE ACID 250 MG/5 ML ORAL SOLUTION PO SCH ×4 (08:07→20:02)
[2020-11-29] MEDS: GABAPENTIN 100 MG CAPSULE. PO SCH ×3 (08:08→20:02)
[2020-11-29] MEDS: PHENYTOIN SODIUM EXTENDED 100 MG CAPSULE PO SCH ×2 (08:09→20:03)
[2020-11-29] MEDS: ASPIRIN CHEWABLE 81 MG TABLET. PO SCH (08:09)
[2020-11-29] MEDS: MORPHINE ER 15 MG TABLET.ER PO SCH ×2 (08:09→20:04)
[2020-11-29] MEDS: DEXAMETHASONE 4 MG TABLET PO SCH ×2 (08:09→20:02)
[2020-11-29] MEDS: hydrOXYzine PAMOATE 25 MG CAPSULE PO SCH ×3 (08:09→20:03)
[2020-11-29] MEDS: MORPHINE ER 30 MG TABLET.ER PO SCH ×2 (08:10→20:03)
[2020-11-29] MEDS: VENLAFAXINE XR 37.5 MG CAP.ER.24H. PO SCH (08:10)
[2020-11-29] MEDS: NICOTINE 14MG PATCH. TD SCH (08:11)
[2020-11-29 15:24] VITALS: BP 84/60
[2020-11-29] MEDS: MIRTAZAPINE 15 MG TABLET PO SCH (20:02)
[2020-11-29] MEDS: traZODone 50 MG TABLET. PO SCH (20:03)
--- NOTE | 2020-11-29 22:04 | PDOC ---
Exam Note: Adams Note: This note is a late entry for 11/26/2020overs elements not covered in my initial note. Subjective: The patient was reviewed on telehealth rounds in the evening of 11/26/2020 with Susannah GANT due to COVID-19 pandemic, discussed and reviewed the chart. He slept 5 hours previous night. He remains somewhat obsessive, fixated on wanting to change his clothes, some of which is understandable. He remains withdrawn, spends much time in his room but not aggressive. Review of Systems: He still ambulates in a wheelchair. No CV, , pulmonary, eye system symptoms on review. Mental Status Exam: The patient is oriented to himself and situation. Speech coherent tough he has deep voice difficult to understand, somewhat slurred speech but typical for him. Abstraction fair. Computation impaired. Language function intact. Attention span is short. No suicidal or homicidal ideation. Mood is better. Laboratory Data: Reviewed. Impression: Schizoaffective disorder bipolar type mixed with psychotic features. Anxiety disorder unspecified. Impulse control disorder unspecified. Mild cognitive impairment. Plan: We will adjust psychotropics as clinically indicated. Assessment: Vital Signs/I&O: Vital Signs Date Time Temp Pulse Resp B/P (MAP) Pulse Ox O2 Delivery O2 Flow Rate FiO2 11/29/20 15:24 97.8 73 19 84/60 (68) 95 Room Air I & O 11/28/20 11/28/20 11/29/20 15:00 23:00 07:00 Intake Total 840 ml 720 ml Balance 840 ml 720 ml Current Medications: Meds: Current Medications Medications (Trade) Dose Ordered Sig/Guillermo Route PRN Reason Start Time Stop Time Status Last Admin Dose Admin Acetaminophen (Tylenol) 650 mg PRN Q6HRS PRN PO MILD PAIN / TEMP > 100.3'F 10/31/20 16:15 11/28/20 17:46 Multi-Ingredient Ointment (Analgesic [place]) 1 ambroico PRN QID PRN TP MUSCLE PAIN 10/31/20 16:15 Al Hydroxide/Mg Hydroxide (Mylanta Plus Xs) 15 ml PRN AFTMEALHC PRN PO DYSPEPSIA 10/31/20 16:15 Magnesium Hydroxide (Milk Of Magnesia) 2,400 mg PRN QHS PRN PO CONSTIPATION 10/31/20 16:15 Aspirin (Aspirin Chewable) 81 mg DAILY PO 11/01/20 09:00 11/29/20 08:09 Dexamethasone (Decadron) 4 mg BID PO 10/31/20 21:00 11/29/20 20:02 Divalproex Sodium (Depakote) 250 mg QID PO 10/31/20 17:00 11/02/20 15:56 DC 11/02/20 14:10 Donepezil HCl (Aricept) 5 mg QHS PO 10/31/20 21:00 11/17/20 12:40 DC 11/16/20 19:59 Gabapentin (Neurontin) 200 mg TID PO 10/31/20 21:00 11/29/20 20:02 Mirtazapine (Remeron) 7.5 mg QHS PO 10/31/20 21:00 11/04/20 18:40 DC 11/03/20 20:42 Morphine Sulfate (Ms Contin) 15 mg BID PO 10/31/20 21:00 11/29/20 20:04 Phenytoin Sodium (Dilantin) 200 mg BID PO 10/31/20 21:00 11/29/20 20:03 Sertraline HCl (Zoloft) 25 mg DAILY PO 11/01/20 09:00 11/01/20 17:15 DC 11/01/20 09:55 Venlafaxine HCl (Effexor Xr) 75 mg DAILY PO 11/01/20 09:00 11/29/20 08:10 Morphine Sulfate (Ms Contin) 30 mg BID PO 10/31/20 21:00 11/29/20 20:03 Nicotine (Nicoderm Cq 14mg Patch) 1 patch DAILY TD 10/31/20 17:30 11/03/20 22:25 DC 11/03/20 08:17 Olanzapine (ZyPREXA ZYDIS) 2.5 mg PRN Q2HR PRN PO PSYCHOSIS 10/31/20 18:30 Sertraline HCl (Zoloft) 50 mg DAILY PO 11/02/20 09:00 11/02/20 15:56 DC 11/02/20 08:27 Hydroxyzine Pamoate (Vistaril) 25 mg TID PO 11/01/20 21:00 11/11/20 16:27 DC 11/11/20 12:20 Divalproex Sodium (Depakote) 375 mg QID PO 11/02/20 17:00 11/06/20 17:27 DC 11/06/20 17:09 Nicotine (Nicoderm Cq 21mg Patch) 1 patch DAILY TD 11/04/20 09:00 11/26/20 18:32 DC 11/26/20 08:33 Mirtazapine (Remeron) 15 mg QHS PO 11/04/20 21:00 11/29/20 20:02 Trazodone HCl (Desyrel) 50 mg PRN QHS PRN PO INSOMNIA, MAY REPEAT X1 11/04/20 18:45 11/11/20 18:01 DC 11/08/20 20:22 Divalproex Sodium (Depakote) 500 mg QID PO 11/06/20 21:00 11/09/20 18:54 DC 11/09/20 17:07 Nicotine Polacrilex (Nicorette Gum) 2 mg PRN Q1HR PRN BC SMOKING CESSATION 11/07/20 17:00 11/16/20 13:11 Divalproex Sodium (Depakote) 500 mg 1300,1700 PO 11/10/20 13:00 11/13/20 16:42 DC 11/13/20 12:21 Divalproex Sodium (Depakote) 750 mg BID PO 11/09/20 21:00 11/13/20 16:42 DC 11/13/20 08:23 Hydroxyzine Pamoate (Vistaril) 50 mg TID PO 11/11/20 21:00 11/29/20 20:03 Trazodone HCl (Desyrel) 50 mg HS PO 11/11/20 21:00 11/29/20 20:03 Trazodone HCl (Desyrel) 50 mg PRN QHS PRN PO INSOMNIA 11/11/20 18:00 11/28/20 01:43 Valproic Acid (Depakene) 750 mg BID PO 11/13/20 21:00 11/17/20 12:40 DC 11/17/20 08:19 Valproic Acid (Depakene) 500 mg BID@1300,1700 PO 11/13/20 17:00 11/17/20 12:40 DC 11/16/20 17:36 Valproic Acid (Depakene) 750 mg BID@1300,1700 PO 11/17/20 13:00 11/29/20 17:21 Valproic Acid (Depakene) 1,000 mg BID PO 11/17/20 21:00 11/29/20 20:02 Nicotine (Nicoderm Cq 14mg Patch) 1 patch DAILY TD 11/27/20 09:00 11/29/20 08:11 I have reviewed the current psychotropics carefully including drug interactions. Risk benefit ratio favors no change other than as noted in my dictated progress note. Diagnosis: Problems: (1) Schizoaffective disorder, bipolar type (2) Impulse control disorder, unspecified (3) Anxiety disorder, unspecified (4) Bipolar disorder, current episode mixed, severe, with psychotic features (5) Mild cognitive impairment VIANNEY HAWLEY MD Nov 29, 2020 22:04
--- NOTE | 2020-11-29 22:17 | PDOC ---
Exam Note: Adams Note: This note is a late entry for 11/27/2020overs elements not covered in my initial note. Subjective: The patient was seen on video telehealth services in the evening of 11/27/2020 with Sandy GANT due to COVID-19 pandemic, discussed and reviewed the chart. He slept 3 hours previous night. I have encouraged the nursing staff to give him the h.s. trazodone. He spends much time in his room. Review of Systems: Ambulation impaired, in wheelchair. No CV, , pulmonary, eye system symptoms on review. Reliability fair. Mental Status Exam: The patient is oriented to himself and situation. Speech coherent but again difficult to understand, typical for him. Abstraction fair. Computation impaired. Language function intact. Mood and affect improved. No aggression noted. No suicidal or homicidal ideation. Laboratory Data: Reviewed. Impression: Schizoaffective disorder bipolar type mixed with psychotic features. Anxiety disorder unspecified. Impulse control disorder unspecified. Mild cognitive impairment. Plan: We will adjust psychotropics as clinically indicated. Assessment: Vital Signs/I&O: Vital Signs Date Time Temp Pulse Resp B/P (MAP) Pulse Ox O2 Delivery O2 Flow Rate FiO2 11/29/20 15:24 97.8 73 19 84/60 (68) 95 Room Air I & O 11/28/20 11/28/20 11/29/20 15:00 23:00 07:00 Intake Total 840 ml 720 ml Balance 840 ml 720 ml Current Medications: Meds: Current Medications Medications (Trade) Dose Ordered Sig/Guillermo Route PRN Reason Start Time Stop Time Status Last Admin Dose Admin Acetaminophen (Tylenol) 650 mg PRN Q6HRS PRN PO MILD PAIN / TEMP > 100.3'F 10/31/20 16:15 11/28/20 17:46 Multi-Ingredient Ointment (Analgesic [place]) 1 ambrocio PRN QID PRN TP MUSCLE PAIN 10/31/20 16:15 Al Hydroxide/Mg Hydroxide (Mylanta Plus Xs) 15 ml PRN AFTMEALHC PRN PO DYSPEPSIA 10/31/20 16:15 Magnesium Hydroxide (Milk Of Magnesia) 2,400 mg PRN QHS PRN PO CONSTIPATION 10/31/20 16:15 Aspirin (Aspirin Chewable) 81 mg DAILY PO 11/01/20 09:00 8/17/21 08:09 Dexamethasone (Decadron) 4 mg BID PO 10/31/20 21:00 11/29/20 20:02 Divalproex Sodium (Depakote) 250 mg QID PO 10/31/20 17:00 11/02/20 15:56 DC 11/02/20 14:10 Donepezil HCl (Aricept) 5 mg QHS PO 10/31/20 21:00 11/17/20 12:40 DC 11/16/20 19:59 Gabapentin (Neurontin) 200 mg TID PO 10/31/20 21:00 11/29/20 20:02 Mirtazapine (Remeron) 7.5 mg QHS PO 10/31/20 21:00 11/04/20 18:40 DC 11/03/20 20:42 Morphine Sulfate (Ms Contin) 15 mg BID PO 10/31/20 21:00 11/29/20 20:04 Phenytoin Sodium (Dilantin) 200 mg BID PO 10/31/20 21:00 11/29/20 20:03 Sertraline HCl (Zoloft) 25 mg DAILY PO 11/01/20 09:00 11/01/20 17:15 DC 11/01/20 09:55 Venlafaxine HCl (Effexor Xr) 75 mg DAILY PO 11/01/20 09:00 11/29/20 08:10 Morphine Sulfate (Ms Contin) 30 mg BID PO 10/31/20 21:00 11/29/20 20:03 Nicotine (Nicoderm Cq 14mg Patch) 1 patch DAILY TD 10/31/20 17:30 11/03/20 22:25 DC 11/03/20 08:17 Olanzapine (ZyPREXA ZYDIS) 2.5 mg PRN Q2HR PRN PO PSYCHOSIS 10/31/20 18:30 Sertraline HCl (Zoloft) 50 mg DAILY PO 11/02/20 09:00 11/02/20 15:56 DC 11/02/20 08:27 Hydroxyzine Pamoate (Vistaril) 25 mg TID PO 11/01/20 21:00 11/11/20 16:27 DC 11/11/20 12:20 Divalproex Sodium (Depakote) 375 mg QID PO 11/02/20 17:00 11/06/20 17:27 DC 11/06/20 17:09 Nicotine (Nicoderm Cq 21mg Patch) 1 patch DAILY TD 11/04/20 09:00 11/26/20 18:32 DC 11/26/20 08:33 Mirtazapine (Remeron) 15 mg QHS PO 11/04/20 21:00 11/29/20 20:02 Trazodone HCl (Desyrel) 50 mg PRN QHS PRN PO INSOMNIA, MAY REPEAT X1 11/04/20 18:45 11/11/20 18:01 DC 11/08/20 20:22 Divalproex Sodium (Depakote) 500 mg QID PO 11/06/20 21:00 11/09/20 18:54 DC 11/09/20 17:07 Nicotine Polacrilex (Nicorette Gum) 2 mg PRN Q1HR PRN BC SMOKING CESSATION 11/07/20 17:00 11/16/20 13:11 Divalproex Sodium (Depakote) 500 mg 1300,1700 PO 11/10/20 13:00 11/13/20 16:42 DC 11/13/20 12:21 Divalproex Sodium (Depakote) 750 mg BID PO 11/09/20 21:00 11/13/20 16:42 DC 11/13/20 08:23 Hydroxyzine Pamoate (Vistaril) 50 mg TID PO 11/11/20 21:00 11/29/20 20:03 Trazodone HCl (Desyrel) 50 mg HS PO 11/11/20 21:00 11/29/20 20:03 Trazodone HCl (Desyrel) 50 mg PRN QHS PRN PO INSOMNIA 11/11/20 18:00 11/28/20 01:43 Valproic Acid (Depakene) 750 mg BID PO 11/13/20 21:00 11/17/20 12:40 DC 11/17/20 08:19 Valproic Acid (Depakene) 500 mg BID@1300,1700 PO 11/13/20 17:00 11/17/20 12:40 DC 11/16/20 17:36 Valproic Acid (Depakene) 750 mg BID@1300,1700 PO 11/17/20 13:00 11/29/20 17:21 Valproic Acid (Depakene) 1,000 mg BID PO 11/17/20 21:00 11/29/20 20:02 Nicotine (Nicoderm Cq 14mg Patch) 1 patch DAILY TD 11/27/20 09:00 11/29/20 08:11 I have reviewed the current psychotropics carefully including drug interactions. Risk benefit ratio favors no change other than as noted in my dictated progress note. Diagnosis: Problems: (1) Schizoaffective disorder, bipolar type (2) Impulse control disorder, unspecified (3) Anxiety disorder, unspecified (4) Bipolar disorder, current episode mixed, severe, with psychotic features (5) Mild cognitive impairment VIANNEY HAWLEY MD Nov 29, 2020 22:17
--- NOTE | 2020-11-29 22:29 | PDOC ---
Exam Note: Adams Note: Please also refer to the separate dictated note~for this date of service dictated separately.~Patient seen individually. Discussed the patient with Nursing staff reviewed the chart.~Reviewed interim history and current functioning. Reviewed vital signs,~Labs/ Radiology~and current medications noted below. Continue current treatment with the changes noted in the dictated addendum note Assessment: Vital Signs/I&O: Vital Signs Date Time Temp Pulse Resp B/P (MAP) Pulse Ox O2 Delivery O2 Flow Rate FiO2 11/29/20 15:24 97.8 73 19 84/60 (68) 95 Room Air I & O 11/28/20 11/28/20 11/29/20 15:00 23:00 07:00 Intake Total 840 ml 720 ml Balance 840 ml 720 ml Current Medications: Meds: Current Medications Medications (Trade) Dose Ordered Sig/Guillermo Route PRN Reason Start Time Stop Time Status Last Admin Dose Admin Acetaminophen (Tylenol) 650 mg PRN Q6HRS PRN PO MILD PAIN / TEMP > 100.3'F 10/31/20 16:15 11/28/20 17:46 Multi-Ingredient Ointment (Analgesic [place]) 1 ambrocio PRN QID PRN TP MUSCLE PAIN 10/31/20 16:15 Al Hydroxide/Mg Hydroxide (Mylanta Plus Xs) 15 ml PRN AFTMEALHC PRN PO DYSPEPSIA 10/31/20 16:15 Magnesium Hydroxide (Milk Of Magnesia) 2,400 mg PRN QHS PRN PO CONSTIPATION 10/31/20 16:15 Aspirin (Aspirin Chewable) 81 mg DAILY PO 11/01/20 09:00 11/29/20 08:09 Dexamethasone (Decadron) 4 mg BID PO 10/31/20 21:00 11/29/20 20:02 Divalproex Sodium (Depakote) 250 mg QID PO 10/31/20 17:00 11/02/20 15:56 DC 11/02/20 14:10 Donepezil HCl (Aricept) 5 mg QHS PO 10/31/20 21:00 11/17/20 12:40 DC 11/16/20 19:59 Gabapentin (Neurontin) 200 mg TID PO 10/31/20 21:00 11/29/20 20:02 Mirtazapine (Remeron) 7.5 mg QHS PO 10/31/20 21:00 11/04/20 18:40 DC 11/03/20 20:42 Morphine Sulfate (Ms Contin) 15 mg BID PO 10/31/20 21:00 11/29/20 20:04 Phenytoin Sodium (Dilantin) 200 mg BID PO 10/31/20 21:00 11/29/20 20:03 Sertraline HCl (Zoloft) 25 mg DAILY PO 11/01/20 09:00 11/01/20 17:15 DC 11/01/20 09:55 Venlafaxine HCl (Effexor Xr) 75 mg DAILY PO 11/01/20 09:00 11/29/20 08:10 Morphine Sulfate (Ms Contin) 30 mg BID PO 10/31/20 21:00 11/29/20 20:03 Nicotine (Nicoderm Cq 14mg Patch) 1 patch DAILY TD 10/31/20 17:30 11/03/20 22:25 DC 11/03/20 08:17 Olanzapine (ZyPREXA ZYDIS) 2.5 mg PRN Q2HR PRN PO PSYCHOSIS 10/31/20 18:30 Sertraline HCl (Zoloft) 50 mg DAILY PO 11/02/20 09:00 11/02/20 15:56 DC 11/02/20 08:27 Hydroxyzine Pamoate (Vistaril) 25 mg TID PO 11/01/20 21:00 11/11/20 16:27 DC 11/11/20 12:20 Divalproex Sodium (Depakote) 375 mg QID PO 11/02/20 17:00 11/06/20 17:27 DC 11/06/20 17:09 Nicotine (Nicoderm Cq 21mg Patch) 1 patch DAILY TD 11/04/20 09:00 11/26/20 18:32 DC 11/26/20 08:33 Mirtazapine (Remeron) 15 mg QHS PO 11/04/20 21:00 11/29/20 20:02 Trazodone HCl (Desyrel) 50 mg PRN QHS PRN PO INSOMNIA, MAY REPEAT X1 11/04/20 18:45 11/11/20 18:01 DC 11/08/20 20:22 Divalproex Sodium (Depakote) 500 mg QID PO 11/06/20 21:00 11/09/20 18:54 DC 11/09/20 17:07 Nicotine Polacrilex (Nicorette Gum) 2 mg PRN Q1HR PRN BC SMOKING CESSATION 11/07/20 17:00 11/16/20 13:11 Divalproex Sodium (Depakote) 500 mg 1300,1700 PO 11/10/20 13:00 11/13/20 16:42 DC 11/13/20 12:21 Divalproex Sodium (Depakote) 750 mg BID PO 11/09/20 21:00 11/13/20 16:42 DC 11/13/20 08:23 Hydroxyzine Pamoate (Vistaril) 50 mg TID PO 11/11/20 21:00 11/29/20 20:03 Trazodone HCl (Desyrel) 50 mg HS PO 11/11/20 21:00 11/29/20 20:03 Trazodone HCl (Desyrel) 50 mg PRN QHS PRN PO INSOMNIA 11/11/20 18:00 11/28/20 01:43 Valproic Acid (Depakene) 750 mg BID PO 11/13/20 21:00 11/17/20 12:40 DC 11/17/20 08:19 Valproic Acid (Depakene) 500 mg BID@1300,1700 PO 11/13/20 17:00 11/17/20 12:40 DC 11/16/20 17:36 Valproic Acid (Depakene) 750 mg BID@1300,1700 PO 11/17/20 13:00 11/29/20 17:21 Valproic Acid (Depakene) 1,000 mg BID PO 11/17/20 21:00 11/29/20 20:02 Nicotine (Nicoderm Cq 14mg Patch) 1 patch DAILY TD 11/27/20 09:00 11/29/20 08:11 I have reviewed the current psychotropics carefully including drug interactions. Risk benefit ratio favors no change other than as noted in my dictated progress note. Diagnosis: Problems: (1) Schizoaffective disorder, bipolar type (2) Impulse control disorder, unspecified (3) Anxiety disorder, unspecified (4) Bipolar disorder, current episode mixed, severe, with psychotic features (5) Mild cognitive impairment VIANNEY HAWLEY MD Nov 29, 2020 22:29
--- NOTE | 2020-11-29 22:29 | PDOC ---
Exam Note: Adams Note: This note is a late entry for 11/28/2020 covers elements not covered in my initial note. Subjective: The patient was seen face to face in the evening of 11/28/2020 with Danita GANT, discussed and reviewed the chart. He slept 7-1/4 hours previous night. I met with him in the dining room. He was having his dinner. He stated some of the chicken was too hard for him to chew. He wanted something softer and nursing staff was made aware of this. Otherwise, he is appropriate, somewhat withdrawn. Review of Systems: Ambulation impaired, in wheelchair. No CV, , pulmonary, eye system symptoms on review. Mental Status Exam: The patient is oriented to himself and situation. Speech coherent. Abstraction fair. Computation impaired. Language function intact. Mood and affect improved. No aggression noted. No suicidal or homicidal ideation. Laboratory Data: Reviewed. Impression: Schizoaffective disorder bipolar type mixed with psychotic features. Anxiety disorder unspecified. Impulse control disorder unspecified. Mild cognitive impairment. Plan: We will adjust psychotropics as clinically indicated. Assessment: Vital Signs/I&O: Vital Signs Date Time Temp Pulse Resp B/P (MAP) Pulse Ox O2 Delivery O2 Flow Rate FiO2 11/29/20 15:24 97.8 73 19 84/60 (68) 95 Room Air I & O 11/28/20 11/28/20 11/29/20 15:00 23:00 07:00 Intake Total 840 ml 720 ml Balance 840 ml 720 ml Current Medications: Meds: Current Medications Medications (Trade) Dose Ordered Sig/Guillermo Route PRN Reason Start Time Stop Time Status Last Admin Dose Admin Acetaminophen (Tylenol) 650 mg PRN Q6HRS PRN PO MILD PAIN / TEMP > 100.3'F 10/31/20 16:15 11/28/20 17:46 Multi-Ingredient Ointment (Analgesic [place]) 1 ambrocio PRN QID PRN TP MUSCLE PAIN 10/31/20 16:15 Al Hydroxide/Mg Hydroxide (Mylanta Plus Xs) 15 ml PRN AFTMEALHC PRN PO DYSPEPSIA 10/31/20 16:15 Magnesium Hydroxide (Milk Of Magnesia) 2,400 mg PRN QHS PRN PO CONSTIPATION 10/31/20 16:15 Aspirin (Aspirin Chewable) 81 mg DAILY PO 11/01/20 09:00 11/29/20 08:09 Dexamethasone (Decadron) 4 mg BID PO 10/31/20 21:00 11/29/20 20:02 Divalproex Sodium (Depakote) 250 mg QID PO 10/31/20 17:00 11/02/20 15:56 DC 11/02/20 14:10 Donepezil HCl (Aricept) 5 mg QHS PO 10/31/20 21:00 11/17/20 12:40 DC 11/16/20 19:59 Gabapentin (Neurontin) 200 mg TID PO 10/31/20 21:00 11/29/20 20:02 Mirtazapine (Remeron) 7.5 mg QHS PO 10/31/20 21:00 11/04/20 18:40 DC 11/03/20 20:42 Morphine Sulfate (Ms Contin) 15 mg BID PO 10/31/20 21:00 11/29/20 20:04 Phenytoin Sodium (Dilantin) 200 mg BID PO 10/31/20 21:00 11/29/20 20:03 Sertraline HCl (Zoloft) 25 mg DAILY PO 11/01/20 09:00 11/01/20 17:15 DC 11/01/20 09:55 Venlafaxine HCl (Effexor Xr) 75 mg DAILY PO 11/01/20 09:00 11/29/20 08:10 Morphine Sulfate (Ms Contin) 30 mg BID PO 10/31/20 21:00 11/29/20 20:03 Nicotine (Nicoderm Cq 14mg Patch) 1 patch DAILY TD 10/31/20 17:30 11/03/20 22:25 DC 11/03/20 08:17 Olanzapine (ZyPREXA ZYDIS) 2.5 mg PRN Q2HR PRN PO PSYCHOSIS 10/31/20 18:30 Sertraline HCl (Zoloft) 50 mg DAILY PO 11/02/20 09:00 11/02/20 15:56 DC 11/02/20 08:27 Hydroxyzine Pamoate (Vistaril) 25 mg TID PO 11/01/20 21:00 11/11/20 16:27 DC 11/11/20 12:20 Divalproex Sodium (Depakote) 375 mg QID PO 11/02/20 17:00 11/06/20 17:27 DC 11/06/20 17:09 Nicotine (Nicoderm Cq 21mg Patch) 1 patch DAILY TD 11/04/20 09:00 11/26/20 18:32 DC 11/26/20 08:33 Mirtazapine (Remeron) 15 mg QHS PO 11/04/20 21:00 11/29/20 20:02 Trazodone HCl (Desyrel) 50 mg PRN QHS PRN PO INSOMNIA, MAY REPEAT X1 11/04/20 18:45 11/11/20 18:01 DC 11/08/20 20:22 Divalproex Sodium (Depakote) 500 mg QID PO 11/06/20 21:00 11/09/20 18:54 DC 11/09/20 17:07 Nicotine Polacrilex (Nicorette Gum) 2 mg PRN Q1HR PRN BC SMOKING CESSATION 11/07/20 17:00 11/16/20 13:11 Divalproex Sodium (Depakote) 500 mg 1300,1700 PO 11/10/20 13:00 11/13/20 16:42 DC 11/13/20 12:21 Divalproex Sodium (Depakote) 750 mg BID PO 11/09/20 21:00 11/13/20 16:42 DC 11/13/20 08:23 Hydroxyzine Pamoate (Vistaril) 50 mg TID PO 11/11/20 21:00 11/29/20 20:03 Trazodone HCl (Desyrel) 50 mg HS PO 11/11/20 21:00 11/29/20 20:03 Trazodone HCl (Desyrel) 50 mg PRN QHS PRN PO INSOMNIA 11/11/20 18:00 11/28/20 01:43 Valproic Acid (Depakene) 750 mg BID PO 11/13/20 21:00 11/17/20 12:40 DC 11/17/20 08:19 Valproic Acid (Depakene) 500 mg BID@1300,1700 PO 11/13/20 17:00 11/17/20 12:40 DC 11/16/20 17:36 Valproic Acid (Depakene) 750 mg BID@1300,1700 PO 11/17/20 13:00 11/29/20 17:21 Valproic Acid (Depakene) 1,000 mg BID PO 11/17/20 21:00 11/29/20 20:02 Nicotine (Nicoderm Cq 14mg Patch) 1 patch DAILY TD 11/27/20 09:00 11/29/20 08:11 I have reviewed the current psychotropics carefully including drug interactions. Risk benefit ratio favors no change other than as noted in my dictated progress note. Diagnosis: Problems: (1) Schizoaffective disorder, bipolar type (2) Impulse control disorder, unspecified (3) Anxiety disorder, unspecified (4) Bipolar disorder, current episode mixed, severe, with psychotic features (5) Mild cognitive impairment VIANNEY HAWLEY MD Nov 29, 2020 22:29
[2020-11-30 05:34] VITALS: BP 98/64
--- NOTE | 2020-11-30 06:37 | PDOC ---
Exam Note: Adams Note: This note is a late entry for 11/29/2020 covers elements not covered in my initial note. Subjective: The patient was seen face to face in the evening of 11/29/2020 with Carmen GANT, discussed and reviewed the chart. He slept 4-1/2 hours previous night but slept about 3 hours after breakfast. The patient was irritable in the morning about his clothes and dressing. Later in the day he was much better. I met with him in his room. He has not been agitated or aggressive. Review of Systems: Ambulation impaired, in wheelchair. No CV, , pulmonary, eye, ENT system symptoms on review. Mental Status Exam: The patient is oriented to himself and situation. Speech coherent. Abstraction fair. Computation impaired. Language function intact. Mood and affect improved. No aggression noted. No suicidal or homicidal i deation. Laboratory Data: Reviewed. Impression: Schizoaffective disorder bipolar type mixed with psychotic features. Anxiety disorder unspecified. Impulse control disorder unspecified. Mild cognitive impairment. Plan: We will adjust psychotropics as clinically indicated. Assessment: Vital Signs/I&O: Vital Signs Date Time Temp Pulse Resp B/P (MAP) Pulse Ox O2 Delivery O2 Flow Rate FiO2 11/30/20 05:34 98.7 63 18 98/64 (75) 96 Room Air I & O 11/29/20 11/29/20 11/30/20 15:00 23:00 07:00 Intake Total 600 ml 840 ml Balance 600 ml 840 ml Current Medications: Meds: Current Medications Medications (Trade) Dose Ordered Sig/Guillermo Route PRN Reason Start Time Stop Time Status Last Admin Dose Admin Acetaminophen (Tylenol) 650 mg PRN Q6HRS PRN PO MILD PAIN / TEMP > 100.3'F 10/31/20 16:15 11/28/20 17:46 Multi-Ingredient Ointment (Analgesic [place]) 1 ambrocio PRN QID PRN TP MUSCLE PAIN 10/31/20 16:15 Al Hydroxide/Mg Hydroxide (Mylanta Plus Xs) 15 ml PRN AFTMEALHC PRN PO DYSPEPSIA 10/31/20 16:15 Magnesium Hydroxide (Milk Of Magnesia) 2,400 mg PRN QHS PRN PO CONSTIPATION 10/31/20 16:15 Aspirin (Aspirin Chewable) 81 mg DAILY PO 11/01/20 09:00 11/29/20 08:09 Dexamethasone (Decadron) 4 mg BID PO 10/31/20 21:00 11/29/20 20:02 Divalproex Sodium (Depakote) 250 mg QID PO 10/31/20 17:00 11/02/20 15:56 DC 11/02/20 14:10 Donepezil HCl (Aricept) 5 mg QHS PO 10/31/20 21:00 11/17/20 12:40 DC 11/16/20 19:59 Gabapentin (Neurontin) 200 mg TID PO 10/31/20 21:00 11/29/20 20:02 Mirtazapine (Remeron) 7.5 mg QHS PO 10/31/20 21:00 11/04/20 18:40 DC 11/03/20 20:42 Morphine Sulfate (Ms Contin) 15 mg BID PO 10/31/20 21:00 11/29/20 20:04 Phenytoin Sodium (Dilantin) 200 mg BID PO 10/31/20 21:00 11/29/20 20:03 Sertraline HCl (Zoloft) 25 mg DAILY PO 11/01/20 09:00 11/01/20 17:15 DC 11/01/20 09:55 Venlafaxine HCl (Effexor Xr) 75 mg DAILY PO 11/01/20 09:00 11/29/20 08:10 Morphine Sulfate (Ms Contin) 30 mg BID PO 10/31/20 21:00 11/29/20 20:03 Nicotine (Nicoderm Cq 14mg Patch) 1 patch DAILY TD 10/31/20 17:30 11/03/20 22:25 DC 11/03/20 08:17 Olanzapine (ZyPREXA ZYDIS) 2.5 mg PRN Q2HR PRN PO PSYCHOSIS 10/31/20 18:30 Sertraline HCl (Zoloft) 50 mg DAILY PO 11/02/20 09:00 11/02/20 15:56 DC 11/02/20 08:27 Hydroxyzine Pamoate (Vistaril) 25 mg TID PO 11/01/20 21:00 11/11/20 16:27 DC 11/11/20 12:20 Divalproex Sodium (Depakote) 375 mg QID PO 11/02/20 17:00 11/06/20 17:27 DC 11/06/20 17:09 Nicotine (Nicoderm Cq 21mg Patch) 1 patch DAILY TD 11/04/20 09:00 11/26/20 18:32 DC 11/26/20 08:33 Mirtazapine (Remeron) 15 mg QHS PO 11/04/20 21:00 11/29/20 20:02 Trazodone HCl (Desyrel) 50 mg PRN QHS PRN PO INSOMNIA, MAY REPEAT X1 11/04/20 18:45 11/11/20 18:01 DC 11/08/20 20:22 Divalproex Sodium (Depakote) 500 mg QID PO 11/06/20 21:00 11/09/20 18:54 DC 11/09/20 17:07 Nicotine Polacrilex (Nicorette Gum) 2 mg PRN Q1HR PRN BC SMOKING CESSATION 11/07/20 17:00 11/16/20 13:11 Divalproex Sodium (Depakote) 500 mg 1300,1700 PO 11/10/20 13:00 11/13/20 16:42 DC 11/13/20 12:21 Divalproex Sodium (Depakote) 750 mg BID PO 11/09/20 21:00 11/13/20 16:42 DC 11/13/20 08:23 Hydroxyzine Pamoate (Vistaril) 50 mg TID PO 11/11/20 21:00 11/29/20 20:03 Trazodone HCl (Desyrel) 50 mg HS PO 11/11/20 21:00 11/29/20 20:03 Trazodone HCl (Desyrel) 50 mg PRN QHS PRN PO INSOMNIA 11/11/20 18:00 11/28/20 01:43 Valproic Acid (Depakene) 750 mg BID PO 11/13/20 21:00 11/17/20 12:40 DC 11/17/20 08:19 Valproic Acid (Depakene) 500 mg BID@1300,1700 PO 11/13/20 17:00 11/17/20 12:40 DC 11/16/20 17:36 Valproic Acid (Depakene) 750 mg BID@1300,1700 PO 11/17/20 13:00 11/29/20 17:21 Valproic Acid (Depakene) 1,000 mg BID PO 11/17/20 21:00 11/29/20 20:02 Nicotine (Nicoderm Cq 14mg Patch) 1 patch DAILY TD 11/27/20 09:00 11/29/20 08:11 I have reviewed the current psychotropics carefully including drug interactions. Risk benefit ratio favors no change other than as noted in my dictated progress note. Diagnosis: Problems: (1) Schizoaffective disorder, bipolar type (2) Impulse control disorder, unspecified (3) Anxiety disorder, unspecified (4) Bipolar disorder, current episode mixed, severe, with psychotic features (5) Mild cognitive impairment VIANNEY HAWLEY MD Nov 30, 2020 06:37
[2020-11-30] MEDS: DEXAMETHASONE 4 MG TABLET PO SCH ×2 (07:54→19:59)
[2020-11-30] MEDS: VENLAFAXINE XR 37.5 MG CAP.ER.24H. PO SCH (07:54)
[2020-11-30] MEDS: VALPROATE ACID 250 MG/5 ML ORAL SOLUTION PO SCH ×4 (07:54→19:57)
[2020-11-30] MEDS: GABAPENTIN 100 MG CAPSULE. PO SCH ×3 (07:54→19:58)
[2020-11-30] MEDS: hydrOXYzine PAMOATE 25 MG CAPSULE PO SCH ×3 (07:54→19:59)
[2020-11-30] MEDS: MORPHINE ER 15 MG TABLET.ER PO SCH ×2 (07:55→19:58)
[2020-11-30] MEDS: MORPHINE ER 30 MG TABLET.ER PO SCH ×2 (07:55→19:58)
[2020-11-30] MEDS: NICOTINE 14MG PATCH. TD SCH (07:56)
[2020-11-30] MEDS: PHENYTOIN SODIUM EXTENDED 100 MG CAPSULE PO SCH ×2 (07:56→19:58)
[2020-11-30] MEDS: ASPIRIN CHEWABLE 81 MG TABLET. PO SCH (07:56)
[2020-11-30 15:24] VITALS: BP 105/63
[2020-11-30] MEDS: traZODone 50 MG TABLET. PO SCH (19:57)
[2020-11-30] MEDS: MIRTAZAPINE 15 MG TABLET PO SCH (19:58)
[2020-11-30] MEDS ORDERED: MAG-115 PO (21:53)
[2020-11-30] MEDS ORDERED: MAGN24003 PO (21:53)
[2020-11-30] MEDS ORDERED: ACET325T21 PO (21:53)
[2020-11-30] MEDS ORDERED: MIRT15TA90 PO (21:54)
[2020-11-30] MEDS ORDERED: METH57CR17 TP (21:54)
[2020-11-30] MEDS ORDERED: MORP-15 PO (21:55)
[2020-11-30] MEDS ORDERED: NICO1PAT25 TP (21:55)
[2020-11-30] MEDS ORDERED: MORP-16 PO (21:55)
[2020-11-30] MEDS ORDERED: NICO2GUM42 BC (21:56)
[2020-11-30] MEDS ORDERED: OLAN5TAB7 PO (21:56)
[2020-11-30] MEDS ORDERED: VALP250S3 PO ×2 (21:58)
[2020-11-30] MEDS ORDERED: HYDR50CA2 PO (21:59)
[2020-11-30] MEDS ORDERED: TRAZ-120 PO ×2 (22:00)
--- NOTE | 2020-11-30 22:01 | PDOC ---
Exam Note: Adams Note: Please also refer to the separate dictated note~for this date of service dictated separately.~Patient seen individually. Discussed the patient with Nursing staff reviewed the chart.~Reviewed interim history and current functioning. Reviewed vital signs,~Labs/ Radiology~and current medications noted below. Continue current treatment with the changes noted in the dictated addendum note Assessment: Vital Signs/I&O: Vital Signs Date Time Temp Pulse Resp B/P (MAP) Pulse Ox O2 Delivery O2 Flow Rate FiO2 11/30/20 15:24 96.4 73 18 105/63 (77) 97 11/30/20 05:34 Room Air I & O 11/29/20 11/29/20 11/30/20 15:00 23:00 07:00 Intake Total 600 ml 840 ml Balance 600 ml 840 ml Labs: Laboratory Tests Test 11/30/20 09:40 SARS-CoV-2 (PCR) Negative (NEGATIVE) Current Medications: Meds: Laboratory Tests Test 11/30/20 09:40 Coronavirus (COVID-19)(PCR) Negative Current Medications Medications (Trade) Dose Ordered Sig/Guillermo Route PRN Reason Start Time Stop Time Status Last Admin Dose Admin Acetaminophen (Tylenol) 650 mg PRN Q6HRS PRN PO MILD PAIN / TEMP > 100.3'F 10/31/20 16:15 11/28/20 17:46 Multi-Ingredient Ointment (Analgesic [place]) 1 ambrocio PRN QID PRN TP MUSCLE PAIN 10/31/20 16:15 Al Hydroxide/Mg Hydroxide (Mylanta Plus Xs) 15 ml PRN AFTMEALHC PRN PO DYSPEPSIA 10/31/20 16:15 Magnesium Hydroxide (Milk Of Magnesia) 2,400 mg PRN QHS PRN PO CONSTIPATION 10/31/20 16:15 Aspirin (Aspirin Chewable) 81 mg DAILY PO 11/01/20 09:00 11/30/20 07:56 Dexamethasone (Decadron) 4 mg BID PO 10/31/20 21:00 11/30/20 19:59 Divalproex Sodium (Depakote) 250 mg QID PO 10/31/20 17:00 11/02/20 15:56 DC 11/02/20 14:10 Donepezil HCl (Aricept) 5 mg QHS PO 10/31/20 21:00 11/17/20 12:40 DC 11/16/20 19:59 Gabapentin (Neurontin) 200 mg TID PO 10/31/20 21:00 11/30/20 19:58 Mirtazapine (Remeron) 7.5 mg QHS PO 10/31/20 21:00 11/04/20 18:40 DC 11/03/20 20:42 Morphine Sulfate (Ms Contin) 15 mg BID PO 10/31/20 21:00 11/30/20 19:58 Phenytoin Sodium (Dilantin) 200 mg BID PO 10/31/20 21:00 11/30/20 19:58 Sertraline HCl (Zoloft) 25 mg DAILY PO 11/01/20 09:00 11/01/20 17:15 DC 11/01/20 09:55 Venlafaxine HCl (Effexor Xr) 75 mg DAILY PO 11/01/20 09:00 11/30/20 07:54 Morphine Sulfate (Ms Contin) 30 mg BID PO 10/31/20 21:00 11/30/20 19:58 Nicotine (Nicoderm Cq 14mg Patch) 1 patch DAILY TD 10/31/20 17:30 11/03/20 22:25 DC 11/03/20 08:17 Olanzapine (ZyPREXA ZYDIS) 2.5 mg PRN Q2HR PRN PO PSYCHOSIS 10/31/20 18:30 Sertraline HCl (Zoloft) 50 mg DAILY PO 11/02/20 09:00 11/02/20 15:56 DC 11/02/20 08:27 Hydroxyzine Pamoate (Vistaril) 25 mg TID PO 11/01/20 21:00 11/11/20 16:27 DC 11/11/20 12:20 Divalproex Sodium (Depakote) 375 mg QID PO 11/02/20 17:00 11/06/20 17:27 DC 11/06/20 17:09 Nicotine (Nicoderm Cq 21mg Patch) 1 patch DAILY TD 11/04/20 09:00 11/26/20 18:32 DC 11/26/20 08:33 Mirtazapine (Remeron) 15 mg QHS PO 11/04/20 21:00 11/30/20 19:58 Trazodone HCl (Desyrel) 50 mg PRN QHS PRN PO INSOMNIA, MAY REPEAT X1 11/04/20 18:45 11/11/20 18:01 DC 11/08/20 20:22 Divalproex Sodium (Depakote) 500 mg QID PO 11/06/20 21:00 11/09/20 18:54 DC 11/09/20 17:07 Nicotine Polacrilex (Nicorette Gum) 2 mg PRN Q1HR PRN BC SMOKING CESSATION 11/07/20 17:00 11/16/20 13:11 Divalproex Sodium (Depakote) 500 mg 1300,1700 PO 11/10/20 13:00 11/13/20 16:42 DC 11/13/20 12:21 Divalproex Sodium (Depakote) 750 mg BID PO 11/09/20 21:00 11/13/20 16:42 DC 11/13/20 08:23 Hydroxyzine Pamoate (Vistaril) 50 mg TID PO 11/11/20 21:00 11/30/20 19:59 Trazodone HCl (Desyrel) 50 mg HS PO 11/11/20 21:00 11/30/20 19:57 Trazodone HCl (Desyrel) 50 mg PRN QHS PRN PO INSOMNIA 11/11/20 18:00 11/28/20 01:43 Valproic Acid (Depakene) 750 mg BID PO 11/13/20 21:00 11/17/20 12:40 DC 11/17/20 08:19 Valproic Acid (Depakene) 500 mg BID@1300,1700 PO 11/13/20 17:00 11/17/20 12:40 DC 11/16/20 17:36 Valproic Acid (Depakene) 750 mg BID@1300,1700 PO 11/17/20 13:00 11/30/20 17:20 Valproic Acid (Depakene) 1,000 mg BID PO 11/17/20 21:00 11/30/20 19:57 Nicotine (Nicoderm Cq 14mg Patch) 1 patch DAILY TD 11/27/20 09:00 11/30/20 07:56 I have reviewed the current psychotropics carefully including drug interactions. Risk benefit ratio favors no change other than as noted in my dictated progress note. Diagnosis: Problems: (1) Schizoaffective disorder, bipolar type (2) Impulse control disorder, unspecified (3) Anxiety disorder, unspecified (4) Bipolar disorder, current episode mixed, severe, with psychotic features (5) Mild cognitive impairment VIANNEY HAWLEY MD Nov 30, 2020 22:01
[2020-12-01 05:16] VITALS: BP 97/70
[2020-12-01] MEDS: PHENYTOIN SODIUM EXTENDED 100 MG CAPSULE PO SCH (09:09)
[2020-12-01] MEDS: NICOTINE 14MG PATCH. TD SCH (09:09)
[2020-12-01] MEDS: ASPIRIN CHEWABLE 81 MG TABLET. PO SCH (09:10)
[2020-12-01] MEDS: hydrOXYzine PAMOATE 25 MG CAPSULE PO SCH (09:10)
[2020-12-01] MEDS: MORPHINE ER 30 MG TABLET.ER PO SCH (09:10)
[2020-12-01] MEDS: DEXAMETHASONE 4 MG TABLET PO SCH (09:11)
[2020-12-01] MEDS: GABAPENTIN 100 MG CAPSULE. PO SCH (09:11)
[2020-12-01] MEDS: VENLAFAXINE XR 37.5 MG CAP.ER.24H. PO SCH (09:11)
[2020-12-01] MEDS: MORPHINE ER 15 MG TABLET.ER PO SCH (09:11)
[2020-12-01] MEDS: VALPROATE ACID 250 MG/5 ML ORAL SOLUTION PO SCH (09:12)
--- NOTE | 2020-12-02 06:35 | PDOC ---
Exam Note: Adams Note: This note is a late entry for 11/30/2020 covers elements not covered in my initial note. Subjective: The patient was seen face to face in the evening of 11/30/2020 with Carmen GANT, discussed and reviewed the chart. He slept 6-1/4 hours previous night. I met with him in his room. He is cooperative, not been agitated or aggressive. Review of Systems: Ambulation impaired, in wheelchair. No CV, , pulmonary, eye, ENT system symptoms on review. He does complain of some itching. Mental Status Exam: The patient is oriented to himself and situation. He is pleasant, verbal, interactive. We discussed possible discharge plans for 12/01. He was pleased with this. Speech coherent. Abstraction fair. Computation impaired. Language function intact. Mood and affect improved. No aggression noted. No suicidal or homicidal ideation. Laboratory Data: Reviewed. Impression: Schizoaffective disorder bipolar type mixed with psychotic feature s. Anxiety disorder unspecified. Impulse control disorder unspecified. Mild cognitive impairment. Plan: We will adjust psychotropics as clinically indicated. Assessment: Vital Signs/I&O: Vital Signs Date Time Temp Pulse Resp B/P (MAP) Pulse Ox O2 Delivery O2 Flow Rate FiO2 12/01/20 09:11 16 97 Room Air 12/01/20 05:16 97.7 64 97/70 (79) I & O 12/01/20 12/01/20 12/02/20 15:00 23:00 07:00 Intake Total 450 ml Balance 450 ml Current Medications: Meds: Current Medications Medications (Trade) Dose Ordered Sig/Guillermo Route PRN Reason Start Time Stop Time Status Last Admin Dose Admin Acetaminophen (Tylenol) 650 mg PRN Q6HRS PRN PO MILD PAIN / TEMP > 100.3'F 10/31/20 16:15 12/01/20 12:14 DC 11/28/20 17:46 Multi-Ingredient Ointment (Analgesic [place]) 1 ambrocio PRN QID PRN TP MUSCLE PAIN 10/31/20 16:15 12/01/20 12:14 DC Al Hydroxide/Mg Hydroxide (Mylanta Plus Xs) 15 ml PRN AFTMEALHC PRN PO DYSPEPSIA 10/31/20 16:15 12/01/20 12:14 DC Magnesium Hydroxide (Milk Of Magnesia) 2,400 mg PRN QHS PRN PO CONSTIPATION 10/31/20 16:15 12/01/20 12:14 DC Aspirin (Aspirin Chewable) 81 mg DAILY PO 11/01/20 09:00 12/01/20 12:14 DC 12/01/20 09:10 Dexamethasone (Decadron) 4 mg BID PO 10/31/20 21:00 12/01/20 12:14 DC 12/01/20 09:11 Divalproex Sodium (Depakote) 250 mg QID PO 10/31/20 17:00 11/02/20 15:56 DC 11/02/20 14:10 Donepezil HCl (Aricept) 5 mg QHS PO 10/31/20 21:00 11/17/20 12:40 DC 11/16/20 19:59 Gabapentin (Neurontin) 200 mg TID PO 10/31/20 21:00 12/01/20 12:14 DC 12/01/20 09:11 Mirtazapine (Remeron) 7.5 mg QHS PO 10/31/20 21:00 11/04/20 18:40 DC 11/03/20 20:42 Morphine Sulfate (Ms Contin) 15 mg BID PO 10/31/20 21:00 12/01/20 12:14 DC 12/01/20 09:11 Phenytoin Sodium (Dilantin) 200 mg BID PO 10/31/20 21:00 12/01/20 12:14 DC 12/01/20 09:09 Sertraline HCl (Zoloft) 25 mg DAILY PO 11/01/20 09:00 11/01/20 17:15 DC 11/01/20 09:55 Venlafaxine HCl (Effexor Xr) 75 mg DAILY PO 11/01/20 09:00 12/01/20 12:14 DC 12/01/20 09:11 Morphine Sulfate (Ms Contin) 30 mg BID PO 10/31/20 21:00 12/01/20 12:14 DC 12/01/20 09:10 Nicotine (Nicoderm Cq 14mg Patch) 1 patch DAILY TD 10/31/20 17:30 11/03/20 22:25 DC 11/03/20 08:17 Olanzapine (ZyPREXA ZYDIS) 2.5 mg PRN Q2HR PRN PO PSYCHOSIS 10/31/20 18:30 12/01/20 12:14 DC Sertraline HCl (Zoloft) 50 mg DAILY PO 11/02/20 09:00 11/02/20 15:56 DC 11/02/20 08:27 Hydroxyzine Pamoate (Vistaril) 25 mg TID PO 11/01/20 21:00 11/11/20 16:27 DC 11/11/20 12:20 Divalproex Sodium (Depakote) 375 mg QID PO 11/02/20 17:00 11/06/20 17:27 DC 11/06/20 17:09 Nicotine (Nicoderm Cq 21mg Patch) 1 patch DAILY TD 11/04/20 09:00 11/26/20 18:32 DC 11/26/20 08:33 Mirtazapine (Remeron) 15 mg QHS PO 11/04/20 21:00 12/01/20 12:14 DC 11/30/20 19:58 Trazodone HCl (Desyrel) 50 mg PRN QHS PRN PO INSOMNIA, MAY REPEAT X1 11/04/20 18:45 11/11/20 18:01 DC 11/08/20 20:22 Divalproex Sodium (Depakote) 500 mg QID PO 11/06/20 21:00 11/09/20 18:54 DC 11/09/20 17:07 Nicotine Polacrilex (Nicorette Gum) 2 mg PRN Q1HR PRN BC SMOKING CESSATION 11/07/20 17:00 12/01/20 12:14 DC 11/16/20 13:11 Divalproex Sodium (Depakote) 500 mg 1300,1700 PO 11/10/20 13:00 11/13/20 16:42 DC 11/13/20 12:21 Divalproex Sodium (Depakote) 750 mg BID PO 11/09/20 21:00 11/13/20 16:42 DC 11/13/20 08:23 Hydroxyzine Pamoate (Vistaril) 50 mg TID PO 11/11/20 21:00 12/01/20 12:14 DC 12/01/20 09:10 Trazodone HCl (Desyrel) 50 mg HS PO 11/11/20 21:00 12/01/20 12:14 DC 11/30/20 19:57 Trazodone HCl (Desyrel) 50 mg PRN QHS PRN PO INSOMNIA 11/11/20 18:00 12/01/20 12:14 DC 11/28/20 01:43 Valproic Acid (Depakene) 750 mg BID PO 11/13/20 21:00 11/17/20 12:40 DC 11/17/20 08:19 Valproic Acid (Depakene) 500 mg BID@1300,1700 PO 11/13/20 17:00 11/17/20 12:40 DC 11/16/20 17:36 Valproic Acid (Depakene) 750 mg BID@1300,1700 PO 11/17/20 13:00 12/01/20 12:14 DC 11/30/20 17:20 Valproic Acid (Depakene) 1,000 mg BID PO 11/17/20 21:00 12/01/20 12:14 DC 12/01/20 09:12 Nicotine (Nicoderm Cq 14mg Patch) 1 patch DAILY TD 11/27/20 09:00 12/01/20 12:14 DC 12/01/20 09:09 I have reviewed the current psychotropics carefully including drug interactions. Risk benefit ratio favors no change other than as noted in my dictated progress note. Diagnosis: Problems: (1) Schizoaffective disorder, bipolar type (2) Impulse control disorder, unspecified (3) Anxiety disorder, unspecified (4) Bipolar disorder, current episode mixed, severe, with psychotic features (5) Mild cognitive impairment VIANNEY HAWLEY MD Dec 02, 2020 06:35
--- NOTE | 2020-12-02 06:39 | PDOC ---
Exam Note: Adams Note: Late entry for discharge on 12/01/2020. Please also refer to the separate dictated note~for this date of service dictated separately.~Patient seen individually. Discussed the patient with Nursing staff reviewed the chart.~Reviewed interim history and current functioning. Reviewed vital signs,~Labs/ Radiology~and current medications noted below. Continue current treatment with the changes noted in the dictated addendum note Assessment: Vital Signs/I&O: Vital Signs Date Time Temp Pulse Resp B/P (MAP) Pulse Ox O2 Delivery O2 Flow Rate FiO2 12/01/20 09:11 16 97 Room Air 12/01/20 05:16 97.7 64 97/70 (79) I & O 12/01/20 12/01/20 12/02/20 15:00 23:00 07:00 Intake Total 450 ml Balance 450 ml Current Medications: Meds: Current Medications Medications (Trade) Dose Ordered Sig/Guillermo Route PRN Reason Start Time Stop Time Status Last Admin Dose Admin Acetaminophen (Tylenol) 650 mg PRN Q6HRS PRN PO MILD PAIN / TEMP > 100.3'F 10/31/20 16:15 12/01/20 12:14 DC 11/28/20 17:46 Multi-Ingredient Ointment (Analgesic [place]) 1 ambrocio PRN QID PRN TP MUSCLE PAIN 10/31/20 16:15 12/01/20 12:14 DC Al Hydroxide/Mg Hydroxide (Mylanta Plus Xs) 15 ml PRN AFTMEALHC PRN PO DYSPEPSIA 10/31/20 16:15 12/01/20 12:14 DC Magnesium Hydroxide (Milk Of Magnesia) 2,400 mg PRN QHS PRN PO CONSTIPATION 10/31/20 16:15 12/01/20 12:14 DC Aspirin (Aspirin Chewable) 81 mg DAILY PO 11/01/20 09:00 12/01/20 12:14 DC 12/01/20 09:10 Dexamethasone (Decadron) 4 mg BID PO 10/31/20 21:00 12/01/20 12:14 DC 12/01/20 09:11 Divalproex Sodium (Depakote) 250 mg QID PO 10/31/20 17:00 11/02/20 15:56 DC 11/02/20 14:10 Donepezil HCl (Aricept) 5 mg QHS PO 10/31/20 21:00 11/17/20 12:40 DC 11/16/20 19:59 Gabapentin (Neurontin) 200 mg TID PO 10/31/20 21:00 12/01/20 12:14 DC 12/01/20 09:11 Mirtazapine (Remeron) 7.5 mg QHS PO 10/31/20 21:00 11/04/20 18:40 DC 11/03/20 20:42 Morphine Sulfate (Ms Contin) 15 mg BID PO 10/31/20 21:00 12/01/20 12:14 DC 12/01/20 09:11 Phenytoin Sodium (Dilantin) 200 mg BID PO 10/31/20 21:00 12/01/20 12:14 DC 12/01/20 09:09 Sertraline HCl (Zoloft) 25 mg DAILY PO 11/01/20 09:00 11/01/20 17:15 DC 11/01/20 09:55 Venlafaxine HCl (Effexor Xr) 75 mg DAILY PO 11/01/20 09:00 12/01/20 12:14 DC 12/01/20 09:11 Morphine Sulfate (Ms Contin) 30 mg BID PO 10/31/20 21:00 12/01/20 12:14 DC 12/01/20 09:10 Nicotine (Nicoderm Cq 14mg Patch) 1 patch DAILY TD 10/31/20 17:30 11/03/20 22:25 DC 11/03/20 08:17 Olanzapine (ZyPREXA ZYDIS) 2.5 mg PRN Q2HR PRN PO PSYCHOSIS 10/31/20 18:30 12/01/20 12:14 DC Sertraline HCl (Zoloft) 50 mg DAILY PO 11/02/20 09:00 11/02/20 15:56 DC 11/02/20 08:27 Hydroxyzine Pamoate (Vistaril) 25 mg TID PO 11/01/20 21:00 11/11/20 16:27 DC 11/11/20 12:20 Divalproex Sodium (Depakote) 375 mg QID PO 11/02/20 17:00 11/06/20 17:27 DC 11/06/20 17:09 Nicotine (Nicoderm Cq 21mg Patch) 1 patch DAILY TD 11/04/20 09:00 11/26/20 18:32 DC 11/26/20 08:33 Mirtazapine (Remeron) 15 mg QHS PO 11/04/20 21:00 12/01/20 12:14 DC 11/30/20 19:58 Trazodone HCl (Desyrel) 50 mg PRN QHS PRN PO INSOMNIA, MAY REPEAT X1 11/04/20 18:45 11/11/20 18:01 DC 11/08/20 20:22 Divalproex Sodium (Depakote) 500 mg QID PO 11/06/20 21:00 11/09/20 18:54 DC 11/09/20 17:07 Nicotine Polacrilex (Nicorette Gum) 2 mg PRN Q1HR PRN BC SMOKING CESSATION 11/07/20 17:00 12/01/20 12:14 DC 11/16/20 13:11 Divalproex Sodium (Depakote) 500 mg 1300,1700 PO 11/10/20 13:00 11/13/20 16:42 DC 11/13/20 12:21 Divalproex Sodium (Depakote) 750 mg BID PO 11/09/20 21:00 11/13/20 16:42 DC 11/13/20 08:23 Hydroxyzine Pamoate (Vistaril) 50 mg TID PO 11/11/20 21:00 12/01/20 12:14 DC 12/01/20 09:10 Trazodone HCl (Desyrel) 50 mg HS PO 11/11/20 21:00 12/01/20 12:14 DC 11/30/20 19:57 Trazodone HCl (Desyrel) 50 mg PRN QHS PRN PO INSOMNIA 11/11/20 18:00 12/01/20 12:14 DC 11/28/20 01:43 Valproic Acid (Depakene) 750 mg BID PO 11/13/20 21:00 11/17/20 12:40 DC 11/17/20 08:19 Valproic Acid (Depakene) 500 mg BID@1300,1700 PO 11/13/20 17:00 11/17/20 12:40 DC 11/16/20 17:36 Valproic Acid (Depakene) 750 mg BID@1300,1700 PO 11/17/20 13:00 12/01/20 12:14 DC 11/30/20 17:20 Valproic Acid (Depakene) 1,000 mg BID PO 11/17/20 21:00 12/01/20 12:14 DC 12/01/20 09:12 Nicotine (Nicoderm Cq 14mg Patch) 1 patch DAILY TD 11/27/20 09:00 12/01/20 12:14 DC 12/01/20 09:09 I have reviewed the current psychotropics carefully including drug interactions. Risk benefit ratio favors no change other than as noted in my dictated progress note. Diagnosis: Problems: (1) Schizoaffective disorder, bipolar type (2) Impulse control disorder, unspecified (3) Anxiety disorder, unspecified (4) Bipolar disorder, current episode mixed, severe, with psychotic features (5) Mild cognitive impairment VIANNEY HAWLEY MD Dec 02, 2020 06:39
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
== END 2020-12-01 12:13 | DRG 885 ==
LOC: ER 13:26 → GEROPSY 16:00
PROVIDERS: ADMIT Psychiatry & Neurology Psychiatry; ATTEND Psychiatry & Neurology Psychiatry
DX: F25.0 Schizoaffective disorder, bipolar type (principal); G40.909 Epilepsy, unspecified, not intractable, without status epilepticus; F03.90 Unspecified dementia, unspecified severity, without behavioral disturbance, psychotic disturbance, mood disturbance, and anxiety; F10.20 Alcohol dependence, uncomplicated; F41.9 Anxiety disorder, unspecified; K21.9 Gastro-esophageal reflux disease without esophagitis; I25.10 Atherosclerotic heart disease of native coronary artery without angina pectoris; Z66 Do not resuscitate; Z51.5 Encounter for palliative care; F63.9 Impulse disorder, unspecified; F17.200 Nicotine dependence, unspecified, uncomplicated; G89.4 Chronic pain syndrome; Z20.822 Contact with and (suspected) exposure to COVID-19; Z88.8 Allergy status to other drugs, medicaments and biological substances; Z91.19 Patient's noncompliance with other medical treatment and regimen; Z85.818 Personal history of malignant neoplasm of other sites of lip, oral cavity, and pharynx
CPT/HCPCS: 36415; 71045; 80053; 80061; 80164; 80185; 81001; 82140; 82306; 82607; 83036; 83540; 83550; 83605; 83735; 84436; 84443; 84480; 85007; 85025; 85379; 86592; 87040; 93005; 99407; J8540; Q0177; U0003; U0005; 99285-25